=== PATIENT | male | born 1955 | race Caucasian/White ===

== ENCOUNTER 2021-12-17 09:32 | Outpatient (CLI) | payer BC, SELFPAY ==
[2021-12-17 09:43] LABS: Hematocrit 53.1 % (37.0-53.0); Hemoglobin* 17.2 gm/dL (13.5-17.5); Mean Corpuscular HGB Conc 32 gm/dL (32-36); Mean Corpuscular Hemoglobin 28 pg (26-34); Mean Corpuscular Volume 87 fL (80-100); Platelet Count* 212 K/uL (140-440); Red Blood Count 6.09 m/uL (4.30-5.90); White Blood Count* 7.23 K/uL (4.50-11.00)
[2021-12-17 09:46] LABS: Appearance Urine Clear (Clear); Bilirubin Urine Negative (Negative); Blood Urine Negative (Negative); Color Urine Yellow (Yellow); Glucose Urine Negative (Negative); Ketones Urine Negative (Negative); Leukocyte Esterase Urine Negative (Negative); Nitrite Urine Negative (Negative); Protein Urine Negative (Negative); Urobilinogen Urine 0.2 (0.2-1.0); pH Urine 6.5 (5.0-8.5)
[2021-12-17 09:48] LABS: Slide Review Reflex No
[2021-12-17 13:50] LABS: Albumin* 3.7 g/dL (3.3-5.0); Chloride* 106 mmol/L (96-114); Potassium* 4.8 mmol/L (3.6-5.1); Sodium* 139 mmol/L (135-149)
[2021-12-17 13:53] LABS: Blood Urea Nitrogen* 16 mg/dL (7-30); Carbon Dioxide* 26 mmol/L (20-32); Cholesterol* 151 mg/dL (90-199); Creatinine* 1.2 mg/dL (0.5-1.5); Estimated Glomerular Filt Rate 68 ml/min; Glucose* 111 mg/dL (60-115)
[2021-12-17 13:54] LABS: HDL Cholesterol* 34 mg/dL (>=40); LDL Cholesterol Calculated 91 mg/dL (<100); Phosphorus* 3.1 mg/dL (2.5-4.5); Triglycerides* 132 mg/dL (40-149); Uric Acid* 7.5 mg/dL (2.2-8.4)
[2021-12-17 14:06] LABS: Iron* 70 ug/dL (49-181)
[2021-12-17 14:16] LABS: Percent Iron Saturation 19 % (20-50); Total Iron Binding Capacity 363 ug/dL (261-462)
[2021-12-17 14:24] LABS: PSA Screen* 1.64 ng/mL (0.10-4.00)
[2021-12-17 16:14] LABS: Creatinine Urine 160.4 mg/dL
[2021-12-17 16:18] LABS: Microalbumin Creatinine Ratio 30 mg/g (0-30); Microalbumin Urine 5 mg/dL
== END 2021-12-17 09:33 | disposition home or self-care (01) ==
PROVIDERS: PCP Family Medicine; Visit Provider Internal Medicine Nephrology
DX: N02.8 Recurrent and persistent hematuria with other morphologic changes (principal); N18.9 Chronic kidney disease, unspecified
CPT/HCPCS: 80061; 80069; 81003; 82043; 82570; 82728; 83540; 83550; 84153; 84550; 85027

== ENCOUNTER 2022-06-07 08:37 | Emergency (ER) | payer BC, SELFPAY ==
[2022-06-07] VITALS (32 sets, daily range): BP systolic 143–182; BP diastolic 99–113; PULSE 90–114; RESP 16; TEMP 37.1; O2SAT 91–95; BMI 32.3
--- NOTE | 2022-06-07 09:14 | ED_ITS ---
HPI - General Adult General Time Seen by Provider: 09:14 Date Seen: 06/07/22 Chief complaint: Dizziness/Vertigo Stated complaint: Dizzy Time Seen by Provider: 06/07/22 09:13 Source: patient and RN notes reviewed Mode of arrival: ambulatory Limitations: no limitations History of Present Illness HPI narrative: Nash is a 66-year-old male coming in with episodes that concern him with a lightheaded or dizzy feeling and some visual changes. He admits that he is very anxious and is very in tune to symptoms with his body. He has IgA nephropathy and underlying hypertension. 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 He did have neck radiation and states his thyroid has been a bit off after the radiation. He last had his thyroid checked about 6 months ago at [facility]. He states 1 of the numbers was around 10, presumably this was his TSH. He notes that the 1st spell was about a month ago when he was at his 's business. He states he just felt lightheaded and almost like he was going to pass out. He checked his pulse in his pulse was normal. He notes his blood pressure usually runs high the 1st time he checks it and will then come down to 120/80. Before Dr. Schwartz left clinic, he states he was put on amlodipine 5 mg daily. Does not really notice much lower extremity edema with this. He recently took a half Viagra tablet in noted that made him feel lightheaded and maybe had a little vision changes. He states he has had or off for years which will be wavy lines. He had a spell recently where he was driving and was not necessarily the aura, his vision was just off. He is concerned about underlying stroke. He has never had any chest pain or shortness of breath with this. He states he has had stress tests, appropriate oncologic follow-up. Related Data Home Medications Medication Instructions Recorded Confirmed allopurinol 100 mg tablet 100 mg PO QDAY 12/07/21 06/07/22 amlodipine 5 mg tablet 5 mg PO QDAY 12/07/21 06/07/22 famotidine 20 mg tablet 20 mg PO BID 12/07/21 06/07/22 mometasone 50 mcg/actuation nasal 2 spray intranasal QDAY PRN 12/07/21 06/07/22 spray omega 6-ufp-sql-fish oil 1,000 mg 1 cap PO QDAY 12/07/21 06/07/22 (120 mg-180 mg) capsule (Fish Oil) sildenafil 100 mg tablet 100 mg PO QDAY PRN 12/07/21 06/07/22 simvastatin 10 mg tablet 10 mg PO .hs 12/07/21 06/07/22 lisinopril 20 mg tablet 20 mg PO QDAY 12/21/21 06/07/22 Allergies Allergy/AdvReac Type Severity Reaction Status Date / Time Penicillin v Allergy Intermediate Rash Uncoded 02/15/22 14:36 Sulfa drugs Allergy Mild Rash Uncoded 02/15/22 14:36 Review of Systems Status of ROS: Reports: 10 or more systems reviewed and unremarkable except as noted in History and below [facility] Medical History (Updated 06/07/22 @ 14:26 by Purvi Campbell MD) Concern about disease without diagnosis Helicobacter pylori infection (09/15/09) History of echocardiography (03/2016) Surgical History (Updated 12/09/21 @ 11:41 by Dhara Butler) History of tonsillectomy Family History (Updated 12/09/21 @ 11:44 by Dhara Butler) Brother Brain cancer Brother Cardiovascular disease Mother Cardiovascular disease Social History (Updated 12/09/21 @ 11:44 by Dhara Butler) Narrative: Smoking Status: Never smoker Do you use any of these nicotine containing products: None Second hand tobacco smoke exposure: No How often do you have a drink containing alcohol: never AUDIT-C Alcohol total score: 0 Non-prescribed substance use: denies use service: No Exam Const: Vital Signs, click to edit/add: Vital Signs - 24 hr 06/07/22 08:49 06/07/22 08:47 06/07/22 08:48 Temperature 98.7 F Pulse Rate 114 H 113 H Pulse Rate [Pulse Oximeter] 108 H Respiratory Rate Blood Pressure 182/111 H Blood Pressure [Le ft Upper Arm] 182/111 H Pulse Oximetry 95 95 95 Oxygen Delivery Or thod Room Air 06/07/22 08:53 06/07/22 09:00 06/07/22 09:02 Temperature Pulse Rate 109 H 104 H 104 H Pulse Rate [Pulse Oximeter] Respiratory Rate Blood Pressure 164/102 H 167/99 H Blood Pressure [Le ft Upper Arm] Pulse Oximetry 95 95 95 Oxygen Delivery Me thod 06/07/22 09:15 06/07/22 09:54 06/07/22 09:30 Temperature Pulse Rate 104 H 110 H Pulse Rate [Pulse Oximeter] Respiratory Rate Blood Pressure Blood Pressure [Le ft Upper Arm] Pulse Oximetry 95 95 94 Oxygen Delivery Me thod 06/07/22 09:32 06/07/22 09:45 06/07/22 10:00 Temperature Pulse Rate 101 H 103 H Pulse Rate [Pulse Oximeter] Respiratory Rate Blood Pressure 168/103 H Blood Pressure [Le ft Upper Arm] Pulse Oximetry 92 92 Oxygen Delivery Me thod 06/07/22 10:15 06/07/22 10:30 06/07/22 10:31 Temperature Pulse Rate 90 90 102 H Pulse Rate [Pulse Oximeter] Respiratory Rate Blood Pressure 152/100 H Blood Pressure [Le ft Upper Arm] Pulse Oximetry 94 94 93 Oxygen Delivery Me thod 06/07/22 10:45 06/07/22 11:00 06/07/22 11:02 Temperature Pulse Rate 91 106 H 94 Pulse Rate [Pulse Oximeter] Respiratory Rate Blood Pressure 154/99 H Blood Pressure [Le ft Upper Arm] Pulse Oximetry 93 92 92 Oxygen Delivery Me thod 06/07/22 11:03 06/07/22 12:04 06/07/22 12:06 Temperature Pulse Rate 96 95 98 Pulse Rate [Pulse Oximeter] Respiratory Rate Blood Pressure 152/113 H Blood Pressure [Le ft Upper Arm] Pulse Oximetry 91 93 92 Oxygen Delivery Me thod 06/07/22 12:15 06/07/22 12:30 06/07/22 12:32 Temperature Pulse Rate 94 106 H 97 Pulse Rate [Pulse Oximeter] Respiratory Rate Blood Pressure 161/104 H Blood Pressure [Le ft Upper Arm] Pulse Oximetry 92 92 94 Oxygen Delivery Me thod 06/07/22 12:45 06/07/22 13:00 06/07/22 13:02 Temperature Pulse Rate 106 H 97 94 Pulse Rate [Pulse Oximeter] Respiratory Rate Blood Pressure 164/100 H Blood Pressure [Le ft Upper Arm] Pulse Oximetry 92 93 93 Oxygen Delivery Me thod 06/07/22 13:15 06/07/22 13:20 06/07/22 13:30 Temperature Pulse Rate 106 H 98 93 Pulse Rate [Pulse Oximeter] Respiratory Rate Blood Pressure 143/108 H Blood Pressure [Le ft Upper Arm] Pulse Oximetry 91 94 93 Oxygen Delivery Me thod 06/07/22 13:31 06/07/22 13:45 Temperature Pulse Rate 96 102 H Pulse Rate [Pulse Oximeter] Respiratory Rate 16 Blood Pressure 143/106 H Blood Pressure [Le ft Upper Arm] Pulse Oximetry 92 91 Oxygen Delivery Me thod Common normals: no apparent distress, average body habitus, oriented x3, no limitations, healthy appearing and alert General appearance: cooperative, comfortable, well kempt and well developed Orientation/consciousness: Yes awake Other: Is certainly a very pleasant patient but does strike me as mildly anxious. HENMT: Common normals: normocephalic, head/scalp atraumatic, hearing grossly normal bilaterally, external ears normal, EAC's normal, TM's normal bilaterally (Does have some wax layering in the canals but can see to the TMs), external nose normal, nasal mucous membranes and turbinates normal, moist oral mucous membranes, oropharynx normal, dentition normal and gingiva normal Head and scalp: normocephalic and atraumatic Nose: external nose normal and nasal mucous membranes and turbinates normal External ear: external ears normal External auditory canal: EAC's normal Tympanic membrane: TM's normal bilaterally (Does have some wax layering in the canals but can see to the TMs) Eye: Common normals: PERRL, EOMs intact bilaterally, conjunctivae normal and no scleral icterus Conjunctiva: conjunctiva(e) normal Pupil: PERRL Neck & C-Spine: Common normals: full ROM, no lymphadenopathy, supple, no meningeal signs, no JVD and thyroid normal Thyroid: thyroid normal Resp: Common normals: normal respiratory effort, no retractions, no use of accessory muscles and clear to auscultation bilaterally Auscultation: clear to auscultation bilaterally Cardio: Common normals: no JVD, regular rate, regular rhythm, S1 normal heart sound, S2 normal heart sound, no gallops, no clicks and no murmurs Rate: regular rate Rhythm: regular rhythm Heart sounds: S1 normal and S2 normal GI: Common normals: Normal to inspection, nondistended, normoactive bowel sounds present, soft to palpation, non-tender, no hepatosplenomegaly and no masses Palpation: soft and no hepatosplenomegaly Extremity: Other: Very slight indentation of his sock lines but really no pitting edema of his lower extremities. Neuro: Common normals: oriented x3, CN's II-XII intact bilaterally, moves all extremities, no focal motor deficits, no sensory deficits noted and gait normal Sensorium/orientation: awake and alert Meningeal signs: no meningeal signs Coordination/balance: [id number] test normal and Normal rapid alternating movements of the distal upper extremity present (Neuro) Speech: speech normal Motor exam: strength 5/5 throughout, no pronator drift, no tremor noted, no asterixis, no fasciculations, muscle tone normal throughout and no movement abnormalities noted Coordination: [id number] test normal and rapid alternating movement UE normal Psych: Appearance: well kempt Course Course Hospital Course: Given patient's brief symptomatology but his significant underlying history, will proceed with an MRI of his brain noncontrast. If he has any underlying pathology, may need further workup or possibly neurologic consultation which I would have to call for. We will get appropriate labs. He is mildly tachycardic but do believe that could be driven by his anxiety. This does not seem like it is arrhythmia generated but still need to keep that in consideration. He is hemodynamically stable. Will review with him that the MRI will not happen until around 11:00 a.m. this morning. If there is changes in his status can obviously do a CT CTA if we become concerned. I think an MRI is going to be more diagnostic in his situation and give us better information. Reevaluation(s) Reevaluation #1: Reviewed with patient the MRI findings, possibility of changes with out contrast suggesting or unable to rule out of sinus venous thrombosis. Images have been pushed through to [facility], will await Neurology to look at these and consult on this. Reviewed with patient that I do not think that this is the likely diagnosis for him, he has been having no headaches. I think that this is probably incidental but I cannot do a CT venogram here and do not believe that I can do any venous MRI imaging for this at this time. He and I reviewed that his TSH is at 7.46, he believes this to be down from where was. We are still waiting the free T4 level. Reviewed with him if the free T4 level is in the normal range, would not likely recommend any immediate treatment. He states [facility] told him the same thing. The RN Nikia called back at 1:[address] Canas the stroke neurologist that was on-call requested that we contact whom we would refer or consult with for patients. Reviewed with the nurse that it is wherever really are referring to. We do not have Neurology here. She is going to try to call the neurologist back and see if he will briefly speak with me. Time: 13:13 Reevaluation #2: Have not been able to get through to Dr. Hernandez. We do not have a way to get this patient a CT venogram. I did speak with the neurologist from [facility] and he said ultimately to completely rule this out he would do a CT venogram. He in formally consult it, was quite clear that he was not formally consulting. He did understand my dilemma and understood my rationale for wanting to do this outpatient. I do not have the ability to do CT venogram here nor has this patient had any headaches. He has had 3 self-limited episodes that have all been a bit different, 1 associated with Viagra. I do not think he is having stroke pathology nor do I think his symptoms are financial services sales representative of a sinus venous thrombosis. He could have this incidentally and asymptomatically but would still require potential anticoagulation if that were the case. I do think this does warrant having the test done but at this time can be done in an outpatient setting in a close time frame. Patient is in agreement. He also understands that his free T4 is within normal range. Time: 14:26 Consultations Consultation #1: Called [facility], MRI pushed to them, they will call me back with neurology once images have been reviewed. Time: 13:02 Vital Signs Vital signs: Initial Vital Signs Pulse Rate 114 H 06/07/22 08:47 Pulse Oximetry 95 06/07/22 08:47 Vital Signs Pulse Rate 114 H 06/07/22 08:47 Pulse Oximetry 95 06/07/22 08:47 Temperature 98.7 F 06/07/22 08:49 Pulse Rate 102 H 06/07/22 13:45 Respiratory Rate 16 06/07/22 13:31 Blood Pressure 143/106 H 06/07/22 13:31 Pulse Oximetry 91 06/07/22 13:45 Oxygen Delivery Method 06/07/22 08:49 Medical Decision Making Lab Data Labs: Lab Results 06/07/22 06/07/22 06/07/22 Range/Units 09:48 09:48 09:48 WBC 8.57 (4.50-11.00) K/uL RBC 6.51 H (4.30-5.90) m/uL Hgb 18.4 H (13.5-17.5) gm/dL Hct 55.5 H (37.0-53.0) % MCV 85 (80-100) fL MCH 28 (26-34) pg MCHC 33 (32-36) gm/dL RDW Coeff of Sadia 13.7 (11.5-15.5) % Plt Count 218 (140-440) K/uL Neut % (Auto) 83.8 H (42.0-72.0) % Lymph % (Auto) 9.6 L (20-44) % [place] % (Auto) 5.4 (0.0-11.0) % Eos % (Auto) 0.8 (0.0-7.0) % Baso % (Auto) 0.2 (0.0-3.0) % Neut # (Auto) 7.20 H (1.7-7.0) K/uL Lymph # (Auto) 0.80 L (0.90-2.90) K/uL [place] # (Auto) 0.50 (0.00-0.90) K/UL Eos # (Auto) 0.07 (0.00-0.50) K/uL Baso # (Auto) 0.02 (0.00-0.30) K/uL Sodium 140 (135-149) mmol/L Potassium 4.2 (3.6-5.1) mmol/L Chloride 108 (96-114) mmol/L Carbon Dioxide 23 (20-32) mmol/L BUN 15 (7-30) mg/dL Creatinine 1.1 (0.5-1.5) mg/dL Estimated Creat Clear 76.67 Estimated GFR 75 ml/min Glucose 146 H (60-115) mg/dL Calcium 8.9 (8.4-10.6) mg/dL Magnesium 2.0 (1.5-2.6) mg/dL Total Bilirubin 0.6 (0.1-1.5) mg/dL AST 24 (12-35) U/L ALT 24 (4-50) U/L Alkaline Phosphatase 87 (40-150) U/L Troponin I < 0.01 L (0.01-0.04) ng/mL NT-Pro-B Natriuret Pep 34 pg/mL Total Protein 7.4 (6.0-8.3) g/dL Albumin 3.9 (3.3-5.0) g/dL TSH (0.270-4.200) uIU/mL Free T4 (0.70-1.85) ng/dL 06/07/22 06/07/22 Range/Units 09:48 09:48 WBC (4.50-11.00) K/uL RBC (4.30-5.90) m/uL Hgb (13.5-17.5) gm/dL Hct (37.0-53.0) % MCV (80-100) fL MCH (26-34) pg MCHC (32-36) gm/dL RDW Coeff of Sadia (11.5-15.5) % Plt Count (140-440) K/uL Neut % (Auto) (42.0-72.0) % Lymph % (Auto) (20-44) % [place] % (Auto) (0.0-11.0) % Eos % (Auto) (0.0-7.0) % Baso % (Auto) (0.0-3.0) % Neut # (Auto) (1.7-7.0) K/uL Lymph # (Auto) (0.90-2.90) K/uL [place] # (Auto) (0.00-0.90) K/UL Eos # (Auto) (0.00-0.50) K/uL Baso # (Auto) (0.00-0.30) K/uL Sodium (135-149) mmol/L Potassium (3.6-5.1) mmol/L Chloride (96-114) mmol/L Carbon Dioxide (20-32) mmol/L BUN (7-30) mg/dL Creatinine (0.5-1.5) mg/dL Estimated Creat Clear Estimated GFR ml/min Glucose (60-115) mg/dL Calcium (8.4-10.6) mg/dL Magnesium (1.5-2.6) mg/dL Total Bilirubin (0.1-1.5) mg/dL AST (12-35) U/L ALT (4-50) U/L Alkaline Phosphatase (40-150) U/L Troponin I (0.01-0.04) ng/mL NT-Pro-B Natriuret Pep pg/mL Total Protein (6.0-8.3) g/dL Albumin (3.3-5.0) g/dL TSH 7.460 H (0.270-4.200) uIU/mL Free T4 0.78 (0.70-1.85) ng/dL ECG Data Attestation: I personally reviewed and interpreted this ECG as follows: (Sinus tachycardia, 108 beats per minute, PVC seen. Flipped T-waves inferiorly with out significant ST segment changes.) Critical Care Time Critical Care Time Critical Care Time: No Discharge Plan Discharge Clinical Impression: Episodic lightheadedness, Visual changes Patient Disposition: Home, Self-Care Condition: Stable Instructions: Lightheadedness (ED), Blurred Vision (ED) Additional Instructions: Need to follow-up at [facility] as soon as you are able to, preferably within the next few days. Please call to make an appointment. I would request that they make a referral to get you scheduled for a CT venogram to completely rule out a sinus venous thrombosis. In the meantime, if you start developing headaches, have blurry vision or progressive visual changes, do need to be re-evaluated. As for your blood pressure, recommend getting scheduled for follow-up with Dr. Hernandez your obstetrics nurse. Activity Level: Activity as Tolerated Prescriptions: No Action allopurinol 100 mg tablet 100 mg PO QDAY amlodipine 5 mg tablet 5 mg PO QDAY sildenafil 100 mg tablet 100 mg PO QDAY PRN Rx Instructions: administer 30 minutes to 4 hours before activity famotidine 20 mg tablet 20 mg PO BID simvastatin 10 mg tablet 10 mg PO .hs mometasone 50 mcg/actuation spray,non-aerosol 2 spray intranasal QDAY PRN Rx Instructions: administer into each nostril omega 8-eag-fam-fish oil [Fish Oil] 1,000 mg (120 mg-180 mg) capsule 1 cap PO QDAY lisinopril 20 mg tablet 20 mg PO QDAY Follow Up/Referrals: Provider,Not a Local [Referring] - Stand Alone Forms: MyHealth Info Instructions
--- NOTE | 2022-06-07 09:32 | CRLHL7_ITS ---
For Patients: As a result of the Century Cures Act, medical imaging exams and procedure reports are released immediately into your electronic medical record. You may view this report before your referring provider. If you have questions, please contact your health care provider. INDICATION: Dizziness. TECHNIQUE: Brain MRI without contrast. The following sequences were obtained: Sagittal T1 weighted sequence. DWI and ADC mapping sequences. Axial FLAIR and FARHAD T2 weighted sequences. COMPARISON: None. FINDINGS: No evidence of acute ischemia. No evidence of acute or chronic intracranial blood products. Few scattered FLAIR hyperintensities within the supratentorial white matter, typical for chronic microvascular ischemic change. No mass effect or herniation. No hydrocephalus or extra-axial collections. The pituitary gland, parasellar structures and optic chiasm are normal. Posterior fossa is normal. Abnormal T1/T2/FLAIR hyperintensity within the left transverse sinus. Major intracranial flow voids also were normal. The orbital contents are normal. No calvarial or skull base marrow replacing process. No obstructive sinus disease. No extracranial soft tissue findings. IMPRESSION: 1. No acute ischemia or other acute intracranial pathology. 2. Abnormal signal within the left transverse sinus on all pulse sequences, which could be due to slow flow of the dural venous sinus thrombosis is not excluded. Consider contrast enhanced MR venogram or CT venogram for more complete assessment. 3. Minimal chronic microvascular ischemic changes. Dictated by Colin Sánchez MD @ 06/07/2022 12:41:56 PM (Electronically Signed)
[2022-06-07 10:01] LABS: Basophils Absolute Auto 0.02 K/uL (0.00-0.30); Basophils Percent Auto 0.2 % (0.0-3.0); Eosinophils Absolute Auto 0.07 K/uL (0.00-0.50); Eosinophils Percent Auto 0.8 % (0.0-7.0); Hematocrit 55.5 % (37.0-53.0); Hemoglobin* 18.4 gm/dL (13.5-17.5); Immature Granulocytes Abs Auto 0.02 K/uL (0.00-0.30); Immature Granulocytes Pct Auto 0.2 %; Lymphocytes Percent Auto 9.6 % (20-44); Mean Corpuscular HGB Conc 33 gm/dL (32-36); Mean Corpuscular Hemoglobin 28 pg (26-34); Mean Corpuscular Volume 85 fL (80-100); Monocytes Percent Auto 5.4 % (0.0-11.0); Neutrophils Percent Auto 83.8 % (42.0-72.0); Platelet Count* 218 K/uL (140-440); RDW Coefficient of Variation % 13.7 % (11.5-15.5); Red Blood Count 6.51 m/uL (4.30-5.90); White Blood Count* 8.57 K/uL (4.50-11.00)
[2022-06-07 10:11] LABS: Slide Review Reflex No
[2022-06-07 10:30] LABS: Albumin* 3.9 g/dL (3.3-5.0)
[2022-06-07 10:31] LABS: Chloride* 108 mmol/L (96-114); Potassium* 4.2 mmol/L (3.6-5.1); Sodium* 140 mmol/L (135-149)
[2022-06-07 10:33] LABS: Aspartate Amino Transferase* 24 U/L (12-35); Bilirubin Total* 0.6 mg/dL (0.1-1.5); Carbon Dioxide* 23 mmol/L (20-32); Creatinine* 1.1 mg/dL (0.5-1.5); Est. Creatinine Clearance* 76.67; Estimated Glomerular Filt Rate 75 ml/min
[2022-06-07 10:34] LABS: Alanine Aminotransferase* 24 U/L (4-50); Alkaline Phosphatase* 87 U/L (40-150); Blood Urea Nitrogen* 15 mg/dL (7-30); Calcium* 8.9 mg/dL (8.4-10.6); Glucose* 146 mg/dL (60-115); Total Protein* 7.4 g/dL (6.0-8.3)
[2022-06-07 10:41] LABS: NT Pro B Type NatriureticPept* 34 pg/mL
[2022-06-07 10:45] LABS: Troponin I* < 0.01 ng/mL (0.01-0.04)
--- NOTE | 2022-06-07 12:00 | PC.NURSE ---
Back from MRI.
[2022-06-07 13:30] LABS: Free T4 Free Thyroxine* 0.78 ng/dL (0.70-1.85)
--- NOTE | 2022-06-07 14:00 | PC.NURSE ---
okay to remove monitor and move to hallway due to bed space-
--- NOTE | 2022-06-07 14:38 | ED.NURSE ---
Patient discharged. All questions answered. left via ambulatory.
== END 2022-06-07 14:40 | disposition home or self-care (01) ==
PROVIDERS: Emergency Provider Family Medicine; PCP Family Medicine
DX: R42 Dizziness and giddiness (principal); H53.9 Unspecified visual disturbance
CPT/HCPCS: 36415; 70551; 80053; 83735; 83880; 84439; 84443; 84484; 85025; 93005; 94761; 99284; 99285

== ENCOUNTER 2022-06-30 07:57 | Outpatient (CLI) | payer BC, SELFPAY ==
[2022-06-30 13:43] LABS: Chloride* 105 mmol/L (96-114); Sodium* 140 mmol/L (135-149)
[2022-06-30 13:44] LABS: Potassium* 4.1 mmol/L (3.6-5.1)
[2022-06-30 13:46] LABS: Creatinine* 1.3 mg/dL (0.5-1.5); Estimated Glomerular Filt Rate 61 ml/min
[2022-06-30 13:47] LABS: Blood Urea Nitrogen* 20 mg/dL (7-30); Calcium* 9.8 mg/dL (8.4-10.6); Carbon Dioxide* 26 mmol/L (20-32); Glucose* 125 mg/dL (60-115)
== END 2022-06-30 07:58 | disposition home or self-care (01) ==
LOC: FRMREF 07:58
PROVIDERS: PCP Family Medicine; Visit Provider Family Medicine
DX: I10 Essential (primary) hypertension (principal); Z01.810 Encounter for preprocedural cardiovascular examination
CPT/HCPCS: 80048

== ENCOUNTER 2022-08-01 08:58 | Outpatient (CLI) | payer MEDICARE, BC, SELFPAY | END 2022-08-01 08:59 | disposition home or self-care (01) | PROVIDERS: PCP Family Medicine; Visit Provider Family Medicine | DX: Z01.818 Encounter for other preprocedural examination (principal); E03.9 Hypothyroidism, unspecified; M10.9 Gout, unspecified; R53.83 Other fatigue; N18.9 Chronic kidney disease, unspecified; D75.1 Secondary polycythemia; C10.9 Malignant neoplasm of oropharynx, unspecified; Z13.21 Encounter for screening for nutritional disorder; R42 Dizziness and giddiness | CPT/HCPCS: 80053; 82043; 82306; 82570; 82607 ==

== ENCOUNTER 2022-08-29 07:48 | Day surgery (SDC) | payer MEDICARE, BC, SELFPAY ==
[2022-08-29] VITALS (24 sets, daily range): BP systolic 126–155; BP diastolic 80–105; PULSE 62–100; RESP 14–16; TEMP 36.4–36.7; O2SAT 86–96; BMI 30.2
[2022-08-29] MEDS: LACTATED RINGERS 1000 ML 1,000 ML 100 ML IV ×2 (08:15→12:51)
[2022-08-29] MEDS: SODIUM CHLORIDE 0.9 % (FLUSH) 10 ML SYRINGE IVF (08:43)
[2022-08-29] MEDS: CLINDAMYCIN 900 MG/50 ML-D5W IVPB (09:44)
--- NOTE | 2022-08-29 12:15 | PM.GSPRC ---
Operative Note Date of procedure: 08/29/22 Pre-op diagnosis: 1. Left inguinal hernia 2. Umbilical hernia Post-op diagnosis: Same Type of Procedure: 1. Laparoscopic transabdominal preperitoneal inguinal hernia repair 2. Open umbilical hernia repair Indications: The patient is a 67-year-old male who has had a hernia for some years. This has become increasingly symptomatic for him and interfered with his activities. After discussion of options he has agreed to proceed with repair. Procedure Description: After discussing the risks and benefits of the procedure, the patient signed informed consent.? The operative site was marked and the patient was brought to the operating room and placed on the operating table in supine position.? Care was taken to pad the patient's pressure points.?? The patient was then intubated by anesthesia.?? The operative site was then prepped and draped in the usual sterile fashion.? A time-out was then performed. A curvilinear incision was made below the umbilicus. The umbilical hernia was encountered. The sac was opened and the peritoneal cavity entered. Through this a 10 mm port with a balloon was advanced and the abdomen was insufflated. There was a left inguinal hernia noted. Two working ports were placed in the right and left lower abdomen under direct vision. The patient was placed in Trendelenburg with left side up. I began by creating a peritoneal flap with cautery. This was done approximately 5 cm proximal to the hernia. This was done from the median umbilical ligament laterally. Once this was done a preperitoneal pocket was created using blunt dissection. A direct hernia was noted. This was reduced. It contained a large amount of fat. The sigmoid colon was noted to be adherent to the peritoneum at the site of the hernia however was not herniating out. The peritoneum was dissected off the cord structures. There was no indirect hernia noted. Cas's ligament and the pubic bone were exposed medially. Dissection was taken out laterally to ensure the mesh would fit. A piece of large Bard 3DMax mesh for the appropriate side was placed into the abdomen. This was positioned with the marker pointed medially. A Tacker was used to attach the mesh medially at Cas's ligament, anterior superior to the defect and 1 tack laterally with care to avoid the epigastric vessels and stay above the inguinal ligament. The peritoneal flap closed without tension using AV lock suture in a running fashion. The abdomen was then desufflated and the umbilical port removed and attention was turned to the umbilical hernia. There was a large amount of preperitoneal fat which had herniated out. This was divided using cautery as well as suture ligation. The fascial edges were cleaned and the hernia sac removed. Once this was done the hernia defect was measured. It was approximately 3 cm. Created a preperitoneal space, using cautery to dissect the preperitoneal fat away from the posterior fascia. Once this was done a piece of large Ventralex mesh was placed into the preperitoneal space and secured in place with 200 PDS suture. The fascia was closed over the top of the hernia using a running 0 Vicryl suture. The abdomen was then insufflated once again. An absorbable Tacker was used to cover the preperitoneal flaps over the mesh edges. Once this was completed the abdomen was desufflated and the ports were removed. The umbilicus was reapproximated to the fascia and The skin incisions were closed with absorbable subcuticular suture. Sterile dressings were then applied. The scrotum was examined to ensure that both testicles were down. Instrument sponge and needle counts were correct at the end of the case. ? The patient was then woken and transported to the recovery area in stable condition. ? The patient tolerated the procedure well. Findings: 1) 3 cm umbilical hernia containing preperitoneal fat. 2) Direct left inguinal hernia. Anesthesia: GETA Surgeon: Sheila Thomas MD Estimated blood loss (mL): 10 Condition: stable Disposition: PACU
--- NOTE | 2022-08-29 12:18 | W.ANESCHARGE ---
Anesthesia Charges Start Date/Time Anesthesia Start Date: 08/29/22 Anesthesia Start Time: 09:33 Stop Date/Time Anesthesia Stop Date: 08/29/22 Anesthesia Stop Time: 12:16
--- NOTE | 2022-08-29 12:23 | W.ANESCHARGE ---
Anesthesia Charges Start Date/Time Anesthesia Start Date: 08/29/22 Anesthesia Start Time: 09:33 Stop Date/Time Anesthesia Stop Date: 08/29/22 Anesthesia Stop Time: 12:16
[2022-08-29] MEDS: HYDROCODONE-ACETAMIN 5-325 MG 1 TAB PO (13:46)
== END 2022-08-29 14:56 | disposition home or self-care (01) ==
PROVIDERS: PCP Family Medicine; Visit Provider Surgery
PROC: 0WQF4ZZ Repair Abdominal Wall, Percutaneous Endoscopic Approach (ICD-10-PCS; CPT 49650; principal; 2022-08-29 09:15)
DX: K40.90 Unilateral inguinal hernia, without obstruction or gangrene, not specified as recurrent (principal); K42.9 Umbilical hernia without obstruction or gangrene
CPT/HCPCS: 49650; 49593; 00830; 00840; 00860; A9270; C1781; J0330; J1100; J2250; J2370; J2405; J2704; J2710; J3010; J3490; J7120; S0077

== ENCOUNTER 2022-10-13 14:00 | Outpatient (RCR) | payer BC, MEDICARE, SELFPAY ==
--- NOTE | 2022-06-28 18:34 | PT.OPE ---
PT [facility] Eval PT [facility] Start: 06/27/22 13:06 Freq: Status: Active Protocol: Document 06/27/22 13:06 BMS (Rec: 06/27/22 13:07 BMS [email or web address]) E-signed By Racquel Lopez PT Physical Therapy Outpatient Evaluation Insurance Information Recert Due Date 09/23/22 Insurance Name Other; See Comments Insurance Information/Comments [place] Provider Fax Number internal Medical Diagnosis R42 Dizziness and giddiness Treating Diagnosis dizziness and giddiness BPPV R cervicalgia Referring MD Nancy Guillory DO Subjective Subjective have had this off feeling off and on for years. this episode ~ 2 weeks, no known trigger. feels like have swimmers ear, and every morning wake up feeling like water in ear, clears after a little while but feels plugged all the time more or less. have had sleep apnea machine x 1 year and sleep on side. the wave of feeling off triggers anxiety and interferes w function, have had a couple of days feels like cant get off couch. am very active like to golf and was using stationary bike but thought that might be it. Functional limitations: looking up, bending neck down to read phone, neck pain, have to use furniture and wall for balance when is bad. also happens when I roll over in bed. went to [place] ED and they ran 2 brain CTs, checked the heart, feel like they were thorough and said it was dizziness. have to sit a minute before stand or walk or change positions. tinnitus increases in volume with increased unsteadiness and anxiety ramps up. have issues sometimes with travel and have airplane trip coming up . feel hearing has changed a little, no nausea or vomiting, no falls, do use furniture and wall for touch points. 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 after MT B = 60 SB WFL but tight on R shoulders WFL Strength MMT cervical flex, ext, B SB in neutral 5/5. Palpation soft tissue restrictions through R lateral neck near scar and into scalenes and SCM , palpable hypertonicity in area he reports spasms. vertebral mobility not assessed this date as focus was on dizziness Balance & Gait touchpoints on wall for balance occasionally, after session appeared more steady and did not need. recovery step upon first standing to catch balance, not in danger of falling but was off balance . Posture head forward, slight R tilt Other/Pertinent Objective + VOR horizontal very symptomatic immediately, nods tolerated 10reps, + VOR cancellation, + head thrust + R [place], + ant canal - B horizontal this date - smooth pursuits ok - saccade target shooting ok Functional Test Performed & Score DHI = 54 severe impairment Assessment Assessment/Impression Patient is very pleasant 66 y. o. male referred for dizziness and giddiness of ~ 2 week duration. He reports episodic lightheadedness and symptoms off and on for years, yet never lasted this long. Notes symptoms are worse with bed mobility and positional transitions jhonatan rolling in bed , sit to stand, lying to sit, bending forwardk, looking up and rapid head movements. Today tests positive for R posterior canalithiasis with nystagmus lasting nearly one minute. Did fatigue and after 3 rep nearly non existent. Patient does have restrictions through R lateral neck s/p surgical excision and radiation treatment for cancer ~ 5 years ago. He requests addition of this to current order, will fax order to provider for signature if she approves. After session patient noted significant improvement in symptoms including not feeling off balance, no fullness in ears and significantly reduced tinnitus. Patient is appropriate for skilled physical therapy to address recurrent and continued cervical and vertigo deficits. Plan of Care Rehabilitation Potential Good Rehabilitation Potential Comments limited cervical ROM and soft tissue restrictions through neck s/p surgical excision and 10x radiation due to stage IV cancer intermittent recurrent vestibular deficits, medical hx Physical Therapy Goals 1) Pt demo I w home program self care for vertigo and lightheadedness 2) Pt demo ability to change position without vestibular symptoms - including bending forward, looking down and rolling over in bed. 3) Pt demo ability to turn head and maintain gaze stabiliity 4) Pt demo ability to ambulate with normalized gait pattern without wall surfing for balance. Coordination/Communication With Referral Source Treatment Plan/Direct Interventions Canalith Repositioning, Electrical Stimulation,Manual Therapy,Neuromuscular Re-ed, Self-Care/Home Management, Therapeutic Activities, Therapeutic Exercises Frequency/Duration 1-2x/ week x 12 visits Patient Will Be Discharged From Therapy Completion of LTG(s),Skills Plateau,Independent w/HEP, Independently Progressing Evaluation Billing Untimed Code Treatment Minutes 35 Complexity Moderate Certification Information Initial Certification Date 06/27/22 Ending Certification Date 09/23/22 Provider Signature Shows Agreement With POC & Medical Necessity Physician Signature & Date Requested Please Sign/Date Here Physician Comment/Change : Physician NPI Number #[id number]
--- NOTE | 2022-10-06 16:03 | PT.OPDN ---
PT [facility] Out[facility] Daily Note PT [facility] Outpatient Daily Note Start: 06/27/22 13:06 Freq: Status: Active Protocol: Document 10/06/22 15:31 BMS (Rec: 10/06/22 15:35 BMS [email or web address]) E-signed By Racquel Lopez, PT PT OP Daily Progress Note Visit Information Note Type Daily Note,Recert/Progress Note Visit Number 10 Insurance Authorized Visits no auth nor visit limit per EMR Insurance Information Recert Due Date 10/25/22 Insurance Name Other; See Comments Insurance Information/Comments [employer] Medicaid products Medical Diagnosis R42 Dizziness and giddiness Treating Diagnosis dizziness and giddiness R42 BPPV R H81.10 cervicalgia M54.2 Referring MD Nancy Guillory DO Subjective Subjective to be honest havent really worked on the exercises too much past week or so- so much going on with HS senior. was able to get out and golf - neck hurts and is stiff but just a few tweaks of unsteady I noticed, not really even dizzy. 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 Date: 09/07/2022 Prepared by: Racquel Lopez Exercises - Seated Assisted Cervical Rotation with Towel - 1-2 x daily - 5 x weekly - 1-2 sets - 5-10 reps - 5-10 sec hold - Upper Cervical Extension SNAG with Strap - 1-2 x daily - 5 x weekly - 1-2 sets - 5- 10 reps - 5-10 sec hold Objective Other/Pertinent Objective before session: cervical rotation L=67 after = 72. R=60 , after R=65 Patient Instructed in Risks/Benefits Yes Manual Therapy Techniques Manual Therapy Minutes (minutes) 25 Manual Therapy Techniques STM MFR to entire cervical region in supine, trigger point release to R UT and levator in supine. up/down glides and MWM for rotation B. AA mobilizations grade III IV with eye motions to increase excursion. suboccipital release, pin and stretch R UT. manual stretches of B UT, levator and rotations. Neuromuscular Re-Ed Neuromuscular Reeducation Minutes ( 15 minutes) Neuromuscular Reeducation Comments -testing B posterior and horizontal canals (-) x2 each -VOR gaze stab x 1 seated nods and rotations increased speed x10 each - smooth pursuits and target shooting near/far x 10 - converge/diverge x 10 Treatment Minutes Timed Code Treatment Minutes 40 Total Treatment Time 40 Billing Units Manual Therapy Units 2 Neuromuscular Reeducation Units 1 Assessment/Impression Assessment/Impression Patient is 67 yo male referred to PT for dizziness and neck pain. He has improved over past 10 sessions from positional vertigo to now needing more of habituation and adaptation jhonatan to rapid changes in position and eye focus. ROM in neck is limited but on low border of normal - he does have residual tenderness and scar tissue noted in R side incision and irradiated tissue. He presents today also with trigger point in R UT and decreased AA rotation. Patient reports increased nativities getting ready for upcoming graduation and all of associated activities. Able to increase rotation x 5 degrees each side which significantly reduced patient discomfort this date. Therapist instructed patient to resume home program for VOR and gaze stab in progressively challenging positions (standing WBOS, NBOS , tandem, on airex) and is appropriate for 4-6 additional sessions to advance functional status. Plan of Care Physical Therapy Goals MET 1) Pt demo I w home program self care for vertigo and lightheadedness PROGRESSING 2) Pt demo ability to change position without vestibular symptoms - including bending forward, looking down and rolling over in bed. PROGRESSING 3) Pt demo ability to turn head and maintain gaze stabiliity MET 4) Pt demo ability to ambulate with normalized gait pattern without wall surfing for balance. Daily Plan of Care Continue per POC Recertification Information Recertification Start Date 10/06/22 Recertification Due Date 11/06/22 Reasons to Continue Skilled Therapy ongoing tenderness, limited tissue mobility and limited ROM in neck related to surgical excision of oropharyngeal cancer as well as radiation. 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 Rehabilitation Potential excellent Continued Plan of Care and Interventions TE, Neuro, MT TA selfcare, FURNITURE SANDER x 4-6 additional visits Provider Signature Shows Agreement With POC & Medical Necessity Physician Comment/Change Comment or Changes Physician NPI Number #
== END 2023-01-03 13:08 | disposition home or self-care (01) ==
PROVIDERS: PCP Family Medicine; Visit Provider Family Medicine
DX: H81.10 Benign paroxysmal vertigo, unspecified ear (principal); M54.2 Cervicalgia; Z51.89 Encounter for other specified aftercare
CPT/HCPCS: 97110; 97112; 97140; 97162

== ENCOUNTER 2022-12-22 07:30 | Outpatient (CLI) | payer MEDICARE, BC, SELFPAY | END 2022-12-22 07:31 | disposition home or self-care (01) | LOC: NFLDREF 12-23 06:29 | PROVIDERS: PCP Family Medicine; Referring Provider Family Medicine; Visit Provider Internal Medicine Nephrology | DX: I10 Essential (primary) hypertension (principal); N02.8 Recurrent and persistent hematuria with other morphologic changes; N18.9 Chronic kidney disease, unspecified; R53.83 Other fatigue; Z12.5 Encounter for screening for malignant neoplasm of prostate; M10.9 Gout, unspecified; E03.9 Hypothyroidism, unspecified | CPT/HCPCS: 80061; 80069; 82043; 82310; 82570; 82728; 83540; 83550; 83970; 84153; 84450; 84460; 84550 ==

== ENCOUNTER 2023-03-27 10:19 | Outpatient (CLI) | payer MEDICARE, BC, SELFPAY | END 2023-03-27 10:20 | disposition home or self-care (01) | PROVIDERS: PCP Family Medicine; Visit Provider Family Medicine | DX: Z01.818 Encounter for other preprocedural examination (principal); I10 Essential (primary) hypertension; N18.9 Chronic kidney disease, unspecified; E03.9 Hypothyroidism, unspecified; M10.9 Gout, unspecified; R53.83 Other fatigue | CPT/HCPCS: 80048; 84439; 84443 ==

== ENCOUNTER 2023-04-08 06:53 | Emergency (ER) | payer MEDICARE, BC, SELFPAY ==
[2023-04-08 07:11] VITALS: BP 122/110; PULSE 106; RESP 22; O2SAT 92
--- NOTE | 2023-04-08 07:38 | ED_ITS ---
HPI - General Adult General Chief complaint: Unspecified Complaint, Adult Stated complaint: cant swallow Time Seen by Provider: 04/08/23 07:28 History of Present Illness HPI narrative: Patient is a 67-year-old gentleman with history of head neck cancer 6 years ago who is being treated with oral thrush and esophageal candidiasis with Diflucan. He is having difficult time swallowing which is paroxysmal. He is concerned that he is losing too much weight and feels dehydrated. He has had no fevers no chills no night sweats. His oral thrush is improving. Patient comes in requesting an NG-tube placement. He shows no signs of cancer return. He states his other medical problems are stable and he has no other major complaints such as fevers chills night sweats abdominal pain changes bowel or bladder but does feel somewhat dehydrated. Related Data Home Medications Medication Instructions Recorded Confirmed allopurinol 100 mg tablet 100 mg PO QDAY 12/07/21 03/27/23 omega 0-hzu-nvn-fish oil 1,000 mg 1 cap PO QDAY 12/07/21 03/27/23 (120 mg-180 mg) capsule (Fish Oil) sildenafil 100 mg tablet 100 mg PO QDAY PRN 12/07/21 03/27/23 simvastatin 10 mg tablet 10 mg PO .hs 12/07/21 03/27/23 Previous Rx's Medication Instructions Recorded lisinopril 30 mg tablet 30 mg PO QDAY #90 tabs 08/11/22 famotidine 20 mg tablet 20 mg PO BID #180 tabs 03/09/23 Allergies Allergy/AdvReac Type Severity Reaction Status Date / Time penicillin V Allergy Rash Verified 03/27/23 10:05 Sulfa (Sulfonamide Allergy Rash Verified 03/27/23 10:05 Antibiotics) Review of Systems Status of ROS: Reports: 10 or more systems reviewed and unremarkable except as noted in History and below [facility] Medical History Wheezing ?R06.2 - Wheezing (ICD-10) Bronchitis ?J40 - Bronchitis, not specified as acute or chronic (ICD-10) 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) Hypothyroidism (acquired) ?E03.9 - Hypothyroidism, unspecified (ICD-10) Essential (primary) hypertension ?I10 - Essential (primary) hypertension (ICD-10) IgA nephropathy (09/15/09) ?N02.8 - Recurrent and persistent hematuria with other morphologic changes (ICD-10) History of echocardiography (03/2016) ?Z92.89 - Personal history of other medical treatment (ICD-10) Helicobacter pylori infection (09/15/09) ?A04.8 - Other specified bacterial intestinal infections (ICD-10) Gout ?M10.9 - Gout, unspecified (ICD-10) Fibrosis of lung ?J84.10 - Pulmonary fibrosis, unspecified (ICD-10) Concern about disease without diagnosis ?Z71.1 - Person with feared health complaint in whom no diagnosis is made (ICD-10) Chronic kidney disease ?N18.9 - Chronic kidney disease, unspecified (ICD-10) Carcinoma of oropharynx ?C10.9 - Malignant neoplasm of oropharynx, unspecified (ICD-10) Surgical History S/P left inguinal hernia repair ?Z98.890 - Other specified postprocedural states (ICD-10) ?Z87.19 - Personal history of other diseases of the digestive system (ICD-10) History of umbilical hernia repair ?Z98.890 - Other specified postprocedural states (ICD-10) ?Z87.19 - Personal history of other diseases of the digestive system (ICD-10) History of tonsillectomy ?Z90.89 - Acquired absence of other organs (ICD-10) Family History Brother Brain cancer Brother Cardiovascular disease Mother Cardiovascular disease Social History (Updated 12/09/21 @ 11:44 by Dhara Butler) Narrative: Smoking Status: Never smoker Do you use any of these nicotine containing products: None Second hand tobacco smoke exposure: No How often do you have a drink containing alcohol: never How often do you have six or more drinks on one occasion: Never AUDIT-C Alcohol total score: 0 Non-prescribed substance use: denies use Little interest or pleasure in doing things: not at all Feeling down, depressed, or hopeless: several days service: No Exam Narrative: Exam Narrative: EXAM GENERAL: Patient appears comfortable and well. Oral thrush noted. EYES: No scleral icterus. LYMPH: No supraclavicular or cervical lymphadenopathy. SKIN: Visible skin seen during exam normal or with benign process only. EXT: No dependent lower extremity pedal edema. HEART: Regular rate and rhythm with no murmurs, rubs, or gallops. LUNGS: Clear to auscultation bilaterally with no crackles or wheezes. ABD: Soft, non tender, non distended. PSYCH: Good eye contact, speech is not pressured. Const: Vital Signs, click to edit/add: Vital Signs - 24 hr 04/08/23 07:11 Pulse Rate [Right Pulse Oximeter] 106 H Respiratory Rate 22 Blood Pressure [Le ft Upper Arm] 122/110 H Pulse Oximetry 92 Oxygen Delivery Me thod Room Air Course Course ED Course: Patient seen and examined. Vital Signs Vital signs: Initial Vital Signs Pulse Rate 106 H 04/08/23 07:11 Respiratory Rate 22 04/08/23 07:11 Blood Pressure 122/110 H 04/08/23 07:11 Blood Pressure Mean 114 H 04/08/23 07:11 Blood Pressure Position Sitting 04/08/23 07:11 Pulse Oximetry 92 04/08/23 07:11 Oxygen Delivery Method Room Air 04/08/23 07:11 Vital Signs Pulse Rate 106 H 04/08/23 07:11 Respiratory Rate 22 04/08/23 07:11 Blood Pressure 122/110 H 04/08/23 07:11 Pulse Oximetry 92 04/08/23 07:11 Oxygen Delivery Method Room Air 04/08/23 07:11 Pulse Rate 106 H 04/08/23 07:11 Respiratory Rate 22 04/08/23 07:11 Blood Pressure 122/110 H 04/08/23 07:11 Pulse Oximetry 92 04/08/23 07:11 Oxygen Delivery Method Room Air 04/08/23 07:11 Medical Decision Making MDM Narrative Medical decision making narrative: Patient is a 67-year-old gentleman who presents with painful swallowing as result of esophageal and oral candidiasis. He is currently being treated with Diflucan. His oral thrush seems to be improving. He comes in requesting a feeding to so he can stay hydrated. I explained that seems like a large LEEP. He is agreeable to receiving IV fluids and following up with General surgery this week to discuss his symptoms. I do suspect that with time his dysphagia will improve with treatment and he will no longer be interested in a feeding to. We will address his dehydration today. I do not believe any lab work is necessary. He will be in followup with General surgery. Differential Diagnosis Differential Diagnosis: Candidiasis,, esophageal tumor, dysphagia, oral leukoplakia Discharge Plan Discharge Clinical Impression: Thrush Patient Disposition: Home, Self-Care Condition: Stable Instructions: Oral Candidiasis (ED) Additional Instructions: Continue current management Follow-up with general surgery this coming week. Call for appointment. Activity Level: No Restrictions Discharge Diet: Regular Prescriptions: No Action allopurinol 100 mg tablet 100 mg PO QDAY sildenafil 100 mg tablet 100 mg PO QDAY PRN Rx Instructions: administer 30 minutes to 4 hours before activity simvastatin 10 mg tablet 10 mg PO .hs omega 5-jdi-bpl-fish oil [Fish Oil] 1,000 mg (120 mg-180 mg) capsule 1 cap PO QDAY lisinopril 30 mg tablet 30 mg PO QDAY Qty: 90 3RF famotidine 20 mg tablet 20 mg PO BID Qty: 180 0RF Follow Up/Referrals: Nancy Guillory DO [Primary Care Provider] - Stand Alone Forms: [employer] Info Instructions
[2023-04-08] MEDS: 0.9 % SODIUM CHLORIDE 1000 ml 1,000 ML IV (07:58)
[2023-04-08 08:15] VITALS: BP 123/82; PULSE 94; TEMP 36.6; O2SAT 94
== END 2023-04-08 08:32 | disposition home or self-care (01) ==
LOC: ED 08:03
PROVIDERS: Emergency Provider Internal Medicine; PCP Family Medicine
DX: B37.0 Candidal stomatitis (principal)
CPT/HCPCS: 99283; J7030

== ENCOUNTER 2023-04-15 09:53 | Outpatient (CLI) | payer MEDICARE, BC, SELFPAY ==
[2023-04-15] MEDS: SODIUM CHLORIDE 0.9 % (FLUSH) 10 ML SYRINGE 5 ML IVF (13:11)
[2023-04-15] MEDS: LACTATED RINGERS 1000 ML 1,000 ML IV (13:11)
[2023-04-15 13:15] VITALS: BP 140/102; RESP 18; TEMP 36.6; O2SAT 97
== END 2023-04-15 13:19 | disposition home or self-care (01) ==
LOC: LAB 09:54 → MEDSURG 09:57 → LAB 13:19
PROVIDERS: PCP Family Medicine; Visit Provider Family Medicine
DX: B37.0 Candidal stomatitis (principal)
CPT/HCPCS: 96365; J7120

== ENCOUNTER 2023-04-19 08:00 | Outpatient (RCR) | payer MEDICARE, BC, SELFPAY ==
[2023-04-11] MEDS: LACTATED RINGERS 1000 ML 1,000 ML IV (13:50)
[2023-04-12 13:38] VITALS: BP 117/70; PULSE 111; RESP 16; TEMP 36; O2SAT 92
[2023-04-12] MEDS: 0.9 % SODIUM CHLORIDE 1000 ml 1,000 ML IV (13:58)
[2023-04-13] MEDS: 0.9 % SODIUM CHLORIDE 1000 ml 1,000 ML IV (14:00)
[2023-04-13 15:00] VITALS: BP 145/100; PULSE 95; RESP 16; TEMP 36.1; O2SAT 96
[2023-04-13] MEDS: SODIUM CHLORIDE 0.9 % (FLUSH) 10 ML SYRINGE IVF (15:18)
[2023-04-14 14:07] VITALS: BP 148/96; PULSE 84; RESP 16; TEMP 35.7; O2SAT 95
[2023-04-14] MEDS: 0.9 % SODIUM CHLORIDE 1000 ml 1,000 ML IV (14:20)
[2023-04-14] MEDS: SODIUM CHLORIDE 0.9 % (FLUSH) 10 ML SYRINGE IVF ×2 (14:20→15:35)
[2023-04-16] MEDS: 0.9 % SODIUM CHLORIDE 1000 ml 1,000 ML IV (10:06)
[2023-04-17] MEDS: LACTATED RINGERS 1000 ML 1,000 ML IV (15:28)
[2023-04-17 16:39] VITALS: BP 147/91; PULSE 77; RESP 16; O2SAT 96
--- NOTE | 2023-04-17 16:43 | PC.NURSE ---
22 guage IV started in R FA. 1L LR administered. Saline locked and kept in for [facility] appointment on 03/19/23.
[2023-04-18 11:15] VITALS: BP 147/107; PULSE 75; RESP 16; TEMP 36.1; O2SAT 93
[2023-04-18] MEDS: LACTATED RINGERS 1000 ML 1,000 ML IV (11:25)
[2023-04-18] MEDS: SODIUM CHLORIDE 0.9 % (FLUSH) 10 ML SYRINGE IVF (11:25)
[2023-04-19 08:08] VITALS: BP 131/95; PULSE 91; RESP 16; TEMP 36.3; O2SAT 93
[2023-04-19] MEDS: LACTATED RINGERS 1000 ML 1,000 ML IV (08:08)
== END 2023-10-08 23:59 | disposition home or self-care (01) ==
LOC: CCIC 08:00
PROVIDERS: PCP Family Medicine; Referring Provider Family Medicine; Visit Provider Clinical Nurse Specialist
DX: E86.0 Dehydration (principal)
CPT/HCPCS: 96360; 96365; 96409; 99211; J7030; J7120

== ENCOUNTER 2023-05-12 07:22 | Outpatient (REF) | payer MEDICARE, BC, SELFPAY ==
--- OUTSIDE RECORDS SUMMARY | 2023-05-22 12:26 | XMS_ITS | Data Portability ---
Author Name Unknown Address [address] [place] [address] Phone [phone] Organization [facility], [facility] Address [address] [place] [address] Assessment No assessment recorded. Plan of Treatment Reminders Order Date Submit Date Provider Last Modified By Organization Details Last Modified Time Details Appointments None recorded. Lab None recorded. Referral None recorded. Procedures None recorded. Surgeries None recorded. Imaging None recorded. Medication Orders tadalafil 20 mg tablet 2021 022 [facility], [place], [id number], [address] [facility], [place], [address], 14:14:32 Patient TargetsNo targets recorded. Patient InstructionsNo instructions recorded. Reason for Referral None Reported. Procedures Surgical History Date Name Laterality Status Provider Name and Address Organization Details Recorded Time tonsillectomy completed Jaoquin Muhammad MD [address] [facility],[address], [place], [address], [facility] 02/14/2022 13:51:43 Imaging Results None recorded. Procedure Notes None recorded. Medical Equipment None Reported. Allergies Allergen ID Allergen Name Allergen Category Reaction Reaction Severity Criticality Documentation Date Start Date Code Code System Note Provider Name and Address Organization Details Recorded Time [id number] Medicinal product containin g penicilli n and acting as antibacte rial agent (product) medicatio n Not available Not available Not available 02/14/2022 47598 05 SNOMED Joaquin Muhammad MD [address] [facility],[address], [place], [address], [facility] 13:50:20 [id number] amoxicill in medicatio n Not available Not available Not available 02/14/2022 723 [facility] Joaquin Muhammad MD [address] [place], [place] [phone] , [facility] 13:50:28 Medications Name Sig Start Date Stop Date Status Note LastModified by Organization Details LastModified Time lisinopril 20 mg tablet TAKE 1 TABLET BY MOUTH DAILY active Not Available Not Available No t Available prednisone 20 mg tablet 02/14 completed Not Available Not Available Not Available simvastatin 10 mg tablet TAKE 1 TABLET BY MOUTH EVERY NIGHT AT BEDTIME active Not Available Not Available No t Available amlodipine 5 mg tablet TAKE 1 TABLET BY MOUTH DAILY active Not Available Not Available No t Available allopurinol 100 mg tablet TAKE 1 TABLET BY MOUTH DAILY active Not Available Not Available No t Available famotidine 20 mg tablet active Not Available Not Available Not Available lisinopril 10 mg tablet 02/14 completed Not Available Not Available Not Available tadalafil 20 mg tablet TAKE ONE TABLET BY MOUTH NEEDED active Not Available Not Available No t Available Vitals Date Recorded Body height Body mass index (BMI) Body weight Provider Name and Address Organization Details Last Updated DateTime 02/14/2022 185.42 cm 29 kg/m2 39897.32 g Joaquin Muhammad MD [address] [place] [address],[place] [phone] [place] [address] Urology 02/14/2022 13:49:56 Social History Question Answer Notes LastModified by Organizat ion Details LastModified Time Tobacco Smoking Status Never Smoker Joaquin Muhammad MD [address] [place] [address],[address], [address], [facility] 02/14/2022 13:51:19 What Is Your Level Of Alcohol Consumption? None Information not available 02/14/2022 What Is Your Level Of Caffeine Consumption? None Information not available 02/14/2022 What Was The Date Of Your Most Recent Tobacco Screening? 02/14/2022 Information not available 02/14/2022 Do You Use Any Illicit Or Recreational Drugs? No Information not available 02/14/2022 Sex: Male Functional Status None recorded. Mental Status None recorded. Family History Nothing Reported. Medical History Condition Response Cancer Y High Cholesterol Y Past Encounters Encounter ID Performer Location Encounter Start Date Encounter Closed Date Diagnosis/Indication [id number] Joaquin Muhammad MD [facility] [address] [place] [address] 02/14/2022 13:35:57 02/16/2022 16:29:29 Primary erectile dysfunction Health Concerns Section Related Observation LastModified by Organization Detai ls LastModified Time None Recorded Concern Status LastModified by Organization Details LastModified Time None Recorded Advance Directives Directive None Recorded Payers Encounter Date Sequence Insurance Name Policy Number Policy Stein Covered Member ID Stein Member ID Guarantor Name 02/14/2022 1 *SELF PAY* Chavez Segovia Notes Date Note Type Note Provider Name and Address Organization Details Recorded Time 02/14/2022 text/html HPI Notes: 66 yo male with history of HTN, hyperlipidemia, CKD (stage 3), LLUVIA and 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 No Family Hx of prostate cancer. He reports difficulty maintaining erections for over 2 years. He reports occasion morning erections - denies pain or curvature with erections. He use Viagra 50 mg prn (helps with erections, but causes light-sensitivity). He voids every 2-3 hours during the day and 0x/night. ___ PSA - 1.5 (2021) Joaquin Muhammad MD [address] [place] [address],[address], [place], [address], [facility] 02/14/2022 22:23:57
--- OUTSIDE RECORDS SUMMARY | 2023-05-22 12:26 | XMS_ITS | Clinical Summary ---
Author Name Unknown Organization [facility] Address [address] [place] [address] Care Team Providers Care Casing Soaker Name Role Phone Elsewhere, Pcp Primary Care Provider Unavailabl e Source Comments Patient records contain information from all sites at [facility]. For routine questions regarding patient records, call [phone] during business hours, M-F 8:00 AM - 5:00 PM Central Time. Record requests for emergency care only can be directed to [phone] at any time.[facility] Allergies Active Allergy Reactions Criticality Noted Date Comments Penicillins Other (see comments),Rash Medium 1 unknown Sulfa (Sulfonamide Antibiotics) Other (see comments),Rash Medium 01/26/2011 unknown Medications Medication Sig Dispensed Refills Start Date End Date Status omega 7-yjx-pjm-fish oil 1,000 mg (120 mg-180 mg) capsule Take 1 capsule by mouth at bedtime. 0 04/14/2017 Active famotidine (PEPCID) 20 mg tablet TAKE 2 TABLETS(40 MG) BY MOUTH DAILY 180 tablet 3 01/21/2022 Active Additional Information Patient taking differently: 20 mg 2 times daily, Reported on 2022 meclizine (ANTIVERT) 25 mg tablet Take 25 mg by mouth as needed. 0 06/15/2022 Active fluoride, sodium, (PreviDent) 1.1 % gel dental gel Apply 1 application to the mouth or throat daily. 56 g 11 08/11/2022 Active lisinopriL (PRINIVIL,ZESTRIL ) 30 mg tabletIndications :Hypertension And Chronic Kidney Disease Stage 1 To 4 Take 1 tablet (30 mg total) by mouth daily. 90 tablet 3 12/26/2022 12/26/2023 Active simvastatin (ZOCOR) 10 mg tabletIndications :Hyperlipidemia Take 1 tablet (10 mg total) by mouth at bedtime. 90 tablet 3 12/26/2022 12/26/2023 Active tadalafiL (CIALIS) 10 mg tablet Take 1 tablet (10 mg total) by mouth daily. 90 tablet 3 12/26/2022 12/26/2023 Active allopurinoL (ZYLOPRIM) 100 mg tablet Take 1 tablet (100 mg total) by mouth daily. 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 on 11/17/2021 Hyperlipidemia 05/28/2015 Hypertensive Chronic Kidney Disease (CKD) Stage 3a Glomerular Filtration Rate (GFR) 45 To 59 02/02/2011 Encounters Date Type Department Care Team Description 05/19/2023 1:30 PM SUPERVISOR PAIRING [employer] INSPECTING Telemedicine Division of Thoracic Surgery in [place], [place] [address] [place] [address] Akosua Shaffer M.D. Achalasia 05/18/2023 Clinical Communication Division of Thoracic Surgery in [place], [place] [address] [place] [address] Akosua Shaffer M.D. 04/22/2023 Nurse Triage Department of Family Medicine, [facility], in [address] [phone] Darlene Chávez R.N. infusion request 04/21/2023 11:59 PM SUPERVISOR PAIRING AND INSPECTING Hospital Encounter Division of Gastroenterology in [place], [place] [address] [place] [phone] Kandice Wilkins APRN, C.N.P. Canceled (Clinic: Earlier Appointment) Discharge Disposition: Home or Self Care 04/21/2023 Documentation Division of Gastroenterology in [place], [place] [address] [place] [phone] Tulio Greene M.D. 04/21/2023 Orders Only Division of Gastroenterology in [address] [phone] Tulio Greene M.D. Achalasia (Primary Dx) 04/20/2023 2:29 PM SUPERVISOR [employer]IRING [employer] INSPECTING Anesthesia Event Division of Gastroenterology in [address] [phone] Conrad Quintana APRN, ASTRID, D.N.PSofi Dodson M.D. 04/20/2023 2:10 PM SUPERVISOR [employer]IRING [employer] INSPECTING Ancillary Procedure Department of Gastroenterology 04/20/2023 1:17 PM SU[employer]OR [employer]IRING [employer] INSPECTING - 04/20/2023 4:42 PM SUPERVISOR [employer]IRING [employer] INSPECTING Hospital Encounter Division of Gastroenterology in [address] [phone] Tulio Greene M.D. Hassan, Mubarak A, APRN, ASTRID, DNAP Achalasia Discharge Disposition: Home or Self Care 04/19/2023 1:33 PM SUPERVISOR [employer]IRING [employer] INSPECTING - 04/19/2023 11:59 PM SUPERVISOR PAIRING [employer] INSPECTING Hospital Encounter Division of Gastroenterology in [place], [place] [address] [place] [phone] Kandice Wilkins APRN, C.N.P. Dysphagia Oropharyngeal Phase; Achalasia Discharge Disposition: Home or Self Care 04/18/2023 Documentation Division of Endocrinology in [place], [place] [address] [place] [phone] Marilee Slaughter R.N. Scheduling 04/17/2023 9:40 AM SUPERVISOR [employer]IRING [employer] INSPECTING Education Division of Gastroenterology in [place], [place] [address] [place] [phone] Kandice Wilkins APRN, C.N.P. Lamar Mora R.N. Dysphagia Oropharyngeal Phase; Achalasia 04/17/2023 9:00 AM SUPER[employer]OR [employer]IRING [employer] INSPECTING Comprehensive Visit Division of Gastroenterology in [place], [place] [address] [place] [phone] Kandice Wilkins APRN, C.N.P. Tulio Greene M.D. Malnutrition Severe Protein-Calorie (HCC) (Primary Dx); Dysphagia Oropharyngeal Phase; Achalasia 04/05/2023 Documentation Department of Otorhinolaryngology in [place], [place] [address] [place] [phone] Kandice Wilkins APRN, C.N.P. 03/30/2023 Orders Only Department of Otorhinolaryngology in [place], [place] [address] [place] [phone] Kandice Wilkins APRN, C.N.P. Dysphagia Oropharyngeal Phase (Primary Dx); Achalasia 03/29/2023 8:04 AM SUPERVISOR [employer]IRING [employer] INSPECTING Anesthesia Event Division of Gastroenterology in [address] [phone] Enrique Villa APRN, ASTRID, D.N.P. 03/29/2023 7:50 AM SUPERVISOR [employer]IRING [employer] INSPECTING Ancillary Procedure Department of Gastroenterology 03/29/2023 6:54 AM SUPERVISOR [employer]IRING [employer] INSPECTING - 03/29/2023 10:20 AM SUPERVISOR [employer]IRING AND INSPECTING Hospital Encounter Division of Gastroenterology in [address] [phone] Kandice Wilkins APRN, C.N.P. Malignant Neoplasm Of Tonsil (HCC); Dysphagia Oropharyngeal Phase Discharge Disposition: Home or Self Care 03/27/2023 Clinical Communication Division of Nephrology and Hypertension in [place], [place] [address] [place] [phone] Chester Hernandez Jr., D.O. Results 03/24/2023 7:36 AM SUPERVISOR [employer]IRING [employer] INSPECTING - 03/24/2023 3:30 PM SUPERVISOR PAIRING AND INSPECTING Emergency [facility] Emergency Department [address] [place] [phone] Christian Shabazz M.D. Dysphagia (Primary Dx); Failure Renal Acute (Acute Kidney Injury) (HCC); Stricture Esophagus; Loss Weight Abnormal; Dehydration Discharge Disposition: Home or Self Care 03/22/2023 Clinical Communication Department of Otorhinolaryngology in [address] [phone] Kandice Wilkins APRN, C.N.P. Would like testing locally; Upper GI Results 03/21/2023 Documentation Department of Otorhinolaryngology in [address] [phone] Kandice Wilkins APRN, C.N.P. 03/20/2023 Clinical Communication Department of Otorhinolaryngology in [place], [place] [address] [place] [phone] Kandice Wilkins APRN, C.N.P. Phone call 03/16/2023 Orders Only Department of Otorhinolaryngology in [address] [phone] Kandice Wilkins APRN, C.N.P. Malignant Neoplasm Of Tonsil (HCC) (Primary Dx); Dysphagia Oropharyngeal Phase 03/15/2023 9:53 AM CDT - 03/15/2023 11:59 PM CDT Hospital Encounter Department of Radiology, [facility], in [place], [place] [address] [place] [phone] Kandice Wilkins APRN, C.N.P. Araseli Hollingsworth M.S., [facility]-RATING EXAMINER Dysphagia; Malignant Neoplasm Of Tonsil (HCC) Discharge Disposition: Home or Self Care 03/15/2023 9:30 AM CDT Comprehensive Visit Department of Neurology in [place], [place] [address] [place] [phone] Kandice Wilkins APRN, C.N.P. Araseli Hollingsworth M.S., CCC-RATING EXAMINER Dysphagia Oropharyngeal Phase (Primary Dx); Dysphagia; Malignant Neoplasm Of Tonsil (HCC) 03/06/2023 Orders Only Department of Otorhinolaryngology in [place], [place] [address] [place] [phone] Kandice Wilkins APRN, C.N.P. Dysphagia (Primary Dx); Malignant Neoplasm Of Tonsil (HCC) 03/03/2023 Clinical Communication Department of Otorhinolaryngology in [place], [place] [address] [place] [phone] Kandice Wilkins APRN, C.N.P. Swallow study? from Last 3 Months Family History Medical History Relation Name Comments Hypertension Maternal Grandmother Sumeet Segovia Relation Name Status Comments Maternal Grandmother Sumeet Segovia Social History Tobacco Use Types Packs/Day Years Used Date Smoking Tobacco: Never Smokeless Tobacco: Never Tobacco Cessation:Counseling Given: Not Answered Alcohol Use Standard Drinks/Week Comments No 0 (1 standard drink = 0.6 oz pur e alcohol) Humiliation, Afraid, Rape, and Kick questionnair e Answer Date Recorded Within the last year, have y ou been afraid of your partner or ex-partner? No 05/20/2021 Within the last year, have y ou been humiliated or emotionally abused in other ways by your partner or ex-partner? No Within the last year, have y ou been kicked, hit, slapped, or otherwise physically hurt by your partner or ex-partner? No 05/20/2021 Within the last year, have y ou been raped or forced to have any kind of sexual activity by your partner or ex-partner? No 05/20/2021 Social Connection and Isolat ion Panel [NHANES] Answer Date Recorded In a typical week, how many times do you talk on the phone with family, friends, or neighbors? More than three times a week 05/20/2021 How often do you get togethe r with friends or relatives? Three times a week 05/20/2021 How often do you attend [facility] or [facility] services? More than 4 times per year 05/20/2021 Do you belong to any clubs o r organizations such as spiritism groups, unions, fraternal or athletic groups, or school groups? Yes 05/20/2021 How often do you attend meet ings of the clubs or organizations you belong to? More than 4 times per year 05/20/2021 Are you , , di vorced, , never , or living with a partner? 05/20/2021 AUDIT-C Answer Date Recorded Q1: How often do you have a drink containing alc ohol? Never 05/20/2021 Average Number of Drinks Not on file 022 Frequency of Binge Drinking Not on file 10/2021 Overall Financial Resource Strain (CARDIA) Answe r Date Recorded How hard is it for you to pa y for the very basics like food, housing, medical care, and heating? Not hard at all 03/06/2023 [facility] - Occupational Stress Questionnaire Answer Date Recorded Do you feel stress - tense, restless, nervous, or anxious, or unable to sleep at night because your mind is troubled all the time - these days? Only a little 05/20/2021 Exercise Vital Sign Answer Date Recorde d On average, how many days pe r week do you engage in moderate to strenuous exercise (like a brisk walk)? 5 days 03/06/2023 On average, how many minutes do you engage in exercise at this level? 20 min 03/06/2023 Hunger Vital Sign Answer Date Recorded Within the past 12 months, y ou worried that your food would run out before you got the money to buy more. Never true 03/06/20 Within the past 12 months, t he food you bought just didn't last and you didn't have money to get more. Never true 03/06/2023 PRAPARE - Transportation Answer Date Re corded In the past 12 months, has l ack of transportation kept you from medical appointments or from getting medications? No 02/13 In the past 12 months, has l ack of transportation kept you from meetings, work, or from getting things needed for daily living? No 03/06/2023 Nutrition Answer Date Recorded Nutrition: EVOO Fat Source No 03/06 On average, how many serving s of fruits and vegetables do you eat per day (serving size is equal to 1 cup or approximately the size of a tennis ball)? 0-2 03/06/2023 Dental Answer Date Recorded Dental: Regular Dentist Yes 12/16/19 Employment Answer Date Recorded Employment status Retired 03/06/2023 Housing Stability Answer Date Recorded What is your living situation today? I have a [facility] place to live 03/06/2023 Education Answer Date Recorded What is the highest level of school you have completed or the highest degree you have received? Bachelor's degree (e.g., BA, AB, BS) 09/27/2019 Sex and Gender Information Value Date Recorded Sex Assigned at Male 12/12/2017 9:23 AM CDT Gender Identity Male 12/12/2017 9:23 AM CDT Sexual Orientation Straight 12/12/2017 9: 23 AM CDT Last Filed Vital Signs Vital Sign Reading Time Taken Comments Blood Pressure 141/95 04/20/2023 4:23 PM [employer]PECTING Pulse 75 04/20/2023 4:28 PM SUPERVISOR [employer]IRING [employer] INSPECTING Temperature 36.6 ??C (97.9 ??F) 04/20/2023 3:18 PM CS T Respiratory Rate 18 04/20/2023 4:28 PM SUPER[employer]OR [employer]IRING [employer] INSPECTING Oxygen Saturation 95% 04/20/2023 4:28 PM SUPERVISOR [employer]IRING [employer] INSPECTING Inhaled Oxygen Concentration - - Weight 95.3 kg (210 lb) 03/29/2023 7:18 AM SUPERVISOR [employer]IRING [employer] INSPECTING Height 185.4 cm (6' 1) 03/29/2023 7:18 AM SUPERVISOR [employer]IRING AND INSPECTING Body Mass Index 27.71 03/29/2023 7:18 AM SUPERVISOR [employer]IRING [employer] INSPECTING Plan of Treatment Health Maintenance Due Date Last Done Comments CT Colonography 1955 Cologuard 1955 Colonoscopy 1955 Colorectal Cancer Screening 1955 FIT 1955 HIV Screening 1955 Hepatitis C Screening 1955 Lipid (Cholesterol) Screening 1955 Pneumococcal vaccine (65+ years) (2 of 2 - PPSV23 or PCV20) 09/06/2019 07/12/2019 Depression Screening (Annual PHQ-2) 05/15/2023 Fall Risk Screen (Annual) 05/15/2023 Office Visit for Blood Pressure Check / Re-check 12/27/2023 12/26/2022 Creatinine Level (Kidney Function Test) 03/24/2024 03/24/2023, 06/14/2022, 06/15/2021, Additional history exists Potassium Level 03/24/2024 03/24/2023, 05/17, 06/15/2021, Additional history exists Sodium Level 03/24/2024 03/24/2023, 05/17, 06/15/2021, Additional history exists Fasting Glucose for Diabetes Screening 03/24/2026 03/24/2023, 06/14/2022, 06/15/2021 DTaP,Tdap,and Td Vaccines (2 - Td or Tdap) 12/15/2026 12/15/2016 Zoster Vaccines Completed 07/12/2019, 04/29/2019 COVID-19 Vaccine Completed 03/03/2023, , 02/12/2021, Additional history exists Influenza Vaccine Completed 03/03/2023, , 03/28/2020, Additional history exists HPV Vaccines Aged Out No longer eligi ble based on patient's age to complete this topic Procedures Procedure Name Priority Date/Time Associated Diagnosis Comments SURGICAL PATHOLOGY Routine 04/20/2023 3:03 PM SUPERVISOR [employer]IRING [employer] INSPECTING LDA ANE ENDOTRACHEAL AIRWAY Routine 04/20/2023 2:34 PM SUPERVISOR PAIRING AND INSPECTING UPPER GI ENDOSCOPY Routine 04/20/2023 2:10 PM SUPERVISOR PAIRING AND INSPECTING Achalasia EGD (ESOPHAGOGASTRODUODENO SCOPY) RESTRICTED Routine 04/20/2023 2:10 PM SUPERVISOR PAIRING AND INSPECTING Achalasia GASTROENTEROLOGY IMAGE EXAM Routine 04/20/2023 2:10 PM SUPERVISOR PAIRING AND INSPECTING ID ESOPH IMPED FUNCTION TEST Routine 04/19/2023 2:15 PM SUPERVISOR PAIRING AND INSPECTING Dysphagia Oropharyngeal Phase Achalasia ID HIGH RESOLUTION ESOPHAGEAL MANOMETRY Routine 04/19/2023 2:15 PM SUPERVISOR PAIRING AND INSPECTING Dysphagia Oropharyngeal Phase Achalasia FUNGAL CULTURE, ROUTINE Routine 03/29/2023 8:29 AM SUPERVISOR PAIRING AND INSPECTING FUNGAL SMEAR Routine 03/29/2023 8:29 AM SUPERVISOR PAIRING AND INSPECTING SURGICAL PATHOLOGY Routine 03/29/2023 8:22 AM SUPERVISOR PAIRING AND INSPECTING LDA ANE ENDOTRACHEAL AIRWAY Routine 03/29/2023 8:12 AM SUPERVISOR PAIRING AND INSPECTING UPPER GI ENDOSCOPY Routine 03/29/2023 7:50 AM SUPERVISOR PAIRING AND INSPECTING Malignant Neoplasm Of Tonsil (HCC) Dysphagia Oropharyngeal Phase EGD (ESOPHAGEALGASTRODUODE NOSCOPY) Routine 03/29/2023 7:50 AM SUPERVISOR PAIRING AND INSPECTING Malignant Neoplasm Of Tonsil (HCC) Dysphagia Oropharyngeal Phase GASTROENTEROLOGY IMAGE EXAM Routine 03/29/2023 7:50 AM SUPERVISOR PAIRING AND INSPECTING CT NECK SOFT TISSUE WITH IV CONTRAST RAD - Routine (most inpatients and all outpatients) 03/24/2023 12:54 PM SUPERVISOR PAIRING AND INSPECTING DX CHEST AP OR PA AND LATERAL 2 VIEWS RAD - Semiurgent (Fast; most ED patients; some inpatients) 03/24/2023 11:15 AM SUPERVISOR PAIRING AND INSPECTING BASIC METABOLIC PANEL, S/P STAT 03/24/2023 8:04 AM SUPERVISOR PAIRING AND INSPECTING CBC WITH DIFFERENTIAL, B STAT 03/24/2023 8:04 AM SUPERVISOR PAIRING AND INSPECTING FL ESOPHAGRAM DOUBLE CONTRAST RAD - Routine (most inpatients and all outpatients) 03/15/2023 10:34 AM CDT Dysphagia Malignant Neoplasm Of Tonsil (HCC) FL SWALLOW FUNCTION WITH VIDEO AND SPEECH OR OT FOR RST RAD - Routine (most inpatients and all outpatients) 03/15/2023 10:34 AM CDT Dysphagia Malignant Neoplasm Of Tonsil (HCC) from Last 3 Months Results * Surgical Pathology (04/20/2023 3:03 PM SUPERVISOR PAIRING AND INSPECTING) Only the most recent of2 resultswithin the time period is included. 04/24/2023 10:27 AM SUPERVISOR PAIRING AND INSPECTING DTL Report electronically signed by Janet Thomson M.D. I verify that I have examined all relevant slides/materials for the specimen(s) and rendered or confirmed the diagnosis. 04/24/2023 10:27 AM SUPERVISOR PAIRING AND INSPECTING DTL Gross Description Received in formalin labeled with the patient's name, medical record number, and esophagus, gastroesophageal junction are four pink-translucent irregular soft tissues, ranging from 0.3-0.4 cm in greatest dimension. The specimens are submitted en toto in cassette A1.Grossed by AJD. 04/24/2023 10:27 AM SUPERVISOR PAIRING AND INSPECTING DTL Interpretation FINAL DIAGNOSIS A. Esophagus, gastroesophageal junction endoscopic biopsy: Small foci of intestinal metaplasia in gastroesophageal junction-type mucosa with mild chronic inflammation. This could represent either specialized Askew's mucosa (if truly taken above the GE junction) or focal intestinal metaplasia of the gastric cardia. There is no dysplasia. Diagnosis was made via digital imaging. 04/24/2023 10:27 AM SUPERVISOR PAIRING AND INSPECTING DTL Biopsy (Esophagus) 04/20/2023 3:03 PM SUPERVISOR PAIRING AND INSPECTING Sarah Isabel M.D. LAB SURG PATH [facility] [address] [place] [address], [facility] [address] [place] [address] * LDA ANE ENDOTRACHEAL AIRWAY (04/20/2023 2:34 PM SUPERVISOR PAIRING AND INSPECTING) Narrative Ryley Wright APRN, ASTRID, DNAP - 04/20/2023 2:34 PM SUPERVISOR PAIRING AND INSPECTING Ryley Wright APRN, ASTRID, DNAP ? 04/20/2023 ??2:42 PM Airway Date/Time: 04/20/2023 2:34 PM Performed by: Ryley Wright APRN, SOX ANALYST, DNAP Authorized by: Ryley Wright APRN, ASTRID, DNAP ?? Patient location during procedure: OR / Procedure Area PROCEDURE DETAILS: Mask difficulty assessment: not attempted (Rapid Sequence Intubation) Final airway type: video laryngoscope Laryngeal Manipulation: no ?? Final best view of glottic structures - Cormack/Lehane Score: grade 1 ETT location: oral VL device: glide scope [place] scope blade size: 4 Tube size: 7.5 ETT distance at teeth/gum: 23 Oral tube type: standard ETT Cuffed: yes Number of attempt to successful placement: 1 Airway confirmation: bilateral breath sounds, positive ETCO2 and bilateral chest rise Other previous techniques attempted: none PRE PROCEDURE DETAILS: Pre evaluation for airway management: procedure Urgency: elective Preoxygenation: bag valve mask SEDATION / ANESTHESIA Anesthesia method: anesthesia POST PROCEDURE DETAILS: ? Procedure outcome: successful ?? Airway event: no complications Ryley Wright LINUX ADMIN, SOX ANALYST, DNAP ANESTH ESIA ORDERABLES * Upper GI Endoscopy (04/20/2023 2:10 PM SUPERVISOR PAIRING AND INSPECTING) 04/20/2023 2:10 PM SUPERVISOR PAIRING AND INSPECTING Impressions [facility] - 04/20/2023 3:52 PM SUPERVISOR PAIRING AND INSPECTING Post-op Diagnoses: ? - Established diagnosis of achalasia. Lower esophageal sphincter ? injected with botulinum toxin. ? - FLIP imaging performed. Confirms manometric findings of type II ? achalasia. ? - Granular mucosa in the esophagus. Findings likely from hypertonicity ? of lower esophogeal sphincter. Biopsied. ? - Gastritis. ? - Duodenitis. ? - Normal examined duodenum. Narrative [facility] - 04/20/2023 3:52 PM SUPERVISOR PAIRING AND INSPECTING Eric 6 GI GI Patient Name: Nash Segovia Date of : 1955 Age: 67 Procedure Date: 04/20/2023 Procedure: ? Upper GI endoscopy Providers: ? aSrah Isabel MD Referring Provider: ?Geri Greene MD Pre-op Diagnoses: ?For botulinum toxin injection of achalasia Recommendation: ? - Await pathology results. ? - Observe response to botulinum toxin injection Findings: ? Esophagogastric landmarks were identified: the Z-line was found at 42 ? cm, the upper extent of the gastric folds was found at 42 cm and the ? site of hiatal narrowing was found at 42 cm from the incisors. ? No appreciable esophageal motility was noted. In addition, a hypertonic ? lower esophageal sphincter was found. There was moderate resistance to ? endoscope advancement into the stomach. The Z-line was regular. The ? gastroesophageal junction and cardia were normal on retroflexed view. ? With the patient in the left lateral decubitus position, a 16 cm long 3 ? mm diameter functional lumen imaging probe (FLIP), with a volume-based ? barostat bag, was placed at the lower esophageal sphincter using ? endoscopic visualization for the evaluation of achalasia. Diagnostic ? Measurements #1: Saline was infused into the bag to a volume of 50 mL. ? The observed distensibility at the apparent sphincter was approximately ? 2.0 mm2/mmHg with a maximum observed diameter of 5.9 mm. FLIP topography ? demonstrated absent contractility. Diagnostic Measurements #2: Saline ? was infused into the bag to a volume of 60 mL. The observed ? distensibility at the apparent sphincter was approximately 2.0 mm2/mmHg ? with a maximum observed diameter of 7.0 mm. FLIP topography demonstrated ? absent contractility. Diagnostic Measurements #3: Saline was infused ? into the bag to a volume of 70 mL. The observed distensibility at the ? apparent sphincter was approximately 2.2 mm2/mmHg with a maximum ? observed diameter of 10.6 mm. FLIP topography demonstrated absent ? contractility. In summary, FLIP topography demonstrated absent ? contractility. The bag was deflated and the catheter was withdrawn. Area ? was successfully injected with botulinum toxin. ? Localized mucosal changes characterized by granularity were found at the ? gastroesophageal junction. Biopsies were taken with a cold forceps for ? histology. Verification of patient identification for the specimen was ? done. ? Localized mild inflammation characterized by erythema was found in the ? gastric antrum. ? Localized mild inflammation characterized by congestion (edema) and ? erythema was found in the duodenal bulb. ? The examined duodenum was normal. ? There is no endoscopic evidence of findings consistent with candidiasis ? in the entire esophagus. No evidence of retained food. No visible ? mucosal lesions except of acanthosis glycans (benign finding) Procedural Details: ? The patient was seen, evaluated, history reviewed, airway and heart-lung ? exams were performed by licensed provider and were satisfactory for ? planned level of sedation care. ? The risks, benefits and alternatives for the procedure and sedation were ? discussed and informed consent was obtained. A procedural pause was ? conducted in the presence of assisting personnel to verify the correct ? patient identity and procedure to be performed. Throughout the ? procedure, the patient's blood pressure, pulse, and oxygen saturations ? were monitored continuously. The Gastroscope was introduced under direct ? vision through the mouth, and advanced to the second part of duodenum. ? The upper GI endoscopy was accomplished without difficulty. The patient ? tolerated the procedure well. Estimated Blood Loss: ?Estimated blood loss: none. Complications: ? No immediate complications. Sedation: ? Anesthesia was administered by an anesthesia professional. The following ? parameters were monitored: oxygen saturation, heart rate, blood ? pressure, respiratory rate, EKG, adequacy of pulmonary ventilation, and ? response to care. Attending Participation: I personally performed the entire procedure. Sarah Isabel MD 04/20/2023 3:52:07 PM This report has been signed electronically. Number of Addenda: 0 Tulio Greene M.D. GI PROCEDURE [place] Performing Organization Address City/State/ZIP Co ma Phone Number [employer] [employer] NA * Upper GI endoscopy-Gastroenterology Image Exam (04/20/2023 2:10 PM SUPERVISOR [employer]IRING [employer] INSPECTING) Only the most recent of2 resultswithin the time period is included. 04/20/2023 2:10 PM [employer]ING [employer]PECTING Narrative [facility] - 04/20/2023 4:03 PM [employer]ING [employer] INSPECTING This order has been created and auto-finalized to support the import of images acquired without order. The clinical documentation to support these images can be found on the encounter that produced images. Provider Not In System IMG NON RAD IMAGI NG PROCEDURES Performing Organization Address [facility] Co de Phone Number [facility]S NA * ID HIGH RESOLUTION ESOPHAGEAL MANOMETRY, ID ESOPH IMPED FUNCTION TEST (04/19/2023 2:15 PM SUPERVIS[employer]IRING [employer]PECTING) Narrative [facility] - 04/19/2023 2:15 PM [employer]PERVIS[employer]IRING [employer] INSPECTING Cassi Smiht M.D. ? 04/19/2023 ??5:24 PM Esophageal Manometry Performed by: Cassi Smith M.D. Authorized by: Kandice Wilkins APRN, C.N.P. ?? Procedure details: ?? TECHNICAL ASPECTS: This was a high-resolution impedance manometry study with liquid bolus protocol performed in the upright (seated) and supine positions. RESULTS: Supine: The proximal border of the LES was located 47.3 cm from the nares with a total LES length of 2.7 cm. ??There was no hiatal hernia present. Resting LES pressure was normal at 38.5 mmHg, with abnormal relaxation reflected by a IRP of 28.9 mmHg. A total of 10 swallows were evaluated of which 100% were failed with more than 30 mm Hg of Hudson esophageal pressurization. ??Bolus clearance as measured by impedance was incomplete for 10 swallows. Upper esophageal sphincter function appeared to have high pressure. Upright (Seated): 10 liquid swallows were performed in the upright (seated) position. Multiple Rapid Swallow: 3 MRS sequences were performed with 0 sequences demonstrating a DCI >1 without inhibitory breakthrough. Hudson esophageal pressurization noted. OVERALL IMPRESSION: Achalasia type II per [place]icago classification 4.0 ?? Kandice Wilkins APRN, C.N.P. GI PROC EDURE ORDERABLES Performing Organization Address [facility] Co de Phone Number MMODAL NA * (ABNORMAL) Fungal Smear (03/29/2023 8:29 AM SUPER[employer]PECTING) Fungal Smear YEAST and PSEUDOHYPH AE(A) 03/29/2023 3:50 PM SUPERVISOR [employer]IRING [employer] INSPECTING DTL [place] (Esophagus) 03/29/2023 8:29 AM SUPERVISOR [employer]IRING [employer] INSPECTING Kandice Wilkins APRN, C.N.P. LAB [facility] ROBIOLOGY - GENERAL ORDERABLES Performing Organization Address [facility] de Phone Number [facility] [address] [place] [address] * (ABNORMAL) Fungal Culture, Routine (03/29/2023 8:29 AM SUPERVISOR [employer]IRING [employer] INSPECTING) Pathologist [facility] Fungal Culture, Routine DILMA ALBICANS Many (A) 04/24/2023 7:25 AM SUPERVISOR PAIRING [employer] INSPECTING DTL Esophageal Brushing 03/29/2023 8:29 AM [employer]IRING [employer] INSPECTING 03/29/2023 9:28 AM [employer]PER[employer]IRING [employer] INSPECTING Comment:Specimen Source Site : [place] mid and upper Kandice Wilkins APRN, C.N.P. [facility] ROBIOLOGY - GENERAL ORDERABLES Performing Organization Address [facility] de Phone Number [facility] [address] [place] [address] * LDA ANE ENDOTRACHEAL AIRWAY (03/29/2023 8:12 AM SUPER[employer]ING [employer]PECTING) Narrative Enrique Villa APRN, CRNA, D.N.P. - 03/29/2023 8:12 AM [employer]PECTING Enrique Villa APRN, CRNA, D.N.P. ? 03/29/2023 ??8:25 AM Airway Date/Time: 03/29/2023 8:12 AM Performed by: Enrique Villa APRN, CRNA, D.N.P. Authorized by: Enrique Villa APRN, CRNA, D.N.P. ?? Patient location during procedure: OR / Procedure Area PROCEDURE DETAILS: Mask difficulty assessment: not attempted Final airway type: video laryngoscope Laryngeal Manipulation: no ?? Final best view of glottic structures - Cormack/Lehane Score: grade 1 ETT location: oral VL device: glide scope [place] scope blade size: 4 Tube size: 7.5 ETT distance at teeth/gum: 22 Oral tube type: standard ETT Cuffed: yes Number of attempt to successful placement: 1 Airway confirmation: bilateral breath sounds, positive ETCO2 and bilateral chest rise Other previous techniques attempted: none PRE PROCEDURE DETAILS: Pre evaluation for airway management: procedure Urgency: elective Preop assessment of probable difficulty: no difficulty anticipated Preoxygenation: bag valve mask SEDATION / ANESTHESIA Anesthesia method: anesthesia POST PROCEDURE DETAILS: ? Procedure outcome: successful ?? Enrique Villa APRN, CRNA, D.N.P. AN ESTHESIA ORDERABLES * Upper GI Endoscopy (03/29/2023 7:50 AM [employer]ING) 03/29/2023 7:50 AM [employer]PER[employer]IRING [employer]PECTING Impressions [facility] - 03/29/2023 8:44 AM SUPER[employer]OR [employer]ING [employer] INSPECTING Post-op Diagnoses: ? - Esophageal plaques were found, suspicious for candidiasis. Brushings ? performed. ? - The examination was suspicious for achalasia. Dilated to 15 mm given ? esophagram citing concern for isolated stricture, mild mucosal ? disruption noted; persistent hypertonic lower esophageal sphincter. ? - Esophagogastric landmarks identified. ? - Normal stomach. ? - Gastroesophageal flap valve classified as Hill Grade I (prominent ? fold, tight to endoscope). ? - Nodular mucosa in the duodenal bulb suspicious for peptic injury ? 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 Biopsied. Narrative [facility] - 03/29/2023 8:44 AM SUPERVISOR [employer]IRING [employer] INSPECTING Eric 6 GI GI Patient Name: Nash Segovia Date of : 1955 Age: 67 Procedure Date: 03/29/2023 Procedure: ? Upper GI endoscopy Providers: ? Karthik Locke MD Referring Provider: ?Kandice Wilkins Pre-op Diagnoses: ?Dysphagia Recommendation: ? - Discharge patient to home. Would advise a soft diet till outpatient ? follow-up and not laying flat to lower risk for aspiration. ? - Await pathology results. ? - Return to referring physician as previously scheduled. ? - Refer to Esophageal interest group. Will require esophageal manometry ? and pH impedance (off acid suppression medication). ? - PATHOLOGY/MICROBIOLOGY FOLLOW-UP: The ordering provider is responsible ? for reviewing results from specimens obtained during this endoscopic ? procedure and communicating the findings to the patient. If guidance is ? needed for interpreting endoscopic findings or pathology results, please ? consider a gastroenterology e-consult. Findings: ? Diffuse, white plaques were found in the upper third of the esophagus ? and in the middle third of the esophagus. Brushings for SALLY prep were ? obtained in the upper third of the esophagus and in the middle third of ? the esophagus. The pathology specimen was placed into Bottle Number 1. ? No appreciable esophageal motility was noted. In addition, retained ? secretions and a hypertonic lower esophageal sphincter was found. There ? was mild resistance to endoscope advancement into the stomach. The ? Z-line was regular. The gastroesophageal junction and cardia were normal ? on retroflexed view. With the esophagram noting features suspicious for ? an isolated stricture a TTS dilator was passed through the scope. ? Dilation with a 12-13.5-15 mm balloon dilator was performed to 15 mm. ? The dilation site was examined and showed mild mucosal disruption ? however, hypertonic lower esophageal sphincter persistent. ? Esophagogastric landmarks were identified: the Z-line was found at 42 ? cm, the lower esophageal sphincter was found at 42 cm and the site of ? hiatal narrowing was found at 42 cm from the incisors. ? There is no endoscopic evidence of mass in the entire esophagus. ? The entire examined stomach was normal. ? The gastroesophageal flap valve was visualized endoscopically and ? classified as Hill Grade I (prominent fold, tight to endoscope). ? There is no endoscopic evidence of bleeding, hiatal hernia or ulceration ? in the entire examined stomach. ? Localized nodular mucosa was found in the duodenal bulb. Biopsies were ? taken with a cold forceps for histology. The pathology specimen was ? placed into Bottle A. ? The exam of the duodenum was otherwise normal. ? There is no endoscopic evidence of stenosis or stricture in the entire ? examined duodenum. Procedural Details: ? The patient was seen, evaluated, history reviewed, airway and heart-lung ? exams were performed by licensed provider and were satisfactory for ? planned level of sedation care. ? The risks, benefits and alternatives for the procedure and sedation were ? discussed and informed consent was obtained. A procedural pause was ? conducted in the presence of assisting personnel to verify the correct ? patient identity and procedure to be performed. Throughout the ? procedure, the patient's blood pressure, pulse, and oxygen saturations ? were monitored continuously. The Gastroscope was introduced under direct ? vision through the mouth, and advanced to the second part of duodenum. ? The upper GI endoscopy was accomplished without difficulty. The patient ? tolerated the procedure well. Estimated Blood Loss: ?Estimated blood loss was minimal. Complications: ? No immediate complications. Sedation: ? 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 Karthik Locke MD 03/29/2023 8:44:34 AM This report has been signed electronically. Number of Addenda: 0 Kandice Wilkins APRN, C.N.P. GI PROC EDURE ORDERABLES [facility] NA * CT Neck Soft Tissue with IV Contrast (03/24/2023 12:54 PM SUPERVIS[employer]ING [employer]PECTING) Anatomical Region Laterality Modality Neck, Neuroradiology RST LOS , Neuroradiology ARZ LOS, Neuroradiology FLA LOS N/A Computed Tomography, Compute d Tomography 03/24/2023 12:5 2 PM [employer] Impressions 03/24/2023 1:11 PM [employer]PER[employer]ING [employer] INSPECTING 1. Stable postoperative changes within the neck with no evidence for recurrent tumor. 2. Extensive fibrosis and emphysematous changes visualized upper lungs as demonstrated on the prior chest CT. Narrative 03/24/2023 1:11 PM [employer]PERVISOR [employer]IRING [employer] INSPECTING EXAM: CT NECK SOFT TISSUE WITH IV CONTRAST COMPARISON: 05/21/2020 PET/CT. 03/23/2017 PET/CT. 02/22/2017 outside soft tissue neck MRI. 06/07/2022 head MRI. 08/11/[address] TECHNICAL NOTE: The patient suffered a bout of emesis at the time of contrast injection. This delayed the acquisition of images which are somewhat degraded by motion. 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 FINDINGS: No evidence for recurrent mass at the site of the previously resected right palatine tonsil. No evidence for pathologic lymphadenopathy. The major submandibular glands and the thyroid gland are unremarkable. Visualized intracranial contents and skull base negative. Visualized paranasal sinuses and mastoid air cells clear. Scattered degenerative changes cervical spine without significant central canal narrowing. No paraspinal masses. Extensive fibrosis and emphysematous changes involving the visualized upper lungs as demonstrated on the prior chest CT. Dilatation of the esophagus within the visualized upper chest. This was recently assessed via double contrast esophagram. Procedure Note Drew Felix M.D. - 03/24/2023 EXAM: CT NECK SOFT TISSUE WITH IV CONTRAST COMPARISON: 05/21/2020 PET/CT. 03/23/2017 PET/CT. 02/22/2017 outside softtissue neck MRI. 06/07/2022 head MRI. 08/11/[address] TECHNICAL NOTE: The patient suffered a bout of emesis at the time ofcontrast injection. This delayed the acquisition of images which aresomewhat degraded by motion. 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 Previous surgical resection, chemotherapy, and radiation therapy. FINDINGS: No evidence for recurrent mass at the site of the previouslyresected right palatine tonsil. No evidence for pathologiclymphadenopathy. The major submandibular glands and the thyroid gland are unremarkable.Visualized intracranial contents and skull base negative. Visualizedparanasal sinuses and mastoid air cells clear. Scattered degenerativechanges cervical spine without significant central canal narrowing. No paraspinal masses. Extensive fibrosis and emphysematous changes involving the visualizedupper lungs as demonstrated on the prior chest CT. Dilatation of theesophagus within the visualized upper chest. This was recently assessedvia double contrast esophagram. IMPRESSION: 1. Stable postoperative changes within the neck with no evidence forrecurrent tumor. 2. Extensive fibrosis and emphysematous changes visualized upper lungs asdemonstrated on the prior chest CT. Angelica Gould M.D. [facility] [place]EDU RES * DX Chest AP or PA and Lateral 2 Views (03/24/2023 11:15 AM SUPERVISOR [employer]IRING [employer] INSPECTING) Anatomical Region Laterality Modality Chest, Thoracic RST LOS, Tho racic ARZ LOS, Thoracic FLA LOS N/A Digital Radiography 03/24/2023 11:2 3 AM SUPERVISOR [employer]IRING [employer] INSPECTING Impressions 03/24/2023 11:24 AM SUPERVISOR [employer]IRING [employer] INSPECTING Comparison made to chest CT 08/11/2022. Redemonstration of coarse, reticular interstitial opacities throughout the lungs bilaterally, consistent with pulmonary fibrosis. Difficult to exclude superimposed infection or edema. No focal airspace consolidation. No definite pleural effusion or pneumothorax. Apical scarring. Demineralization. Musculoskeletal degenerative change. Narrative 03/24/2023 11:24 AM SUPERVISOR [employer]IRING [employer] INSPECTING EXAM: ??DX CHEST AP OR PA AND LATERAL 2 VIEWS Procedure Note Conrad Liu M.D. - 03/24/2023 EXAM: DX CHEST AP OR PA AND LATERAL 2 VIEWS IMPRESSION: Comparison made to chest CT 08/11/2022. Redemonstration of coarse,reticular interstitial opacities throughout the lungs bilaterally,consistent with pulmonary fibrosis. Difficult to exclude superimposedinfection or edema. No focal airspace consolidation. No definite pleural effusion or pneumothorax. Apicalscarring. Demineralization. Musculoskeletal degenerative change. Angelica Gould M.D. [facility]ED[facility] * (ABNORMAL) CBC with Differential, Blood (03/24/2023 8:04 AM SUPERVISOR [employer]IRING [employer] INSPECTING) Hemoglobin 18.6(H) 13.2 - 16.6 g/dL 03/24/2023 8:31 AM SUPERVISOR PAIRING [employer] INSPECTING [facility] Hematocrit 57.7(H) 38.3 - 48.6 % 03/24/2023 8:31 AM SUPERVISOR PAIRING [employer] INSPECTING [facility] Erythrocytes 6.53(H) 4.35 - 5.65 x10(12)/L 03/24/2023 8:31 AM SUPERVISOR PAIRING [employer] INSPECTING [facility] MCV 88.4 78.2 - 97.9 fL 03/24/2023 8:31 AM SUPERVISOR PAIRING [employer] INSPECTING [facility] RBC Distrib Width 13.3 11.8 - 14.5 % 03/24/2023 8:31 AM SUPERVISOR PAIRING AND INSPECTING [facility] Platelet Count 210 135 - 317 x10(9)/L 03/24/2023 8:31 AM SUPERVISOR PAIRING AND INSPECTING [facility] Leukocytes 9.8(H) 3.4 - 9.6 x10(9)/L 03/24/2023 8:31 AM SUPERVISOR PAIRING [employer] INSPECTING [facility] Neutrophils 7.85(H) 1.56 - 6.45 x10(9)/L 03/24/2023 8:31 AM SUPERVIS[employer]IRING [employer] INSPECTING PM Lymphocytes 1.15 0.95 - 3.07 x10(9)/L 03/24/2023 8:31 AM SUPERVISOR PAIRING AND INSPECTING [facility] Monocytes 0.65 0.26 - 0.81 x10(9)/L 03/24/2023 8:31 AM SUPERVISOR PAIRING AND INSPECTING [facility] Eosinophils 0.14 0.03 - 0.48 x10(9)/L 03/24/2023 8:31 AM SUPERVISOR PAIRING AND INSPECTING [facility] Basophils 0.05 0.01 - 0.08 x10(9)/L 03/24/2023 8:31 AM SUPERVISOR PAIRING AND INSPECTING [facility] Blood (Blood, Venous) 03/24/2023 8:04 AM SUPERVISOR PAIRING AND INSPECTING 03/24/2023 8:28 AM SUPERVISOR PAIRING AND INSPECTING Conrad Merchant Jr., M.D. LAB BLOOD A DD-ON [facility] [address] [place] [address], [facility] STMA [facility] [address] [place] [address] PM [facility] [address] [place] [address] * (ABNORMAL) Basic Metabolic Panel (03/24/2023 8:04 AM SUPERVISOR PAIRING [employer] INSPECTING) Potassium, P 4.1 3.6 - 5.2 mmol/L 03/24/2023 8:47 AM SUPERVISOR PAIRING AND INSPECTING [facility] Sodium, P 141 135 - 145 mmol/L 03/24/2023 8:47 AM SUPERVISOR PAIRING AND INSPECTING [facility] Chloride, P 104 98 - 107 mmol/L 03/24/2023 8:47 AM SUPERVISOR PAIRING AND INSPECTING [facility] Bicarbonate, P 26 22 - 29 mmol/L 03/24/2023 8:47 AM SUPERVISOR PAIRING AND INSPECTING [facility] Anion Gap, P 11 7 - 15 03/24/2023 8:47 AM SUPERVISOR PAIRING AND INSPECTING [facility] BUN (Blood Urea Nitrogen), P 15 8 - 24 mg/dL 03/24/2023 8:47 AM SUPERVISOR PAIRING AND INSPECTING [facility] Creatinine 1.51(H) 0.74 - 1.35 mg/dL 03/24/2023 8:47 AM SUPERVISOR PAIRING AND INSPECTING [facility] Estimated GFR (eGFR) 51(L) >=60 mL/min/BSA 03/24/2023 8:47 AM SUPERVISOR PAIRING AND INSPECTING [facility] Comment: Estimated GFR calculated using the 2020 CKD_EPI creatinine equation. Calcium, Total, P 9.7 8.8 - 10.2 mg/dL 03/24/2023 8:47 AM SUPERVISOR PAIRING AND INSPECTING [facility] Glucose, P 104 70 - 140 mg/dL 03/24/2023 8:47 AM SUPERVISOR PAIRING AND INSPECTING [facility] Blood (Blood, Venous) 03/24/2023 8:04 AM SUPERVISOR PAIRING AND INSPECTING 03/24/2023 8:28 AM SUPERVISOR PAIRING AND INSPECTING Conrad Merchant Jr., M.D. LAB BLOOD A DD-ON [facility] [address] [place] [address], [place] [facility] [address] [place] [address] * [place] Esophagram Double Contrast (03/15/2023 10:34 AM CDT) Anatomical Region Laterality Modality Gastro Intestinal, Abdominal RST LOS, Abdominal ARZ LOS, Abdominal FLA LOS Digital Radiography 03/15/2023 10:3 8 AM CDT Impressions 03/15/2023 11:02 AM CDT 1. ??No laryngeal penetration or aspiration. Vallecular residue of applesauce consistency. Please see speech pathology report for further details and recommendations. 2. ??Increased rightward deviation of contrast through the hypopharynx/cervical esophagus since 07/13/2017. Recommend CT of the neck for further evaluation. 3. ??Incomplete emptying of the esophagus in the upright position with luminal narrowing at the gastroesophageal junction. There is esophageal dysmotility, but the luminal narrowing is favored to be due to stricture just above a small sliding hiatal hernia. Further assessment with upper endoscopy is recommended. Narrative 03/15/2023 11:02 AM CDT REVISED REPORT: EXAM: ??FL SWALLOW FUNCTION WITH VIDEO AND SPEECH OR OT FOR RST, FL ESOPHAGRAM DOUBLE CONTRAST COMPARISON: ??CT chest 08/11/2022; swallow study 07/13/2017. FINDINGS: Fluoroscopic video swallow study was performed in conjunction with speech pathology. Barium preparations of thin liquid, applesauce, cookie consistencies were swallowed without laryngeal penetration or aspiration. Vallecular residue of applesauce consistency. Rightward deviation of the bolus through the hypopharynx/cervical esophagus appears increased since 07/13/2017. Incidentally noted was significant retained barium within the upper esophagus at the conclusion of the swallow study. Due to this finding and the symptoms of dysphagia, a double contrast esophagram was performed. Luminal narrowing at the gastroesophageal junction with otherwise normal esophageal caliber. Delayed emptying of the esophagus in the upright position. Incomplete primary peristalsis with multiple tertiary contractions. Small sliding hiatal hernia. A 13 mm barium tablet did not pass through the gastroesophageal junction despite swallowing a large volume of water. Although there was a bird-beak morphology of the distalmost esophagus, the luminal narrowing is favored to be due to a stricture, possibly reflux related. Assessment for gastroesophageal reflux during the examination was compromised by retained barium in the esophagus, but no reflux was witnessed. Procedure Note Cristhian Benedict M.D., Ph.D. - 03/15/2023 REVISED REPORT: EXAM: FL SWALLOW FUNCTION WITH VIDEO AND SPEECH OR OT FOR RST, FLESOPHAGRAM DOUBLE CONTRAST COMPARISON: CT chest 08/11/2022; swallow study 07/13/2017. FINDINGS: Fluoroscopic video swallow study was performed in conjunction with speechpathology. Barium preparations of thin liquid, applesauce, cookie consistencies wereswallowed without laryngeal penetration or aspiration. Vallecular residue of applesauce consistency.Rightward deviation of the bolus through the hypopharynx/cervical esophagus appears increased since07/13/2017. Incidentally noted was significant retained barium within the upperesophagus at the conclusion of the swallow study. Due to this finding and the symptoms of dysphagia, adouble contrast esophagram was performed. Luminal narrowing at the gastroesophageal junction with otherwise normalesophageal caliber. Delayed emptying of the esophagus in the upright position. Incomplete primaryperistalsis with multiple tertiary contractions. Small sliding hiatal hernia. A 13 mm barium tabletdid not pass through the gastroesophageal junction despite swallowing a large volume of water.Although there was a bird-beak morphology of the distalmost esophagus, the luminal narrowing is favoredto be due to a stricture, possibly reflux related. Assessment for gastroesophageal reflux during theexamination was compromised by retained barium in the esophagus, but no reflux waswitnessed. IMPRESSION: 1. No laryngeal penetration or aspiration. Vallecular residue ofapplesauce consistency. Please see speech pathology report for further details and recommendations. 2. Increased rightward deviation of contrast through thehypopharynx/cervical esophagus since 07/13/2017. Recommend CT of the neck for further evaluation. 3. Incomplete emptying of the esophagus in the upright position withluminal narrowing at the gastroesophageal junction. There is esophageal dysmotility, but theluminal narrowing is favored to be due to stricture just above a small sliding hiatal hernia. Furtherassessment with upper endoscopy is recommended. Kandice Wilkins APRN C.N.P. IMG FLU OROSCOPY PROCEDURES * FL Swallow Function with Video and Speech or OT (03/15/2023 10:34 AM CDT) Anatomical Region Laterality Modality Gastro Intestinal, Abdominal RST LOS, Abdominal ARZ LOS, Abdominal FLA LOS N/A Digital Radiography 03/15/2023 10:3 8 AM CDT Impressions 03/15/2023 11:02 AM CDT 1. ??No laryngeal penetration or aspiration. Vallecular residue of applesauce consistency. Please see speech pathology report for further details and recommendations. 2. ??Increased rightward deviation of contrast through the hypopharynx/cervical esophagus since 07/13/2017. Recommend CT of the neck for further evaluation. 3. ??Incomplete emptying of the esophagus in the upright position with luminal narrowing at the gastroesophageal junction. There is esophageal dysmotility, but the luminal narrowing is favored to be due to stricture just above a small sliding hiatal hernia. Further assessment with upper endoscopy is recommended. Narrative 03/15/2023 11:02 AM CDT REVISED REPORT: EXAM: ??FL SWALLOW FUNCTION WITH VIDEO AND SPEECH OR OT FOR RST, FL ESOPHAGRAM DOUBLE CONTRAST COMPARISON: ??CT chest 08/11/2022; swallow study 07/13/2017. FINDINGS: Fluoroscopic video swallow study was performed in conjunction with speech pathology. Barium preparations of thin liquid, applesauce, cookie consistencies were swallowed without laryngeal penetration or aspiration. Vallecular residue of applesauce consistency. Rightward deviation of the bolus through the hypopharynx/cervical esophagus appears increased since 07/13/2017. Incidentally noted was significant retained barium within the upper esophagus at the conclusion of the swallow study. Due to this finding and the symptoms of dysphagia, a double contrast esophagram was performed. Luminal narrowing at the gastroesophageal junction with otherwise normal esophageal caliber. Delayed emptying of the esophagus in the upright position. Incomplete primary peristalsis with multiple tertiary contractions. Small sliding hiatal hernia. A 13 mm barium tablet did not pass through the gastroesophageal junction despite swallowing a large volume of water. Although there was a bird-beak morphology of the distalmost esophagus, the luminal narrowing is favored to be due to a stricture, possibly reflux related. Assessment for gastroesophageal reflux during the examination was compromised by retained barium in the esophagus, but no reflux was witnessed. Procedure Note Cristhian Benedict M.D., Ph.D. - 03/15/2023 REVISED REPORT: EXAM: FL SWALLOW FUNCTION WITH VIDEO AND SPEECH OR OT FOR RST, FLESOPHAGRAM DOUBLE CONTRAST COMPARISON: CT chest 08/11/2022; swallow study 07/13/2017. FINDINGS: Fluoroscopic video swallow study was performed in conjunction with speechpathology. Barium preparations of thin liquid, applesauce, cookie consistencies wereswallowed without laryngeal penetration or aspiration. Vallecular residue of applesauce consistency.Rightward deviation of the bolus through the hypopharynx/cervical esophagus appears increased since07/13/2017. Incidentally noted was significant retained barium within the upperesophagus at the conclusion of the swallow study. Due to this finding and the symptoms of dysphagia, adouble contrast esophagram was performed. Luminal narrowing at the gastroesophageal junction with otherwise normalesophageal caliber. Delayed emptying of the esophagus in the upright position. Incomplete primaryperistalsis with multiple tertiary contractions. Small sliding hiatal hernia. A 13 mm barium tabletdid not pass through the gastroesophageal junction despite swallowing a large volume of water.Although there was a bird-beak morphology of the distalmost esophagus, the luminal narrowing is favoredto be due to a stricture, possibly reflux related. Assessment for gastroesophageal reflux during theexamination was compromised by retained barium in the esophagus, but no reflux waswitnessed. IMPRESSION: 1. No laryngeal penetration or aspiration. Vallecular residue ofapplesauce consistency. Please see speech pathology report for further details and recommendations. 2. Increased rightward deviation of contrast through thehypopharynx/cervical esophagus since 07/13/2017. Recommend CT of the neck for further evaluation. 3. Incomplete emptying of the esophagus in the upright position withluminal narrowing at the gastroesophageal junction. There is esophageal dysmotility, but theluminal narrowing is favored to be due to stricture just above a small sliding hiatal hernia. Furtherassessment with upper endoscopy is recommended. Kandice Wilkins APRN C.N.P. IMG FLU OROSCOPY PROCEDURES from Last 3 Months Care Teams [employer] Relationship Specialty Start Date End Date Elsewhere, Pcp PCP - General Internal Medicine 03/24/23
--- OUTSIDE RECORDS SUMMARY | 2023-05-22 12:26 | XMS_ITS | Referral Summary ---
Author Name Unknown Organization [facility] Address [address] [place] [address] Care Team Providers Care Continuing Education Dean Name Role Phone Elsewhere, Pcp Primary Care Provider Unavailabl e Source Comments Patient records contain information from all sites at [facility]. For routine questions regarding patient records, call [phone] during business hours, M-F 8:00 AM - 5:00 PM Central Time. Record requests for emergency care only can be directed to [phone] at any time.[facility] Encounters Date Type Department Care Team Description 05/19/2023 1:30 PM [employer] Telemedicine Division of Thoracic Surgery in [place], [place] [address] [place] [address] Akosua Shaffer M.D. Achalasia 05/18/2023 Clinical Communication Division of Thoracic Surgery in [place], [place] [address] [place] [address] Akosua Shaffer M.D. 04/22/2023 Nurse Triage Department of Family Medicine, [facility], in [address] [phone] Darlene Chávez R.N. infusion request 04/21/2023 Documentation Division of Gastroenterology in [place], [place] [address] [place] [address] Tulio Greene M.D. 04/21/2023 Orders Only Division of Gastroenterology in [place], [place] [address] [place] [address] Tulio Greene M.D. Achalasia (Primary Dx) 04/21/2023 11:59 PM [employer] Hospital Encounter Division of Gastroenterology in [place], [place] [address] [place] [phone] Kandice Wilkins APRN, CClydeN.P. Canceled (Clinic: Earlier Appointment) Discharge Disposition: Home or Self Care 04/20/2023 2:10 PM [employer] Ancillary Procedure Department of Gastroenterology 04/20/2023 2:29 PM [employer] Anesthesia Event Division of Gastroenterology in [address] [phone] Conrad Quintana APRN, ASTRID, D.N.P. Sofi Aly M.D. 04/20/2023 1:17 PM [employer] - 04/20/2023 4:42 PM [employer] Hospital Encounter Division of Gastroenterology in [address] [phone] Tulio Greene M.D. Hassan, Mubarak A, ANA M, ASTRID, DNAP Achalasia Discharge Disposition: Home or Self Care 04/19/2023 1:33 PM [employer] - 04/19/2023 11:59 PM [employer] Hospital Encounter Division of Gastroenterology in [address] [phone] Kandice Wilkins APRN, C.N.P. Dysphagia Oropharyngeal Phase; Achalasia Discharge Disposition: Home or Self Care 04/18/2023 Documentation Division of Endocrinology in [address] [phone] Marilee Slaughter R.N. Scheduling 04/17/2023 9:40 AM [employer] Education Division of Gastroenterology in [address] [phone] Kandice Wilkins APRN, C.N.P. Lamar Mora RClydeNClyde Dysphagia Oropharyngeal Phase; Achalasia 04/17/2023 9:00 AM [employer] Comprehensive Visit Division of Gastroenterology in [address] [phone] Kandice Wilkins APRN, C.N.P. Tulio Greene M.D. Malnutrition Severe Protein-Calorie (HCC) (Primary Dx); Dysphagia Oropharyngeal Phase; Achalasia 04/05/2023 Documentation Department of Otorhinolaryngology in [place], [place] [address] [place] [phone] Kandice Wilkins APRN, C.N.P. 03/30/2023 Orders Only Department of Otorhinolaryngology in [place], [place] [address] [place] [phone] Kandice Wilkins APRN, C.N.P. Dysphagia Oropharyngeal Phase (Primary Dx); Achalasia 03/29/2023 7:50 AM [employer] Ancillary Procedure Department of Gastroenterology 03/29/2023 8:04 AM [employer] Anesthesia Event Division of Gastroenterology in [address] [phone] Enrique Villa APRN, ASTRID, D.N.P. 03/29/2023 6:54 AM [employer] - 03/29/2023 10:20 AM [employer] Hospital Encounter Division of Gastroenterology in [address] [phone] Kandice Wilkins APRN, C.N.P. Malignant Neoplasm Of Tonsil (HCC); Dysphagia Oropharyngeal Phase Discharge Disposition: Home or Self Care 03/27/2023 Clinical Communication Division of Nephrology and Hypertension in [place], [place] [address] [place] [phone] Chester Hernandez Jr., Iliana.O. Results 03/24/2023 7:36 AM [employer] - 03/24/2023 3:30 PM [employer] Emergency [facility] Emergency Department [address] [place] [phone] Christian Shabazz M.D. Dysphagia (Primary Dx); Failure Renal Acute (Acute Kidney Injury) (HCC); Stricture Esophagus; Loss Weight Abnormal; Dehydration Discharge Disposition: Home or Self Care 03/22/2023 Clinical Communication Department of Otorhinolaryngology in [place], [place] [address] [place] [address] Kandice Wilkins APRN, C.N.P. Would like testing locally; Upper GI Results 03/21/2023 Documentation Department of Otorhinolaryngology in [place], [place] [address] [place] [address] Kandice Wilkins APRN, C.N.P. 03/20/2023 Clinical Communication Department of Otorhinolaryngology in [place], [place] [address] [place] [address] Kandice Wilkins APRN, C.N.P. Phone call 03/16/2023 Orders Only Department of Otorhinolaryngology in [place], [place] [address] [place] [phone] Kandice Wilkins APRN, C.N.P. Malignant Neoplasm Of Tonsil (HCC) (Primary Dx); Dysphagia Oropharyngeal Phase 03/15/2023 9:53 AM CDT - 03/15/2023 11:59 PM CDT Hospital Encounter Department of Radiology, [facility], in [place], [place] [address] [place] [phone] Kandice Wilkins APRN, C.N.P. Araseli Hollingsworth, M.S., CCC-SOIL SPECIALIST Dysphagia; Malignant Neoplasm Of Tonsil (HCC) Discharge Disposition: Home or Self Care 03/15/2023 9:30 AM CDT Comprehensive Visit Department of Neurology in [place], [place] [address] [place] [phone] Kandice Wilkins APRN, C.N.P. Araseli Hollingsworth, M.S., CCC-SOIL SPECIALIST Dysphagia Oropharyngeal Phase (Primary Dx); Dysphagia; Malignant Neoplasm Of Tonsil (HCC) 03/06/2023 Orders Only Department of Otorhinolaryngology in [place], [place] [address] [place] [address] Kandice Wilkins APRN, C.N.P. Dysphagia (Primary Dx); Malignant Neoplasm Of Tonsil (HCC) 03/03/2023 Clinical Communication Department of Otorhinolaryngology in [place], [place] [address] [place] [address] Kandice Wilkins, ANA M, C.N.P. Swallow study? from Last 3 Months Allergies Active Allergy Reactions Criticality Noted Date Comments Penicillins Other (see comments),Rash Medium 1 unknown Sulfa (Sulfonamide Antibiotics) Other (see comments),Rash Medium 01/26/2011 unknown Medications Medication Sig Dispensed Refills Start Date End Date Status omega 9-[id number] oil 1,000 mg (120 mg-180 mg) capsule [...] 04/13/2017:Stage MARIO(T3, N2a, cM0) - Signed by Racqeul Blanc R.N. on 11/17/2021 Hyperlipidemia 05/28/2015 Hypertensive Chronic Kidney Disease (CKD) Stage 3a Glomerular Filtration Rate (GFR) 45 To 59 02/02/2011 Social History Tobacco Use Types Packs/Day Years [...] week 05/20/2021 How often do you attend [facility] or orthodoxy services? More than 4 times per year [...] and heating? Not hard at all 03/06/2023 [facility] [place] [facility] Occup[facility] - Occupational Stress [...] money to buy more. Never true 03/06/20 23 Within the past 12 months, t he [...] your living situation today? I have a [facility] place to live 03/06/2023 Education Answer Date [...] Comments Blood Pressure 141/95 04/20/2023 4:23 PM [employer] Pulse 75 04/20/2023 4:28 PM [employer] Temperature 36.6 ??C (97.9 ??F) 04/20/2023 3:18 PM CS T Respiratory Rate 18 04/20/2023 4:28 PM [employer] Oxygen Saturation 95% 04/20/2023 4:28 PM [employer] Inhaled Oxygen Concentration - - Weight 95.3 kg (210 lb) 03/29/2023 7:18 AM [employer] Height 185.4 cm (6' 1) 03/29/2023 7:18 AM [employer] Body Mass Index 27.71 03/29/2023 7:18 AM [employer] Plan of Treatment Not on file Procedures Procedure Name Priority Date/Time Associated Diagnosis Comments SURGICAL PATHOLOGY Routine 04/20/2023 3:03 PM [employer] LDA ANE ENDOTRACHEAL AIRWAY Routine 04/20/2023 2:34 PM [employer] UPPER GI ENDOSCOPY Routine 04/20/2023 2:10 PM [employer] Achalasia EGD (ESOPHAGOGASTRODUODENO SCOPY) RESTRICTED Routine 04/20/2023 2:10 PM [employer] Achalasia GASTROENTEROLOGY IMAGE EXAM Routine 04/20/2023 2:10 PM [employer] WY ESOPH IMPED FUNCTION TEST Routine 04/19/2023 2:15 PM [employer] Dysphagia Oropharyngeal Phase Achalasia WY HIGH RESOLUTION ESOPHAGEAL MANOMETRY Routine 04/19/2023 2:15 PM [employer] Dysphagia Oropharyngeal Phase Achalasia FUNGAL CULTURE, ROUTINE Routine 03/29/2023 8:29 AM [employer] FUNGAL SMEAR Routine 03/29/2023 8:29 AM [employer] SURGICAL PATHOLOGY Routine 03/29/2023 8:22 AM [employer] LDA ANE ENDOTRACHEAL AIRWAY Routine 03/29/2023 8:12 AM [employer] UPPER GI ENDOSCOPY Routine 03/29/2023 7:50 AM [employer] Malignant Neoplasm Of Tonsil (HCC) Dysphagia Oropharyngeal Phase EGD (ESOPHAGEALGASTRODUODE NOSCOPY) Routine 03/29/2023 7:50 AM [employer] Malignant Neoplasm Of Tonsil (HCC) Dysphagia Oropharyngeal Phase GASTROENTEROLOGY IMAGE EXAM Routine 03/29/2023 7:50 AM [employer] CT NECK SOFT TISSUE WITH IV CONTRAST RAD - Routine (most inpatients and all outpatients) 03/24/2023 12:54 PM [employer] DX CHEST AP OR PA AND LATERAL 2 VIEWS RAD - Semiurgent (Fast; most ED patients; some inpatients) 03/24/2023 11:15 AM [employer] BASIC METABOLIC PANEL, S/P STAT 03/24/2023 8:04 AM [employer] CBC WITH DIFFERENTIAL, B STAT 03/24/2023 8:04 AM [employer] FL ESOPHAGRAM DOUBLE CONTRAST RAD - Routine (most inpatients and all outpatients) 03/15/2023 10:34 AM CDT Dysphagia Malignant Neoplasm Of Tonsil (HCC) FL SWALLOW FUNCTION WITH VIDEO AND SPEECH OR OT FOR RST RAD - Routine (most inpatients and all outpatients) 03/15/2023 10:34 AM CDT Dysphagia Malignant Neoplasm Of Tonsil (HCC) from Last 3 Months Results * Surgical Pathology (04/20/2023 3:03 PM [employer]) Only the most recent of2 resultswithin the time period is included. 04/24/2023 10:27 AM [employer] DTL Report electronically signed by Janet Thomson M.D. I verify that I have examined all relevant slides/materials for the specimen(s) and rendered or confirmed the diagnosis. 04/24/2023 10:27 AM [employer] DTL Gross Description Received in formalin labeled with the patient's name, medical record number, and esophagus, gastroesophageal junction are four pink-translucent irregular soft tissues, ranging from 0.3-0.4 cm in greatest dimension. The specimens are submitted en toto in cassette A1.Grossed by AJD. 04/24/2023 10:27 AM [employer] DTL Interpretation FINAL DIAGNOSIS A. Esophagus, gastroesophageal junction endoscopic biopsy: Small foci of intestinal metaplasia in gastroesophageal junction-type mucosa with mild chronic inflammation. This could represent either specialized Askew's mucosa (if truly taken above the GE junction) or focal intestinal metaplasia of the gastric cardia. There is no dysplasia. Diagnosis was made via digital imaging. 04/24/2023 10:27 AM [employer] DTL Biopsy (Esophagus) 04/20/2023 3:03 PM [employer] Sarah Isabel M.D. LAB SURG PATH CAPO LEMUS [facility] [place] [address] [place] [address], [facility] DTL [address] [place] [address] * LDA ANE ENDOTRACHEAL AIRWAY (04/20/2023 2:34 PM [employer]) Narrative Ryley Wright APRN, BUSINESS ANALYTICS MANAGER, DNAP - 04/20/2023 2:34 PM [employer] Ryley Wright APRN, BUSINESS ANALYTICS MANAGER, DNAP ? 04/20/2023 ??2:42 PM Airway Date/Time: 04/20/2023 2:34 PM Performed by: Ryley Wright APRN, CRNA, DNAP Authorized by: Ryley Wright APRN, CRNA, DNAP ?? Patient location during procedure: OR / Procedure Area PROCEDURE DETAILS: Mask difficulty assessment: not attempted (Rapid Sequence Intubation) Final airway type: video laryngoscope Laryngeal Manipulation: no ?? Final best view of glottic structures - Cormack/Lehane Score: grade 1 ETT location: oral VL device: glide scope Terry scope blade size: 4 Tube size: 7.5 [...] ?? Airway event: no complications Ryley Wright APRN, CRNA, DNAP ANESTH ESIA ORDERABLES * Upper GI Endoscopy (04/20/2023 2:10 PM [employer]) 04/20/2023 2:10 PM [employer] Impressions [employer] [employer] - 04/20/2023 3:52 PM [employer] Post-op Diagnoses: ? - Established diagnosis of achalasia. Lower esophageal sphincter ? injected with botulinum toxin. ? - FLIP imaging performed. Confirms manometric findings of type II ? achalasia. ? - Granular mucosa in the esophagus. Findings likely from hypertonicity ? of lower esophogeal sphincter. Biopsied. ? - Gastritis. ? - Duodenitis. ? - Normal examined duodenum. Narrative [facility] [employer] - 04/20/2023 3:52 PM [employer] Eric 6 GI GI Patient Name: Nash Segovia Date of : 1955 Age: 67 Procedure Date: 04/20/2023 Procedure: ? Upper GI endoscopy Providers: ? Cadman Chalo, MD Referring Provider: ?Geri Greene MD Pre-op [...] Addenda: 0 Tulio Greene M.D. GI PROCEDURE ORDERA BLES RADHA LEVINATION NA * Upper GI endoscopy-Gastroenterology Image Exam (04/20/2023 2:10 PM [employer]) Only the most recent of2 resultswithin the time period is included. 04/20/2023 2:10 PM [employer] Narrative [facility] - 04/20/2023 4:03 PM [employer] This order has been created and auto-finalized to support the import of images acquired without order. The clinical documentation to support these images can be found on the encounter that produced images. Provider Not In System IMG NON RAD IMAGI NG PROCEDURES Performing Organization Address City/[facility] Co de Phone Number [facility] NA * W[place] HIGH RESOLUTION ESOPHAGEAL MANOMETRY, [place] ESOPH IMPED FUNCTION TEST (04/19/2023 2:15 PM [employer]) Narrative [facility] - 04/19/2023 2:15 PM [employer] Cassi Smith M.D. ? 04/19/2023 ??5:24 PM Esophageal Manometry Performed by: Cassi Smith M.D. Authorized by: Kandice Wilkins, EMPLOYMENT EVALUATOR/CASE MANAGER, C.N.P. ?? Procedure details: ?? TECHNICAL ASPECTS: [...] type II per chicago classification 4.0 ?? Christina Wolff APRN.N.P. GI PROC EDURE ORDERABLES Performing Organization Address City/[facility]/ZIP Co de Phone Number [facility]AL NA * (ABNORMAL) Fungal Smear (03/29/2023 8:29 AM [employer]) Fungal Smear YEAST and PSEUDOHYPH AE(A) 03/29/2023 3:50 PM [employer] DTL [place] (Esophagus) 03/29/2023 8:29 AM [employer] Christina Wolff APRN.N.P. LAB LEO ROBIOLOGY - GENERAL ORDERABLES Performing Organization Address [facility] Co de Phone Number [facility] [place] [address] [place] [address], [facility] [address] [place] [address] * (ABNORMAL) Fungal Culture, Routine (03/29/2023 8:29 AM [employer]) Fungal Culture, Routine DILMA ALBICANS Many (A) 04/24/2023 7:25 AM [employer] DTL Esophageal Brushing 03/29/2023 8:29 AM [employer] 03/29/2023 9:28 AM [employer] Comment:Specimen Source Site : [place] mid and upper Kandice Wilkins APRN, C.N.P. LAB LEO ROBIOLOGY - GENERAL ORDERABLES Performing Organization Address City/[facility] Co de Phone Number [facility] [place] [address] [place] [address], [facility] [address] [place] [address] * LDA ANE ENDOTRACHEAL AIRWAY (03/29/2023 8:12 AM [employer]) Narrative Enrique Villa APRN, CRNA, D.N.P. - 03/29/2023 8:12 AM [employer] Enrique Villa APRN, CRNA, D.N.P. ? 03/29/2023 ??8:25 AM Airway Date/Time: 03/29/2023 8:12 AM Performed by: Enrique Villa APRN, CRNA D.N.P. Authorized by: Enrique Villa APRN, CRNA, D.N.P. ?? Patient location during procedure: OR / Procedure Area PROCEDURE DETAILS: Mask difficulty assessment: not attempted Final airway type: video laryngoscope Laryngeal Manipulation: no ?? Final best view of glottic structures - Cormack/Lehane Score: grade 1 ETT location: oral VL device: glide scope Terry scope blade size: 4 Tube size: 7.5 [...] ?? Enrique Villa APRN, CRNA, D.N.P. [facility] ORDER[facility]LES * Upper GI Endoscopy (03/29/2023 7:50 AM [employer]) 03/29/2023 7:50 AM [employer] Impressions [facility] - 03/29/2023 8:44 AM [employer] Post-op Diagnoses: ? - Esophageal plaques were [...] peptic injury ? 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 Biopsied. Narrative [facility] - 03/29/2023 8:44 AM [employer] Eric 6 GI GI Patient Name: Nash [...] ? No immediate complications. 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 Karthik Locke MD 03/29/2023 8:44:34 AM This report has been signed electronically. Number of Addenda: 0 Kandice Wilkins APRN, C.N.P. GI PROC EDURE ORDERABLES [facility] NA * CT Neck Soft Tissue with IV Contrast (03/24/2023 12:54 PM [employer]) Anatomical Region Laterality Modality Neck, Neuroradiology RST LOS , Neuroradiology ARZ LOS, Neuroradiology FLA LOS N/A Computed Tomography, Compute d Tomography 03/24/2023 12:5 2 PM [employer] Impressions 03/24/2023 1:11 PM [employer] 1. Stable postoperative changes within the neck with no evidence for recurrent tumor. 2. Extensive fibrosis and emphysematous changes visualized upper lungs as demonstrated on the prior chest CT. Narrative 03/24/2023 1:11 PM [employer] EXAM: CT NECK SOFT TISSUE WITH IV [...] the prior chest CT. Angelica Gould M.D. [facility] CT PROCEDU RES * DX Chest AP or PA and Lateral 2 Views (03/24/2023 11:15 AM [employer]) Anatomical Region Laterality Modality Chest, Thoracic RST LOS, Tho racic ARZ LOS, Thoracic FLA LOS N/A Digital Radiography 03/24/2023 11:2 3 AM [employer] Impressions 03/24/2023 11:24 AM [employer] Comparison made to chest CT 08/11/2022. Redemonstration of coarse, reticular interstitial opacities throughout the lungs bilaterally, consistent with pulmonary fibrosis. Difficult to exclude superimposed infection or edema. No focal airspace consolidation. No definite pleural effusion or pneumothorax. Apical scarring. Demineralization. Musculoskeletal degenerative change. Narrative 03/24/2023 11:24 AM [employer] EXAM: ??DX CHEST AP OR PA AND [...] Demineralization. Musculoskeletal degenerative change. Angelica Gould M.D. IMG DIAGNOSTIC IMAGING PROCEDURES * (ABNORMAL) CBC with Differential, Blood (03/24/2023 8:04 AM [employer]) Hemoglobin 18.6(H) 13.2 - 16.6 g/dL 03/24/2023 8:31 AM [employer] STMA Hematocrit 57.7(H) 38.3 - 48.6 % 03/24/2023 8:31 AM [employer] STMA Erythrocytes 6.53(H) 4.35 - 5.65 x10(12)/L 03/24/2023 8:31 AM [employer] STMA MCV 88.4 78.2 - 97.9 fL 03/24/2023 8:31 AM [employer] STMA RBC Distrib Width 13.3 11.8 - 14.5 % 03/24/2023 8:31 AM [employer] STMA Platelet Count 210 135 - 317 x10(9)/L 03/24/2023 8:31 AM [employer] STMA Leukocytes 9.8(H) 3.4 - 9.6 x10(9)/L 03/24/2023 8:31 AM [employer] STMA Neutrophils 7.85(H) 1.56 - 6.45 x10(9)/L 03/24/2023 8:31 AM [employer] DHPM Lymphocytes 1.15 0.95 - 3.07 x10(9)/L 03/24/2023 8:31 AM [employer] STMA Monocytes 0.65 0.26 - 0.81 x10(9)/L 03/24/2023 8:31 AM [employer] STMA Eosinophils 0.14 0.03 - 0.48 x10(9)/L 03/24/2023 8:31 AM [employer] STMA Basophils 0.05 0.01 - 0.08 x10(9)/L 03/24/2023 8:31 AM [employer] STMA Blood (Blood, Venous) 03/24/2023 8:04 AM [employer] 03/24/2023 8:28 AM [employer] Conrad Merchant Jr., M.D. LAB BLOOD A DD-ON Performing Organization Address City/[facility]/ZIP Co de Phone Number [facility] [place] [address] [place] [address], [facility] [address] [place] [address] [facility] [address] [place] [address] * (ABNORMAL) Basic Metabolic Panel (03/24/2023 8:04 AM [employer]) [facility] Potassium, P 4.1 3.6 - 5.2 mmol/L 03/24/2023 8:47 AM [employer] STMA Sodium, P 141 135 - 145 mmol/L 03/24/2023 8:47 AM [employer] STMA Chloride, P 104 98 - 107 mmol/L 03/24/2023 8:47 AM [employer] STMA Bicarbonate, P 26 22 - 29 mmol/L 03/24/2023 8:47 AM [employer] STMA Anion Gap, P 11 7 - 15 03/24/2023 8:47 AM [employer] STMA BUN (Blood Urea Nitrogen), P 15 8 - 24 mg/dL 03/24/2023 8:47 AM [employer] STMA Creatinine 1.51(H) 0.74 - 1.35 mg/dL 03/24/2023 8:47 AM [employer] STMA Estimated GFR (eGFR) 51(L) >=60 mL/min/BSA 03/24/2023 8:47 AM [employer] STMA Comment: Estimated GFR calculated using the 2020 CKD_EPI creatinine equation. Calcium, Total, P 9.7 8.8 - 10.2 mg/dL 03/24/2023 8:47 AM [employer] STMA Glucose, P 104 70 - 140 mg/dL 03/24/2023 8:47 AM [employer] STMA Blood (Blood, Venous) 03/24/2023 8:04 AM [employer] 03/24/2023 8:28 AM [employer] Conrad Merchant Jr., M.D. LAB BLOOD A DD-ON Performing Organization Address City/[facility]/ZIP Co de Phone Number [facility] [place] [address] [place] [address], [facility] ST[facility] [address] [place] [address] * [place] Esophagram Double Contrast (03/15/2023 10:34 [...] with upper endoscopy is recommended. Kandice Wilkins APRN, C.N.P. IMG FLU OROSCOPY PROCEDURES * FL [...] endoscopy is recommended. Kandice Wilkins APRN C.N.P. GIANAG FLU OROSCOPY PROCEDURES from Last 3 Months Care Teams Continuing Education Dean Relationship Specialty Start Date End Date Elsewhere, Pcp PCP - General Internal Medicine 03/24/23
--- OUTSIDE RECORDS SUMMARY | 2023-05-22 12:26 | XMS_ITS | Clinical Summary ---
Author Name Unknown Organization [facility] Address [place], [place] [address] Care Team Providers Care Surveying Teacher Name Role Phone Halina Grisel Yaz YESSY Primary Care Provider [phone] Allergies Active Allergy Reactions Criticality Noted Date Comments Penicillins Rash Medium 03/24/2016 Sulfa (Sulfonamide Antibiotics) Rash Medium 03/15 Medications Medication Sig Dispensed Refills Start Date End Date Status omega-3 fatty acids-vitamin E (FISH OIL) 1,000 mg cap Take 1 capsule by mouth once daily. 0 Active simvastatin (ZOCOR) 10 mg tablet Take 1 tablet by mouth at bedtime. 0 12/22/2015 Active lisinopril (PRINIVIL; ZESTRIL) 5 mg tablet Take 1 tablet by mouth once daily. 0 12/22/2015 Active omeprazole (PRILOSEC) 20 mg Delayed-Release capsule Take 1 capsule by mouth once daily before a meal. 0 03/24/2016 Active meclizine (ANTIVERT) 25 mg tabletIndications:Verti go Take 1 Tablet (25 mg) by mouth three times daily. 15 Tablet 0 06/14/2022 Active ondansetron (ZOFRAN ODT) 4 mg disintegrating tabletIndications:Verti go,Pre-syncope Place 1 Tablet (4 mg) on the tongue two times daily. 10 Tablet 0 06/14/2022 Active lisinopriL (PRINIVIL; ZESTRIL) 10 mg tabletIndications:HTN (hypertension) Take 1 Tablet (10 mg) by mouth once daily. 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 MARTINEZ (dyspnea on exertion) Family History Medical History Relation Name Comments Brain cancer Brother 3 Heart attack Brother 4 Relation Name Status Comments Brother 1 Alive Brother 2 Alive Brother 3 Brother 4 Father (Age 81) Mother (Age 59) Sister Alive Social History Tobacco Use Types Packs/Day Years Used Date Smoking Tobacco: Never Sex and Gender Information Value Date Recorded Sex Assigned at Not on file Gender Identity Not on file Sexual Orientation Not on file Obstetrics History Last Filed Vital Signs Vital Sign Reading Time Taken Comments Blood Pressure 161/111 06/14/2022 5:12 AM RADIO TIME SALESPERSON Pulse 87 06/14/2022 1:35 AM RADIO TIME SALESPERSON Temperature 36.2 ??C (97.1 ??F) 06/13/2022 8:16 PM CS T Respiratory Rate 20 06/13/2022 8:16 PM RADIO TIME SALESPERSON Oxygen Saturation 96% 06/14/2022 1:35 AM RADIO TIME SALESPERSON Inhaled Oxygen Concentration - - Weight 98.9 kg (218 lb) 06/13/2022 8:16 PM RADIO TIME SALESPERSON Height 185.4 cm (6' 1) 06/13/2022 8:16 PM RADIO TIME SALESPERSON Body Mass Index 28.76 06/13/2022 8:16 PM RADIO TIME SALESPERSON Plan of Treatment Health Maintenance Due Date Last Done Comments Tdap 1968 Depression screening for age 12+ 1969 HIV for age 15-65 1972 Hepatitis C screening for ag e 18-79 08/09/1975 Tetanus booster 1977 Colonoscopy through age 75 2002 Lipids for age 45-75 2002 Zoster (shingles) series for age 50+ (1 of 2) 08/09/2007 BMI (ht and wt on same day) for age 18+ 03/24/2017 03/24/2016 Pneumococcal series for age 65+ (1 of 1 - PCV) 2022 COVID-19 vaccine series ( - 2022- season) 2023 03/09/2022, 02/12/2021, 08/12/2020, Additional history exists Influenza for age 65+ 01/13/2023 Care Teams Surveying Teacher Relationship Specialty Start Date End Date Halina August Yaz, YESSY [address] [place] [id number] PCP - General Physician [place] 06/13/22
--- OUTSIDE RECORDS SUMMARY | 2023-05-22 12:27 | XMS_ITS ---
Author Name Unknown Organization [facility] Address [address] [place] [address] Care Team Providers Care Cdl Bulk Driver Name Role Phone Elsewhere, Pcp Primary Care Provider Unavailabl e Active Problems Problem Noted Date Diagnosed Date [...] N2a, cM0) - Signed by Racquel Blanc RDaly on 11/17/2021 Hyperlipidemia 05/28/2015 Hypertensive Chronic Kidney Disease (CKD) Stage 3a Glomerular Filtration Rate (GFR) 45 To 59 02/02/2011 Current Oncology Plans No current plan information found. Other Current Plans Hydration* Plan Start Date:04/21/2023 Plan Provider:Tulio Greene M.D. Linked Problems Achalasia Treatment Medications No medications scheduled. Past Plans No past plan information found. Radiation Treatments * No radiation treatments are documented for this patient in [facility]. Treatments may have been administered in another system. Lifetime Dose Tracking * Chemical Lifetime Dose Automatic Entry Manual Entr y Radiation 90.9 mGy 90.9 mGy 0 mGy Fluoro Time 3.7 minutes 3.7 minutes 0 minutes
--- OUTSIDE RECORDS SUMMARY | 2023-05-22 12:27 | XMS_ITS | Encounter Summary ---
Author Name Unknown Organization [facility] Address [address] [place] [address] Care Team Providers Care Pets And Pet Supplies Salesperson Name Role Phone Elsewhere, Pcp Primary Care Provider Unavailabl e Reason for Referral * Outpatient (Routine) - Closed Specialty Diagnoses / Procedures Referred By Jade simmons Referred To Contact Diagnoses Achalasia Procedures EGD (EsophagoGastroDuodenoscopy) Restricted Tulio Greene M.D. [address] [place] [address] [facility] Referral ID Status Reason Start Date Expiration Date Visits Re quested Visits Authorized [id number] Closed 04/17/2023 04/16/2024 1 1 E SALVAGER Reason for Visit * Outpatient (Routine) - Closed Specialty Diagnoses / Procedures Referred By Jade simmons Referred To Contact Diagnoses Achalasia Procedures EGD (EsophagoGastroDuodenoscopy) Restricted Tulio Greene M.D. [address] [place] [address] [facility] Referral ID Status Reason Start Date Expiration Date Visits Re quested Visits Authorized [id number] Closed 04/17/2023 04/16/2024 1 1 Encounter Details Date Type Department Care Team (Latest Contact Info) Description 04/20/2023 1:17 PM WASTE SALVAGER - 04/20/2023 4:42 PM WASTE SALVAGER Hospital Encounter Division of Gastroenterology in [place], [place] [address] [place] [phone] Tulio Greene M.D. [address] [place] [phone] Ryley Wright, DONKEY ENGINE FIRER/FIREMAN, INFORMATION MANAGER, DNAP [address] [place] [phone] Achalasia Discharge Disposition: Home or Self Care Social History Tobacco Use Types Packs/Day Years [...] week 05/20/2021 How often do you attend chur ch or scientologist services? More than 4 times per year 05/20/2021 Do you belong to any clubs o r organizations such as sikh groups, unions, fraternal or athletic groups, or [...] and heating? Not hard at all 03/06/2023 [facility] of Occupat ional Health - Occupational Stress [...] your living situation today? I have a [facility] place to live 03/06/2023 Education Answer Date Recorded What is the highest level of school you have completed or the highest degree you have received? Bachelor's degree (e.g., BA, AB, BS) 09/27/2019 Sex and Gender Information Value Date Recorded Sex Assigned at Male 12/12/2017 9:23 AM CDT Gender Identity Male 12/12/2017 9:23 AM CDT Sexual Orientation Straight 12/12/2017 9: 23 AM CDT documented as of this encounter Last Filed Vital Signs Vital Sign Reading Time Taken Comments Blood Pressure 141/95 04/20/2023 4:23 PM WASTE SALVAGER Pulse 75 04/20/2023 4:28 PM WASTE SALVAGER Temperature 36.6 ??C (97.9 ??F) 04/20/2023 3:18 PM CS T Respiratory Rate 18 04/20/2023 4:28 PM WASTE SALVAGER Oxygen Saturation 95% 04/20/2023 4:28 PM WASTE SALVAGER Inhaled Oxygen Concentration - - Weight - - Height - - Body Mass Index - - documented in this encounter Medications at Time of Discharge Medication Sig Dispensed Refills Start Date End Date allopurinoL (ZYLOPRIM) 100 mg tablet Take 1 tablet (100 mg total) by mouth daily. 90 tablet 3 12/26/2022 12/26/2023 famotidine (PEPCID) 20 mg tablet TAKE 2 TABLETS(40 MG) BY MOUTH DAILY 180 tablet 3 01/21/2022 fluoride, sodium, (PreviDent) 1.1 % gel dental gel Apply 1 application to the mouth or throat daily. 56 g 11 08/11/2022 lisinopriL (PRINIVIL,ZESTRIL) 30 mg tabletIndications:Hyp ertension And Chronic Kidney Disease Stage 1 To 4 Take 1 tablet (30 mg total) by mouth daily. 90 tablet 3 12/26/2022 12/26/2023 meclizine (ANTIVERT) 25 mg tablet Take 25 mg by mouth as needed. 0 06/15/2022 omega 8-wba-nux-fish oil 1,000 mg (120 mg-180 mg) capsule Take 1 capsule by mouth at bedtime. 0 04/14/2017 simvastatin (ZOCOR) 10 mg tabletIndications:Hyp erlipidemia Take 1 tablet (10 mg total) by mouth at bedtime. 90 tablet 3 12/26/2022 12/26/2023 tadalafiL (CIALIS) 10 mg tablet Take 1 tablet (10 mg total) by mouth daily. 90 tablet 3 12/26/2022 12/26/2023 documented as of this encounter Plan of Treatment Not on file documented as of this encounter Procedures Procedure Name Priority Date/Time Associated Diagnosis Comments SURGICAL PATHOLOGY Routine 04/20/2023 3: 03 PM WASTE SALVAGER EGD (ESOPHAGOGASTRODUODE NOSCOPY) RESTRICTED Routine 04/20/2023 2:10 PM WASTE SALVAGER Achalasia UPPER GI ENDOSCOPY Routine 04/20/2023 2: 10 PM WASTE SALVAGER Achalasia documented in this encounter Results * Surgical Pathology (04/20/2023 3:03 PM WASTE SALVAGER) 04/24/2023 10:27 AM WASTE SALVAGER DTL Report electronically signed by Janet Thomson M.D. I verify that I have examined all relevant slides/materials for the specimen(s) and rendered or confirmed the diagnosis. 04/24/2023 10:27 AM WASTE SALVAGER DTL Gross Description Received in formalin labeled with the patient's name, medical record number, and esophagus, gastroesophageal junction are four pink-translucent irregular soft tissues, ranging from 0.3-0.4 cm in greatest dimension. The specimens are submitted en toto in cassette A1.Grossed by AJD. 04/24/2023 10:27 AM WASTE SALVAGER DTL Interpretation FINAL DIAGNOSIS A. Esophagus, gastroesophageal junction endoscopic biopsy: Small foci of intestinal metaplasia in gastroesophageal junction-type mucosa with mild chronic inflammation. This could represent either specialized Askew's mucosa (if truly taken above the GE junction) or focal intestinal metaplasia of the gastric cardia. There is no dysplasia. Diagnosis was made via digital imaging. 04/24/2023 10:27 AM WASTE SALVAGER DTL Biopsy (Esophagus) 04/20/2023 3:03 PM WASTE SALVAGER Sarah Isabel M.D. LAB SURG PATH [facility] [address] [place] [address], [place] DTL [address] [place] [address] * Upper GI Endoscopy (04/20/2023 2:10 PM WASTE SALVAGER) 04/20/2023 2:10 PM WASTE SALVAGER Impressions [employer] - 04/20/2023 3:52 PM WASTE SALVAGER Post-op Diagnoses: ? - Established diagnosis of achalasia. Lower esophageal sphincter ? injected with botulinum toxin. ? - FLIP imaging performed. Confirms manometric findings of type II ? achalasia. ? - Granular mucosa in the esophagus. Findings likely from hypertonicity ? of lower esophogeal sphincter. Biopsied. ? - Gastritis. ? - Duodenitis. ? - Normal examined duodenum. Narrative [employer] [employer] - 04/20/2023 3:52 PM WASTE SALVAGER Eric 6 GI GI Patient Name: Nash Segovia Date of : 1955 Age: 67 Procedure Date: 04/20/2023 Procedure: ? Upper GI endoscopy Providers: ? Sarah Isabel MD Referring Provider: ?Geri Greene MD [...] 0 Tulio Greene M.D. GI PROCEDURE ORDERA TRE Performing Organization Address City/State/ZIP Co me Phone Number [facility] [place] NA documented in this encounter Visit Diagnoses Diagnosis Achalasia documented in this encounter Administered Medications Inactive Administered Medications - up to 3 most recent administrations Medication Order MAR Action Action Date Dose Rate Site Lactated Ringer's 20 mL/hr, intravenous, Continuous, Starting on [place] 04/20/23 at 1415, Following bolus, infuse for the duration of the procedure and recovery phase Lactated Ringer's 20 mL/hr, intravenous, Continuous, Starting on [place] 04/20/23 at 1515, PACU & Post-Op Continued from OR 04/20/2023 3:44 PM WASTE SALVAGER 20 mL/hr 20 mL/hr onabotulinumtoxinA injection (BOTOX) As needed, Starting on [place] 04/20/23 at 1459, Intra-Op Given 04/20/2023 2:59 PM WASTE SALVAGER 100 Units Esophagus sodium chloride 0.9 % injection 10 mL 10 mL, intravenous, As needed, line care, Starting on [place] 04/20/23 at 1357, Peripheral Intravenous Catheter and Rapid Infusion Catheter, prior to blood sampling, post blood transfusion or post blood sampling sodium chloride 0.9 % injection 3 mL 3 mL, intravenous, As needed, line care, Starting on [place] 04/20/23 at 1343, Pre-Op, Prior to and following infusion and between multiple consecutive infusions sodium chloride 0.9 % injection 3 mL 3 mL, intravenous, As needed, line care, Starting on [place] 04/20/23 at 1343, Pre-Op, Prior to and following infusion and between multiple consecutive infusions sodium chloride 0.9 % injection 3 mL 3 mL, intravenous, As needed, line care, Starting on [place] 04/20/23 at 1343, Pre-Op, Prior to and following infusion and between multiple consecutive infusions sodium chloride 0.9 % injection 3 mL 3 mL, intravenous, As needed, line care, Starting on [place] 04/20/23 at 1357, Prior to and following infusion and between multiple consecutive infusions: sodium chloride 0.9 % injection sodium chloride 0.9 % injection 3 mL 3 mL, intravenous, Every 12 hours scheduled, First dose on [place] 04/20/23 at 2100, Peripheral Intravenous Catheter and Rapid Infusion Catheter, when no infusion to maintain patency documented in this encounter Active and Recently Administered Medications Times are shown in WASTE SALVAGER. Scheduled Medication Order 04/18/2023 04/19/2023 04/20/2023 Lactated Ringer's bolus 500 mL 500 mL, intravenous, at 1,000 mL/hr, Administer over 30 Minutes, Once, On [place] 04/20/23 at 1415, For 1 dose, Follow with 20 ml/hr infusion for the duration of the procedure and recovery phase 141 (Due) sodium chloride 0.9 % injection 3 mL 3 mL, intravenous, Every 12 hours scheduled, First dose on [place] 04/20/23 at 2100, Peripheral Intravenous Catheter and Rapid Infusion Catheter, when no infusion to maintain patency Continuous Medication Order 04/18/2023 04/19/2023 04/20/2023 Lactated Ringer's 20 mL/hr, intravenous, Continuous, Starting on [place] 04/20/23 at 1415, Following bolus, infuse for the duration of the procedure and recovery phase 1415 (Due) Lactated Ringer's 20 mL/hr, intravenous, Continuous, Starting on [place] 04/20/23 at 1515, PACU & Post-Op 1544 (Continued from OR - Provider: Skyler Kaye R.N.) PRN Medication Order 04/18/2023 04/19/2023 04/20/2023 onabotulinumtoxinA injection (BOTOX) (COMPLETED) As needed, Starting on [place] 04/20/23 at 1459, Intra-Op 1459 (Given - Provid er: Sarah Isabel M.D. - Comment: 100 units reconstituted with 5 ml 0.9% NS. Injected evenly over 4 sites.) sodium chloride 0.9 % injection 10 mL 10 mL, intravenous, As needed, line care, Starting on [place] 04/20/23 at 1357, Peripheral Intravenous Catheter and Rapid Infusion Catheter, prior to blood sampling, post blood transfusion or post blood sampling sodium chloride 0.9 % injection 3 mL 3 mL, intravenous, As needed, line care, Starting on [place] 04/20/23 at 1343, Pre-Op, Prior to and following infusion and between multiple consecutive infusions sodium chloride 0.9 % injection 3 mL 3 mL, intravenous, As needed, line care, Starting on [place] 04/20/23 at 1343, Pre-Op, Prior to and following infusion and between multiple consecutive infusions sodium chloride 0.9 % injection 3 mL 3 mL, intravenous, As needed, line care, Starting on [place] 04/20/23 at 1343, Pre-Op, Prior to and following infusion and between multiple consecutive infusions sodium chloride 0.9 % injection 3 mL 3 mL, intravenous, As needed, line care, Starting on [place] 04/20/23 at 1357, Prior to and following infusion and between multiple consecutive infusions: sodium chloride 0.9 % injection documented in this encounter Additional Health Concerns Assessment Noted Time PHQ-9 Depression Total Score: 0 05/18/19 18 11:56 AM WASTE SALVAGER documented as of this encounter Care Teams Pets And Pet Supplies Salesperson Relationship Specialty Start Date End Date Elsewhere, Pcp PCP - General Internal Medicine 03/24/23 documented as of this encounter
--- OUTSIDE RECORDS SUMMARY | 2023-05-22 12:27 | XMS_ITS | Encounter Summary ---
Author Name Unknown Organization [facility] Address [address] [place] [address] Care Team Providers Care Relay Telegrapher Name Role Phone Elsewhere, Pcp Primary Care Provider Unavailabl e Reason for Visit * Outpatient (Routine) - Closed Specialty Diagnoses / Procedures Referred By Jade simmons Referred To Contact Diagnoses Dysphagia Oropharyngeal Phase Achalasia Procedures Esophageal Manometry Kandice Wilkins APRN, C.N.P. [address] [place] [phone] [facility] Referral ID Status Reason Start Date Expiration Date Visits Re quested Visits Authorized [id number] Closed 03/30/2023 03/29/2024 1 1 Encounter Details Date Type Department Care Team (Latest Contact Info) Description 04/21/2023 11:59 PM [facility] Hospital Encounter Division of Gastroenterology in [place], [place] [address] [place] [phone] Kandice Wilkins APRN, C.N.P. [address] [place] [phone] Canceled (Clinic: Earlier Appointment) Discharge Disposition: Home or Self Care Social History Tobacco Use Types Packs/Day Years Used Date Smoking Tobacco: Never Smokeless Tobacco: Never Alcohol Use Standard Drinks/Week Comments No 0 [...] often do you attend chur ch or faith services? More than 4 times per year 05/20/2021 Do you belong to any clubs o r organizations such as confucianist groups, unions, fraternal or athletic groups, or [...] and heating? Not hard at all 03/06/2023 [facility] of Occupat ional Health - Occupational Stress [...] your living situation today? I have a [facility] place to live 03/06/2023 Education Answer [...] AM CDT documented as of this encounter Medications at Time of Discharge [...] by mouth as needed. 0 06/15/2022 omega 2-sma-xhr-fish oil 1,000 mg (120 mg-180 mg) capsule [...] Procedure Name Priority Date/Time Associated Diagnosis Comments RI ESOPH IMPED FUNCTION TEST Routine 04/19/2023 2:15 PM NUT GRINDER Dysphagia Oropharyngeal Phase Achalasia RI HIGH RESOLUTION ESOPHAGEAL MANOMETRY Routine 04/19/2023 2:15 PM NUT GRINDER Dysphagia Oropharyngeal Phase Achalasia documented in this encounter Results * RI HIGH RESOLUTION ESOPHAGEAL MANOMETRY, RI ESOPH IMPED FUNCTION TEST (04/19/2023 2:15 PM NUT GRINDER) Narrative [facility] - 04/19/2023 2:15 PM NUT GRINDER Cassi Smith M.D. ? 04/19/2023 ??5:24 PM [...] per [place]icago classification 4.0 ?? Kandice Wilkins APRN C.N.P. GI PROC EDURE ORDERABLES [facility] NA documented in this encounter Visit Diagnoses Not on filedocumented in this encounter Additional Health Concerns Assessment Noted Time PHQ-9 Depression Total Score: 0 05/18/19 18 11:56 AM NUT GRINDER documented as of this encounter Care Teams Relay Telegrapher Relationship Specialty Start Date End Date Elsewhere, Pcp PCP - General Internal Medicine 03/24/23 documented as of this encounter
--- OUTSIDE RECORDS SUMMARY | 2023-05-22 12:27 | XMS_ITS | Encounter Summary ---
Author Name Unknown Organization [facility] Address [address] [place] [address] Care Team Providers Care Label Drier Name Role Phone Elsewhere, Pcp Primary Care Provider Unavailabl e Reason for Visit * Reason Onset Date Comments infusion request 04/22/2023 Encounter Details Date Type Department Care Team (Late st Contact Info) Description 04/22/2023 Nurse Triage Department of Family Medicine, [facility], in [place], [place] [address] [place] [phone] Darlene Chávez, RClydeNClyde [address] [phone] infusion request Social History Tobacco Use Types Packs/Day Years [...] often do you attend chur ch or alevism services? More than 4 times per year 05/20/2021 Do you belong to any clubs o r organizations such as bahai groups, unions, fraternal or athletic groups, or [...] and heating? Not hard at all 03/06/2023 [facility] [place] of Occupat ional Health - Occupational Stress [...] your living situation today? I have a [facility] place to live 03/06/2023 Education Answer [...] AM CDT documented as of this encounter Miscellaneous Notes * Telephone Encounter - Darlene Chávez R.N. - 04/22/2023 8:59 AM DAM TENDER Chief Complaint / Reason for Call Patient is a 67 y.o. male calling regarding infusion request. Assessment Concern: has a history of dysphagia and his doctor ordered fluids if he needs it. Wondering if he can get those today Last urinated this morning and it was dark. He denies dizziness or light headed. His mouth is really dry. It is a recurring problem and they figured out what is going on . He had a Botox injection in the lower sphincter of his esophagus. Calling to request: an infusion to be done at infusion center today The recommended disposition is Other. Kellee Francis, was given his information and to follow the process for [facility] information services assistant. TENDER documented in this encounter Plan of Treatment Not on file documented as of this encounter Visit Diagnoses Not on filedocumented in this encounter Additional Health Concerns Assessment Noted Time PHQ-9 Depression Total Score: 0 05/18/19 18 11:56 AM DAM TENDER documented as of this encounter Care Teams Label Drier Relationship Specialty Start Date End Date Elsewhere, Pcp PCP - General Internal Medicine 03/24/23 documented as of this encounter
--- OUTSIDE RECORDS SUMMARY | 2023-05-22 12:27 | XMS_ITS | Encounter Summary ---
Author Name Unknown Organization [facility] Address [address] [place] [address] Care Team Providers Care Fruit Harvest Machine Operator Name Role Phone Elsewhere, Pcp Primary Care Provider Unavailabl e Encounter Details Date Type Department Care Team (Latest Contact Info) Description 04/20/2023 2:10 PM CAR SALES ASSOCIATE Ancillary Procedure Department of Gastroenterology Social History Tobacco Use Types Packs/Day Years [...] week 05/20/2021 How often do you attend [facility] or anabaptism services? More than 4 times per year 05/20/2021 Do you belong to any clubs o r organizations such as worship groups, unions, fraternal or athletic groups, or [...] and heating? Not hard at all 03/06/2023 [facility] - Occupational [...] Date Recorded Dental: Regular Dentist Yes 12/16/19 21 Employment Answer Date Recorded Employment status Retired 03/06/2023 Housing Stability Answer Date Recorded What is your living situation today? I have a [employer] place to live 03/06/2023 Education Answer Date [...] AM CDT documented as of this encounter Plan of Treatment Not on file documented as of this encounter Procedures Procedure Name Priority Date/Time Associated Diagnosis Comments GASTROENTEROLOGY IMAGE EXAM Routine 04/20/2023 2:10 PM CAR SALES ASSOCIATE documented in this encounter Results * Upper GI endoscopy-Gastroenterology Image Exam (04/20/2023 2:10 PM CAR SALES ASSOCIATE) 04/20/2023 2:10 PM CAR SALES ASSOCIATE Narrative IIMS - 04/20/2023 4:03 PM CAR SALES ASSOCIATE This order has been created and auto-finalized to support the import of images acquired without order. The clinical documentation to support these images can be found on the encounter that produced images. Provider Not In System IMG NON RAD IMAGI NG PROCEDURES IIMS NA documented in this encounter Visit Diagnoses Not on filedocumented in this encounter Additional Health Concerns Assessment Noted Time PHQ-9 Depression Total Score: 0 05/18/19 18 11:56 AM CAR SALES ASSOCIATE documented as of this encounter Care Teams Fruit Harvest Machine Operator Relationship Specialty Start Date End Date Elsewhere, Pcp PCP - General Internal Medicine 03/24/23 documented as of this encounter
--- OUTSIDE RECORDS SUMMARY | 2023-05-22 12:27 | XMS_ITS | Encounter Summary ---
Author Name Unknown Organization [facility] Address [address] [place] [address] Care Team Providers Care Riverboat Captain Name Role Phone Elsewhere, Pcp Primary Care Provider Unavailabl e Encounter Details Date Type Department Care Team (Late st Contact Info) Description 05/18/2023 Clinical Communication Division of Thoracic Surgery in [place], [place] [address] [place] [phone] Akosua Shaffer M.D. [address] [place] [phone] Social History Tobacco Use Types Packs/Day Years [...] often do you attend chur ch or sabianist services? More than 4 times per year 05/20/2021 Do you belong to any clubs o r organizations such as baptist groups, unions, fraternal or athletic groups, or [...] and heating? Not hard at all 03/06/2023 [facility] Occupat ional Health - [...] your living situation today? I have a [facility] place to live 03/06/2023 Education Answer [...] Total Score: 0 05/18/19 18 11:56 AM OIL SPECULATOR documented as of this encounter Care Teams Riverboat Captain Relationship Specialty Start Date End Date Elsewhere, Pcp PCP - General Internal Medicine 03/24/23 documented as of this encounter
--- OUTSIDE RECORDS SUMMARY | 2023-05-22 12:27 | XMS_ITS | Encounter Summary ---
Author Name Unknown Organization [facility] Address [address] [place] [address] Care Team Providers Care Event Staff Member Name Role Phone Elsewhere, Pcp Primary Care Provider Unavailabl e Encounter Details Date Type Department Care Team (Latest Contact Info) Description 04/20/2023 2:29 PM VALIDATION INTERN Anesthesia Event Division of Gastroenterology in [place], [place] [address] [place] [phone] Conrad Quintana APRN, CRNA, D.N.P. [address] [place] [phone] Sofi Aly M.D. [address] [place] [phone] Anesthesia Record Procedure Summary Procedure Name Responsible Anesthesiologist Anesthesia Start Time Anesthesia Stop Time EGD (ESOPHAGOGASTRODUODE NOSCOPY) RESTRICTED Conrad Quintana APRN, CRNA, D.N.P. 04/20/23 1429 04/20/23 1517 Events Date Time Event Comment 04/20/2023 1429 An Start Machine/Equipme nt Checked Infection Precautions Followed Procedure/Site Verified NPO Status Verified Supine Standard ASA Monitors Applied 1432 An Induction 1434 An Intubation 1435 Turnover to Proceduralist 1441 Proc Start 1500 Anes CS Handoff IRyley APRN, ASTRID, DNAP, attest that I have reconciled the controlled substances and that I have reviewed all the significant information with the next anesthesia provider assuming care of this patient. 1505 Proc Fin 1513 Turnover to ANE Staff 1513 Airway Removal Criteria Met 1513 Extubation/Airway Removed 1514 an stop data 1517 An End I completed my handoff to the receiving staff during which we 1. Identified the patient 2. Identified the responsible provider 3. Reviewed the pertinent medical history 4. Discussed the surgical course 5. Reviewed intra-op anesthesia management and issues during anesthesia 6. Set expectations for post-procedure period 7. Allowed opportunity for questions and acknowledgement of understanding. Meds Name Total fentanyl injection 50 mcg/mL 100 mcg lidocaine 2% (mg) injection 60 mg succinylcholine 20 mg/mL injection 100 m g phenylephrine 100 mcg/mL injection 200 m cg ondansetron 4 mg/2 mL injection 4 mg propofol 10 mg/mL infusion 390.73 mg propofol 10 mg/mL injection 200 mg dexAMETHasone (DECADRON) injection 4 mg/ mL 8 mg Lactated Ringers Free Drip 700 mL * Agents No agents on file. * Blood No blood administrations on file. Lines, Drains, and Airways Type Details Placement Removal Peripheral IV Placement Date: 12/04; Placement Time: 1409; Change Due: 04/23/23; Catheter Size: 20 G; Orientation: Lower, Posterior, Right; Location: Forearm; Site Prep: Alcohol; Technique: Anatomical landmarks; Inserted by: ashwin tucker rn; Insertion Attempts: 1; Removal Date: 04/20/23; Removal Time: 1631; Removal Reason: Patient discharged 04/20/23 1409 by Christie Tucker, R.N. 04/20/23 1631 by Skyler Kaye, RClydeNClyde ETT Placement Date: 12/04; Placement Time: 1434 (created via procedure documentation); Mask Ventilation: Not attempted (Rapid Sequence Intubation); Technique: Video laryngoscopy; Type: Standard ETT; Single Lumen Tube Size: 7.5 mm; Cuffed: Yes; Location: Oral; Grade View: Grade 1; Insertion Attempts: 1; Placement Verification: Bilateral breath sounds, Positive ETCO2, Symmetrical chest wall movement; Removal Date: 04/20/23; Removal Time: 1513 04/20/23 1434 by Ryley Wright APRN, MORNING NANNY, DNAP 04/20/23 1513 by Conrad Quintana APRN, ASTRID, D.N.P. documented in this encounter Social History Tobacco Use Types Packs/Day Years [...] often do you attend chur ch or presybeterian services? More than 4 times per year 05/20/2021 Do you belong to any clubs o r organizations such as sabianism groups, unions, fraternal or athletic groups, or [...] and heating? Not hard at all 03/06/2023 [facility] Occupat ional Health - Occupational Stress [...] your living situation today? I have a [facility] place to live 03/06/2023 Education Answer Date [...] AM CDT documented as of this encounter OR Notes * Anesthesia Postprocedure Evaluation - Conrad Quintana APRN, MORNING NANNY, D.N.P. - 04/20/2023 4:20 PM CST Patient: Nash Segovia Procedure Summary Date: 04/20/23 Room / Location: Division of Gastroenterology in [place], [place] Anesthesia Start: 1429 Anesthesia Stop: 1517 Procedure: EGD (ESOPHAGOGASTRODUODENOSCOPY) RESTRICTED Diagnosis: Achalasia Achalasia Scheduled Providers: Ryley Wright APRN, CRNA, DNAP Responsible Provider: Conrad Quintana APRN, CRNA, D.N.P. Anesthesia Type: general ASA Status: 3 Anesthesia Type: general Last vitals Vitals Value Taken Time BP 141/95 04/20/23 1625 Temp 36.6 ??C 04/20/23 1518 Pulse 75 04/20/23 1628 Resp 18 04/20/23 1628 SpO2 95 % 04/20/23 1628 Please reference Vitals flowsheet for most recent vital signs. Anesthesia Post Evaluation Patient Disposition: dismissal Cardiovascular status: hemodynamics (HR & BP) acceptable Respiratory status: patent airway with spontaneous effort Temperature: normothermic Oxygen requirements: room air Level of consciousness: awake Pain score: pain adequately controlled and/or at baseline Post Op nausea/vomiting: none Hydration status: euvolemic DATION INTERN * Anesthesia Procedure Notes - Ryley Wright APRN, CRNA, DNAP - 04/20/2023 2:42 PM CSTAssociated Order(s): Airway Airway Date/Time: 04/20/2023 2:34 PM Performed by: Ryley Wright APRN, CRNA, DNAP Authorized by: Ryley Wright APRN, CRNA, DNAP Patient location during procedure: OR / Procedure Area PROCEDURE DETAILS: Mask difficulty assessment: not attempted (Rapid Sequence Intubation) Final airway type: video laryngoscope Laryngeal Manipulation: no Final best view of glottic structures - Cormack/Lehane Score: grade 1 ETT location: oral VL device: glide scope [place] scope blade size: 4 Tube size: 7.5 [...] ANESTHESIA Anesthesia method: anesthesia POST PROCEDURE DETAILS: Procedure outcome: successful Airway event: no complications DATION INTERN * Anesthesia Preprocedure Evaluation - Ryley Wright APRN, CRNA, DNAP - 04/20/2023 2:23 PM CST Preprocedure Anesthesia & H&P Assessment Procedure Summary Anesthesia Start Date/Time: 04/20/231428 Scheduled providers: Ryley Wright APRN, CRNA, DNAP Procedure: EGD (ESOPHAGOGASTRODUODENOSCOPY) RESTRICTED Diagnosis: Achalasia [K22.0] Achalasia [K22.0] Location: Division of Gastroenterology in [place], [place] Pertinent components of the patient's history including current problem list, medical history, surgical history, family history, social history, medications and allergies were reviewed. Present illness and pre-op diagnosis were confirmed. The planned surgery / procedure was verified with the patient / legal guardian. 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) RENAL/REPRO (+) Chronic Kidney Disease (CKD), Stage 3a Glomerular Filtration Rate (GFR) 45 To 59 (HCC) (+) Hypertensive Chronic Kidney Disease (CKD) Stage 3a Glomerular Filtration Rate (GFR) 45 To 59 (HCC) ONC (+) Malignant Neoplasm Of Tonsil (HCC) OBJECTIVE PHYSICAL EXAMINATION Airway (HEENT) Mallampati: II TM Distance: >3 FB Neck ROM: Full Mouth Opening: >3 cm Cardiovascular Rhythm: Regular Rate: Normal Cardiovascular Assessment: cardiovascular normal Functional Capacity: >4 METS Pulmonary Pulmonary Assessment: Clear General / Constitutional Constitutional Assessment: Normal General State of Health:: calm Neurological Neurologic Assessment: alert and alert and oriented x 3 Dental Dental Assessment: dentition intact ASSESSMENT / PLAN ANESTHESIA PLAN ASA: 3 Anesthesia Plan: general Patient seen and allergies reviewed, anesthesia plan and risks discussed directly with patient /legal guardian or through an funeral pre arrangement specialist. Risks/Benefits/Alternatives of Blood transfusion discussed with patient / legal guardian, includingan opportunity to ask questions and/or decline some or all transfusion therapies. The patient / legal guardian consented to the use of all blood products, as deemed medically necessary Approval to Proceed: approved for anesthesia DATION INTERN documented in this encounter Plan of Treatment Not on file documented as of this encounter Procedures Procedure Name Priority Date/Time Associated Diagnosis Comments LDA ANE ENDOTRACHEAL AIRWAY Routine 04/20/2023 2:34 PM VALIDATION INTERN documented in this encounter Results * LDA ANE ENDOTRACHEAL AIRWAY (04/20/2023 2:34 PM VALIDATION INTERN) Narrative Ryley Wright APRN, CRNA, DNAP - 04/20/2023 2:34 PM VALIDATION INTERN Ryley Wright APRN, CRNA, DNAP ? 04/20/2023 ??2:42 PM Airway Date/Time: [...] ETT location: oral VL device: glide scope [place] scope blade size: 4 Tube size: 7.5 [...] ?? Airway event: no complications Ryley Wright SCHOOL COUNSELOR, MORNING NANNY, DNAP ANESTH ESIA ORDERABLES documented in this encounter Visit Diagnoses Not on filedocumented in this encounter Administered Medications Inactive Administered Medications - up to 3 most recent administrations Medication Order MAR Action Action Date Dose Rate Site dexAMETHasone injection (DECADRON) intravenous, As needed, Starting on Ely 04/20/23 at 1438, Anesthesia Intra-op Given 04/20/2023 2:38 PM VALIDATION INTERN 8 mg fentaNYL injection (SUBLIMAZE) intravenous, As needed, Starting on Ely 04/20/23 at 1433, Anesthesia Intra-op Given 04/20/2023 2:45 PM VALIDATION INTERN 50 mcg Given 04/20/2023 2:33 PM VALIDATION INTERN 50 mcg Lactated Ringer's intravenous, Continuous Infusion: Per Instructions PRN, Starting on Ely 04/20/23 at 1429, Anesthesia Intra-op New Bag 04/20/2023 2:55 PM VALIDATION INTERN New Bag 04/20/2023 2:29 PM VALIDATION INTERN lidocaine (PF) (cardiac) injection intravenous, As needed, Starting on Ely 04/20/23 at 1433, Anesthesia Intra-op Given 04/20/2023 2:33 PM VALIDATION INTERN 60 mg ondansetron (PF) injection (ZOFRAN) intravenous, As needed, Starting on Ely 04/20/23 at 1449, Anesthesia Intra-op Given 04/20/2023 2:49 PM VALIDATION INTERN 4 mg phenylephrine injection intravenous, As needed, Starting on Ely 04/20/23 at 1458, Anesthesia Intra-op Given 04/20/2023 3:01 PM VALIDATION INTERN 100 mcg Given 04/20/2023 2:58 PM VALIDATION INTERN 100 mcg propofol 10 mg/mL infusion (DIPRIVAN) intravenous, Continuous Infusion: Per Instructions PRN, Starting on Ely 04/20/23 at 1434, Anesthesia Intra-op Rate/Dose Change 04/20/2023 2:48 PM VALIDATION INTERN 125 mcg/kg/min 71.475 mL/hr New Bag 04/20/2023 2:34 PM VALIDATION INTERN 150 mcg/kg/min 85.77 mL/ hr propofoL injection (DIPRIVAN) intravenous, As needed, Starting on Ely 04/20/23 at 1432, Anesthesia Intra-op Given 04/20/2023 2:45 PM VALIDATION INTERN 50 mg Given 04/20/2023 2:32 PM VALIDATION INTERN 150 mg succinylcholine (PF) injection (ANECTINE) intravenous, As needed, Starting on Ely 04/20/23 at 1433, Anesthesia Intra-op Given 04/20/2023 2:33 PM VALIDATION INTERN 100 mg documented in this encounter Additional Health Concerns Assessment Noted Time PHQ-9 Depression Total Score: 0 05/18/19 18 11:56 AM VALIDATION INTERN documented as of this encounter Care Teams Event Staff Member Relationship Specialty Start Date End Date Elsewhere, Pcp PCP - General Internal Medicine 03/24/23 documented as of this encounter
--- OUTSIDE RECORDS SUMMARY | 2023-05-22 12:27 | XMS_ITS | Encounter Summary ---
Author Name Unknown Organization [facility] Address [address] [place] [address] Care Team Providers Care Computer Systems Manager Name Role Phone Elsewhere, Pcp Primary Care Provider Unavailabl e Reason for Visit * Outpatient (Routine) - Closed Specialty Diagnoses / Procedures Referred By Jade simmons Referred To Contact Thoracic Surgery Diagnoses Achalasia Tulio Greene M.D. [address] [place] [phone] [facility] Referral ID Status Reason Start Date Expiration Date Visits Re quested Visits Authorized [id number] Closed 04/20/2023 04/19/2024 1 1 Encounter Details Date Type Department Care Team (Late st Contact Info) Description 05/19/2023 1:30 PM ANALOG DEVICE DESIGNER Telemedicine Division of Thoracic Surgery in [place], [place] [address] [place] [phone] Akosua Shaffer M.D. [address] [place] [phone] Achalasia Social History Tobacco Use Types Packs/Day Years [...] 05/20/2021 How often do you attend chur or sabianist services? More than 4 times per year 05/20/2021 Do you belong to any clubs o r organizations such as jehovah's witness groups, unions, fraternal or athletic groups, or [...] and heating? Not hard at all 03/06/2023 [facility] of Occupat ional Health - Occupational [...] your living situation today? I have a [facility] place to live 03/06/2023 Education Answer [...] AM CDT documented as of this encounter Consult Notes * Akosua Shaffer M.D. - 05/19/2023 1:30 PM CST SUBJECTIVE CHIEF COMPLAINT / REASON FOR CONSULT Nash Segovia is a 67 y.o. male seen for evaluation of achalasia. HISTORY OF PRESENT ILLNESS The patient is a 67 year old male who has been seen in Gi and worked up for symptoms of dysphagia. He does have a history of chemoradiation therapy and surgery for tonsillar cancer in 2017 and 2018. The dysphagia has now progressed to solid and liquid food, resulting in a 20-25 lb weight loss. He did have a Botox injection and did notice some improvement. He reports that he has never smoked. Social History Tobacco Use Smoking status: Never Smokeless tobacco: Never REVIEW OF SYSTEMS Pertinent items are noted in the history of present illness; all other review of systems was negative. OBJECTIVE PHYSICAL EXAM Other than noted above, no relevant physical exam findings. Diagnostics Lab Results Component Value Date WBC 9.8 (H) 03/24/2023 HGB 18.6 (H) 03/24/2023 HCT 57.7 (H) 03/24/2023 MCV 88.4 03/24/2023 PLT 210 03/24/2023 Lab Results Component Value Date NA 141 03/24/2023 KSERUM 3.9 06/14/2022 KPLASMA 4.1 03/24/2023 CL 104 03/24/2023 BICARB 26 03/24/2023 CREATININE 1.51 (H) 03/24/2023 BUN 15 03/24/2023 ANIONGAP 11 03/24/2023 GLUCOSE 104 03/24/2023 CALCIUM 9.7 03/24/2023 Lab Results Component Value Date BILITOT 0.3 06/15/2021 AST 20 06/15/2021 ALKPHOS 91 06/15/2021 ALBUMIN 3.8 06/15/2021 Esophagram: Luminal narrowing at the gastroesophageal junction with [...] the esophagus, but no reflux was witnessed. EGD: - Established diagnosis of achalasia. Lower esophageal sphincter injected with botulinum toxin. - FLIP imaging performed. Confirms manometric findings of type II achalasia. - Granular mucosa in the esophagus. Findings likely from hypertonicity of lower esophogeal sphincter. Biopsied. - Gastritis. Manometry: Achalasia type II per chicago classification 4.0 ASSESSMENT / PLAN #1 Achalasia Had a thompson discussion with the patient regarding surgical and endoscopic options. He says the Botox works really well for him, but understands that its a short term solution. We discussed recovery, risks and complication with both options. After much consideration, he wants to go the POEM route. Right now he is swallowing ok, but is going to [place] for 4 months, and then having the POEM done [place] in [place]. If he were to need an intervention while in [place], he could likely receive a Botox injection to help with symptoms until he returns to [place]. PATIENT EDUCATION I spent time with the patient on education of the pertinent clinical matters. The patient was readyto learn with no apparent significant learning barriers identified. We concluded that learning preferences include listening. More than 50% of the time was spent in education, counseling, and coordinating the patient's care. OG DEVICE DESIGNER documented in this encounter Plan of Treatment Not on file documented as of this encounter Visit Diagnoses Diagnosis Achalasia documented in this encounter Additional Health Concerns Assessment Noted Time PHQ-9 Depression Total Score: 0 05/18/19 18 11:56 AM ANALOG DEVICE DESIGNER documented as of this encounter Care Teams Computer Systems Manager Relationship Specialty Start Date End Date Elsewhere, Pcp PCP - General Internal Medicine 03/24/23 documented as of this encounter
--- OUTSIDE RECORDS SUMMARY | 2023-05-22 12:27 | XMS_ITS | Encounter Summary ---
Author Name Unknown Organization [facility] Address [address] [place] [address] Care Team Providers Care Heeler Name Role Phone Elsewhere, Pcp Primary Care Provider Unavailabl e Reason for Visit * Reason Comments Scheduling Encounter Details Date Type Department Care Team (Late st Contact Info) Description 04/18/2023 Documentation Division of Endocrinology in [place], [place] [address] [place] [phone] Marilee Slaughter, RClydeNClyde Scheduling Social History Tobacco Use Types Packs/Day Years [...] often do you attend chur ch or shinto services? More than 4 times per year [...] and heating? Not hard at all 03/06/2023 [facility] of Occupat ional Health - Occupational [...] AM CDT documented as of this encounter Progress Notes * Marilee Slaughter, R.N. - 04/18/2023 11:38 AM CST Order in for HEN consult for consideration of enteral options. Patient has a history of dysphagia and possibly achalasia. They will need to see the HEN dietitian and provider for consideration of enteral options. Requesting appointments next available. TAL MEDIA SPECIALIST documented in this encounter Plan of Treatment Not on file documented as of this encounter Visit Diagnoses Not on filedocumented in this encounter Additional Health Concerns Assessment Noted Time PHQ-9 Depression Total Score: 0 05/18/19 18 11:56 AM DIGITAL MEDIA SPECIALIST documented as of this encounter Care Teams Heeler Relationship Specialty Start Date End Date Elsewhere, Pcp PCP - General Internal Medicine 03/24/23 documented as of this encounter
--- OUTSIDE RECORDS SUMMARY | 2023-05-22 12:27 | XMS_ITS | Encounter Summary ---
Author Name Unknown Organization [facility] Address [address] [place] [address] Care Team Providers Care Fire Lookout Name Role Phone Elsewhere, Pcp Primary Care Provider Unavailabl e Encounter Details Date Type Department Care Team (Latest Contact Info) Description 04/17/2023 9:40 AM COPY EDITOR Education Division of Gastroenterology in [place], [place] [address] [place] [phone] Kandice Wilkins, SOLAR PHOTOVOLTAIC SYSTEMS ENGINEER, C.N.P. [address] [place] [phone] Lamar Mora R.NClyde [address] [place] [phone] Dysphagia Oropharyngeal Phase; Achalasia Social History Tobacco Use Types Packs/Day [...] How often do you attend chur or jain services? More than 4 times per year 05/20/2021 Do you belong to any clubs o r organizations such as jainism groups, unions, fraternal or athletic groups, or [...] and heating? Not hard at all 03/06/2023 [facility] of Occupat ional Health - Occupational Stress [...] your living situation today? I have a [facility] place to live 03/06/2023 Education Answer [...] as of this encounter Progress Notes * Lamar Mora R.N. - 04/17/2023 9:40 AM CST REASON FOR VISIT Survey Completion and Patient Education Reinforcement HISTORY OF PRESENT ILLNESS Mr. Segovia is diagnosed with achalasia . Completed the survey(s) noted below with patient. Patient education about diagnosis and treatment options was previously sent to the patient. Education was reinforced and patient questions answered. Eckardt: 7 and GERD-HRQL: 6 EDITOR documented in this encounter Plan of Treatment Not on file documented as of this encounter Visit Diagnoses Diagnosis Dysphagia Oropharyngeal Phase Achalasia documented in this encounter Additional Health Concerns Assessment Noted Time PHQ-9 Depression Total Score: 0 01/04/20 18 11:56 AM COPY EDITOR documented as of this encounter Care Teams Fire Lookout Relationship Specialty Start Date End Date Elsewhere, Pcp PCP - General Internal Medicine 03/24/23 documented as of this encounter
--- OUTSIDE RECORDS SUMMARY | 2023-05-22 12:27 | XMS_ITS | Encounter Summary ---
Author Name Unknown Organization [facility] Address [address] [place] [address] Care Team Providers Care Boom Conveyor Operator Name Role Phone Elsewhere, Pcp Primary Care Provider Unavailabl e Reason for Referral * Outpatient (Routine) - Closed Specialty Diagnoses / Procedures Referred By Jade simmons Referred To Contact Diagnoses Dysphagia Oropharyngeal Phase Achalasia Procedures Esophageal Manometry Kandice Wilkins APRN, C.N.P. [address] [place] [phone] [facility] Referral ID Status Reason Start Date Expiration Date Visits Re quested Visits Authorized [id number] Closed 03/30/2023 03/29/2024 1 1 AND TURN UP TECHNICIAN Reason for Visit * Outpatient (Routine) - Closed Specialty Diagnoses / Procedures Referred By Jade simmons Referred To Contact Diagnoses Dysphagia Oropharyngeal Phase Achalasia Procedures Esophageal Manometry Kandice Wilkins APRN, C.N.P. [address] [place] [phone] [facility] Referral ID Status Reason Start Date Expiration Date Visits Re quested Visits Authorized [id number] Closed 03/30/2023 03/29/2024 1 1 Encounter Details Date Type Department Care Team (Latest Contact Info) Description 04/19/2023 1:33 PM TEST AND TURN UP TECHNICIAN - 04/19/2023 11:59 PM TEST AND TURN UP TECHNICIAN Hospital Encounter Division of Gastroenterology in [place], [place] [address] [place] [phone] Kandice Wilkins, ANA M, C.N.P. [address] [place] [address] Dysphagia Oropharyngeal Phase; Achalasia Discharge Disposition: Home [...] week 05/20/2021 How often do you attend [facility] or episcopalian services? More than 4 times per year 05/20/2021 Do you belong to any clubs o r organizations such as mormon groups, unions, fraternal or athletic groups, or [...] and heating? Not hard at all 03/06/2023 [facility] of Occupat ional Health - Occupational Stress [...] your living situation today? I have a [facility] place to live 03/06/2023 Education Answer [...] by mouth as needed. 0 06/15/2022 omega 4-unb-fue-fish oil 1,000 mg (120 mg-180 mg) capsule Take 1 capsule by mouth at bedtime. 0 04/14/2017 simvastatin (ZOCOR) 10 mg tabletIndications:Hyp erlipidemia Take 1 tablet (10 mg total) by mouth at bedtime. 90 tablet 3 12/26/2022 12/26/2023 tadalafiL (CIALIS) 10 mg tablet Take 1 tablet (10 mg total) by mouth daily. 90 tablet 3 12/26/2022 12/26/2023 documented as of this encounter Procedure Notes * Cassi Smith M.D. - 04/19/2023 2:15 PM CSTAssociated Order(s): Esophageal Manometry Pre-Procedure Diagnose(s): Dysphagia Oropharyngeal Phase; Achalasia Post-Procedure Diagnose(s): Dysphagia Oropharyngeal Phase; Achalasia Esophageal Manometry Performed by: Cassi Smith M.D. Authorized by: Kandice Wilkins APRN, C.N.P. Procedure details: TECHNICAL ASPECTS: This was a high-resolution impedance manometry study with liquid bolus protocol performed in the upright (seated) and supine positions. RESULTS: Supine: The proximal border of the LES was located 47.3 cm from the nares with a total LES length of 2.7 cm. There was no hiatal hernia present. Resting LES pressure was normal at 38.5 mmHg, with abnormal relaxation reflected by a IRP of 28.9 mmHg. A total of 10 swallows were evaluated of which 100% were failed with more than 30 mm Hg of Hudson esophageal pressurization. Bolus clearance as measured by impedance was incomplete for 10 swallows. Upper esophageal sphincter function appeared to have high pressure. Upright (Seated): 10 liquid swallows were performed in the upright (seated) position. Multiple Rapid Swallow: 3 MRS sequences were performed with 0 sequences demonstrating a DCI >1 without inhibitory breakthrough. Hudson esophageal pressurization noted. OVERALL IMPRESSION: Achalasia type II per chicago classification 4.0 AND TURN UP TECHNICIAN documented in this encounter Plan of Treatment Not on file documented as of this encounter Procedures Procedure Name Priority Date/Time Associated Diagnosis Comments ID ESOPH IMPED FUNCTION TEST Routine 04/19/2023 2:15 PM TEST AND TURN UP TECHNICIAN Dysphagia Oropharyngeal Phase Achalasia ID HIGH RESOLUTION ESOPHAGEAL MANOMETRY Routine 04/19/2023 2:15 PM TEST AND TURN UP TECHNICIAN Dysphagia Oropharyngeal Phase Achalasia documented in this encounter Results * ID HIGH RESOLUTION ESOPHAGEAL MANOMETRY, ID ESOPH IMPED FUNCTION TEST (04/19/2023 2:15 PM TEST AND TURN UP TECHNICIAN) Narrative MMODAL - 04/19/2023 2:15 PM TEST AND TURN UP TECHNICIAN Cassi Smith M.D. ? 04/19/2023 ??5:24 PM [...] Wilkins APRN, C.N.P. GI PROC EDURE ORDERABLES MMODAL NA documented in this encounter Visit Diagnoses Diagnosis Dysphagia Oropharyngeal Phase Achalasia documented in this encounter Administered Medications Inactive Administered Medications - up to 3 most recent administrations Medication Order MAR Action Action Date Dose Rate Site lidocaine HCL 2 % topical jelly 1 mL (GLYDO) 1 mL, nasal, As needed, other, procedure, Starting on Mon04/19/23 at 1404, For 2 doses, For esophageal manometry or pH/24 hour impedance probe: administer in an unobstructed nostril once. May repeat once. Given 04/19/2023 2:05 PM TEST AND TURN UP TECHNICIAN 1 mL Right Nare documented in this encounter Additional Health Concerns Assessment Noted Time PHQ-9 Depression Total Score: 0 05/18/19 18 11:56 AM TEST AND TURN UP TECHNICIAN documented as of this encounter Care Teams Boom Conveyor Operator Relationship Specialty Start Date End Date Elsewhere, Pcp PCP - General Internal Medicine 03/24/23 documented as of this encounter
--- OUTSIDE RECORDS SUMMARY | 2023-05-22 12:27 | XMS_ITS | Encounter Summary ---
Author Name Unknown Organization [facility] Address [address] [place] [address] Care Team Providers Care Stripper Shovel Operator Name Role Phone Elsewhere, Pcp Primary Care Provider Unavailabl e Encounter Details Date Type Department Care Team (Latest Contact Info) Description 04/21/2023 Orders Only Division of Gastroenterology in [place], [place] [address] [place] [phone] Tulio Greene M.D. [address] [place] [phone] Achalasia (Primary Dx) Social History Tobacco Use Types Packs/Day Years [...] often do you attend chur ch or caodaism services? More than 4 times per year 05/20/2021 Do you belong to any clubs o r organizations such as adventism groups, unions, fraternal or athletic groups, or [...] and heating? Not hard at all 03/06/2023 [facility] of Occupat ional Health - Occupational [...] your living situation today? I have a [facility] place to live 03/06/2023 Education Answer [...] as of this encounter Visit Diagnoses Diagnosis Achalasia- Primary documented in this encounter Additional Health Concerns Assessment Noted Time PHQ-9 Depression Total Score: 0 05/18/19 18 11:56 AM BARREL LATHE OPERATOR OUTSIDE documented as of this encounter Care Teams Stripper Shovel Operator Relationship Specialty Start Date End Date Elsewhere, Pcp PCP - General Internal Medicine 03/24/23 documented as of this encounter
--- OUTSIDE RECORDS SUMMARY | 2023-05-22 12:27 | XMS_ITS | Encounter Summary ---
Author Name Unknown Organization [facility] Address [address] [place] [address] Care Team Providers Care Senior Database Programmer Name Role Phone Elsewhere, Pcp Primary Care Provider Unavailabl e Encounter Details Date Type Department Care Team (Late st Contact Info) Description 04/21/2023 Documentation Division of Gastroenterology in [place], [place] [address] [place] [address] Tulio Greene M.D. [address] [place] [address] Social History Tobacco Use Types Packs/Day Years [...] often do you attend chur ch or hinduism services? More than 4 times per year 05/20/2021 Do you belong to any clubs o r organizations such as mormonism groups, unions, fraternal or athletic groups, or [...] and heating? Not hard at all 03/06/2023 [facility] of Occupat ional Health - [...] your living situation today? I have a [facility] place to live 03/06/2023 Education Answer [...] as of this encounter Progress Notes * Tulio Greene M.D. - 04/21/2023 3:08 PM CST #1 Type 2 achalasia #2 IMGEJ with associated granularity Spoke with Mr. Segovia on the phone. He had an esophageal manometry which was consistent with type 2achalasia (IRP 28.9, 100% limon esophageal pressurization), upper endoscopy with endo flip demonstrated some hypertonicity of the lower esophageal sphincter. Endo flip findings demonstrated at 60 cc balloon insufflation distensibility index of 2 with diameter of 7 mm, and at 70 cc balloon insufflation distensibility of 2.2 with a diameter of 10.6 mm, consistent with decreased LES distensibility. Discussed appropriateness of both POEM and Heller myotomy. Both would be equally efficacious in this scenario, though the former would be associated with a higher risk of reflux. The patient did receive botulinum toxin injection yesterday into the LES and hopefully will have improvement symptomatically over the next few days. He is planning on spending a few months in [place]. We will try to have him plugged in with our esophageal colleagues down there in case a POEM is required while he has in [place]. I have placed an order and he will need to call to arrange for that consultation. We have also placed standing orders for as needed fluids to be done at [facility] sites and [facility] in case. If his oral intake improves we can cancel the nutrition consults. He will also be seeing Dr. Sky in early May to discuss what surgical intervention would look like. Regardless, I think given some granularity and IM noted at junction, we should consider repeat endoscopic evaluation to ensure there is nothing more worrisome at the junction within 1 year. This may be able to be taken AIR DIRECTOR documented in this encounter Plan of Treatment Not on file documented as of this encounter Visit Diagnoses Not on filedocumented in this encounter Additional Health Concerns Assessment Noted Time PHQ-9 Depression Total Score: 0 05/18/19 18 11:56 AM ON AIR DIRECTOR documented as of this encounter Care Teams Senior Database Programmer Relationship Specialty Start Date End Date Elsewhere, Pcp PCP - General Internal Medicine 03/24/23 documented as of this encounter
--- OUTSIDE RECORDS SUMMARY | 2023-05-22 12:27 | XMS_ITS ---
Author Name Unknown Organization [facility] Address [address] [place] [address] Care Team Providers Care Automotive Glazier Name Role Phone Unavailable Unavailable Unavailable Surgery Details Not on file Complications Check Surgery Details section. Procedure Estimated Blood Loss Check Surgery Details section. Procedure Findings Check Surgery Details section. Procedure Specimens Taken Check Surgery Details section.
--- OUTSIDE RECORDS SUMMARY | 2023-05-22 12:28 | XMS_ITS | Encounter Summary ---
Author Name Unknown Organization [facility] Address [address] [place] [address] Care Team Providers Care Wind Turbine Blade Repair Technician Name Role Phone Elsewhere, Pcp Primary Care Provider Unavailabl e Encounter Details Date Type Department Care Team (Latest Contact Info) Description 03/29/2023 7:50 AM CITY DRIVER Ancillary Procedure Department of Gastroenterology Social History [...] week 05/20/2021 How often do you attend [facility] or confucianist services? More than 4 times per year 05/20/2021 Do you belong to any clubs o r organizations such as voodoo groups, unions, fraternal or athletic groups, or [...] and heating? Not hard at all 03/06/2023 [facility] of Occupat ional Health - Occupational [...] your living situation today? I have a [facility] place to live 03/06/2023 Education Answer [...] Associated Diagnosis Comments GASTROENTEROLOGY IMAGE EXAM Routine 03/29/2023 7:50 AM CITY DRIVER documented in this encounter Results * Upper GI endoscopy-Gastroenterology Image Exam (03/29/2023 7:50 AM CITY DRIVER) 03/29/2023 7:50 AM CITY DRIVER Narrative IIMS - 03/29/2023 8:47 AM CITY DRIVER This order has been created and auto-finalized [...] Total Score: 0 05/18/19 18 11:56 AM CITY DRIVER documented as of this encounter Care Teams Wind Turbine Blade Repair Technician Relationship Specialty Start Date End Date Elsewhere, Pcp PCP - General Internal Medicine 03/24/23 documented as of this encounter
--- OUTSIDE RECORDS SUMMARY | 2023-05-22 12:28 | XMS_ITS | Encounter Summary ---
Author Name Unknown Organization [facility] Address [address] [place] [address] Care Team Providers Care Mortgage Closing Clerk Name Role Phone Elsewhere, Pcp Primary Care Provider Unavailabl e Reason for Visit * Reason Onset Date Comments Would like testing locally 03/22/2023 Upper GI Results 03/22/2023 Encounter Details Date Type Department Care Team (Latest Contact Info) Description 03/22/2023 Clinical Communication Department of Otorhinolaryngology in [place], [place] [address] [place] [address] Kandice Wilkins, IMPORT/EXPORT FREIGHT FORWARDER, C.N.P. [address] [place] [phone] Would like testing locally; Upper GI Results Social History Tobacco Use Types Packs/Day Years [...] often do you attend chur ch or mandaen services? More than 4 times per year 05/20/2021 Do you belong to any clubs o r organizations such as sikhism groups, unions, fraternal or athletic groups, or [...] your living situation today? I have a [facility] place to live 03/06/2023 Education [...] encounter Miscellaneous Notes * Telephone Encounter - Kandice Wilkins APRN, C.N.P. - 03/30/2023 12:31 PM CST I called and talked to the patient. WORKER * Telephone Encounter - Vianey Jackson - 03/30/2023 10:42 AM CST Mr. Segovia completed an Upper GI exam here yesterday and is calling this morning wanting to talk toyou about the results. Please call him back at [phone] WORKER * Telephone Encounter - Sonya Epstein - 03/23/2023 11:07 AM CST Faxed the orders. Called patient to let him know that I had faxed the orders. Patient asked that orders be sent to him through a portal message so I did that as well. WORKER * Telephone Encounter - Tabatha Reddy - 03/22/2023 4:10 PM CST Patient called. I relayed Kandice's message. Please send order when able. [facility]: [facility]. [address] [place] [address] Anjelica Mays WORKER * Telephone Encounter - Vanna Wheeler - 03/22/2023 12:04 PM CST Patient saw you in clinic yesterday Patient would like to have the tests ordered done locally. He is also asking if there is something that needs to be fixed if that could be included in the orders. If this is possible, please send orders to: [facility]: [facility]. [address] [place] [address] If you have questions for Mr. Segovia, Please reach out, WORKER documented in this encounter Plan of Treatment Not on file documented as of this encounter Visit Diagnoses Not on filedocumented in this encounter Additional Health Concerns Assessment Noted Time PHQ-9 Depression Total Score: 0 05/18/19 18 11:56 AM ADZ WORKER documented as of this encounter Care Teams Mortgage Closing Clerk Relationship Specialty Start Date End Date Elsewhere, Pcp PCP - General Internal Medicine 03/24/23 documented as of this encounter
--- OUTSIDE RECORDS SUMMARY | 2023-05-22 12:28 | XMS_ITS | Encounter Summary ---
Author Name Unknown Organization [facility] Address [address] [place] [address] Care Team Providers Care Bottling Supervisor Name Role Phone Elsewhere, Pcp Primary Care Provider Unavailabl e Reason for Referral * Outpatient (Routine) - Closed Specialty Diagnoses / Procedures Referred By Jade simmons Referred To Contact Thoracic Surgery Diagnoses Achalasia Kathryn Pardo M.D. [address] [place] [address] [facility] Referral ID Status Reason Start Date Expiration Date Visits Re quested Visits Authorized [id number] Closed 04/20/2023 04/19/2024 1 1 LY DAY CARE PROVIDER * Outpatient (Routine) - Closed Specialty Diagnoses / Procedures Referred By Jade simmons Referred To Contact Diagnoses Achalasia Procedures EGD (EsophagoGastroDuodenoscopy) Restricted Kathryn Pardo M.D. [address] [place] [address] [facility] Referral ID Status Reason Start Date Expiration Date Visits Re quested Visits Authorized [id number] Closed 04/17/2023 04/16/2024 1 1 LY DAY CARE PROVIDER Reason for Visit * Outpatient (Routine) - Closed Specialty Diagnoses / Procedures Referred By Contact Referred To Contact Gastroenterology and Hepatology Diagnoses Dysphagia Oropharyngeal Phase Achalasia Kandice Wilkins, IGNITER ASSEMBLER, C.N.P. [address] [place] [address] [facility] Referral ID Status Reason Start Date Expiration Date Visits Re quested Visits Authorized [id number] Closed 03/30/2023 03/29/2024 1 1 Encounter Details Date Type Department Care Team (Latest Contact Info) Description 04/17/2023 9:00 AM FAMILY DAY CARE PROVIDER Comprehensive Visit Division of Gastroenterology in [place], [place] [address] [place] [phone] Kandice Wilkins APRN, C.N.P. [address] [place] [phone] Kathryn Pardo M.D. [address] [place] [phone] Malnutrition Severe Protein-Calorie (HCC) (Primary Dx); Dysphagia Oropharyngeal Phase; Achalasia Social History Tobacco [...] often do you attend chur ch or oriental orthodox services? More than 4 times per year 05/20/2021 Do you belong to any clubs o r organizations such as yazidism groups, unions, fraternal or athletic groups, or [...] and heating? Not hard at all 03/06/2023 [facility] of Occupat ional Health - [...] your living situation today? I have a [facility] place to live 03/06/2023 Education Answer [...] as of this encounter Consult Notes * Kathryn Pardo M.D. - 04/17/2023 9:00 AM CST REASON FOR CONSULT Dysphagia, suspicious for achalasia. HISTORY OF PRESENT ILLNESS Mr. Segovia is a pleasant 67-year-old man accompanied by his for evaluation of dysphagia and possibly achalasia. 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 Over the last 4 months, the patient has noticed worsening progressive dysphagia. Dysphagia is to both solids and liquids. At this time, he has significant regurgitation and dysphagia with any type oforal intake. He has no significant chest discomfort, but has lost somewhere between 20-25 pounds over the last 4 months. Recent workup includes a CT of the neck which showed postoperative changes without evidence of recurrent tumor, as well as fibrosis and emphysematous changes of the upper lungs. He previously had a CT of the chest that again was normal without evidence of metastatic disease. No recurrent tumor. This was from July of 2022. He had a double-contrast esophagram on 03/15/2023, which showed some esophageal dysmotility with a bird's beaking appearance somewhat concerning for achalasia. Notably, a 13-mm tablet did not pass through the GE junction. This was followed up by an upper endoscopy on 03/29/2023, with Dr. Locke. This demonstrated a dilated esophagus with candidiasis, and no change in mucosal disruption after a 15-mm yswomey-tyl-fgwft balloon dilation at the level of the GE junction. He has an esophageal manometry set up for later this week. ASSESSMENT / PLAN #1 Dysphagia, with imaging and endoscopic findings concerning for achalasia #2 History of squamous cell cancer of the tonsils, status post surgery with chemoradiation Thank you for the consultation of this pleasant 67-year-old man who presents with worsening dysphagia symptoms. Imaging thus far as well as endoscopic evaluation is concerning for achalasia. He has amanometry set up for later today. We discussed the pathophysiology of achalasia as well as typical therapeutic regimens including POEM and Heller myotomy with fundoplication. Given the patient's significant difficulties with oral intake, I think the patient would benefit from some temporizing procedure at this time. We discussed the following plan: 1. No need to repeat an esophagram at this time. 2. We will proceed with esophageal manometry. 3. We will try to arrange for an upper endoscopy with Botox, and if possible, with EndoFlip, withinthe next few days to temporize. 4. Once we have the results of the manometry, we can then discuss definitive therapy with either surgery or POEM. 5. Eckardt score 9. LY DAY CARE PROVIDER documented in this encounter Miscellaneous Notes * Addendum Note - Kathryn Pardo M.D. - 04/17/2023 9:00 AM CSTAddended by: KATHRYN PARDO on: 04/17/2023 10:16 AM Modules accepted: Orders LY DAY CARE PROVIDER * Addendum Note - Kathryn Pardo M.D. - 04/17/2023 9:00 AM CSTAddended by: KATHRYN PARDO on: 04/20/2023 08:25 AM Modules accepted: Orders LY DAY CARE PROVIDER documented in this encounter Plan of Treatment Scheduled Referrals Name Type Priority Associated Diagnoses Orde r Schedule Thoracic Surgery - Esophagus consult (clinic) Outpatient Referral Routine Achalasia Expected: 04/20/2023 (Approximate), Expires: 07/19/2024 documented as of this encounter Visit Diagnoses Diagnosis Malnutrition Severe Protein-Calorie (HCC)- Primary Dysphagia Oropharyngeal Phase Achalasia documented in this encounter Additional Health Concerns Assessment Noted Time PHQ-9 Depression Total Score: 0 05/18/19 18 11:56 AM FAMILY DAY CARE PROVIDER documented as of this encounter Care Teams Bottling Supervisor Relationship Specialty Start Date End Date Elsewhere, Pcp PCP - General Internal Medicine 03/24/23 documented as of this encounter
--- OUTSIDE RECORDS SUMMARY | 2023-05-22 12:28 | XMS_ITS | Encounter Summary ---
Author Name Unknown Organization [facility] Address [address] [place] [address] Care Team Providers Care Material Spreader Name Role Phone Elsewhere, Pcp Primary Care Provider Unavailabl e Reason for Visit * Reason Onset Date Comments Phone call 03/20/2023 Encounter Details Date Type Department Care Team (Latest Contact Info) Description 03/20/2023 Clinical Communication Department of Otorhinolaryngology in [place], [place] [address] [place] [phone] Kandice Wilkins, PIANO TECHNICIAN, C.N.P. [address] [place] [phone] Phone call Social History Tobacco Use Types Packs/Day Years [...] often do you attend chur ch or cheondoism services? More than 4 times per year 05/20/2021 Do you belong to any clubs o r organizations such as pentecostalism groups, unions, fraternal or athletic groups, or [...] and heating? Not hard at all 03/06/2023 [facility] Questionnaire Answer Date [...] your living situation today? I have a [facility] place to live 03/06/2023 Education Answer [...] Encounter - Kandice Wilkins APRN, C.N.P. - 03/21/2023 10:30 AM CST Called. Please see separate note ITE CUTTER APPRENTICE documented in this encounter Plan of Treatment Not on file documented as of this encounter Visit Diagnoses Not on filedocumented in this encounter Additional Health Concerns Assessment Noted Time PHQ-9 Depression Total Score: 0 05/18/19 18 11:56 AM GRANITE CUTTER APPRENTICE documented as of this encounter Care Teams Material Spreader Relationship Specialty Start Date End Date Elsewhere, Pcp PCP - General Internal Medicine 03/24/23 documented as of this encounter
--- OUTSIDE RECORDS SUMMARY | 2023-05-22 12:28 | XMS_ITS | Encounter Summary ---
Author Name Unknown Organization [facility] Address [address] [place] [address] Care Team Providers Care Car Deliverer Name Role Phone Elsewhere, Pcp Primary Care Provider Unavailabl e Encounter Details Date Type Department Care Team (Latest Contact Info) Description 03/29/2023 8:04 AM BUGGY DRIVER Anesthesia Event Division of Gastroenterology in [place], [place] [address] [place] [address] Enrique Villa APRN, ASTRID, D.N.P. [address] [place] [address] Anesthesia Record Procedure Summary Procedure Name Responsible Anesthesiologist Anesthesia Start Time Anesthesia Stop Time EGD (ESOPHAGEALGASTRODU ODENOSCOPY) Enrique Villa APRN, ASTRID, D.N.P. 03/29/23 0804 03/29/23 0847 Events Date Time Event Comment 03/29/2023 0804 An Start Machine/Equipme nt Checked Infection Precautions Followed Procedure/Site Verified NPO Status Verified Supine Standard ASA Monitors Applied 0811 An Induction 0812 An Intubation 0816 Turnover to Proceduralist 0817 Proc Start 0832 Proc Fin 0832 Turnover to ANE Staff 0840 Airway Removal Criteria Met 0840 Extubation/Airway Removed 0841 an stop data 0847 An End I completed my handoff to [...] Total fentanyl injection 50 mcg/mL 100 mcg propofol 10 mg/mL injection 250 mg succinylcholine 20 mg/mL injection 80 mg lidocaine 2% (mg) injection 60 mg ondansetron 4 mg/2 mL injection 4 mg propofol 10 mg/mL infusion 247.78 mg dexAMETHasone (DECADRON) injection 4 mg/ mL 8 mg phenylephrine 100 mcg/mL injection 300 m cg Lactated Ringers Free Drip 0 mL * Agents No agents on file. * Blood No blood administrations on file. Lines, Drains, and Airways Type Details Placement Removal Peripheral IV Placement Date: 03/15 10/04; Placement Time: 07; Catheter Size: 20 G; Orientation: Lower, Posterior, Right; Location: Arm; Site Prep: Alcohol; Technique: Anatomical landmarks; Insertion Attempts: 1; Removal Date: 03/29/23; Removal Time: 0950; Removal Reason: Completion of therapy 03/29/23 0738 by Evgeny Gutierrez, R.NClyde 03/29/23 0950 by Evgeny Gutierrez RClydeNClyde ETT Placement Date: 03/15 10/04; Placement Time: 08 (created via procedure documentation); Mask Ventilation: Not attempted; Technique: Video laryngoscopy; Type: Standard ETT; Single Lumen Tube Size: 7.5 mm; Cuffed: Yes; Location: Oral; Grade View: Grade 1; Insertion Attempts: 1; Placement Verification: Bilateral breath sounds, Positive ETCO2, Symmetrical chest wall movement; Removal Date: 03/29/23; Removal Time: 0840 03/29/23 0812 by Enrique Villa APRN, CRNA, D.N.P. 03/29/23 0840 by Enrique Villa APRN, CRNA, D.N.P. documented in this encounter Social History [...] How often do you attend chur or faith services? More than 4 times per year 05/20/2021 Do you belong to any clubs o r organizations such as rastafari groups, unions, fraternal or athletic groups, or [...] and heating? Not hard at all 03/06/2023 [facility] - Occupational [...] your living situation today? I have a [facility] place to live 03/06/2023 Education Answer [...] OR Notes * Anesthesia Postprocedure Evaluation - Enrique Villa APRN, ASTRID, D.N.P. - 03/29/2023 8:48 AM CST Patient: Nash Segovia Procedure Summary Date: 03/29/23 Room / Location: Division of Gastroenterology in [place], [place] Anesthesia Start: 803 Anesthesia Stop: 846 Procedure: EGD (ESOPHAGEALGASTRODUODENOSCOPY) Diagnosis: Malignant Neoplasm Of Tonsil (HCC) Dysphagia Oropharyngeal Phase Malignant Neoplasm Of Tonsil (HCC) Dysphagia Oropharyngeal Phase Scheduled Providers: MachacekEnrique APRN, CRNA, D.N.P. Responsible Provider: Enrique Villa APRN, CRNA, D.N.PClyde Anesthesia Type: general ASA Status: 2 Anesthesia Type: general Last vitals Vitals Value Taken Time BP 91/62 03/29/23 0845 Temp 37.3 ??C 03/29/23 0845 Pulse 120 03/29/23 0847 Resp 21 03/29/23 0847 SpO2 94 % 03/29/23 0847 Vitals shown include unfiled device data. Please reference Vitals flowsheet for most recent vital signs. Anesthesia Post Evaluation Patient Disposition: dismissal Cardiovascular status: hemodynamics (HR & BP) acceptable Respiratory status: patent airway with spontaneous effort Temperature: normothermic Oxygen requirements: room air Level of consciousness: awake Pain score: pain adequately controlled and/or at baseline Post Op nausea/vomiting: none Hydration status: euvolemic Y DRIVER * Anesthesia Procedure Notes - Enrique Villa APRN, CRNA, D.N.P. - 03/29/2023 8:24 AM CSTAssociated Order(s): Airway Airway Date/Time: 03/29/2023 8:12 AM Performed by: Enrique Villa APRN, CRNA, D.N.P. Authorized by: Enrique Villa APRN, CRNA, Iliana.N.P. Patient location during procedure: OR / Procedure Area PROCEDURE DETAILS: Mask difficulty assessment: not attempted Final airway type: video laryngoscope Laryngeal Manipulation: no Final best view of glottic structures - Cormack/Lehane Score: grade 1 ETT location: oral VL device: glide scope [place] scope blade size: 4 Tube size: 7.5 [...] anesthesia POST PROCEDURE DETAILS: Procedure outcome: successful Y DRIVER * Anesthesia Preprocedure Evaluation - Enrique Villa APRN, CRNA, D.N.P. - 03/29/2023 7:27 AM CST Preprocedure Anesthesia & H&P Assessment Procedure Summary Date/Time: 03/29/23 0800 Scheduled providers: Enrique Villa APRN, CRNA, D.N.P. Procedure: EGD (ESOPHAGEALGASTRODUODENOSCOPY) Diagnosis: Malignant Neoplasm Of Tonsil (HCC) [C09.9] Dysphagia Oropharyngeal Phase [R13.12] Malignant Neoplasm Of Tonsil (HCC) [C09.9] Dysphagia Oropharyngeal Phase [R13.12] Location: Division of Gastroenterology in [place], [place] Pertinent components of the patient's history [...] intact ASSESSMENT / PLAN ANESTHESIA PLAN ASA: 2 Anesthesia Plan: general Patient seen and allergies reviewed, anesthesia plan and risks discussed directly with patient /legal guardian or through an automotive software engineer. Risks/Benefits/Alternatives of Blood transfusion discussed with patient / legal guardian, includingan opportunity to ask questions and/or decline some or all transfusion therapies. The patient / legal guardian consented to the use of all blood products, as deemed medically necessary Approval to Proceed: approved for anesthesia Y DRIVER documented in this encounter Plan of Treatment Not on file documented as of this encounter Procedures Procedure Name Priority Date/Time Associated Diagnosis Comments LDA ANE ENDOTRACHEAL AIRWAY Routine 03/29/2023 8:12 AM BUGGY DRIVER documented in this encounter Results * LDA ANE ENDOTRACHEAL AIRWAY (03/29/2023 8:12 AM BUGGY DRIVER) Narrative Enrique Villa APRN, CRNA, D.N.P. - 03/29/2023 8:12 AM BUGGY DRIVER Enrique Villa APRN, CRNA D.N.P. ? 03/29/2023 ??8:25 AM Airway Date/Time: [...] location: oral VL device: glide scope [place] scope blade size: 4 Tube size: 7.5 [...] Villa APRN, CRNA, D.N.P. AN ESTHESIA ORDERABLES documented in this encounter Visit Diagnoses Not on filedocumented in this encounter Administered Medications Inactive Administered Medications - up to 3 most recent administrations Medication Order MAR Action Action Date Dose Rate Site dexAMETHasone injection (DECADRON) intravenous, As needed, Starting on Mon03/29/23 at 0826, Anesthesia Intra-op Given 03/29/2023 8:26 AM BUGGY DRIVER 8 mg fentaNYL injection (SUBLIMAZE) intravenous, As needed, Starting on Mon03/29/23 at 0812, Anesthesia Intra-op Given 03/29/2023 8:12 AM BUGGY DRIVER 100 mcg Lactated Ringer's intravenous, Continuous Infusion: Per Instructions PRN, Starting on Mon03/29/23 at 0811, Anesthesia Intra-op New Bag 03/29/2023 8:11 AM BUGGY DRIVER lidocaine (PF) (cardiac) injection intravenous, As needed, Starting on Mon03/29/23 at 0811, Anesthesia Intra-op Given 03/29/2023 8:11 AM BUGGY DRIVER 60 mg ondansetron (PF) injection (ZOFRAN) intravenous, As needed, Starting on Mon03/29/23 at 0816, Anesthesia Intra-op Given 03/29/2023 8:16 AM BUGGY DRIVER 4 mg phenylephrine injection intravenous, As needed, Starting on Mon03/29/23 at 0834, Anesthesia Intra-op Given 03/29/2023 8:36 AM BUGGY DRIVER 200 mcg Given 03/29/2023 8:34 AM BUGGY DRIVER 100 mcg propofol 10 mg/mL infusion (DIPRIVAN) intravenous, Continuous Infusion: Per Instructions PRN, Starting on Mon03/29/23 at 0812, Anesthesia Intra-op Rate/Dose Change 03/29/2023 8:24 AM BUGGY DRIVER 100 mcg/kg/min 57.18 mL/hr New Bag 03/29/2023 8:12 AM BUGGY DRIVER 150 mcg/kg/min 85.77 mL/ hr propofoL injection (DIPRIVAN) intravenous, As needed, Starting on Mon03/29/23 at 0813, Anesthesia Intra-op Given 03/29/2023 8:13 AM BUGGY DRIVER 150 mg Given 03/29/2023 8:12 AM BUGGY DRIVER 100 mg succinylcholine (PF) injection (ANECTINE) intravenous, As needed, Starting on 11/15/23 at 0813, Anesthesia Intra-op Given 03/29/2023 8:13 AM BUGGY DRIVER 80 mg documented in this encounter Additional Health Concerns Assessment Noted Time PHQ-9 Depression Total Score: 0 05/18/19 18 11:56 AM BUGGY DRIVER documented as of this encounter Care Teams Car Deliverer Relationship Specialty Start Date End Date Elsewhere, Pcp PCP - General Internal Medicine 03/24/23 documented as of this encounter
--- OUTSIDE RECORDS SUMMARY | 2023-05-22 12:28 | XMS_ITS | Encounter Summary ---
Author Name Unknown Organization [facility] Address [address] [place] [address] Care Team Providers Care Sheetrock Applicator Name Role Phone Unavailable Primary Care Provider Unavailabl e Encounter Details Date Type Department Care Team (Late st Contact Info) Description 03/21/2023 Documentation Department of Otorhinolaryngology in [place], [place] [address] [place] [phone] Kandice Wilkins, SHIPPING SPECIALIST, C.N.P. [address] [place] [address] Social History Tobacco Use Types Packs/Day Years [...] How often do you attend chur or mosque services? More than 4 times per year 05/20/2021 Do you belong to any clubs o r organizations such as congregational groups, unions, fraternal or athletic groups, or [...] and heating? Not hard at all 03/06/2023 [facility] Occupat ional Health - Occupational Stress [...] your living situation today? I have a [facility] [facility] [employer] place to live 03/06/2023 Education Answer Date [...] as of this encounter Progress Notes * Kandice Wilkins, ANA M, C.N.P. - 03/21/2023 10:28 AM CST I called the patient back per his request. He had concerns about the need for the CT neck with contrast. I explained the following The recent video swallow and esophagram revealed rightward deviation of the contrast in the pharynx. The CT scan will be use to evaluate for any masses or lesions in the pharynx/neck that may be causing deviation of the barium to the right pharynx. If there is no anatomic finding, I suspect this could be muscle weakness or treatment related. The EGD is currently scheduled for May 16, 2023. He would like this expedited, which I understand. I told him I have reached out to 2 different contacts in Gastroenterology and have not been successful in expediting this appointment. We discussed that the EGD will evaluate the lining of the esophagus to assess for irritation, stenosis, or any abnormality in the lining. It can not visualize anything outside of the lining/lumen of the esophagus or pharynx, therefore the CT neck will be helpful He is uncertain if he will proceed with a CT of the neck. He will speak with his when she returns tomorrow and they will make a decision regarding CT neck. I will work with GI to make sure he art a cancellation list for EGDs as he would like this expedited. CHUTE PACKER documented in this encounter Plan of Treatment Not on file documented as of this encounter Visit Diagnoses Not on filedocumented in this encounter Additional Health Concerns Assessment Noted Time PHQ-9 Depression Total Score: 0 05/18/19 18 11:56 AM PARACHUTE PACKER documented as of this encounter
--- OUTSIDE RECORDS SUMMARY | 2023-05-22 12:28 | XMS_ITS | Encounter Summary ---
Author Name Unknown Organization [facility] Address [address] [place] [address] Care Team Providers Care Glove Finisher Name Role Phone Elsewhere, Pcp Primary Care Provider Unavailabl e Reason for Referral * Specialty Diagnoses / Procedures Referred By Jade simmons Referred To Contact Kandice Wilkins APRN, C.N.P. [address] [place] [address] [facility] Referral ID Status Reason Start Date Expiration Date Visits Re quested Visits Authorized Scheduling Instructions Schedule after GIH consult TE PLANNER * Outpatient (Routine) - Closed Specialty Diagnoses / Procedures Referred By Jade simmons Referred To Contact Diagnoses Dysphagia Oropharyngeal Phase Achalasia Procedures Esophageal Manometry Kandice Wilkins APRN, C.N.P. [address] [place] [address] [facility] Referral ID Status Reason Start Date Expiration Date Visits Re quested Visits Authorized [id number] Closed 03/30/2023 03/29/2024 1 1 TE PLANNER * Outpatient (Routine) - Authorized Specialty Diagnoses / Procedures Referred By Contac t Referred To Contact Diagnoses Dysphagia Oropharyngeal Phase Achalasia Procedures FL Esophagram Single Contrast Kandice Wilkins APRN, C.N.P. [address] [place] [phone] [facility] Referral ID Status Reason Start Date Expiration Date V isits Requested Visits Authorized [id number] Authorized 03/30/2023 03/29/2024 1 1 TE PLANNER * Outpatient (Routine) - Closed Specialty Diagnoses / Procedures Referred By Contact Referred To Contact Gastroenterology and Hepatology Diagnoses Dysphagia Oropharyngeal Phase Achalasia Kandice Wilkins APRN, C.N.P. [address] [place] [phone] [facility] Referral ID Status Reason Start Date Expiration Date Visits Re quested Visits Authorized [id number] Closed 03/30/2023 03/29/2024 1 1 Scheduling Instructions GIH consult should be scheduled after all testing TE PLANNER Encounter Details Date Type Department Care Team (Latest Contact Info) Description 03/30/2023 Orders Only Department of Otorhinolaryngology in [place], [place] [address] [place] [phone] Kandice Wilkins APRN, C.N.P. [address] [place] [phone] Dysphagia Oropharyngeal Phase (Primary Dx); Achalasia Social History Tobacco Use Types Packs/Day [...] often do you attend chur ch or quaker services? More than 4 times per year 05/20/2021 Do you belong to any clubs o r organizations such as zoroastrianism groups, unions, fraternal or athletic groups, or [...] heating? Not hard at all 03/06/2023 [facility] Occupat ional Health - Occupational [...] your living situation today? I have a [facility] place to live 03/06/2023 Education [...] as of this encounter Plan of Treatment Scheduled Orders Name Type Priority Associated Diagnoses Orde r Schedule FL Esophagram Single Contrast Imaging RAD - Routine (most inpatients and all outpatients) Dysphagia Oropharyngeal Phase Achalasia Expected: 03/30/2023 (Approximate), Expires: 06/30/2024 Scheduled Referrals Name Type Priority Associated Diagnoses Orde r Schedule Gastroenterology and Hepatology - Esophageal consult (clinic) Outpatient Referral Routine Dysphagia Oropharyngeal Phase Achalasia Expected: 03/30/2023 (Approximate), Expires: 06/30/2024 Gastroenterology and Hepatology - Nurse education visit (clinic) Outpatient Referral Routine Dysphagia Oropharyngeal Phase Achalasia Expected: 03/30/2023 (Approximate), Expires: 06/30/2024 documented as of this encounter Results * [place] HIGH RESOLUTION ESOPHAGEAL MANOMETRY, [place] ESOPH IMPED FUNCTION TEST (04/19/2023 2:15 PM ESTATE PLANNER) Narrative [facility]ODAL - 04/19/2023 2:15 PM ESTATE PLANNER Cassi Smith M.D. ? 04/19/2023 ??5:24 PM [...] this encounter Visit Diagnoses Diagnosis Dysphagia Oropharyngeal Phase- Primary Achalasia Dysphagia Oropharyngeal Phase Achalasia documented in this encounter Additional Health Concerns Assessment Noted Time PHQ-9 Depression Total Score: 0 05/18/19 18 11:56 AM ESTATE PLANNER documented as of this encounter Care Teams Glove Finisher Relationship Specialty Start Date End Date Elsewhere, Pcp PCP - General Internal Medicine 03/24/23 documented as of this encounter
--- OUTSIDE RECORDS SUMMARY | 2023-05-22 12:28 | XMS_ITS | Encounter Summary ---
Author Name Unknown Organization [facility] Address [address] [place] [address] Care Team Providers Care [employer] Special Ed Teacher Name Role Phone Elsewhere, Pcp Primary Care Provider Unavailabl e Encounter Details Date Type Department Care Team (Late st Contact Info) Description 04/05/2023 Documentation Department of Otorhinolaryngology in [place], [place] [address] [place] [phone] Kandice Wilkins, FACILITATOR, C.N.P. [address] [place] [phone] Social History Tobacco Use Types Packs/Day Years [...] often do you attend chur ch or anglican services? More than 4 times per year [...] and heating? Not hard at all 03/06/2023 [facility] Occupat ional Health - Occupational [...] your living situation today? I have a [facility] place to live 03/06/2023 Education Answer Date [...] of this encounter Progress Notes * Kandice Wilkins APRN, C.N.P. - 04/05/2023 12:53 PM CST The patient called in to see if I could give him in order to receive IV fluids in the event he becomes dehydrated. I explained that if he thinks he is diet hydrated he should go in for an evaluation.We discussed assessing the color of his urine to watch for dehydration, constipation status, dry mucous membranes, etc... TOPPER documented in this encounter Plan of Treatment Not on file documented as of this encounter Visit Diagnoses Not on filedocumented in this encounter Additional Health Concerns Assessment Noted Time PHQ-9 Depression Total Score: 0 05/18/19 18 11:56 AM SKI TOPPER documented as of this encounter Care Teams [employer] Special Ed Teacher Relationship Specialty Start Date End Date Elsewhere, Pcp PCP - General Internal Medicine 03/24/23 documented as of this encounter
--- OUTSIDE RECORDS SUMMARY | 2023-05-22 12:28 | XMS_ITS | Encounter Summary ---
Author Name Unknown Organization [facility] Address [address] [place] [address] Care Team Providers Care Motion Picture Director Name Role Phone Elsewhere, Pcp Primary Care Provider Unavailabl e Reason for Referral * Outpatient (Routine) - Closed Specialty Diagnoses / Procedures Referred By Jade simmons Referred To Contact Diagnoses Malignant Neoplasm Of Tonsil (HCC) Dysphagia Oropharyngeal Phase Procedures EGD (EsophagealGastroDuodenoscopy) Kandice Wilkins APRN, C.N.P. [address] [place] [address] [facility] Referral ID Status Reason Start Date Expiration Date Visits Re quested Visits Authorized [id number] Closed 03/16/2023 03/15/2024 1 1 CER MACHINE Reason for Visit * Outpatient (Routine) - Closed Specialty Diagnoses / Procedures Referred By Jade simmons Referred To Contact Diagnoses Malignant Neoplasm Of Tonsil (HCC) Dysphagia Oropharyngeal Phase Procedures EGD (EsophagealGastroDuodenoscopy) Kandice Wilkins APRN, C.N.P. [address] [place] [address] [facility] Referral ID Status Reason Start Date Expiration Date Visits Re quested Visits Authorized [id number] Closed 03/16/2023 03/15/2024 1 1 Encounter Details Date Type Department Care Team (Latest Contact Info) Description 03/29/2023 6:54 AM POUNCER MACHINE - 03/29/2023 10:20 AM POUNCER MACHINE Hospital Encounter Division of Gastroenterology in [place], [place] [address] [place] [address] Kandice Wilkins, ANA M, C.N.P. [address] [place] [address] Malignant Neoplasm Of Tonsil (HCC); Dysphagia Oropharyngeal Phase Discharge Disposition: Home or Self Care Social [...] often do you attend chur ch or druze services? More than 4 times per year 05/20/2021 Do you belong to any clubs o r organizations such as mandaen groups, unions, fraternal or athletic groups, or [...] [facility] - Occupational Stress Questionnaire Answer Date Recorded [...] your living situation today? I have a [facility] place to live 03/06/2023 Education Answer Date [...] Sign Reading Time Taken Comments Blood Pressure 111/78 03/29/2023 9:40 AM POUNCER MACHINE Pulse 106 03/29/2023 9:43 AM POUNCER MACHINE Temperature 37.3 ??C (99.1 ??F) 03/29/2023 8:45 AM CS T Respiratory Rate 13 03/29/2023 9:43 AM POUNCER MACHINE Oxygen Saturation 92% 03/29/2023 9:43 AM POUNCER MACHINE Inhaled Oxygen Concentration - - Weight 95.3 kg (210 lb) 03/29/2023 7:18 AM POUNCER MACHINE Height 185.4 cm (6' 1) 03/29/2023 7:18 AM POUNCER MACHINE Body Mass Index 27.71 03/29/2023 7:18 AM POUNCER MACHINE documented in this encounter Discharge Instructions * Discharge Instr - Other Orders* Evgeny Gutierrez, RClydeN. - 03/29/2023 8:56 AM POUNCER MACHINE Soft Diet With a soft diet, you can have whole soft foods that are lightly seasoned. Foods in the soft diet are moderately low in fiber which makes it easier to digest. Examples of liquids and foods that can be used in this diet include: Broth, bouillon, strained cream soup, such as cream of potato and tomato, mildly seasoned soup, such as chicken noodle. All beverages. Moist, tender meat, fish or poultry, eggs, soft-moist casseroles that are easily cut up into small pieces, pasta with tender meat sauce or smooth marinara sauce, lasagna that is tender, pot pie, macaroni and cheese, ravioli, stroganoff with tender meat. Oil, butter, margarine, cream, gravy, salad dressing, creamy peanut butter. Milk, milk beverages, yogurt without seeds and nuts, cocoa, pudding, cottage cheese, soft cheeses. Breads, rolls, biscuits, muffins, hot and cold cereals, white, refined wheat crackers with no seeds, nuts, hard fruit pieces, soft breadsticks, pancake, Occitan toast, potatoes, white rice. Soft, cooked vegetables, white or sweet potatoes without skin, Occitan fries, hash browns, vegetablejuices. Cooked or canned fruit. Gelatin, ice cream without nuts, pudding, cake, tender pies, cookies, bars without nuts, seeds and coconut, fruit ice. Sugar, honey, jelly, candy without nuts or coconut. Supplements without fiber. Mild seasonings and mild condiments. Remain on until next follow-up appointment CER MACHINE documented in this encounter Medications at Time [...] by mouth as needed. 0 06/15/2022 omega [id number]-[id number]-[id number]-fish oil 1,000 mg (120 mg-180 mg) capsule Take 1 capsule by mouth at bedtime. 0 04/14/2017 simvastatin (ZOCOR) 10 mg tabletIndications:Hyp erlipidemia Take 1 tablet (10 mg total) by mouth at bedtime. 90 tablet 3 12/26/2022 12/26/2023 tadalafiL (CIALIS) 10 mg tablet Take 1 tablet (10 mg total) by mouth daily. 90 tablet 3 12/26/2022 12/26/2023 documented as of this encounter Miscellaneous Notes * Result Encounter Note - Kandice Wilkins APRN, C.N.P. - 03/30/2023 6:19 PM CST I called and left a message on the patient's phone explaining I sent a prescription to his local pharmacy for the esophageal candidiasis. He should take it for 14 days as prescribed CER MACHINE documented in this encounter Plan of Treatment Not on file documented as of this encounter Procedures Procedure Name Priority Date/Time Associated Diagnosis Comments FUNGAL SMEAR Routine 03/29/2023 8:29 AM POUNCER MACHINE FUNGAL CULTURE, ROUTINE Routine 03/29/2023 8:29 AM POUNCER MACHINE SURGICAL PATHOLOGY Routine 03/29/2023 8: 22 AM POUNCER MACHINE UPPER GI ENDOSCOPY Routine 03/29/2023 7: 50 AM POUNCER MACHINE Malignant Neoplasm Of Tonsil (HCC) Dysphagia Oropharyngeal Phase EGD (ESOPHAGEALGASTROD UODENOSCOPY) Routine 03/29/2023 7:50 AM POUNCER MACHINE Malignant Neoplasm Of Tonsil (HCC) Dysphagia Oropharyngeal Phase documented in this encounter Results * (ABNORMAL) Fungal Culture, Routine (03/29/2023 8:29 AM POUNCER MACHINE) Fungal Culture, Routine DILMA ALBICANS Many (A) 04/24/2023 7:25 AM POUNCER MACHINE DTL Esophageal Brushing 03/29/2023 8:29 AM POUNCER MACHINE 03/29/2023 9:28 AM POUNCER MACHINE Comment:Specimen Source Site : [facility] mid and upper Kandice Wilkins APRN, C.N.P. LAB LEO ROBIOLOGY - GENERAL ORDERABLES [facility] [address] [place] [address], [facility] DTL [facility] [address] [place] [address] * (ABNORMAL) Fungal Smear (03/29/2023 8:29 AM POUNCER MACHINE) Fungal Smear YEAST and PSEUDOHYPH AE(A) 03/29/2023 3:50 PM POUNCER MACHINE DTL [facility] (Esophagus) 03/29/2023 8:29 AM POUNCER MACHINE Jorge Wolff APRNNMaria Esther LAB LEO ROBIOLOGY - GENERAL ORDERABLES Performing Organization Address City/[facility] Co de Phone Number [facility] [address] [place] [address], [facility] DTL [facility] [address] [place] [address] * Surgical Pathology (03/29/2023 8:22 AM POUNCER MACHINE) 03/30/2023 1:18 PM POUNCER MACHINE DTL Report electronically signed by Vince Ding M.D., Ph.D. I verify that I have examined all relevant slides/materi als for the specimen(s) and rendered or confirmed the diagnosis. 03/30/2023 1:18 PM POUNCER MACHINE DTL Gross Description Received in formalin labeled with the patient's name, medical record number, and duodenum, duodenal bulb are three pale bah-pink irregular soft tissues, ranging from 0.3-0.4 cm in greatest dimension. ??Additionall y received in the same container is a minute fragment of probable debris. The specimens and debris are submitted en toto in cassette A1. ??Grossed by AMM. 03/30/2023 1:18 PM POUNCER MACHINE DTL Interpretation FINAL DIAGNOSIS A. ??Duodenum, duodenal bulb, nodule, endoscopic biopsy: Chronic peptic duodenitis. Diagnosis was made via digital imaging. 03/30/2023 1:18 PM POUNCER MACHINE DTL Biopsy (Duodenum) 03/29/2023 8:22 AM POUNCER MACHINE Jorge Wolff APRNNMaria Esther LAB EMILIA G PATH ORDERABLES [facility] [address] [place] [address], [facility] DT [address] [place] [address] * Upper GI Endoscopy (03/29/2023 7:50 AM POUNCER MACHINE) 03/29/2023 7:50 AM POUNCER MACHINE Impressions [facility] - 03/29/2023 8:44 AM POUNCER MACHINE Post-op Diagnoses: ? - Esophageal plaques were [...] ? 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 Biopsied. Narrative [facility] - 03/29/2023 8:44 AM POUNCER MACHINE Eric 6 GI GI Patient Name: Nash [...] ? No immediate complications. 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 Karthik Locke MD 03/29/2023 8:44:34 AM This report has been signed electronically. Number of Addenda: 0 Jorge Wolff APRNNMaria Esther GI PROC EDURE ORDERABLES [facility] documented in this encounter Visit Diagnoses Diagnosis Malignant Neoplasm Of Tonsil (HCC) Dysphagia Oropharyngeal Phase documented in this encounter Administered Medications documented in this encounter Active and Recently Administered Medications Times are shown in POUNCER MACHINE. Continuous Medication Order 03/27/2023 03/28/2023 03/29/2023 Lactated Ringer's 20 mL/hr, intravenous, Continuous, Starting on Mon03/29/23 at 0845, PACU & Post-Op 0845 (Due) documented in this encounter Additional Health Concerns Assessment Noted Time PHQ-9 Depression Total Score: 0 05/18/19 18 11:56 AM POUNCER MACHINE documented as of this encounter Care Teams Motion Picture Director Relationship Specialty Start Date End Date Elsewhere, Pcp PCP - General Internal Medicine 03/24/23 documented as of this encounter
--- OUTSIDE RECORDS SUMMARY | 2023-05-22 12:28 | XMS_ITS | Encounter Summary ---
Author Name Unknown Organization [facility] Address [address] [place] [id number] Care Team Providers Care Drop Wire Aliner Name Role Phone Elsewhere, Pcp Primary Care Provider Unavailabl e Reason for Visit * Reason Comments Dysphagia Encounter Details Date Type Department Care Team ([facility] st Contact Info) Description 03/24/2023 7:36 AM TABLE WORKER PACKAGER - 03/24/2023 3:30 PM [facility] Emergency [facility] Emergency Department [address] [place] [address] [phone] Christian Shabazz M.D. [address] [place] [address] [phone] Dysphagia (Primary Dx); Failure Renal Acute (Acute Kidney Injury) (HCC); Stricture Esophagus; Loss Weight Abnormal; Dehydration Discharge Disposition: Home or Self Care Social [...] How often do you attend chur or orthodox services? More than 4 times per year 05/20/2021 Do you belong to any clubs o r organizations such as mosque groups, unions, fraternal or athletic groups, or [...] your living situation today? I have a [facility] place to live 03/06/2023 Education Answer [...] Sign Reading Time Taken Comments Blood Pressure 164/108 03/24/2023 1:45 PM TABLE WORKER PACKAGER Pulse 105 03/24/2023 1:45 PM TABLE WORKER PACKAGER Temperature 36.4 ??C (97.5 ??F) 03/24/2023 7:46 AM CS T Respiratory Rate 18 03/24/2023 10:4 5 AM TABLE WORKER PACKAGER Oxygen Saturation 92% 03/24/2023 1:45 PM TABLE WORKER PACKAGER Inhaled Oxygen Concentration - - Weight 95.6 kg (210 lb 12.2 oz) 03/24/2023 7:38 AM TABLE WORKER PACKAGER Height - - Body Mass Index 27.81 12/26/2022 3:19 PM CDT documented in this encounter Discharge Instructions * Discharge Instructions* Christian Shabazz M.D. - 03/24/2023 3:19 PM TABLE WORKER PACKAGER 11:45 am on Monday go to [place] to have your kidney function rechecked. They will be able to give you fluids if needed. Next Monday, you will have your EGD. In the meantime, try to drink fluidsthroughout the day. Return to the emergency department if you are having worsening symptoms including inability to tolerate any oral intake, lack of urine output, chest pain, fevers, chills, or otherconcerning symptoms. E WORKER PACKAGER * Appointments* Sofi Amos - 03/24/2023 3:11 PM TABLE WORKER PACKAGER Take a copy of this After Visit Summary to your appointment. [place], [place] Monday, March 27, 2023 11:45am report time- Emergency Department Follow-Up with Dr. Chadwick Marsh at [facility] ([id number] [facility]) RECOMMENDATIONS: *Repeat BMP [facility] You may have outpatient appointments at [facility] that changed during your hospitalization. Referto your [facility] Patient Visit Guide (PVG) for the most current schedule of appointments and detailed instructions of tests/procedures. Call [phone], if you did not receive an PVG or need to CANCEL any [facility] appointment(s). E WORKER PACKAGER * Attachments The following attachments cannot be sent through Care Everywhere. * Acute Kidney Injury Adult (Zambian) * Esophageal Stricture (Zambian) * Dysphagia (Zambian) * Dehydration Adult (Zambian) documented in this encounter Medications at Time [...] by mouth as needed. 0 06/15/2022 omega 9-bye-fvn-fish oil 1,000 mg (120 mg-180 mg) capsule Take 1 capsule by mouth at bedtime. 0 04/14/2017 simvastatin (ZOCOR) 10 mg tabletIndications:Hyp erlipidemia Take 1 tablet (10 mg total) by mouth at bedtime. 90 tablet 3 12/26/2022 12/26/2023 tadalafiL (CIALIS) 10 mg tablet Take 1 tablet (10 mg total) by mouth daily. 90 tablet 3 12/26/2022 12/26/2023 documented as of this encounter Progress Notes * Shelley Vargas M.D. - 03/24/2023 3:30 PM CST [facility]/TH1 note: 67-year-old with progressive dysphagia to liquids and solids. Previous history of tonsillar cancer status post chemoradiation. Recent outpatient evaluation suggest etiology may be at the GE junction.Outpatient attempts for he also have been unsuccessful in a timely fashion. Mild DK. Receiving hydration in the emergency room. We are able to secure a EGD under anesthesia at 6:45 a.m. 03/29/2023. Patient will present to [facility] for BMP and IV fluids if needed at 11:45 a.m. 03/27/2023. Discussed with patient, , and ED providers. E WORKER PACKAGER documented in this encounter ED Notes * Angelica Gould M.D. - 03/24/2023 1:29 PM CST SUBJECTIVE CHIEF COMPLAINT/REASON FOR VISIT Dysphagia HISTORY OF PRESENT ILLNESS See supply chain consultant's scribed note for HPI and ROS. REVIEW OF SYSTEMS OBJECTIVE Initial Vitals Temperature 03/24/23 0746 36.4 ??C Pulse Rate 03/24/23 0746 94 Heart Rate -- Resp Rate 03/24/23 0746 18 Blood Pressure 03/24/23 0746 (!) 155/104 SpO2 03/24/23 0746 95 % Pain Score 03/24/23 0903 0 - No pain PHYSICAL EXAMINATION Constitutional: Nursing note and vitals reviewed. No distress. HENT: Mouth/Throat: Mucous membranes are moist. Dental: Good dentition. White sputum present in posterior pharynx Eyes: Conjunctivae and EOM are normal. Cardiovascular: Regular rhythm and normal heart sounds. Pulses are palpable. No murmur heard. Pulmonary/Chest: Effort normal. There is normal air entry. Abdominal: Soft. Bowel sounds are normal. There is no abdominal tenderness. Musculoskeletal: General: No edema. Neurological: Alert and oriented to person, place, and time. Skin: Skin is warm and dry. Clubbed nails Psychiatric: He has a normal mood and affect. Behavior is normal. Judgment and thought content normal. 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 Checks x-ray was obtained which redemonstrated pulmonary fibrosis changes without acute findings. CT of the neck was ordered due to rightward deviation of contrast finding on recent esophagram -- no cancer recurrence or acute changes were noted. CBC demonstrates known elevated hemoglobin (18.6) which is likely further hemoconcentrated due to poor oral intake and a WBC of 9.8. BMP significant for creatinine of 1.51. Prior creatinine obtained in May 2022 was 1.12. In the setting of poor oral intake, prerenal DK is suspected. 2 L of IV fluid were provided in the emergency department. Decision was made to admit the patient to the GI service for further workup and management of his progressive dysphagia and malnutrition as well as his DK.. Final Diagnoses: as of 03/24/233 Dysphagia Failure Renal Acute (Acute Kidney Injury) (HCC) Stricture Esophagus Loss Weight Abnormal Dehydration Angelica Gould M.D. Resident 03/24/23 1446 E WORKER PACKAGER * Christian Shabazz M.D. 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 Over the past 7 weeks, the patient has experienced progressively worsening dysphagia. This initially started with liquid intake but soon progressed to involve solid food intake as well. He recently underwent a swallow study with ENT on 03/15 which showed rightward deviation of the contrast in the pharynx. There was also esophageal dysmotility noted, but the luminal narrowing was favored to be due to stricture just above a small sliding hiatal hernia. He was scheduled for an outpatient CT scan of his neck as well as an EGD, though the EGD could not be scheduled before May of 2023. Sincehis swallow study, his swallowing has continued to worsen to where now he is only able to tolerate t aking small sips of liquids. Feeling he would not be able to make it to his May appointment, hecame to the ED to be evaluated. Here, as a result of this decreased PO intake, he estimates that hehas lost around 10 pounds. He endorses a chronic cough that is productive of white sputum which is secondary to his history of pulmonary fibrosis; he denies any recent change in this. He denies any pain with swallowing, but states he will experience some pain if some food gets stuck in his throat. He denies any fevers, chills, vision changes, chest pain, shortness of breath, hemoptysis, hematemesis, abdominal pain, changes in stool output, or headache. He has no other complaints at this time. History provided by: Patient public health microbiologist needed/used: no REVIEW OF SYSTEMS Constitutional: Positive for unexpected weight change. Negative for chills and fever. HENT: Positive for trouble swallowing. Negative for congestion and rhinorrhea. Eyes: Negative for visual disturbance. Respiratory: Positive for cough. Negative for hemoptysis and shortness of breath. Cardiovascular: Negative for chest pain and leg swelling. Gastrointestinal: Negative for abdominal pain, constipation, diarrhea, hematemesis, nausea and vomiting. Genitourinary: Negative for decreased urine volume. Musculoskeletal: Negative for myalgias. Skin: Negative for rash. Neurological: Negative for weakness, numbness and headaches. OBJECTIVE Initial Vitals Temperature 03/24/23745 36.4 ??C Pulse Rate 03/24/2346 94 Heart Rate -- Resp Rate 03/24/2346 18 Blood Pressure 03/24/23745 (!) 155/104 SpO2 03/24/23745 95 % Pain Score 03/24/23 0903 0 - No pain PHYSICAL EXAMINATION Constitutional: Nursing note and vitals reviewed. Alert, well appearing, sitting comfortably in bed. HENT: Head: Atraumatic. Mouth/Throat: Mucous membranes are moist. In the oropharynx, he has muscous along the tonsils and palate. Uvula is midline. No oral lesions or swelling. No erythema. No tenderness or masses appreciated in the neck. Eyes: Conjunctivae are normal. Cardiovascular: Normal rate, regular rhythm, S1 normal, S2 normal and normal heart sounds. No murmur heard. Pulmonary/Chest: Effort normal and breath sounds normal. No stridor. No tachypnea. No respiratory distress. He has no wheezes. He has no rhonchi. He has no rales. Abdominal: Soft. exhibits no distension. There is no abdominal tenderness. There is no rebound and no guarding. Musculoskeletal: General: Normal range of motion. Cervical back: Normal range of motion. Comments: Extremities are warm and well perfused. Neurological: Alert. Skin: Skin is warm and dry. Psychiatric: He has a normal mood and affect. Behavior is normal. ASSESSMENT/PLAN #1 Dysphagia In summary, this is a 67-year-old man with a history of tonsillar cancer who has had 7 weeks of progressive dysphagia and presents due to progressive symptoms and an inability to get a endoscopy until May. The patient is afebrile, hypertensive, but otherwise hemodynamically stable. I do not believe he requires any intervention emergently for his hypertension. He has no symptoms of hypertensive emergency. He is saturating well on room air and is well-appearing. Differential diagnosis includes recurrent malignancy, stricture, muscle weakness, or an DK. We will evaluate basic laboratory studies and obtain a CT of the neck as well as a chest x-ray. We will discuss with consulting services t o determine whether he can be managed as an outpatient or requires admission. Reassessment: Labs show elevated hemoglobin, which has been present in the past. He does have a mild leukocytosis. His BMP shows creatinine of 1.5, which is likely acute to subacute kidney injury. I think this is most likely due to his poor oral intake rather than his blood pressure. Notably, BUN is not elevated. I have reviewed the CT personally. It is limited by motion, but shows no evidence ofrecurrent disease or other new findings. It does show stable fibrosis of the upper lungs. I have reviewed the CXR personally. It shows evidence of emphysema and pulmonary fibrosis. The radiology notes that it is difficult to exclude superimposed edema or infection, but the patient does not have symptoms of respiratory infection or CHF. I discussed with GI bleed team about an expedited outpatient scope. They referred me to [facility]. Initially [facility] could not arrange for an outpatient EGD withanesthesia in a timely manner and we planned to admit. However, after further efforts, they were able to arrange for an EGD on Monday and repeat Creatinine with the possibility of fluid infusion on Monday. I think this is a reasonable plan as his symptoms have been gradual, his DK is borderline, he has received 2L of IVF in the ED, and he is overall well appearing and in no distress. He has been making urine in the ED. He is agreeable and appreciative of this plan. I encourage regular smallvolume oral intake throughout the day to prevent dehydration. I have given him return precautions if he is having new or worsening symptoms. All questions were answered. Assessment and Plan I reviewed the following external records: office records. ED Course as of 03/24/232128Mar 24, 2023 105 Last creatinine from December is noted to be 1.[address] Hernandez's note Final Diagnoses: as of 03/24/232128 Dysphagia Failure Renal Acute (Acute Kidney Injury) (HCC) Stricture Esophagus Loss Weight Abnormal Dehydration My CT Scan interpretation I discussed the management of the patient with: Gastroenterology; and [facility]. I have personally seen and examined this patient. I have fully participated in the care of this patient. I have reviewed all clinical information including history, physical exam, orders, and plan. Ben with the note of the resident. I personally performed the services described in this documentation, as scribed in my presence, andit is both accurate and complete. Christian Shabazz M.D. 03/24/232129 E WORKER PACKAGER * Suma Anna R.N. - 03/24/2023 7:44 AM CST Patient presents to the Emergency department concerns for difficulty swallowing. Patient had a swallow study done on 03/15 that showed some narrowing per pt. Since the swallow study his swallowing hasgotten increasingly worse. Pt states he can only take small sips throughout the day and is only able to eat soft foods. He was unable to eat yesterday. Denies any difficulty breathing History of tonsil cancer 6 years ago per pt. Suma Anna R.N. 03/24/23 2512 E WORKER PACKAGER documented in this encounter Plan of Treatment Not on file documented as of this encounter Procedures Procedure Name Priority Date/Time Associated Diagnosis Comments CT NECK SOFT TISSUE WITH IV CONTRAST RAD - Routine (most inpatients and all outpatients) 03/24/2023 12:54 PM TABLE WORKER PACKAGER DX CHEST AP OR PA AND LATERAL 2 VIEWS RAD - Semiurgent (Fast; most ED patients; some inpatients) 03/24/2023 11:15 AM TABLE WORKER PACKAGER CBC WITH DIFFERENTIAL, B STAT 03/24/2023 8:04 AM TABLE WORKER PACKAGER BASIC METABOLIC PANEL, S/P STAT 03/24/2023 8:04 AM TABLE WORKER PACKAGER documented in this encounter Results * CT Neck Soft Tissue with IV Contrast (03/24/2023 12:54 PM TABLE WORKER PACKAGER) Anatomical Region Laterality Modality Neck, Neuroradiology RST LOS , Neuroradiology ARZ LOS, Neuroradiology [facility] N/A Computed Tomography, Compute d Tomography 03/24/2023 12:5 2 PM TABLE WORKER PACKAGER Impressions 03/24/2023 1:11 PM TABLE WORKER PACKAGER 1. Stable postoperative changes within the neck with no evidence for recurrent tumor. 2. Extensive fibrosis and emphysematous changes visualized upper lungs as demonstrated on the prior chest CT. Narrative 03/24/2023 1:11 PM TABLE WORKER PACKAGER EXAM: CT NECK SOFT TISSUE WITH IV [...] the prior chest CT. Angelica Gould M.D. [facility] PROCEDU RES * DX Chest AP or PA and Lateral 2 Views (03/24/2023 11:15 AM TABLE WORKER PACKAGER) Anatomical Region Laterality Modality Chest, Thoracic RST LOS, Tho racic ARZ LOS, Thoracic FLA LOS N/A Digital Radiography 03/24/2023 11:2 3 AM TABLE WORKER PACKAGER Impressions 03/24/2023 11:24 AM TABLE WORKER PACKAGER Comparison made to chest CT 08/11/2022. Redemonstration of coarse, reticular interstitial opacities throughout the lungs bilaterally, consistent with pulmonary fibrosis. Difficult to exclude superimposed infection or edema. No focal airspace consolidation. No definite pleural effusion or pneumothorax. Apical scarring. Demineralization. Musculoskeletal degenerative change. Narrative 03/24/2023 11:24 AM TABLE WORKER PACKAGER EXAM: ??DX CHEST AP OR PA AND [...] Demineralization. Musculoskeletal degenerative change. Angelica Gould M.D. [facility] PROCEDURES * (ABNORMAL) Basic Metabolic Panel (03/24/2023 8:04 AM TABLE WORKER PACKAGER) Potassium, P 4.1 3.6 - 5.2 mmol/L 03/24/2023 8:47 AM TABLE WORKER PACKAGER STMA Sodium, P 141 135 - 145 mmol/L 03/24/2023 8:47 AM TABLE WORKER PACKAGER STMA Chloride, P 104 98 - 107 mmol/L 03/24/2023 8:47 AM TABLE WORKER PACKAGER STMA Bicarbonate, P 26 22 - 29 mmol/L 03/24/2023 8:47 AM TABLE WORKER PACKAGER STMA Anion Gap, P 11 7 - 15 03/24/2023 8:47 AM TABLE WORKER PACKAGER STMA BUN (Blood Urea Nitrogen), P 15 8 - 24 mg/dL 03/24/2023 8:47 AM TABLE WORKER PACKAGER STMA Creatinine 1.51(H) 0.74 - 1.35 mg/dL 03/24/2023 8:47 AM TABLE WORKER PACKAGER STMA Estimated GFR (eGFR) 51(L) >=60 mL/min/BSA 03/24/2023 8:47 AM TABLE WORKER PACKAGER STMA Comment: Estimated GFR calculated using the 2020 CKD_EPI creatinine equation. Calcium, Total, P 9.7 8.8 - 10.2 mg/dL 03/24/2023 8:47 AM TABLE WORKER PACKAGER STMA Glucose, P 104 70 - 140 mg/dL 03/24/2023 8:47 AM TABLE WORKER PACKAGER STMA Blood (Blood, Venous) 03/24/2023 8:04 AM TABLE WORKER PACKAGER 03/24/2023 8:28 AM TABLE WORKER PACKAGER Conrad Merchant Jr., M.D. LAB BLOOD A DD-ON [facility] [address] [place] [address], [facility] [address] [place] [address] * (ABNORMAL) CBC with Differential, Blood (03/24/2023 8:04 AM TABLE WORKER PACKAGER) Hemoglobin 18.6(H) 13.2 - 16.6 g/dL 03/24/2023 8:31 AM TABLE WORKER PACKAGER STMA Hematocrit 57.7(H) 38.3 - 48.6 % 03/24/2023 8:31 AM TABLE WORKER PACKAGER STMA Erythrocytes 6.53(H) 4.35 - 5.65 x10(12)/L 03/24/2023 8:31 AM TABLE WORKER PACKAGER STMA MCV 88.4 78.2 - 97.9 fL 03/24/2023 8:31 AM TABLE WORKER PACKAGER STMA RBC Distrib Width 13.3 11.8 - 14.5 % 03/24/2023 8:31 AM TABLE WORKER PACKAGER STMA Platelet Count 210 135 - 317 x10(9)/L 03/24/2023 8:31 AM TABLE WORKER PACKAGER STMA Leukocytes 9.8(H) 3.4 - 9.6 x10(9)/L 03/24/2023 8:31 AM TABLE WORKER PACKAGER STMA Neutrophils 7.85(H) 1.56 - 6.45 x10(9)/L 03/24/2023 8:31 AM TABLE WORKER PACKAGER DHPM Lymphocytes 1.15 0.95 - 3.07 x10(9)/L 03/24/2023 8:31 AM TABLE WORKER PACKAGER STMA Monocytes 0.65 0.26 - 0.81 x10(9)/L 03/24/2023 8:31 AM TABLE WORKER PACKAGER STMA Eosinophils 0.14 0.03 - 0.48 x10(9)/L 03/24/2023 8:31 AM TABLE WORKER PACKAGER STMA Basophils 0.05 0.01 - 0.08 x10(9)/L 03/24/2023 8:31 AM TABLE WORKER PACKAGER STMA Blood (Blood, Venous) 03/24/2023 8:04 AM TABLE WORKER PACKAGER 03/24/2023 8:28 AM TABLE WORKER PACKAGER Conrad Merchant Jr., M.D. LAB BLOOD A DD-ON [facility] [address] [place] [address], [facility] STMA [facility] [address] [place] [address] DHPM [facility] [address] [place] [address] documented in this encounter Visit Diagnoses Diagnosis Dysphagia- Primary Dysphagia Failure Renal Acute (Acute Kidney Injury) (HCC) Stricture Esophagus Loss Weight Abnormal Dehydration documented in this encounter Admitting Diagnoses Diagnosis Dysphagia documented in this encounter Administered Medications Inactive Administered Medications - up to 3 most recent administrations Medication Order MAR Action Action Date Dose Rate Site iohexoL 300 mg iodine/mL solution 1-200 mL (OMNIPAQUE) 1-200 mL, intravenous, Once in imaging, contrast, Starting on Mon03/24/23 at 1238, For 1 dose, Imaging Protocol Orders, Dose per Radiant Medication Guidelines Given 03/24/2023 12:44 PM TABLE WORKER PACKAGER 120 mL Lactated Ringer's bolus 1,000 mL 1,000 mL, intravenous, at 1,000 mL/hr, Administer over 1 Hours, Once, On Mon03/24/23 at 1144, For 1 dose New Bag 03/24/2023 12:02 PM TABLE WORKER PACKAGER 1,000 mL 1000 mL/hr NaCl 0.9 % bolus 1,000 mL 1,000 mL, intravenous, at 1,000 mL/hr, Administer over 1 Hours, Once, On Mon03/24/23 at 1036, For 1 dose New Bag 03/24/2023 10:54 AM TABLE WORKER PACKAGER 1,000 mL 1000 mL/hr sodium chloride (PF) 0.9 % injection 1-100 mL 1-100 mL, intravenous, Once, On Mon03/24/23 at 1239, For 1 dose, Imaging Protocol Orders Given 03/24/2023 12:51 PM TABLE WORKER PACKAGER 35 mL documented in this encounter Active and Recently Administered Medications Times are shown in TABLE WORKER PACKAGER. Scheduled Medication Order 03/22/2023 03/23/2023 03/24/2023 Lactated Ringer's bolus 1,000 mL (COMPLETED) 1,000 mL, intravenous, at 1,000 mL/hr, Administer over 1 Hours, Once, On Mon03/24/23 at 1144, For 1 dose 1202 (New Bag - Prov ider: Pauline Cade RClydeN.)1358 (Stopped - Provider: Pauline Cade R.N.) NaCl 0.9 % bolus 1,000 mL (COMPLETED) 1,000 mL, intravenous, at 1,000 mL/hr, Administer over 1 Hours, Once, On Mon03/24/23 at 1036, For 1 dose 1054 (New Bag - Prov ider: Pauline Cade R.N.)1201 (Stopped - Provider: Pauline Cade R.N.) sodium chloride (PF) 0.9 % injection 1-100 mL (COMPLETED) 1-100 mL, intravenous, Once, On Mon03/24/23 at 1239, For 1 dose, Imaging Protocol Orders 1251 (Given - Provid er: Angelic Fan R.N.) PRN Medication Order 03/22/2023 03/23/2023 03/24/2023 iohexoL 300 mg iodine/mL solution 1-200 mL (OMNIPAQUE) (COMPLETED) 1-200 mL, intravenous, Once in imaging, contrast, Starting on Mon03/24/23 at 1238, For 1 dose, Imaging Protocol Orders, Dose per Radiant Medication Guidelines 1244 (Given - Provid er: Angelic Fan R.N. - Comment: [phone]) documented in this encounter Additional Health Concerns Assessment Noted Time PHQ-9 Depression Total Score: 0 05/18/19 18 11:56 AM TABLE WORKER PACKAGER documented as of this encounter Care Teams Drop Wire Aliner Relationship Specialty Start Date End Date Elsewhere, Pcp PCP - General Internal Medicine 03/24/23 documented as of this encounter
--- OUTSIDE RECORDS SUMMARY | 2023-05-22 12:28 | XMS_ITS | Encounter Summary ---
Author Name Unknown Organization [facility] Address [address] [place] [address] Care Team Providers Care Associate Director Qa Name Role Phone Elsewhere, Pcp Primary Care Provider Unavailabl e Reason for Referral * Outpatient (Routine) - Closed Specialty Diagnoses / Procedures Referred By Jade simmons Referred To Contact Diagnoses Malignant Neoplasm Of Tonsil (HCC) Dysphagia Oropharyngeal Phase Procedures EGD (EsophagealGastroDuodenoscopy) Kandice Wilkins APRN, C.N.P. [address] [place] [address] [facility] Referral ID Status Reason Start Date Expiration Date Visits Re quested Visits Authorized [id number] Closed 03/16/2023 03/15/2024 1 1 Encounter Details Date Type Department Care Team (Latest Contact Info) Description 03/16/2023 Orders Only Department of Otorhinolaryngology in [place], [place] [address] [place] [phone] Kandice Wilkins APRN, C.N.P. [address] [place] [phone] Malignant Neoplasm Of Tonsil (HCC) (Primary Dx); Dysphagia Oropharyngeal Phase Social History Tobacco Use Types Packs/Day Years [...] week 05/20/2021 [facility] or jehovah's witness services? More than 4 times per year [...] and heating? Not hard at all 03/06/2023 [facility] of Occupat ional Health - Occupational Stress [...] your living situation today? I have a [facility] place to live 03/06/2023 Education Answer [...] Type Priority Associated Diagnoses Orde r Schedule Creatinine with Estimated GFR Lab Routine Malignant Neoplasm Of Tonsil (HCC) Dysphagia Oropharyngeal Phase 1 Occurrences starting 03/16/2023 until 06/16/2024 documented as of this encounter Visit Diagnoses Diagnosis Malignant Neoplasm Of Tonsil (HCC)- Primary Dysphagia Oropharyngeal Phase documented in this encounter Additional Health Concerns Assessment Noted Time PHQ-9 Depression Total Score: 0 05/18/19 18 11:56 AM SALES COORDINATOR documented as of this encounter Care Teams Associate Director Qa Relationship Specialty Start Date End Date Elsewhere, Pcp PCP - General Internal Medicine 03/24/23 documented as of this encounter
--- OUTSIDE RECORDS SUMMARY | 2023-05-22 12:28 | XMS_ITS | Encounter Summary ---
Author Name Unknown Organization [facility] Address [address] [place] [address] Care Team Providers Care Punchboard Inserter Name Role Phone Elsewhere, Pcp Primary Care Provider Unavailabl e Reason for Visit * Reason Onset Date Comments Results 03/27/2023 Encounter Details Date Type Department Care Team ([facility] st Contact Info) Description 03/27/2023 Clinical Communication Division of Nephrology and Hypertension in [place], [place] [address] [place] [address] Chester Hernandez Jr., D.O. [address] [place] [address] Results Social History Tobacco Use Types Packs/Day [...] often do you attend chur ch or evangelical services? More than 4 times per year [...] and heating? Not hard at all 03/06/2023 [facility] of Occupat ional Health - Occupational Stress [...] your living situation today? I have a [facility] place to live 03/06/2023 Education [...] encounter Miscellaneous Notes * Telephone Encounter - Evelyn Stokes I. - 03/27/2023 3:03 PM CST Patient was seen here in ER on Monday. He said his labs were off. Had follow-up labs today locally and some were still off. He is wanting a call to discuss the labs. UETTE OPERATOR documented in this encounter Plan of Treatment Not on file documented as of this encounter Visit Diagnoses Not on filedocumented in this encounter Additional Health Concerns Assessment Noted Time PHQ-9 Depression Total Score: 0 05/18/19 18 11:56 AM BRIQUETTE OPERATOR documented as of this encounter Care Teams Punchboard Inserter Relationship Specialty Start Date End Date Elsewhere, Pcp PCP - General Internal Medicine 03/24/23 documented as of this encounter
--- OUTSIDE RECORDS SUMMARY | 2023-05-22 12:29 | XMS_ITS | Encounter Summary ---
Author Name Unknown Organization [facility] Address [address] [place] [address] Care Team Providers Care Dials Inspector Name Role Phone Unavailable Primary Care Provider Unavailabl e Encounter Details Date Type Department Care Team (Latest Contact Info) Description 02/03/2023 Clinical Communication Department of Otorhinolaryngology in [place], [place] [address] [place] [address] Kandice Wilkins, CHICKEN CLEANER, C.N.P. [address] [place] [address] Social History Tobacco Use Types Packs/Day Years [...] How often do you attend chur or anabaptist services? More than 4 times per year 05/20/2021 Do you belong to any clubs o r organizations such as taoist groups, unions, fraternal or athletic groups, or [...] and heating? Not hard at all 03/06/2023 [facility] of Occupat ional Health - Occupational [...] your living situation today? I have a [facility] place to live 03/06/2023 Education [...] Encounter - Kandice Wilkins APRN, C.N.P. - 02/03/2023 4:33 PM CDT I called and spoke with the patient. I explained if his swallowing of liquids continues to be challenging over the next few weeks he should let me know and I can set up a video swallow to assess for esophageal strictures or narrowing likely related to radiation. He agreed with this plan * Telephone Encounter - Christina Cooper V. - 02/03/2023 2:03 PM CDT Indication for call: patient can't swallow big gulps of liquid. He says that it goes down slower. S: Nash Segovia called because He is experiencing slower swallowing when drinking liquids. He isnot having any issues with swallowing food at this time. B: Patient was last seen in clinic on 08/11/22. A: He has no appointment scheduled, and can be reached at [phone] Thank you, Brielle documented in this encounter Plan of Treatment Not on file documented as of this encounter Visit Diagnoses Not on filedocumented in this encounter Additional Health Concerns Assessment Noted Time PHQ-9 Depression Total Score: 0 05/18/19 18 11:56 AM JUNIOR BUSINESS ANALYST documented as of this encounter
--- OUTSIDE RECORDS SUMMARY | 2023-05-22 12:29 | XMS_ITS | Encounter Summary ---
Author Name Unknown Organization [facility] Address [address] [place] [address] Care Team Providers Care Assistant Case Manager Name Role Phone Elsewhere, Pcp Primary Care Provider Unavailabl e Reason for Visit * Reason Onset Date Comments Swallow study? 03/03/2023 Encounter Details Date Type Department Care Team (Latest Contact Info) Description 03/03/2023 Clinical Communication Department of Otorhinolaryngology in [place], [place] [address] [place] [phone] Kandice Wilkins, CABLE MAKER, C.N.P. [address] [place] [phone] Swallow study? Social History Tobacco Use Types Packs/Day Years [...] often do you attend chur ch or holiness services? More than 4 times per year 05/20/2021 Do you belong to any clubs o r organizations such as tenriism groups, unions, fraternal or athletic groups, or [...] and heating? Not hard at all 03/06/2023 [facility] of Occupat ional Health - Occupational Stress [...] your living situation today? I have a [facility] place to live 03/06/2023 Education Answer [...] encounter Miscellaneous Notes * Telephone Encounter - Sonya Epstein - 03/06/2023 9:44 AM CDT Called patient to let him know that the order was placed and that Kandice will call him after and review results with him. * Telephone Encounter - Sonya Epstein - 03/03/2023 9:27 AM CDT Nash calls today to say the issues with his swallowing continues. When you spoke on 02/03 to the patient there was mention of doing a swallow study. Patient would like you to place the order so he can have the study done. Please give patient a call to discuss. Telephone - [phone] Thanks. documented in this encounter Plan of Treatment Not on file documented as of this encounter Visit Diagnoses Not on filedocumented in this encounter Additional Health Concerns Assessment Noted Time PHQ-9 Depression Total Score: 0 05/18/19 18 11:56 AM AIRBORNE OPERATIONS documented as of this encounter Care Teams Assistant Case Manager Relationship Specialty Start Date End Date Elsewhere, Pcp PCP - General Internal Medicine 03/24/23 documented as of this encounter
--- OUTSIDE RECORDS SUMMARY | 2023-05-22 12:29 | XMS_ITS | Encounter Summary ---
Author Name Unknown Organization [facility] Address [address] [place] [address] Care Team Providers Care Restorer Paper And Prints Name Role Phone Unavailable Primary Care Provider Unavailabl e Reason for Visit * Reason Onset Date Comments Rx Prior Authorization 12/27/2022 Rx Denial 12/27/2022 TADALAFIL 10 MG TAB Encounter Details Date Type Department Care Team (Latest Contact Info) Description 12/27/2022 Clinical Communication Division of Nephrology and Hypertension in [place], [place] [address] [place] [address] Chester Hernandez Jr., D.O. [address] [place] [address] Rx Prior Authorization; Rx Denial (TADALAFIL 10 MG TAB) Social History Tobacco Use Types Packs/Day Years [...] often do you attend chur ch or mosque services? More than 4 times [...] care, and heating? Not hard at all 05/20/2021 [facility] of Occupat ional Health - Occupational [...] to strenuous exercise (like a brisk walk)? 3 days 05/20/2021 On average, how many minutes do you engage in exercise at this level? 30 min 05/20/2021 Hunger Vital Sign Answer Date Recorded Within the past 12 months, y ou worried that your food would run out before you got the money to buy more. Never true 05/20/19 22 Within the past 12 months, t he food you bought just didn't last and you didn't have money to get more. Never true 05/20/2021 PRAPARE - Transportation Answer Date Re corded In the past 12 months, has l ack of transportation kept you from medical appointments or from getting medications? No 10/2021 In the past 12 months, has l ack of transportation kept you from meetings, work, or from getting things needed for daily living? No 05/20/2021 Housing Stability Vital Sign Answer Juma e Recorded In the last 12 months, was t here a time when you were not able to pay the mortgage or rent on time? No 05/20/2021 In the last 12 months, how many places have you lived? 1 05/20/2021 In the last 12 months, was t here a time when you did not have a steady place to sleep or slept in a jail (including now)? No 05/20/2021 Nutrition Answer Date Recorded Nutrition: EVOO Fat Source No 05/20 On average, how many serving s of fruits and vegetables do you eat per day (serving size is equal to 1 cup or approximately the size of a tennis ball)? 4-5 05/20/2021 Dental Answer Date Recorded Dental: Regular Dentist Yes 12/16/19 21 Employment Answer Date Recorded Employment status N/A 05/20/2021 Education Answer Date Recorded What is the [...] encounter Miscellaneous Notes * Telephone Encounter - Timur Luke - 12/30/2022 1:01 PM CDT Images from the original note were not included. The patient's health insurer has denied prior authorization for TADALAFIL 10 MG TAB. A screen shot of the denial reason is at the bottom of this communication message. To view the complete denial letter, scroll down to the green Guidance section below and click on the appropriate medication in the Current Prescription Prior Authorizations display. As the prescriber, your options are: Appeal the decision to the insurer directly (see denial letter for how to appeal). Write a new Rx for an alternative medication therapy. Release the Rx to the pharmacy so the patient has the option to pay out of pocket. To Release Rx: Open this encounter, go to [employer], and click on the medication. If the blue ???Release Rx?? button appears as an option, click to release the prescription. If the blue Release Rx button is not visible, the Rx has already been released to the pharmacy. If you have questions, please reply to Pastor HAYES. Thank you, The OPPA Team documented in this encounter Plan of Treatment Not on file documented as of this encounter Visit Diagnoses Not on filedocumented in this encounter Additional Health Concerns Assessment Noted Time PHQ-9 Depression Total Score: 0 05/18/19 18 11:56 AM ENVIRONMENTAL HEALTH AIDE documented as of this encounter
--- OUTSIDE RECORDS SUMMARY | 2023-05-22 12:29 | XMS_ITS | Encounter Summary ---
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 [address] [place] [address] [facility] Referral ID Status Reason Start Date Expiration Date V isits Requested Visits Authorized [id number] Authorized 01/27/2023 01/27/2024 1 1 * MRI/CAT/PET Scan (Routine) - Authorized Specialty Diagnoses / Procedures Referred By Contac t Referred To Contact Radiology Diagnoses Lung Interstitial Disease (HCC) Procedures CT Chest without IV Contrast Chester Hernandez Jr., D.O. [address] [place] [address] 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 [address] [place] [address] [facility] Referral ID Status Reason Start Date Expiration Date V isits Requested Visits Authorized [id number] Authorized 01/27/2023 01/27/2024 1 1 Encounter Details Date Type Department Care Team (Late st Contact Info) Description 01/27/2023 Orders Only Division of Nephrology and Hypertension in [place], [place] [address] [place] [phone] Chester Hernandez Jr., D.O. 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 More than 4 times per year 05/20/2021 Do you belong to any clubs o r organizations such as gnosticist groups, unions, fraternal or athletic groups, or [...] and heating? Not hard at all 05/20/2021 [facility] of Occupat ional Health - [...] place to sleep or slept in a residential (including now)? 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) Hypertensive Chronic Kidney Disease (CKD) Stage 3a Glomerular Filtration Rate (GFR) 45 To 59 (HCC) Glomerulonephritis Immunoglobulin A (IgA Nephropathy) Lung Interstitial Disease (HCC) Expected: 01/27/2023 (Approximate) , Expires: 04/28/2024 CT Chest without IV Contrast Imaging RAD - Routine (most inpatients and all outpatients) Lung Interstitial Disease (HCC) Expected: 01/27/2023 (Approximate) , Expires: 04/28/2024 Echo Transthoracic (TTE) Echocardiography Routine 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) Hypertensive Chronic Kidney Disease (CKD) Stage 3a Glomerular Filtration Rate (GFR) 45 To 59 (HCC) Glomerulonephritis Immunoglobulin A (IgA Nephropathy) Lung Interstitial Disease (HCC) Expected: 01/27/2023 (Approximate) , Expires: 04/28/2024 Scheduled Referrals Name Type Priority Associated Diagnoses Orde r Schedule Pulmonary Medicine - Interstitial lung disease (ILD) consult (clinic) Outpatient Referral Routine 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) Hypertensive Chronic Kidney Disease (CKD) Stage 3a Glomerular Filtration Rate (GFR) 45 To 59 (HCC) Glomerulonephritis Immunoglobulin A (IgA Nephropathy) Lung Interstitial Disease (HCC) Expected: 01/27/2023 (Approximate), Expires: 04/28/2024 documented as of this encounter Visit Diagnoses Diagnosis 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
--- OUTSIDE RECORDS SUMMARY | 2023-05-22 12:29 | XMS_ITS | Encounter Summary ---
Author Name Unknown Organization [facility] Address [address] [place] [address] Care Team Providers Care Baker Bench Name Role Phone Unavailable Primary Care Provider Unavailabl e Reason for Visit * Reason Onset Date Comments Pre-visit Intake 2022 Encounter Details Date Type Department Care Team (Latest Contact Info) Description 2022 9:30 AM CDT Clinical Communication Virtual Review in [place], [place] [address] [place], [place] [phone] Pre-visit Intake Social History Tobacco Use Types Packs/Day Years [...] often do you attend chur ch or lutheran services? More than 4 times per year 05/20/2021 Do you belong to any clubs o r organizations such as methodist groups, unions, fraternal or athletic groups, or [...] and heating? Not hard at all 05/20/2021 [facility] of Occupat ional [...] place to sleep or slept in a detention (including now)? No 05/20/2021 Nutrition Answer Date Recorded Nutrition: EVOO Fat Source No 05/20 On average, how many serving s of fruits and vegetables do you eat per day (serving size is equal to 1 cup or approximately the size of a tennis ball)? 4-5 05/20/2021 Dental Answer Date Recorded Dental: Regular Dentist Yes 12/16/19 Employment Answer Date Recorded Employment status N/A [...] Total Score: 0 05/18/19 18 11:56 AM FISHERIES SPECIALIST documented as of this encounter
--- OUTSIDE RECORDS SUMMARY | 2023-05-22 12:29 | XMS_ITS | Encounter Summary ---
Author Name Unknown Organization [facility] Address [address] [place] [address] Care Team Providers Care Hi Lift Operator Name Role Phone Unavailable Primary Care Provider Unavailabl e Reason for Referral * MRI/CAT/PET Scan (Routine) - Closed Specialty Diagnoses / Procedures Referred By Pattyac t Referred To Contact Radiology Diagnoses Malignant Neoplasm Of Tonsil (HCC) Procedures CT Chest without IV Contrast Chance Dumas M.D. [address] [place] [phone] [facility] Referral ID Status Reason Start Date Expiration Date Visits Re quested Visits Authorized [id number] Closed 12/17/2021 12/17/2022 1 1 Reason for Visit * MRI/CAT/PET Scan (Routine) - Closed Specialty Diagnoses / Procedures Referred By Contac t Referred To Contact Radiology Diagnoses Malignant Neoplasm Of Tonsil (HCC) Procedures CT Chest without IV Contrast Chance Dumas M.D. [address] [place] [phone] [facility] Referral ID Status Reason Start Date Expiration Date Visits Re quested Visits Authorized [id number] Closed 12/17/2021 12/17/2022 1 1 Encounter Details Date Type Department Care Team (Latest Contact Info) Description 08/11/2022 10:07 AM CDT - 08/11/2022 11:59 PM CDT Hospital Encounter Department of Radiology, [facility], in [place], [place] [address] [place] [address] Chance Dumas M.D. [address] [place] [address] Malignant Neoplasm Of Tonsil (HCC) Discharge Disposition: Home or Self Care Social [...] How often do you attend chur or spiritism services? More than 4 times per year 05/20/2021 Do you belong to any clubs o r organizations such as quaker groups, unions, fraternal or athletic groups, or [...] and heating? Not hard at all 05/20/2021 [facility] [place] [facility] - Occupational Stress [...] place to sleep or slept in a usp (including now)? No 05/20/2021 Nutrition Answer Date [...] Sig Dispensed Refills Start Date End Date famotidine (PEPCID) 20 mg tablet TAKE 2 TABLETS(40 MG) BY MOUTH DAILY 180 tablet 3 01/21/2022 fluoride, sodium, (PreviDent) 1.1 % gel dental gel Apply 1 application to the mouth or throat daily. 56 g 11 08/11/2022 meclizine (ANTIVERT) 25 mg tablet Take 25 mg by mouth as needed. 0 06/15/2022 omega 4-qat-hof-fish oil 1,000 mg (120 mg-180 mg) capsule Take 1 capsule by mouth at bedtime. 0 04/14/2017 allopurinoL (ZYLOPRIM) 100 mg tablet allopurinol 100 mg tablet TAKE 1 TABLET BY MOUTH DAILY 0 12/26/2022 amLODIPine (NORVASC) 5 mg tablet Take 5 mg by mouth daily. 0 12/26/2022 lisinopriL (PRINIVIL,ZESTRIL) 20 mg tabletIndications:Hyp ertension And Chronic Kidney Disease Stage 1 To 4 Take 1 tablet (20 mg total) by mouth daily. Note pill strength change. 90 tablet 3 01/21/2022 12/26/2022 sildenafiL (VIAGRA) 100 mg tablet TAKE ONE-HALF TO ONE TABLET ONCE DAILY NEEDED 0 04/24/2020 12/26/2022 simvastatin (ZOCOR) 10 mg tabletIndications:Hyp erlipidemia TAKE 1 TABLET BY MOUTH EVERY NIGHT AT BEDTIME 90 tablet 3 03/22/2022 12/26/2022 tadalafiL (CIALIS, ADCIRCA) 20 mg tablet tadalafil 20 mg tablet TAKE ONE TABLET BY MOUTH NEEDED 0 12/26/2022 documented as of this encounter Plan of Treatment Not on file documented as of this encounter Procedures Procedure Name Priority Date/Time Associated Diagnosis Comments CT CHEST WITHOUT IV CONTRAST RAD - Routine (most inpatients and all outpatients) 08/11/2022 11:01 AM CDT Malignant Neoplasm Of Tonsil (HCC) documented in this encounter Results * CT Chest without IV Contrast (08/11/2022 11:01 AM CDT) Anatomical Region Laterality Modality Chest, Thoracic RST LOS, Tho racic ARZ LOS, Thoracic FLA LOS N/A Computed Tomography, Compute d Tomography 08/11/2022 11:2 0 AM CDT Impressions 08/11/2022 11:26 AM CDT 1. Stable fibrosis and emphysema 2. Stable small nodule in the lingula. 3. No convincing evidence of metastatic disease in the chest. Narrative 08/11/2022 11:26 AM CDT EXAM: CT CHEST WITHOUT IV CONTRAST COMPARISON: CT chest without IV contrast enhancement 11/18/2021. FINDINGS: Advanced fibrotic and emphysematous changes throughout both lungs with confluent cystic changes in the lung bases. Fibrosis and emphysema are unchanged since 11/18/2021. 9 mm irregular nodule in the lingula posteriorly along the fissure is unchanged (3/415). Additional tiny bilateral pulmonary micronodules are unchanged. No thoracic lymphadenopathy. Mild coronary artery calcifications. Hepatic cysts. Cholelithiasis. 3D maximum intensity projection (MIP) images were created on a dependent workstation as ordered by the treating provider and reviewed by the radiologist to increase sensitivity for detection of pulmonary nodules. Procedure Note Jose Antonio Gonsalez M.D. - 08/11/2022 EXAM: CT CHEST WITHOUT IV CONTRAST COMPARISON: CT chest without IV contrast enhancement 11/18/2021. FINDINGS: Advanced fibrotic and emphysematous changes throughout both lungs withconfluent cystic changes in the lung bases. Fibrosis and emphysema are unchanged since 11/18/2021. 9 mm irregular nodule in the lingula posteriorly along the fissure isunchanged (3/415). Additional tiny bilateral pulmonary micronodules are unchanged. No thoraciclymphadenopathy. Mild coronary artery calcifications. Hepatic cysts. Cholelithiasis. 3D maximum intensity projection (MIP) images were created on a dependentworkstation as ordered by the treating provider and reviewed by the radiologist to increasesensitivity for detection of pulmonary nodules. IMPRESSION: 1. Stable fibrosis and emphysema 2. Stable small nodule in the lingula. 3. No convincing evidence of metastatic disease in the chest. Chance Dumas M.D. IMG CT PROCEDURES documented in this encounter Visit Diagnoses Diagnosis Malignant Neoplasm Of Tonsil (HCC) documented in this encounter Additional Health Concerns Assessment Noted Time PHQ-9 Depression Total Score: 0 05/18/19 18 11:56 AM NURSE FIRST ASSIST documented as of this encounter
--- OUTSIDE RECORDS SUMMARY | 2023-05-22 12:29 | XMS_ITS | Encounter Summary ---
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 [address] [place] [address] [facility] Referral ID Status Reason Start Date Expiration Date V isits Requested Visits Authorized [id number] Authorized 08/11/2022 08/11/2023 1 1 * Outpatient (Routine) - Authorized Specialty Diagnoses / Procedures Referred By Jade simmons Referred To Contact Diagnoses Malignant Neoplasm Of Tonsil (HCC) Kandice Wilkins APRN, C.N.P. [address] [place] [address] [facility] Referral ID Status Reason Start Date Expiration Date V isits Requested Visits Authorized [id number] Authorized 08/11/2022 08/11/2023 1 1 Reason for Visit * Outpatient (Routine) - Closed Specialty Diagnoses / Procedures Referred By Jade simmons Referred To Contact Otorhinolaryngology Diagnoses Malignant Neoplasm Of Tonsil (HCC) Bee Souza APRN C.N.PClyde, D.N.P. [address] [place] [phone] Kandice Wilkins APRN, C.N.P. [address] [place] [phone] Referral ID Status Reason Start Date Expiration Date Visits Re quested Visits Authorized [id number] Closed 11/18/2021 11/18/2022 1 1 Encounter Details Date Type Department Care Team (Latest Contact Info) Description 08/11/2022 2:30 PM CDT Office Visit Department of Otorhinolaryngology in [place], [place] [address] [place], [place] [phone] Bee Souza APRN, C.N.PClyde, D.N.P. [address] [place] [phone] Kandice Wilkins APRN, C.N.P. [address] [place] [phone] Malignant Neoplasm Of Tonsil (HCC) (Primary Dx); Encounter For Follow Up Examination After Completed Treatment For Malignant Neoplasm; Dysphagia Oropharyngeal Phase Social History Tobacco Use [...] often do you attend chur ch or islam services? More than 4 times per year 05/20/2021 Do you belong to any clubs o r organizations such as shinto groups, unions, fraternal or athletic groups, or [...] and heating? Not hard at all 05/20/2021 [facility] Occupational Stress Questionnaire Answer Date [...] Sign Reading Time Taken Comments Blood Pressure - - Pulse - - Temperature - - Respiratory Rate - - Oxygen Saturation - - Inhaled Oxygen Concentration - - Weight 107 kg (235 lb 14.3 oz) 08/11/2022 2:47 P M CDT Height - - Body Mass Index 31.57 12/21/2021 1:57 PM CDT documented in this encounter Progress Notes * Fazer-Posorske, Polo A, P.A.-C. 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 HISTORY OF PRESENT ILLNESS Mr. Segovia is a 67 y.o. male with the following oncologic history: Oncology History Malignant Neoplasm Of Tonsil (HCC) 11/2016 Initial Diagnosis Patient presented to primary care provider with complaint of a right neck mass. This was treated with antibiotics without symptomatic relief. 02/22/2017 Critical Imaging MR face/neck showed a 4 cm right tonsillar primary with ipsilateral cystic level 2 lymph node. 03/16/2017 Biopsy/Pathology Right tonsil, biopsy: Moderate to poorly differentiated squamous cell carcinoma, p16 positive. 03/23/2017 Critical Imaging PET/CT scan shows a large FDG avid right tonsillar malignancy with multiple right cervical level 2 and level 3 lymph nodes. 04/13/2017 Surgery and Procedures Robotic-assisted wide field right tonsillectomy with right select neck dissection by Dr. Marin. 04/13/2017 Pathologic Stage Staging form: Pharynx - Oropharynx, AJCC V7 - Pathologic stage from 04/13/2017: Stage MARIO (T3, N2a, cM0) Specimen type: Excision Histopathologic type: Squamous cell carcinoma, NOS Stage prefix: Initial diagnosis Laterality: Right Tumor size (mm): 44 Histologic grade (G): G3 Lymph-vascular invasion (LVI): LVI not present (absent)/not identified Residual tumor (R): R0 - None Size of largest regional lymph node (mm): 48 Extracapsular extension from lymph nodes for head & neck: Negative Human papillomavirus (HPV) status: Positive Tumor thickness (mm): 22 05/16/2017 - 05/25/2017 Radiation Therapy Received 30 Gy in 20 BID fractions. 05/16/2017 - 05/25/2017 Chemotherapy [facility] [id number] DART Arm ( DOCEtaxel ) Start Date: 05/16/2017 09/14/2017 Complete Response PET/CT scan shows no evidence of FDG avid malignancy. INTERVAL HISTORY: Mr. Segovia presents to the [facility] Survivorship clinic. he is seen by myself, as wellas my colleagues in radiation oncology and ENT. he is 5 years out from treatment completion. He is doing well overall today. He avoids a lot of dry foods. He has normal taste. He does not see a dentist as often as he should and he occasionally uses the fluoride trays. He has a PCP and follows up with them locally. OBJECTIVE VITAL SIGNS There were no vitals taken for this visit. PHYSICAL EXAMINATION General: Very pleasant 67 y.o. male, in no acute distress. Heart: Regular rate and rhythm. Lungs: Clear to auscultation bilaterally. ASSESSMENT / PLAN #1 Malignant Neoplasm Of Tonsil (HCC) Mr. Segovia is doing well today. His is 5 years out from treatment. CT Chest is normal. TSH checked locally was slightly elevated at 7. We will continue to monitor. Follow-Up: 1 year [facility] Survivorship clinic Imaging: CT Chest w/o contrast Blood Work: TSH (check locally OK) BILLING I spent a total time of 10 minutes face to face counseling and coordination of care. * Lashon Zuniga APRN, C.N.P., M.S.N. - 08/11/2022 2:30 PM CDT RADIATION ONCOLOGY FOLLOW-UP VISIT - [facility] SUBJECTIVE CHIEF COMPLAINT/REASON FOR VISIT 5 year follow up for p16+ SCC of the right tonsil, status post surgical resection and adjuvant chemotherapy and de-escalation RT on [id number] HISTORY OF PRESENT ILLNESS Mr. Segovia is a 67 y.o. male with the following oncologic history: Oncology History Malignant Neoplasm Of Tonsil (HCC) 11/2016 Initial Diagnosis Patient presented to primary care provider with complaint of a right neck mass. This was treated with antibiotics without symptomatic relief. 02/22/2017 Critical Imaging MR face/neck showed a 4 cm right tonsillar primary with ipsilateral cystic level 2 lymph node. 03/16/2017 Biopsy/Pathology Right tonsil, biopsy: Moderate to poorly differentiated squamous cell carcinoma, p16 positive. 03/23/2017 Critical Imaging PET/CT scan shows a large FDG avid right tonsillar malignancy with multiple right cervical level 2 and level 3 lymph nodes. 04/13/2017 Surgery and Procedures Robotic-assisted wide field right tonsillectomy with right select neck dissection by Dr. Marin. 04/13/2017 Pathologic Stage Staging form: Pharynx - Oropharynx, AJCC V7 - Pathologic stage from 04/13/2017: Stage MARIO (T3, N2a, cM0) Specimen type: Excision Histopathologic type: Squamous cell carcinoma, NOS Stage prefix: Initial diagnosis Laterality: Right Tumor size (mm): 44 Histologic grade (G): G3 Lymph-vascular invasion (LVI): LVI not present (absent)/not identified Residual tumor (R): R0 - None Size of largest regional lymph node (mm): 48 Extracapsular extension from lymph nodes for head & neck: Negative Human papillomavirus (HPV) status: Positive Tumor thickness (mm): 22 05/16/2017 - 05/25/2017 Radiation Therapy Received 30 Gy in 20 BID fractions. 05/16/2017 - 05/25/2017 Chemotherapy [facility] [id number] [facility] Arm ( DOCEtaxel ) Start Date: 05/16/2017 09/14/2017 Complete Response PET/CT scan shows no evidence of FDG avid malignancy. INTERVAL HISTORY: Mr. Segovia presents to the [facility] Survivorship clinic. He was seen by myself, as well as my colleagues in Medical Oncology and ENT. Please see the note by Medical Oncology for details regarding current symptoms. OBJECTIVE VITAL SIGNS Wt 107 kg BMI 31.57 kg/m?? PHYSICAL EXAMINATION General: Very pleasant 67 y.o. male, in no acute distress. ENT: See ENT's note regarding oral cavity and nasopharyngoscopy findings. Skin: Intact. Lymph: No palpable head or neck lymphadenopathy. Grade 1 soft, mobile lymphedema present in the anterior neck. ASSESSMENT / PLAN Please see Medical Oncology's note regarding recommendations and plan of care. Rx fluoride sent to his preferred pharmacy. EDUCATION Ready to learn, no apparent learning barriers were identified; learning preferences include listening. Explained diagnosis and treatment plan; patient expressed understanding of the content. BILLING I personally spent 10 minutes in care of the patient today. Time includes both non face to face andface to face patient care. Signed by: Lashon Zuniga APRN, C.N.P., M.S.N. 08/11/2022 2:34 PM CDT * Kandice Wilkins APRN, C.N.P. - 08/11/2022 2:30 PM CDT Date of visit: 08/11/2022 Patient name: Nash Segovia : 1955 Subjective Chief complaint: 1. 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 2. Status post robotic assisted wide field tonsillectomy on the right with right select neck dissection and primary closure of an oropharyngeal defect with feeding tube placement April 13, 2017. 3. Completion adjuvant chemoradiation on MC -1675 twice daily radiation x2 weeks, and weekly docetaxel completed May 24, 2017 4. Surveillance visit with chest imaging CT chest imaging HPI: Nash Segovia is a 67 y.o. male who presents for evaluation of left tonsil HPV positive squamous cell carcinoma. He underwent primary surgery followed by adjuvant chemoradiation on a deescalated dose. His oncologic history is detailed below. Oncology History Malignant Neoplasm Of Tonsil (HCC) 11/2016 Initial Diagnosis Patient presented to primary care provider with complaint of a right neck mass. This was treated with antibiotics without symptomatic relief. 02/22/2017 Critical Imaging MR face/neck showed a 4 cm right tonsillar primary with ipsilateral cystic level 2 lymph node. 03/16/2017 Biopsy/Pathology Right tonsil, biopsy: Moderate to poorly differentiated squamous cell carcinoma, p16 positive. 03/23/2017 Critical Imaging PET/CT scan shows a large FDG avid right tonsillar malignancy with multiple right cervical level 2 and level 3 lymph nodes. 04/13/2017 Surgery and Procedures Robotic-assisted wide field right tonsillectomy with right select neck dissection by Dr. Marin. 04/13/2017 Pathologic Stage Staging form: Pharynx - Oropharynx, AJCC V7 - Pathologic stage from 04/13/2017: Stage MARIO (T3, N2a, cM0) Specimen type: Excision Histopathologic type: Squamous cell carcinoma, NOS Stage prefix: Initial diagnosis Laterality: Right Tumor size (mm): 44 Histologic grade (G): G3 Lymph-vascular invasion (LVI): LVI not present (absent)/not identified Residual tumor (R): R0 - None Size of largest regional lymph node (mm): 48 Extracapsular extension from lymph nodes for head & neck: Negative Human papillomavirus (HPV) status: Positive Tumor thickness (mm): 22 05/16/2017 - 05/25/2017 Radiation Therapy Received 30 Gy in 20 BID fractions. 05/16/2017 - 05/25/2017 Chemotherapy [facility] [id number] DART Arm ( DOCEtaxel ) Start Date: 05/16/2017 09/14/2017 Complete Response PET/CT scan shows no evidence of FDG avid malignancy. Mr. Segovia presents to clinic today 5 years after completing treatment. We congratulated him on this milestone. Please see the medical oncology and radiation oncology note for detailed subjective history gathering. Overall, he reports he is doing well. His TSH was recently checked locally and he had a CT chest today and that is stable. CURRENT MEDICATIONS: Reviewed and updated in the EMR. Allergies Allergen Reactions Penicillins Other (see comments) and Rash unknown Sulfa (Sulfonamide Antibiotics) Other (see comments) and Rash unknown Past Medical History: Diagnosis Date Gastroesophageal Reflux Disease NOS 2008 Hypertension NOS 2009 Malignant Primary Neoplasm (Unknown Site) Unspecified (HCC) 2016 Objective Physical exam: General: 67 y.o. year old male, in no acute distress. Skin: No rashes or lesions. Ears: Bilateral canals and TM's normal, no cerumen or middle ear effusion Nose: [place] and moist Oral Cavity: [place] and moist. Mucous membranes intact. [place] dentition within normal limits. At theright tonsillar fossa consistent with treatment. Floor of mouth, oral tongue, base of tongue soft to palpation Neck: No palpable lymphadenopathy. PROCEDURE NOTE Procedure: Flexible laryngoscopy, fiberoptic, diagnostic Details: After topical anesthesia with lidocaine and phenylephrine, the flexible laryngoscope was inserted on the right side. The nasal cavity, nasopharynx and oropharynx were normal. At the level of the larynx, the epiglottis, false vocal folds, true vocal folds, arytenoids, and pyriform sinuses are without masses or lesions. The true vocal folds move freely bilaterally. The patient tolerated the procedure well. DIAGNOSTICS: I reviewed the imaging studies and the interpretation as recorded. I reviewed the pertinent laboratory and diagnostic data. CT chest imaging and report reviewed. TSH locally slightly elevated. He will continue to follow this with his primary care provider Assessment/Plan #1 Malignant Neoplasm Of Tonsil (HCC) #2 Encounter For Follow Up Examination After Completed Treatment For Malignant Neoplasm #3 Dysphagia Oropharyngeal Phase Nash Segovia is a 67 y.o. 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 There is no evidence of disease on CT imaging or physical exam Our plan will be as follows: Return to the clinic in [address] chest imaging. Feel free to return sooner with any new symptoms, questions, or concerns. Kandice Wilkins APRN. C.N.P. PATIENT EDUCATION Ready to learn, no apparent learning barriers were identified; learning preferences include listening. Explained diagnosis and treatment plan; patient expressed understanding of the content. * Janet Meeks M.A., [facility]-LAUNCH MANAGER - 08/11/2022 2:30 PM CDT Nash Segovia was seen briefly to address dysphagia during his visit to [facility]. 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 He denies any difficulty with swallowing at this time and continues on a regular consistency diet without restriction. He has no coughing/choking or the feelingof food or pills sticking in his throat. He endorses very mild xerostomia in the morning, but overall this is not a significant issue for him. He is encouraged to monitor his swallowing and report any difficulties to his providers. Eating Assessment Tool (EAT-10) 1. My swallowing problem has caused me to lose weight.: Never 2. My swallowing problem interferes with my ability to go out for meals.: Never 3. Swallowing liquids takes extra effort.: Never 4. Swallowing solids takes extra effort.: Never 5. Swallowing pills takes extra effort.: Never 6. Swallowing is painful.: Never 7. The pleasure of eating is affected by my swallowing.: Never 8. When I swallow, food sticks in my throat.: Never 9. I cough when I eat.: Never 10. Swallowing is stressful.: Never EAT-10 Total Score: 0 Recommendations 1. Continue on a regular consistency diet with thin liquids. 2. Take small bites, chew well, and alternate bites of food with sips of liquid as needed in the setting of xerostomia. 3. Pills per patient preference. 4. Continue thorough oral cares. 5. Follow-up with LAUNCH MANAGER at next survivorship Clinic, sooner should concerns arise. No charge for this brief interaction as treatment time was < 8 min. documented in this encounter Plan of Treatment Scheduled Orders Name Type Priority Associated Diagnoses Orde r Schedule CT Chest without IV Contrast Imaging RAD - Routine (most inpatients and all outpatients) Malignant Neoplasm Of Tonsil (HCC) Encounter For Follow Up Examination After Completed Treatment For Malignant Neoplasm Expected: 08/12/2023 (Approximate), Expires: 11/12/2023 Scheduled Referrals Name Type Priority Associated Diagnoses Order Schedule Otorhinolaryngology Head/Neck Survivorship multidisciplinary clinic Outpatient Referral Routine Malignant Neoplasm Of Tonsil (HCC) Expected: 08/12/2023 (Approximate), Expires: 11/12/2023 documented as of this encounter Visit Diagnoses Diagnosis Malignant Neoplasm Of Tonsil (HCC)- Primary Encounter For Follow Up Examination After Completed Treatment For Malignant Neoplasm Dysphagia Oropharyngeal Phase documented in this encounter Additional Health Concerns Assessment Noted Time PHQ-9 Depression Total Score: 0 05/18/19 18 11:56 AM SENIOR UX 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
--- OUTSIDE RECORDS SUMMARY | 2023-05-22 12:29 | XMS_ITS | Encounter Summary ---
Author Name Unknown Organization [facility] Address [address] [place] [id number] Care Team Providers Care Customer Experience Specialist Name Role Phone Unavailable Primary Care Provider Unavailabl e Reason for Visit * Speech Pathology (Routine) - Authorized Specialty Diagnoses / Procedures Referred By Jade simmons Referred To Contact Diagnoses Dysphagia Malignant Neoplasm Of Tonsil (HCC) Procedures INSURANCE CLAIMS SUPERVISOR Dysphagia evaluate and treat Kandice Wilkins APRN, C.N.P. [address] [place] [phone] [facility] Referral ID Status Reason Start Date Expiration Date V isits Requested Visits Authorized [id number] Authorized 03/06/2023 03/05/2024 99 99 Encounter Details Date Type Department Care Team (Latest Contact Info) Description 03/15/2023 9:30 AM CDT Comprehensive Visit Department of Neurology in [place], [place] [address] [place] [phone] Kandice Wilkins APRN, C.N.P. [address] [place] [phone] Araseli Hollingsworth M.S., CCC-INSURANCE CLAIMS SUPERVISOR [address] [place] [phone] Dysphagia Oropharyngeal Phase (Primary Dx); Dysphagia; Malignant Neoplasm Of Tonsil (HCC) Social History Tobacco Use Types Packs/Day [...] How often do you attend chur or methodist services? More than 4 times per year 05/20/2021 Do you belong to any clubs o r organizations such as denominational groups, unions, fraternal or athletic groups, or [...] and heating? Not hard at all 03/06/2023 [facility] of Occupat ional Health - Occupational Stress [...] as of this encounter Consult Notes * Araseli Hollingsworth M.S., CCC-INSURANCE CLAIMS SUPERVISOR - 03/15/2023 9:30 AM CDT Speech Pathology Dysphagia Videofluoroscopic Swallow Study (VFSS) Outpatient Session Type: Evaluation Length of session: 90 minutes SUBJECTIVE Referred By: Kandice Wilkins APRN, C.N.P. Reason for Consult: Dysphagia History: Mr. Segovia is a very pleasant 67-year-old gentleman who was referred to speech pathology for a swallowing evaluation due to symptoms of dysphagia. 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 Heis familiar to the speech pathology service from a post-treatment VFSS completed on 07/13/2017 which was WFL. Please refer to the EMR for complete medical history and details of prior evaluations. Mr. Segovia endorses an approximate 3.5 week history of dysphagia to liquids > solids characterized by a sensation of material sticking and/or moving slowly through the throat. This is present constantly, on a daily basis, and has caused him to drink less water throughout the day. When he drinks water, he is careful to take small sips. He does not feel as though food or liquid goes down the wrong pipe on a regular basis. He denies odynophagia and nasal regurgitation. He has lost a few lb unintentionally due to dysphagia symptoms. He has not had any recent pneumonias. He endorses a history of reflux which is well-controlled with daily Pepcid. Referral to speech pathology included orders for a clinical swallowing evaluation and videofluoroscopic swallow study, allowing for comprehensive assessment of the oral and pharyngeal stages of the swallow. Esophagram was also completed in conjunction with today's visit. OBJECTIVE Oral Motor Dentition: Adequate Facial Symmetry: (0) Within Normal Limits Labial Structure and Function Labial Structure and Function: Within Normal Limits (WNL) Lingual Structure and Function Lingual Structure and Function: Impaired Lingual Symmetry: (-1) Mild (deviates to R) Mandible Strength and Function Mandible Strength and Function: Within Normal Limits (WNL) Motor Speech Voice: Within Normal Limits (WNL) Resonance (ADMIN DIR Function): Within Normal Limits (WNL) Articulation: Within Normal Limits (WNL) Rate and Prosody: Within Normal Limits (WNL) Intelligibility: Intelligible Flowsheet Row Most Recent Value Description of Procedure Previous MBS/VFSS Yes Planes Tested Lateral, AP Type Assessment MBS IMP Statement of Consent Yes, Discussed goals, risks, alternatives, and the necessity of other members of the procedureal team participating in the procedure with the patient., The patient understands and wishes to proceed Consistencies Assessed (MBS) Consistencies Assessed Yes Level 0 Thin Presentation Cup, Self Fed Lip Closure 0: No labial escape Tongue Control 0: Cohesive bolus between tongue to palatal seal Bolus Transport/Lingual Motion 0: Brisk tongue motion Oral Residue 0: Complete oral clearance Onset of Pharyngeal Swallow 0: Bolus head at posterior angle of ramus (first hyoid excursion) Soft Palate Elevation 0: No bolus between soft palate (SP)/pharyngeal wall (PW) Laryngeal Elevation 0: Complete superior movement of thyroid cartilage with complete approximation of arytenoids to epiglottic petiole Anterior Hyoid Excursion 1: Partial anterior movement Epiglottic Movement 1: Partial inversion Laryngeal Vestibular Closure 0: Complete, no air/contrast in laryngeal vestibule Pharyngeal Stripping Wave 0: Present - complete Pharyngoesophageal Segment Opening 0: Complete distension and complete duration, no obstruction of flow Tongue Base Retraction 0: No contrast between TB and posterior pharyngeal wall (PW) Pharyngeal Residue 1: Trace residue within or on pharyngeal structures Pharyngeal Residue Location Diffuse (>3 areas) Penetration/Aspiration Scale 1: Material does not enter airway Penetration No Aspiration No Level 2 Mildly Thick Presentation Cup, Self Fed Pharyngeal Contraction AP View only 0: Complete Esophageal Clearance 4: Minimal to no esophageal clearance Level 4 Puree Presentation Self Fed, Spoon Lip Closure 0: No labial escape Bolus Transport/Lingual Motion 0: Brisk tongue motion Oral Residue 1: Trace residue lining oral structures Oral Residue Location Tongue Onset of Pharyngeal Swallow 0: Bolus head at posterior angle of ramus (first hyoid excursion) Soft Palate Elevation 0: No bolus between soft palate (SP)/pharyngeal wall (PW) Laryngeal Elevation 0: Complete superior movement of thyroid cartilage with complete approximation of arytenoids to epiglottic petiole Anterior Hyoid Excursion 1: Partial anterior movement Epiglottic Movement 0: Complete inversion Laryngeal Vestibular Closure 0: Complete, no air/contrast in laryngeal vestibule Pharyngeal Stripping Wave 0: Present - complete Pharyngoesophageal Segment Opening 0: Complete distension and complete duration, no obstruction of flow Tongue Base Retraction 1: Trace column of contrast or air between TB and PW Pharyngeal Residue 1: Trace residue within or on pharyngeal structures Pharyngeal Residue Location Tongue Base, Valleculae Penetration/Aspiration Scale 1: Material does not enter airway Penetration No Aspiration No Level 7 Regular Presentation Self Fed Lip Closure 0: No labial escape Bolus Prep/Mastication 0: Timely and efficient chewing and mashing Bolus Transport/Lingual Motion 0: Brisk tongue motion Oral Residue 1: Trace residue lining oral structures Oral Residue Location Tongue Onset of Pharyngeal Swallow 0: Bolus head at posterior angle of ramus (first hyoid excursion) Soft Palate Elevation 0: No bolus between soft palate (SP)/pharyngeal wall (PW) Laryngeal Elevation 0: Complete superior movement of thyroid cartilage with complete approximation of arytenoids to epiglottic petiole Anterior Hyoid Excursion 1: Partial anterior movement Epiglottic Movement 1: Partial inversion Laryngeal Vestibular Closure 0: Complete, no air/contrast in laryngeal vestibule Pharyngeal Stripping Wave 0: Present - complete Pharyngoesophageal Segment Opening 0: Complete distension and complete duration, no obstruction of flow Tongue Base Retraction 0: No contrast between TB and posterior pharyngeal wall (PW) Pharyngeal Residue 0: Complete pharyngeal clearance Penetration/Aspiration Scale 1: Material does not enter airway Penetration No Aspiration No MBSImP Scores Oral Impairment Score 0 Pharyngeal Impairment Score 2 Esophageal Impairment Score 4 Assessment Clinical swallowing evaluation and videofluoroscopic swallow study (VFSS) were completed during today's visit. Please refer to Objective section for details of the CSE whic was notable for changes consistent with his surgical and treatment history. During the videofluoroscopic swallow study images were recorded as the patient swallowed thin barium via cup, mildly thick barium (A-P view only), barium pudding, and a bite of cookie tagged with barium pudding. Oral stage was unremarkable for the consistencies administered. Mastication of the cookie was timely and thorough. There was no anterior loss of liquids. The pharyngeal swallow was triggered in a timely manner across consistencies. Pharyngeal stage was notable for reduced anterior hyoid excursion and incomplete epiglottic inversion. Minimal vallecular residue with the pudding consistency was effectively cleared with a subsequent swallow. No laryngeal penetration or aspiration was observed. Velopharyngeal closure and cricopharyngeal relaxation appeared adequate. A-P view revealed deviation of bolus flow to the right through the cervical esophagus. Esophagram was completed immediately after the VFSS; please refer to the radiologist's report for details. Summary: Mr. Segovia presents with an oropharyngeal swallow that is considered within functional limits. No laryngeal penetration or aspiration was observed. His symptoms of dysphagia were not reproduced during the VFSS portion of today's visit. The results of today's swallow study were reviewed in detail with the patient and his who verbalized understanding of the information provided and asked several thoughtful questions which were answered to the best of my ability within the INSURANCE CLAIMS SUPERVISOR scope of practice. He was encouraged to follow up with the referring provider to discuss results and any recommendations from the esophagram as speech pathology does not review results of that test. I provided education regarding the role of swallowing exercises after radiation and we discussed the goal of maintaining swallow function for as long as possible with adherence to a consistent exercise program. I provided instruction and training in exercises today (Hollie, effortful swallow, TB retraction, Hansa) and he easily and correctly returned demonstration for each. He was provided with a printed handout of the exercise instructions with recommended frequency/intensity. It was a pleasure to work with Mr. Segovia today. I encouraged him to contact me with any questions or concerns that may arise after today's visit. Select images from today's evaluation are available for review on QREADS Diagnosis: Oropharyngeal swallow within functional limits Functional Oral Intake Scale: Level 7 - Total oral diet with no restrictions Plan Recommendations: 1. Continue a regular diet and thin liquids, washing food down with sips of liquid as needed 2. Pills per patient preference 3. Swallowing exercises for swallow maintenance - effortful swallow, Hollie, TB retraction, Hansa - x10/ea, 2-3x/day 4. Repeat VFSS with Speech Pathology if dysphagia symptoms worsen or as deemed appropriate by the referring physician. Electronically signed by Araseli Hollingsworth M.S., [facility]-INSURANCE CLAIMS SUPERVISOR at 03/15/2023 12:15 PM CDT documented in this encounter Plan of Treatment Not on file documented as of this encounter Visit Diagnoses Diagnosis Dysphagia Oropharyngeal Phase- Primary Dysphagia Malignant Neoplasm Of Tonsil (HCC) documented in this encounter Additional Health Concerns Assessment Noted Time PHQ-9 Depression Total Score: 0 05/18/19 18 11:56 AM CONSTRUCTION SUPERINTENDENT documented as of this encounter
--- OUTSIDE RECORDS SUMMARY | 2023-05-22 12:29 | XMS_ITS | Encounter Summary ---
Author Name Unknown Organization [facility] Address [address] [place] [address] Care Team Providers Care Certified Ophthalmic Surgical Assistant Name Role Phone Unavailable Primary Care Provider Unavailabl e Encounter Details Date Type Department Care Team ([facility] st Contact Info) Description 08/11/2022 Orders Only Department of Radiation Oncology in [place], [place] [address] [place] [phone] Lashon Zuniga APRN, C.N.P., M.S.N. [address] [place] [phone] Social History Tobacco Use Types Packs/Day Years [...] and heating? Not hard at all 05/20/2021 [facility] [place] of Occupat ional Health - Occupational Stress [...] place to sleep or slept in a assisted (including now)? No 05/20/2021 Nutrition Answer Date [...] Total Score: 0 05/18/19 18 11:56 AM LOANS OFFICER documented as of this encounter
--- OUTSIDE RECORDS SUMMARY | 2023-05-22 12:29 | XMS_ITS | Encounter Summary ---
Author Name Unknown Organization [facility] Address [address] [place] [address] Care Team Providers Care Pharmacy Services Director Name Role Phone Unavailable Primary Care Provider Unavailabl e Reason for Referral * Medication Prior Authorization - Denied Specialty Diagnoses / Procedures Referred By Jade simmons Referred To Contact Chester Hernandez Jr., D.O. 200 [place] [phone] Referral ID Status Reason Start Date Expiration Date Visits Re quested Visits Authorized [id number] Denied 1 1 Reason for Visit * Appointment Request (Routine) - Closed Specialty Diagnoses / Procedures Referred By Jade simmons Referred To Contact Nephrology and Hypertension Referral ID Status Reason Start Date Expiration Date Visits Re quested Visits Authorized [id number] Closed 11/04/2022 11/04/2023 1 1 Encounter Details Date Type Department Care Team (Latest Contact Info) Description 12/26/2022 3:00 PM CDT External Outreach Division of Nephrology and Hypertension in [place], [place] [address] [place] [phone] Chester Hernandez Jr., D.O. [address] [place] [phone] Chronic Kidney Disease (CKD), Stage 3a Glomerular Filtration Rate (GFR) 45 To 59 (HCC) (Primary Dx); Hypertensive Chronic Kidney Disease (CKD) Stage 3a Glomerular Filtration Rate (GFR) 45 To 59 (HCC); Glomerulonephritis Immunoglobulin A (IgA Nephropathy); Hyperlipidemia; Malignant Neoplasm Of Tonsil (HCC); Secondary Malignant Neoplasm Lymph Node Neck (HCC); Fibrosis Pulmonary (HCC); Hypertension And Chronic Kidney Disease Stage 1 To 4; Apnea Sleep Obstructive; 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) Social History Tobacco Use Types Packs/Day [...] week 05/20/2021 How often do you attend up health system or jew services? More than 4 times per year 05/20/2021 Do you belong to any clubs o r organizations such as gnosticism groups, unions, fraternal or athletic groups, or [...] and heating? Not hard at all 05/20/2021 [facility] of Occupat ional Health - Occupational Stress [...] place to sleep or slept in a correction (including now)? No 05/20/2021 Nutrition Answer Date [...] Sign Reading Time Taken Comments Blood Pressure 128/74 12/26/2022 3:39 PM CDT Pulse 105 12/26/2022 3:19 PM CDT Temperature - - Respiratory Rate - - Oxygen Saturation - - Inhaled Oxygen Concentration - - Weight 98.8 kg (217 lb 13 oz) 12/26/2022 3:19 PM CDT Height 185.4 cm (6' 0.99) 12/26/2022 3:19 PM CD T Body Mass Index 28.74 12/26/2022 3:19 PM CDT documented in this encounter Progress Notes * Chester Hernandez Jr., D.O. - 12/26/2022 3:00 PM CDT Referring Provider: No primary care provider on file. SUBJECTIVE REASON FOR VISIT [facility] Follow-up regards hypertension, IgA related glomerular nephritis, prior history of tonsillar carcinoma, and usual interstitial pneumonitis with hypoxemia HISTORY OF PRESENT ILLNESS Mr. Segovia is a 67 y.o. male who presents with a known history of IgA related glomerular nephritis,prior history of known pulmonary fibrosis, with interstitial pneumonitis, and elevated pulmonary arterial pressures. He additionally has longstanding history of hypertension, and a recent set of chall enges. He is recently had COVID and bronchitis, which were both very big challenges for him, the bronchitis last for quite a while. As he is golfing now he notes that he will drop his saturations into the 80s simply with swing clubs. We discussed the potential of adding a phosphodiesterase inhibitor -Cialis to his regimen on a daily basis. Note that he also had a hernia repaired which went well, and he had no postoperative complications. No issues from his prior history of tonsillar carcinoma he has been cleared of further follow-up. He is sleeping well, uses his CPAP faithfully. He does well as long as he wears it. He has an elevated hemoglobin level, on the background of his hypoxemia, hemoglobin 10 run between 17 and 19 grams/deciliter. We discussed his being a possible blood donor. Blood pressure at home has been excellent running in the 120s over 70s without orthostatic issues. He is careful with salt, and staying as active as he can, riding his exercise bicycle approximately 3-4 times per week for 30 minutes. Did get out of the habit while he had his hernia repaired and he is getting back to this now. He is using a combination lisinopril 30 mg orally daily and and amlodipine for his blood pressure. Otherwise from a constitutional perspective he is doing very well. Past Medical History: Diagnosis Date Gastroesophageal Reflux Disease NOS 2008 Hypertension NOS 2009 Malignant Primary Neoplasm (Unknown Site) Unspecified (HCC) 2017 Current Outpatient Medications: allopurinoL (ZYLOPRIM) 100 mg tablet, Take 1 tablet (100 mg total) by mouth daily., Disp: 90 tablet, Rfl: 3 amLODIPine (NORVASC) 5 mg tablet, Take 1 tablet (5 mg total) by mouth daily., Disp: 90 tablet, Rfl:3 lisinopriL (PRINIVIL,ZESTRIL) 30 mg tablet, Take 1 tablet (30 mg total) by mouth daily., Disp: 90 tablet, Rfl: 3 simvastatin (ZOCOR) 10 mg tablet, Take 1 tablet (10 mg total) by mouth at bedtime., Disp: 90 tablet, Rfl: 3 famotidine (PEPCID) 20 mg tablet, TAKE 2 TABLETS(40 MG) BY MOUTH DAILY (Patient taking differently:20 mg 2 (two) times a day.), Disp: 180 tablet, Rfl: 3 fluoride, sodium, (PreviDent) 1.1 % gel dental gel, Apply 1 application to the mouth or throat daily., Disp: 56 g, Rfl: 11 meclizine (ANTIVERT) 25 mg tablet, Take 25 mg by mouth as needed., Disp: , Rfl: omega 6-hfu-wgk-fish oil 1,000 mg (120 mg-180 mg) capsule, Take 1 capsule by mouth at bedtime. , Disp: , Rfl: tadalafiL (CIALIS) 10 mg tablet, Take 1 tablet (10 mg total) by mouth daily., Disp: 90 tablet, Rfl:3 REVIEW OF SYSTEMS All other systems reviewed and are negative. OBJECTIVE BP 128/74 Pulse 105 Ht 185.4 cm Wt 98.8 kg BMI 28.74 kg/m?? PHYSICAL EXAMINATION General: Awake alert oriented HEENT: JOSE, EOMI, Mucous membranes moist, no oral lesions Neck: No Masses, No Bruits Lungs: Clear to ascultation Heart: Regular Rate and Rhythm, No ectopy Murmurs or rubs Abdomen: Soft, Non-tender Extremities: No cyanosis, No clubbing: No edema Neuro: Cranial Nerves intact, Gait is normal, strength grossly normal Skin: no suspicious lesions identified Psychiatric: Normal affect DIAGNOSTICS Serum creatinine normal 1.2 mg/dL, microalbumin to creatinine ratio 50 milligrams/gram, PSA slightly increased to 3.5 from prior levels of 1.5, LDL cholesterol slightly above goal at 122. ASSESSMENT / PLAN #1 Chronic Kidney Disease (CKD), Stage 3a Glomerular Filtration Rate (GFR) 45 To 59 (HCC) Satisfied with his renal function and control his blood pressure. Going forward: No NSAIDs or Moe 2 inhibitors Plenty of hydration Blood pressure less than 130/80 Continue on CPAP Return in 1 year #2 Hypertensive Chronic Kidney Disease (CKD) Stage 3a Glomerular Filtration Rate (GFR) 45 To 59 (HCC) Goal blood pressures met at home, we will continue with his current regimen. #3 Glomerulonephritis Immunoglobulin A (IgA Nephropathy) Satisfactory progress recommend he continue on fish oil. #4 Hyperlipidemia We will monitor again next year I suspect we could increase his statin dose at next visit. 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 In addition to continue on his CPAP, we have added Cialis 10 mg orally daily to his regimen. Total time: 45 minute Counseling Time: 35 minutes Chester Hernandez Jr., D.O. documented in this encounter Plan of Treatment Not on file documented as of this encounter Visit Diagnoses Diagnosis Chronic Kidney Disease (CKD), Stage 3a Glomerular Filtration Rate (GFR) 45 To 59 (HCC)- Primary Hypertensive Chronic Kidney Disease (CKD) Stage 3a Glomerular Filtration Rate (GFR) 45 To 59 (HCC) Glomerulonephritis Immunoglobulin A (IgA Nephropathy) Hyperlipidemia Malignant Neoplasm Of Tonsil (HCC) Secondary Malignant Neoplasm Lymph Node Neck (HCC) Fibrosis Pulmonary (HCC) Hypertension And Chronic Kidney Disease Stage 1 To 4 Apnea Sleep Obstructive 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) documented in this encounter Additional Health Concerns Assessment Noted Time PHQ-9 Depression Total Score: 0 05/18/19 18 11:56 AM CLAMSHELL OPERATOR documented as of this encounter
--- OUTSIDE RECORDS SUMMARY | 2023-05-22 12:29 | XMS_ITS | Encounter Summary ---
Author Name Unknown Organization [facility] Address [address] [place] [address] Care Team Providers Care Physician Office Specialist Name Role Phone Unavailable Primary Care Provider Unavailabl e Encounter Details Date Type Department Care Team (Late st Contact Info) Description 01/27/2023 Documentation Division of Nephrology and Hypertension in [place], [place] [address] [place] [phone] Chester Hernandez Jr., D.O. [address] [place] [phone] Social History Tobacco Use Types Packs/Day Years [...] often do you attend chur ch or yazidi services? More than 4 times per year 05/20/2021 Do you belong to any clubs o r organizations such as anabaptism groups, unions, fraternal or athletic groups, or [...] as of this encounter Progress Notes * Chester Hernandez Jr., D.O. - 01/27/2023 4:46 PM CDT Care coordination I attempted to prescribe high-dose Viagra for him to use, as he admitted to me during his last clinic visit that he was using his friend's dose and felt dramatically improved with respect to his exercise tolerance, and demonstrated dramatic increase in his oxygen level as he walked on the golf course. He has demonstrated interstitial lung disease likely on the background of silicosis. I am going to orchestrate an echocardiogram looking at RV function and pulmonary artery pressures, as well as a consultation with our pulmonary division. Specific questions or whether pulmonary vaso dilator therapy is indicated or whether other immunomodulatory therapy might be indicated in his situation. 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
--- OUTSIDE RECORDS SUMMARY | 2023-05-22 12:29 | XMS_ITS | Encounter Summary ---
Author Name Unknown Organization [facility] Address [address] [place] [address] Care Team Providers Care Merchandise Complaint Adjuster Name Role Phone Unavailable Primary Care Provider Unavailabl e Reason for Referral * Speech Pathology (Routine) - Authorized Specialty Diagnoses / Procedures Referred By Jade simmons Referred To Contact Diagnoses Dysphagia Malignant Neoplasm Of Tonsil (HCC) Procedures ARC WELDER APPRENTICE - Ongoing treatment Kandice Wilkins APRN, C.N.P. [address] [place] [address] [facility] Referral ID Status Reason Start Date Expiration Date V isits Requested Visits Authorized [id number] Authorized 03/06/2023 03/05/2024 99 99 * Outpatient (Routine) - Closed Specialty Diagnoses / Procedures Referred By Jade simmons Referred To Contact Diagnoses Dysphagia Malignant Neoplasm Of Tonsil (HCC) Procedures FL Swallow Function with Video and Speech or OT Kandice Wilkins APRN, C.N.P. [address] [place] [address] [facility] Referral ID Status Reason Start Date Expiration Date Visits Re quested Visits Authorized [id number] Closed 03/06/2023 03/05/2024 1 1 * Speech Pathology (Routine) - Authorized Specialty Diagnoses / Procedures Referred By Jade simmons Referred To Contact Diagnoses Dysphagia Malignant Neoplasm Of Tonsil (HCC) Procedures ARC WELDER APPRENTICE Dysphagia evaluate and treat Kandice Wilkins APRN, C.N.P. [address] [place] [address] [facility] Referral ID Status Reason Start Date Expiration Date V isits Requested Visits Authorized [id number] Authorized 03/06/2023 03/05/2024 99 99 Encounter Details Date Type Department Care Team (Latest Contact Info) Description 03/06/2023 Orders Only Department of Otorhinolaryngology in [place], [place] [address] [place] [phone] Kandice Wilkins APRN, C.N.P. [address] [place] [phone] Dysphagia (Primary Dx); Malignant Neoplasm Of Tonsil (HCC) Social History [...] any clubs o r organizations such as islam groups, unions, fraternal or athletic groups, or [...] your living situation today? I have a [facility] place to live 03/06/2023 Education Answer [...] on file documented as of this encounter Results * FL Swallow Function with Video and [...] Wilkins APRN C.N.P. IMG FLU OROSCOPY PROCEDURES documented in this encounter Visit Diagnoses Diagnosis Dysphagia- Primary Malignant Neoplasm Of Tonsil (HCC) Dysphagia Malignant Neoplasm Of Tonsil (HCC) documented in this encounter Additional Health Concerns Assessment Noted Time PHQ-9 Depression Total Score: 0 05/18/19 18 11:56 AM MANAGER MARKET RESEARCH documented as of this encounter
--- OUTSIDE RECORDS SUMMARY | 2023-05-22 12:29 | XMS_ITS | Encounter Summary ---
Author Name Unknown Organization [facility] Address [address] [place] [address] Care Team Providers Care Tool Filer Name Role Phone Unavailable Primary Care Provider Unavailabl e Reason for Referral * Outpatient (Routine) - Closed Specialty Diagnoses / Procedures Referred By Jade simmons Referred To Contact Diagnoses Dysphagia Malignant Neoplasm Of Tonsil (HCC) Procedures FL Esophagram Double Contrast Kandice Wilkins APRN, C.N.P. [address] [place] [address] [facility] Referral ID Status Reason Start Date Expiration Date Visits Re quested Visits Authorized [id number] Closed 03/15/2023 03/14/2024 1 1 * Outpatient (Routine) - Closed Specialty Diagnoses / Procedures Referred By Jade simmons Referred To Contact Diagnoses Dysphagia Malignant Neoplasm Of Tonsil (HCC) Procedures FL Swallow Function with Video and Speech or OT Kandice Wilkins APRN, C.N.P. [address] [place] [phone] [facility] Referral ID Status Reason Start Date Expiration Date Visits Re quested Visits Authorized [id number] Closed 03/06/2023 03/05/2024 1 1 Reason for Visit * Outpatient (Routine) - Closed Specialty Diagnoses / Procedures Referred By Jade simmons Referred To Contact Diagnoses Dysphagia Malignant Neoplasm Of Tonsil (HCC) Procedures FL Swallow Function with Video and Speech or OT Kandice Wilkins APRN, C.N.P. [address] [place] [phone] [facility] Referral ID Status Reason Start Date Expiration Date Visits Re quested Visits Authorized [id number] Closed 03/06/2023 03/05/2024 1 1 Encounter Details Date Type Department Care Team (Latest Contact Info) Description 03/15/2023 9:53 AM CDT - 03/15/2023 11:59 PM CDT Hospital Encounter Department of Radiology, [facility], in [place], [place] [address] [place] [phone] Kandice Wilkins APRN, C.N.P. [address] [place] [phone] Araseli Hollingsworth M.S., CCC-PHYSICS TEACHER [address] [place] [phone] Dysphagia; Malignant Neoplasm Of Tonsil (HCC) Discharge [...] any clubs o r organizations such as baptism groups, unions, fraternal or athletic groups, or [...] and heating? Not hard at all 03/06/2023 [facility] of Occupat ional Health - Occupational [...] your living situation today? I have a [facility] place to live 03/06/2023 Education Answer [...] by mouth as needed. 0 06/15/2022 omega 1-fbt-fxp-fish oil 1,000 mg (120 mg-180 mg) capsule Take 1 capsule by mouth at bedtime. 0 04/14/2017 simvastatin (ZOCOR) 10 mg tabletIndications:Hyp erlipidemia Take 1 tablet (10 mg total) by mouth at bedtime. 90 tablet 3 12/26/2022 12/26/2023 tadalafiL (CIALIS) 10 mg tablet Take 1 tablet (10 mg total) by mouth daily. 90 tablet 3 12/26/2022 12/26/2023 amLODIPine (NORVASC) 5 mg tablet Take 1 tablet (5 mg total) by mouth daily. 90 tablet 3 12/26/2022 03/24/2023 documented as of this encounter Plan of Treatment Not on file documented as of this encounter Procedures Procedure Name Priority Date/Time Associated Diagnosis Comments FL ESOPHAGRAM DOUBLE CONTRAST RAD - Routine (most inpatients and all outpatients) 03/15/2023 10:34 AM CDT Dysphagia Malignant Neoplasm Of Tonsil (HCC) FL SWALLOW FUNCTION WITH VIDEO AND SPEECH OR OT FOR RST RAD - Routine (most inpatients and all outpatients) 03/15/2023 10:34 AM CDT Dysphagia Malignant Neoplasm Of Tonsil (HCC) documented in this encounter Results * FL Esophagram Double Contrast (03/15/2023 10:34 [...] hernia. Furtherassessment with upper endoscopy is recommended. Kanidce Wilkins APRN, C.N.P. IMG FLU OROSCOPY PROCEDURES [...] in this encounter Visit Diagnoses Diagnosis Dysphagia Malignant Neoplasm Of Tonsil (HCC) documented in this encounter Administered Medications Inactive Administered Medications - up to 3 most recent administrations Medication Order MAR Action Action Date Dose Rate Site barium 40 % (w/v) suspension 20 mL 20 mL, oral, Once in imaging, contrast, Starting on Mon03/15/23 at 1035, For 1 dose Given 03/15/2023 10:35 AM CDT 20 mL barium 60 % (w/v) suspension 175 mL (LIQUID E-Z-PAQUE) 175 mL, oral, Once in imaging, contrast, Starting on Mon03/15/23 at 1035, For 1 dose Given 03/15/2023 10:35 AM CDT 125 mL barium 700 mg tablet 700 mg (E-Z-DISK) 700 mg, oral, Once in imaging, contrast, Starting on Mon03/15/23 at 1035, For 1 dose Given 03/15/2023 10:36 AM CDT 700 mg barium 81 % (w/w) oral powder for suspension 20 g (VARIBAR THIN LIQUID) 20 g (50 mL), oral, Once in imaging, contrast, Starting on Mon03/15/23 at 1035, For 1 dose Given 03/15/2023 10:35 AM CDT 50 mL barium 98 % oral powder for suspension 135 mL (E-Z-HD) 135 mL, oral, Once in imaging, contrast, Starting on Mon03/15/23 at 1035, For 1 dose Given 03/15/2023 10:36 AM CDT 135 mL sodium bicarbonate-citric acid-simethicone effervescent packet 1 packet (E-Z -GAS) 1 packet, oral, Once, On Mon03/15/23 at 1100, For 1 dose Given 03/15/2023 10:36 AM CDT 0.3 packets documented in this encounter Additional Health Concerns Assessment Noted Time PHQ-9 Depression Total Score: 0 05/18/19 18 11:56 AM PIN PULLER documented as of this encounter
--- OUTSIDE RECORDS SUMMARY | 2023-05-22 12:29 | XMS_ITS | Encounter Summary ---
Author Name Unknown Organization [facility] Address [address] [place] [address] Care Team Providers Care Car Builder Name Role Phone Unavailable Primary Care Provider Unavailabl e Encounter Details Date Type Department Care Team (Latest Contact Info) Description 08/11/2022 4:05 PM CDT Ancillary Procedure Department of Otorhinolaryngology Social History Tobacco Use Types Packs/Day Years [...] week 05/20/2021 How often do you attend [facility] or baptism services? More than 4 times per year 05/20/2021 Do you belong to any clubs o r organizations such as caodaism groups, unions, fraternal or athletic groups, or [...] and heating? Not hard at all 05/20/2021 [facility] of Occupat ional Health - Occupational Stress [...] place to sleep or slept in a fdc (including now)? No 05/20/2021 Nutrition Answer Date [...] Procedure Name Priority Date/Time Associated Diagnosis Comments OTORHINOLARYNGOLOGY IMAGE EXAM Routine 08/11/2022 3:28 PM CDT documented in this encounter Results * Direct Laryngoscopy-Otorhinolaryngology Image Exam (08/11/2022 3:28 PM CDT) 08/11/2022 4:05 PM CDT Narrative [facility] - 08/11/2022 3:28 PM CDT This order has been created and auto-finalized [...] Total Score: 0 01/04/20 18 11:56 AM CARPET YARN WINDER OPERATOR documented as of this encounter
--- OUTSIDE RECORDS SUMMARY | 2023-05-22 12:30 | XMS_ITS | Encounter Summary ---
Author Name Unknown Organization [facility] Address [address] [place] [address] Care Team Providers Care Director Of Provider Relations Name Role Phone No Primary/Referring, Phy Primary Care Provider Unavailable Encounter Details Date Type Department Care Team Description 03/25/2016 Scanned History External to Transferred Record, Provider [facility] Social History Tobacco Use Types Packs/Day Years Used Date Smoking Tobacco: Never Assessed Sex and Gender Information Value Date Recorded Sex Assigned at Not on file Gender Identity Not on file Sexual Orientation Not on file documented as of this encounter Plan of Treatment Not on file documented as of this encounter Visit Diagnoses Not on filedocumented in this encounter Care Teams Director Of Provider Relations Relationship Specialty Start Date End Date No Primary/Referring, Radhay PCP - General 10/10/17 documented as of this encounter
--- OUTSIDE RECORDS SUMMARY | 2023-05-22 12:30 | XMS_ITS | Clinical Summary ---
Author Name Unknown [facility] Address [address], [place] [address] Care Team Providers Care Property And Casualty Insurance Agent Name Role Phone No Primary/Referring, Phy Primary Care Provider Unavailable Source Comments You are receiving this document as you are listed as the primary care provider,follow-up provider, or the patient has been referred to you for consultation.This is in compliance with the Medicare and[facility] Cent[facility] EHR Incentive Program,which states Providers who transition their patient to another setting of careor provider of care or refers their patient to another provider of care shouldprovide summary care record for each transition of care or referral. [facility] Allergies Active Allergy Reactions Criticality Noted Date Comments Amoxicillin Rash 01/10/2017 Penicillins Rash 01/10/2017 Sulfa Antibiotics Rash 01/10/2017 Medications Medication Sig Dispensed Refills Start Date End Date Status lisinopril (ZESTRIL) 5 MG tablet Take 5 mg by mouth daily. 0 Active simvastatin (ZOCOR) 5 MG tablet Take 5 mg by mouth daily at bedtime. 0 Active omega-3 fatty acids (MAXEPA,FISHOIL) 1000 MG capsule Take 2 g by mouth daily. 0 Active raNITIdine (ZANTAC) 150 MG tablet Take 1 Tab by mouth. 0 04/14/2017 Active Social History Tobacco Use Types Packs/Day Years Used Date Smoking Tobacco: Never Smokeless Tobacco: Never Sex and Gender Information Value Date Recorded Sex Assigned at Not on file Gender Identity Not on file Sexual Orientation Not on file Last Filed Vital Signs Vital Sign Reading Time Taken Comments Blood Pressure 144/97 10/24/2017 9:17 AM CDT Pulse 80 10/24/2017 9:17 AM CDT Temperature 36.4 ??C (97.6 ??F) 10/24/2017 9:17 AM CD T Respiratory Rate 16 10/24/2017 9:17 AM CDT Oxygen Saturation 97% 10/24/2017 9:17 AM CDT Inhaled Oxygen Concentration - - Weight 99.3 kg (219 lb) 10/24/2017 9:17 AM CDT Height 185.4 cm (6' 1) 10/24/2017 9:17 AM CDT Body Mass Index 28.89 10/24/2017 9:17 AM CDT Plan of Treatment Health Maintenance Due Date Last Done Comments Colon Cancer Screening Plan Due 1955 Hep C Screening (Preventive Services) 1955 PSA Screening Discussion 1955 COVID-19 Vaccine (#1) 02/08/1958 Adult Preventive Visit 08/09/1975 Cholesterol 1992 Pneumococcal 65+ Yrs (1 - PCV) 2022 Influenza (#1) 2023 03/28/2020, 04/14, 04/18/2018, Additional history exists DTaP/Tdap/Td (2 - Tdap) 12/15/2026 12/15/2016 Zoster/Shingles Completed 07/12/2019, 04/29/2019 HepA Aged Out No longer eligi ble based on patient's age to complete this topic HepB Aged Out No longer eligi ble based on patient's age to complete this topic Hib Aged Out No longer eligi ble based on patient's age to complete this topic IPV (Polio) Aged Out No longer eligi ble based on patient's age to complete this topic MCV4 Aged Out No longer eligi ble based on patient's age to complete this topic Care Teams Property And Casualty Insurance Agent Relationship Specialty Start Date End Date No Primary/Referring, Phy PCP - General 10/10/17
--- OUTSIDE RECORDS SUMMARY | 2023-05-22 12:30 | XMS_ITS | Encounter Summary ---
Author Name Unknown Organization [facility] Address [address] [place] [address] Care Team Providers Care Green Prize Packer Name Role Phone Unavailable Primary Care Provider Unavailabl e Encounter Details Date Type Department Care Team (Late st Contact Info) Description 06/10/2022 Documentation Division of Nephrology and Hypertension in [place], [place] [address] [place] [phone] Chester Hernandez Jr., D.O. [address] [place] [address] Social History Tobacco Use Types Packs/Day Years [...] often do you attend chur ch or church services? More than 4 times per year [...] and heating? Not hard at all 05/20/2021 [facility] of Occupat ional Health [...] place to sleep or slept in a halfway (including now)? No 05/20/2021 Nutrition Answer Date [...] this encounter Progress Notes * Chester Hernandez Jr. D.O. - 06/10/2022 11:08 AM CST Communication: He is experiencing stable BP, but lightheaded spells with sinus pain. Seen in ED-- recommendations for CT made. I have placed orders and will contact. CAL PATHOLOGY TEACHER documented in this encounter Plan of Treatment Not on file documented as of this encounter Visit Diagnoses Not on filedocumented in this encounter Additional Health Concerns Assessment Noted Time PHQ-9 Depression Total Score: 0 05/18/19 18 11:56 AM MEDICAL PATHOLOGY TEACHER documented as of this encounter
--- OUTSIDE RECORDS SUMMARY | 2023-05-22 12:30 | XMS_ITS | Encounter Summary ---
Author Name Unknown Organization [facility] Address [address] [place] [address] Care Team Providers Care Manager Health Name Role Phone Unavailable Primary Care Provider Unavailabl e Reason for Visit * Reason Comments Pre-visit Intake Encounter Details Date Type Department Care Team (Latest Contact Info) Description 05/30/2022 1:15 PM BI REPORT DEVELOPER Clinical Communication Virtual Review in [place], [place] [address] [place], [place] [phone] Pre-visit Intake Social History Tobacco Use Types [...] often do you attend chur ch or jewish services? More than 4 times per year [...] and heating? Not hard at all 05/20/2021 [facility] of Occupat ional Health [...] place to sleep or slept in a mcc (including now)? No 05/20/2021 Nutrition Answer Date [...] Total Score: 0 05/18/19 18 11:56 AM BI REPORT 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
--- OUTSIDE RECORDS SUMMARY | 2023-05-22 12:30 | XMS_ITS | Encounter Summary ---
Author Name Unknown Organization [facility] Address [address] [place] [address] Care Team Providers Care Farm Management Teacher Name Role Phone Unavailable Primary Care Provider Unavailabl e Reason for Visit * Reason Comments Phone Contact Priority 2 Encounter Details Date Type Department Care Team ([facility] st Contact Info) Description 06/07/2022 Refill Division of Nephrology and Hypertension in [place], [place] [address] [place] [phone] Chester Hernandez Jr., D.O. [address] [place] [address] Phone Contact (Priority 2) Social History Tobacco Use Types Packs/Day Years [...] heating? Not hard at all 05/20/2021 [facility] of Occupat ional Health - Occupational Stress [...] place to sleep or slept in a [place] [facility] facility (including now)? No 05/20/2021 Nutrition Answer Date [...] encounter Miscellaneous Notes * Telephone Encounter - Mini Blair, R.N. - 06/07/2022 4:36 PM CST SUBJECTIVE CHIEF COMPLAINT / REASON FOR CALL Phone Contact (Priority 2) Information Discussed I returned a call to the patient. He has a few concerns related to dizziness that he has experienced about 3 times in the last month. He wonders if one of his blood pressure medications might be causing the dizziness. We reviewed medications over the phone today and he verified the following blood pressure medications: amlodipine 5 mg daily and lisinopril 20 mg daily. He states he also takes Viagra 100 mg PRN and Cialis 20 mg PRN. He states that he noted one dizzy spell after taking Cialis. He reports blood pressures have been running in the 120's-130's/90's. The patient states he went to his local emergency room today due to dizziness and they are recommending follow up with a CT scan of the sinuses to rule out a sinus thrombosis. He states they will need to use contrast dye for the recommended CT scan. He would prefer to do the scan at [facility] if possible. He would also like to see Dr. Hernandez in [place] on Monday, June 13 if possible. PLAN Disposition/Recommendation: We reviewed proper blood pressure technique. I have asked the patient to track some blood pressures for the next several days taking readings twice daily. We also discussed good hydration and he was encouraged to drink 60-80 ounces of fluids daily. We reviewed heart attack and stroke symptoms and I advised he go to the local emergency room with any heart attack or stroke symptoms. I will review this information with Dr. Hernandez and contact the patient with any additional recommendations. Information/Education: patient/caller able to teach back Caller agreeable to plan of care: yes The following references were used: nursing clinical judgement IFIED MEDICAL AIDE documented in this encounter Plan of Treatment Not on file documented as of this encounter Visit Diagnoses Not on filedocumented in this encounter Additional Health Concerns Assessment Noted Time PHQ-9 Depression Total Score: 0 05/18/19 18 11:56 AM CERTIFIED MEDICAL AIDE documented as of this encounter
--- OUTSIDE RECORDS SUMMARY | 2023-05-22 12:30 | XMS_ITS | Encounter Summary ---
Author Name Unknown Organization [facility] Address [address] [place] [address] Care Team Providers Care Learning Strategist Name Role Phone Unavailable Primary Care Provider Unavailabl e Encounter Details Date Type Department Care Team (Late st Contact Info) Description 06/10/2022 Orders Only Division of Nephrology and Hypertension in [place], [place] [address] [place] [phone] Chester Hernandez Jr., D.O. [address] [place] [phone] Malignant Neoplasm Of Tonsil (HCC) (Primary Dx); Headache Sinus Social History Tobacco Use Types Packs/Day Years [...] often do you attend chur ch or gnosticism services? More than 4 times per year 05/20/2021 Do you belong to any clubs o r organizations such as yazdanism groups, unions, fraternal or athletic groups, or [...] and heating? Not hard at all 05/20/2021 [facility] [place] of Occupat ional Health - Occupational Stress [...] place to sleep or slept in a fpc (including now)? No 05/20/2021 Nutrition Answer Date [...] Diagnosis Malignant Neoplasm Of Tonsil (HCC)- Primary Headache Sinus documented in this encounter Additional Health Concerns Assessment Noted Time PHQ-9 Depression Total Score: 0 05/18/19 18 11:56 AM CHEMISTRY TEACHER documented as of this encounter
== END 2023-05-12 07:23 | disposition home or self-care (01) ==
LOC: NFLDREF 07:22
PROVIDERS: PCP Family Medicine; Referring Provider Family Medicine; Visit Provider Internal Medicine Nephrology
DX: I10 Essential (primary) hypertension (principal); N02.8 Recurrent and persistent hematuria with other morphologic changes; N18.9 Chronic kidney disease, unspecified; E03.9 Hypothyroidism, unspecified; R53.83 Other fatigue
CPT/HCPCS: 80069; 82043; 82570; 87086

== ENCOUNTER 2023-10-12 07:15 | Outpatient (CLI) | payer MEDICARE, BC, SELFPAY ==
--- OUTSIDE RECORDS SUMMARY | 2023-10-31 14:52 | XMS_ITS | Encounter Summary ---
Author Organization [facility] Address [address] [place] [address] Care Team Providers Care Electronic Publications Specialist Name Role Phone Elsewhere, Pcp Primary Care Provider Unavailabl e Encounter Details Date Type Department Care Team (Latest Contact Info) Description 10/05/2023 9:55 PM CDT Ancillary Procedure Department of Otorhinolaryngology [...] week 05/20/2021 How often do you attend [facility] or bahai services? More than 4 times per year 05/20/2021 Do you belong to any clubs o r organizations such as jewish groups, unions, fraternal or athletic groups, or [...] living? No 03/06/2023 Nutrition Answer Date Recorded On average, how many serving s of [...] Associated Diagnosis Comments OTORHINOLARYNGOLOGY IMAGE EXAM Routine 10/05/2023 3:00 PM CDT documented in this encounter Results * Laryngopharyngoscopy-Otorhinolaryngology Image Exam (10/05/2023 3:00 PM CDT) Narrative [facility] - 10/05/2023 3:00 PM CDT This order has been created [...] Total Score: 0 05/18/19 18 11:56 AM MANAGEMENT LEAD documented as of this encounter Care Teams Electronic Publications Specialist Relationship Specialty Start Date End Date Elsewhere, Pcp PCP - General Internal Medicine 03/24/23 documented as of this encounter
--- OUTSIDE RECORDS SUMMARY | 2023-10-31 14:52 | XMS_ITS | Referral Summary ---
Author Organization [facility] Address [address] [place] [address] Care Team Providers Care Doctor Of Chiropractic Name Role Phone Elsewhere, Pcp Primary Care Provider Unavailabl e Source Comments Patient records contain information from all sites at [facility]. For routine questions regarding patient records, call [phone] during business hours, M-F 8:00 AM - 5:00 PM Central Time. Record requests for emergency care only can be directed to [phone] at any time.[facility] Encounters Date Type Department Care Team Description 10/31/2023 Refill Division of Nephrology and Hypertension in [place], [place] [address] [place] [address] Chester Hernandez Jr., D.OClyde Med Refill (Priority 3) 10/16/2023 4:00 PM CDT External Outreach Division of Nephrology and Hypertension in [place], [place] [address] [place] [address] Chester Hernandez Jr., D.OClyde Chronic Kidney Disease (CKD), Stage 3a Glomerular Filtration Rate (GFR) 45 To 59 (HCC) (Primary Dx); Hypertensive Chronic Kidney Disease (CKD) Stage 3a Glomerular Filtration Rate (GFR) 45 To 59; Glomerulonephritis Immunoglobulin A (IgA Nephropathy); Malignant Neoplasm Of Tonsil (HCC); 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 Malignant Neoplasm Of Tonsil (HCC); Encounter For Follow Up Examination After Completed Treatment For Malignant Neoplasm Discharge Disposition: Home or Self Care 10/05/2023 2:30 PM CDT Office Visit Department of Otorhinolaryngology in [place], [place] [address] [place] [phone] Kandice Wilkins APRN, C.N.P. Malignant Neoplasm Of Tonsil (HCC) (Primary Dx); Dysphagia Oropharyngeal Phase; Lymphedema [I89.0]; Encounter For Follow Up Examination After Completed Treatment For Malignant Neoplasm 10/04/2023 3:30 PM CDT Clinical Communication Virtual Review in [place], [place] [address] [place] [address] Pre-visit Intake 09/08/2023 4:30 PM CDT Telemedicine Division of Gastroenterology and Hepatology in [place], [place] [address] [place] [address] Guicho Castrejon M.D. Achalasia; Dysphagia; Dysphagia Oropharyngeal Phase; Stricture Esophagus 09/08/2023 11:00 AM CDT Procedure visit Division of Gastroenterology and Hepatology [facility] in [place], [place] [address] [place] [address] Guicho Castrejon M.D. Crowell, Michael D, Ph.D. Achalasia; Dysphagia 09/06/2023 9:25 AM CDT Ancillary Procedure [facility] [place] [place] 09/06/2023 11:30 AM CDT Anesthesia Event Division of Gastroenterology in [place], [place] [address] [place] [address] Rafael Mckeon M.D., Ph.D. 09/06/2023 9:23 AM CDT - 09/06/2023 12:54 PM CDT Hospital Encounter Division of Gastroenterology in [place], [place] [address] [place] [address] Guicho Castrejon M.D. Ramirez, Paras C, M.D. Rafael Mckeon M.D., Ph.D. Conrad Jimenez, M.S.N., R.N. Eva Sheikh Achalasia; Dysphagia Discharge Disposition: Home or Self Care 09/04/2023 Clinical Communication [facility] PRE/POST [address] [place] [address] Cathi Urena R.N. 08/29/2023 9:39 AM CDT - 08/29/2023 11:59 PM CDT Hospital Encounter Department of Radiology, [facility], in [place], [place] [address] [place] [address] Guicho Castrejon M.D. Achalasia; Dysphagia Discharge Disposition: Home or Self Care 08/18/2023 7:30 AM CDT Procedure visit Division of Gastroenterology and Hepatology [facility] in [place], [place] [address] [place] [address] Guicho Castrejon M.D. Crowell, Michael D, Ph.D. Achalasia; Dysphagia 08/16/2023 Clinical Communication Division of Gastroenterology and Hepatology in [place], [place] [address] [place] [address] Nicolas Vidales M.D., M.S. Procedure Question 08/07/2023 Clinical Communication Division of Gastroenterology and Hepatology in [place], [place] [address] [place] [address] Guicho Castrejon M.D. Scheduling and Motility RN questions EGD Rick from Last 3 Months Allergies Active Allergy Reactions Criticality Noted Date Comments Penicillins Other (see comments),Rash Medium 1 unknown Sulfa (Sulfonamide Antibiotics) Other (see comments),Rash Medium 01/26/2011 unknown Medications Medication Sig Dispensed Refills Start Date End Date Status omega 3-etg-hai-fish oil 1,000 mg (120 mg-180 mg) capsule Take 1 capsule by mouth at bedtime. 04/14/2017 Active famotidine (PEPCID) 20 mg tablet TAKE 2 TABLETS(40 MG) BY MOUTH DAILY 180 tablet 3 01/21/2022 Active fluoride, sodium, (PreviDent) 1.1 % gel dental gel Apply 1 application to the mouth or throat daily. 56 g 11 08/11/2022 Active lisinopriL (PRINIVIL,ZESTRIL ) 30 mg tabletIndications :Hypertensive Chronic Kidney Disease With Stage 1 Through Stage 4 Chronic Kidney Disease, Or Unspecified Chronic Kidney Disease Take 1 tablet (30 mg total) by mouth daily. 90 tablet 3 12/26/2022 4 Active simvastatin (ZOCOR) 10 mg tabletIndications :Hyperlipidemia Take 1 tablet (10 mg total) by mouth at bedtime. 90 tablet 3 12/26/2022 4 Active tadalafiL (CIALIS) 10 mg tablet Take 1 tablet (10 mg total) by mouth daily. 90 tablet 3 12/26/2022 4 Active Additional Information Patient taking differently:10 mg oralAs needed, Informant: Self, Reported on 06/06/2023 allopurinoL (ZYLOPRIM) 100 mg tablet Take 1 tablet (100 mg total) by mouth daily. 90 tablet 3 12/26/2022 4 Active atenoloL (TENORMIN) 25 mg tablet Take 12.5 mg by mouth every evening. 07/27/2023 Active meclizine (ANTIVERT) 25 mg tablet Take 25 mg by mouth as needed. 06/15/2022 4 Discontinue d(Therapy completed) Active Problems Problem Noted Date Diagnosed Date Lymphedema [I89.0] 10/05/2023 Achalasia 04/21/2023 Dysphagia 03/24/2023 Pulmonary Hypertension Due [...] any clubs o r organizations such as anglican groups, unions, fraternal or athletic groups, or [...] and heating? Not hard at all 03/06/2023 [facility] of Occupat ional [facility] - Occupational Stress Questionnaire Answer Date [...] your living situation today? I have a [facility] place to live 03/06/2023 Education [...] Sign Reading Time Taken Comments Blood Pressure 146/92 10/16/2023 4:12 PM CDT Pulse 76 10/16/2023 4:12 PM CDT Temperature 36.2 ??C (97.2 ??F) 09/06/2023 12:35 PM [facility] Respiratory Rate 18 09/06/2023 12:35 PM [facility] Oxygen Saturation 95% 09/06/2023 12:35 PM [facility] Inhaled Oxygen Concentration - - Weight 96.7 kg (213 lb 3 oz) 10/16/2023 4:12 PM CDT Height 186.8 cm (6' 1.54) 09/06/2023 10:22 AM [facility] Body Mass Index 27.71 09/06/2023 10:22 AM [facility] Plan of Treatment Not on file Medical Devices Implanted Type Area Social Worker Palliative Care Device Identifier Shelf Expiration Date Model / Serial / Lot Clp Ezc Pur 11 - [id number] Implanted:Qt y: 6 on 06/07/2023 by Guicho Castrejon M.D. at [facility] Hardware e.g. pins/screws /rods N/A: Esophagus [facility] [place] [id number] 12/12/2025 [id number] / / 38K Abdomem Mesh Mesh or Patch Abdomen Left Inguinal Mesh Mesh or Patch Left: Groin Procedures Procedure Name Priority Date/Time Associated Diagnosis Comments OTORHINOLARYNGOLOGY IMAGE EXAM Routine 10/05/2023 3:[address] CHEST WITHOUT IV CONTRAST RAD - Routine (most inpatients and all outpatients) 10/05/2023 10:52 AM CDT Malignant Neoplasm Of Tonsil (HCC) Encounter For Follow Up Examination After Completed Treatment For Malignant Neoplasm [place] ESOPH CAPSULE PH MONITOR STUDY Routine 09/08/2023 11:00 AM [facility] Achalasia Dysphagia SURGICAL PATHOLOGY Routine 09/06/2023 11:42 AM [facility] UPPER GI ENDOSCOPY Routine 09/06/2023 9:25 AM [facility] Achalasia Dysphagia EGD (ESOPHAGOGASTRODUODENOSCO PY) RESTRICTED Routine 09/06/2023 9:25 AM [facility] Achalasia Dysphagia GASTROENTEROLOGY IMAGE EXAM Routine 09/06/2023 9:25 AM [facility] FL ESOPHAGRAM SINGLE CONTRAST RAD - Routine (most inpatients and all outpatients) 08/29/2023 9:57 AM [facility] Achalasia Dysphagia AK ESOPH IMPED FUNCTION TEST Routine 08/18/2023 7:30 AM [facility] Achalasia Dysphagia AK HIGH RESOLUTION ESOPHAGEAL MANOMETRY Routine 08/18/2023 7:30 AM [facility] Achalasia Dysphagia CHEM 8 WITH HCT, I-STAT, POCT, B Routine 06/07/2023 10:38 AM [facility] from Last 3 Months or Most Recently Relevant to Health Maintenance Results * Laryngopharyngoscopy-Otorhinolaryngology Image Exam (10/05/2023 3:00 PM CDT) Narrative [facility] - 10/05/2023 3:00 PM CDT This order has been created and auto-finalized to support the import of images acquired without order. The clinical documentation to support these images can be found on the encounter that produced images. Provider Not In System IMG NON RAD IMAGI NG PROCEDURES [facility] NA * CT Chest without IV Contrast (10/05/2023 10:52 AM CDT) Anatomical Region Laterality Modality Chest, Thoracic RST LOS, Tho racic ARZ LOS, Thoracic FLA LOS N/A Computed Tomography, Compute d Tomography Impressions 10/05/2023 1:08 PM CDT 1. ??Approximately 9 x 6 mm solid noncalcified pulmonary nodule in the lingula along the left major fissure has slightly shifted orientation, however has not significantly changed in size. Additional unchanged subcentimeter pulmonary nodules. 2. ??Advanced emphysematous changes throughout both lungs with associated peripheral predominant reticulations compatible with fibrosis and areas of cystic and bullous change and airspace enlargement in the lung bases, not significantly changed from 08/11/2022. 3. ??Unchanged mildly enlarged and prominent subcentimeter mediastinal and hilar lymph nodes. Narrative 10/05/2023 1:08 PM CDT EXAM: CT CHEST WITHOUT IV CONTRAST COMPARISON: Noncontrast chest CT August 11, 2022 FINDINGS: Approximately 9 x 6 mm solid noncalcified pulmonary nodule in the lingula along the left major fissure on 415 has slightly shifted orientation, however has not significantly changed in size. Unchanged ovoid nodule along the right major fissure on 341, likely an intrapulmonary lymph node, measuring less than 10 mm mean diameter. Several additional unchanged small pulmonary nodules, for example a 3 mm right upper lobe subpleural nodule on 154. No definite new or enlarging pulmonary nodules, noting extensive background pulmonary parenchymal abnormality decreases the sensitivity for detection of small nodules. Calcified pulmonary granulomas. Advanced emphysematous changes throughout both lungs with associated peripheral predominant reticulations compatible with fibrosis and areas of cystic and bullous change and airspace enlargement in the lung bases, not significantly changed from 08/11/2022. Clear central airways. Subsegmental endobronchial mucous plugging. No pneumothorax or pleural effusion. No significant interval change in mildly enlarged and prominent subcentimeter mediastinal and hilar lymph nodes, for example a 12 mm precarinal lymph node on and an 11 mm right hilar lymph node on 281. No size significant axillary lymphadenopathy. No pericardial effusion. Scattered mild atherosclerotic vascular calcifications, including the coronary arteries. Normal anatomic variant shared origin of the brachiocephalic and left common carotid arteries. Slightly patulous distal esophagus. Several unchanged vertebral body osseous hemangiomas. Unchanged subcentimeter focus of sclerosis in the T6 vertebral body. No aggressive osseous lesions. Unchanged hepatic hypodensities, likely cyst. Cholelithiasis. Left renal cyst. Limited noncontrast enhanced views of the upper abdomen are otherwise unremarkable. 3D maximum intensity projection (MIP) images were created on a dependent workstation as ordered by the treating provider and reviewed by the radiologist to increase sensitivity for detection of pulmonary nodules. Procedure Note Edna Silva M.D. - 10/05/2023 EXAM: CT CHEST WITHOUT IV CONTRAST COMPARISON: Noncontrast chest CT August 11, 2022 FINDINGS: Approximately 9 x 6 mm solid noncalcified pulmonary nodule in the lingulaalong the left major fissure on 415 has slightly shifted orientation,however has not significantly changed in size. Unchanged ovoid nodulealong the right major fissure on 341, likely an intrapulmonary lymph node, measuring less than 10 mm meandiameter. Several additional unchanged small pulmonary nodules, forexample a 3 mm right upper lobe subpleural nodule on 154. No definitenew or enlarging pulmonary nodules, noting extensive background pulmonary parenchymal abnormality decreasesthe sensitivity for detection of small nodules. Calcified pulmonarygranulomas. Advanced emphysematous changes throughout both lungs with associatedperipheral predominant reticulations compatible with fibrosis and areas ofcystic and bullous change and airspace enlargement in the lung bases, notsignificantly changed from 08/11/2022. Clear central airways. Subsegmental endobronchial mucous plugging. No pneumothorax or pleural effusion. No significant interval change in mildly enlarged and prominentsubcentimeter mediastinal and hilar lymph nodes, for example a 12 mmprecarinal lymph node on 266 and an 11 mm right hilar lymph node on281. No size significant axillary lymphadenopathy. No pericardial effusion. Scattered mild atherosclerotic vascularcalcifications, including the coronary arteries. Normal anatomic variantshared origin of the brachiocephalic and left common carotid arteries. Slightly patulous distal esophagus. Several unchanged vertebral body osseous hemangiomas. Unchangedsubcentimeter focus of sclerosis in the T6 vertebral body. No aggressiveosseous lesions. Unchanged hepatic hypodensities, likely cyst. Cholelithiasis. Left renalcyst. Limited noncontrast enhanced views of the upper abdomen areotherwise unremarkable. 3D maximum intensity projection (MIP) images were created on a dependentworkstation as ordered by the treating provider and reviewed by theradiologist to increase sensitivity for detection of pulmonary nodules. IMPRESSION: 1. Approximately 9 x 6 mm solid noncalcified pulmonary nodule in thelingula along the left major fissure has slightly shifted orientation,however has not significantly changed in size. Additional unchangedsubcentimeter pulmonary nodules. 2. Advanced emphysematous changes throughout both lungs with associatedperipheral predominant reticulations compatible with fibrosis and areas ofcystic and bullous change and airspace enlargement in the lung bases, notsignificantly changed from 08/11/2022. 3. Unchanged mildly enlarged and prominent subcentimeter mediastinal andhilar lymph nodes. Kandice Wilkins APRN, C.N.P. IMG CT PROCEDURES * AK ESOPH CAPSULE PH MONITOR STUDY (09/08/2023 11:00 AM [facility]) N[facility]ative [facility] 09/08/[facility]23 11:00 AM [facility] Conrad Magana, Ph.D. ? 09/11/2023 ??8:28 AM Rick Performed by: Conrad Magana, Ph.D. Authorized by: Guicho Castrejon M.D. ?? Guicho Castrejon M.D. GI PROCEDURE ORDERAB LES [facility] EMERGENCY DEPARTMENT NA * Surgical Pathology (09/06/2023 11:42 AM [facility]) 09/08/2023 9:15 AM [facility] Report Electronically Signed By Long Condon M.D., [phone] I verify that I have examined all relevant slides/materials for the specimen(s) and rendered or confirmed the diagnosis. 09/08/2023 9:15 AM [facility] Gross Description Received in formalin labeled Juliette, Nash and stomach, body, antrum, and incisura are multiple pieces of bah to pink soft tissue ranging from less than 0.1 to 0.2 cm, entirely submitted in cassette A1. Gross examination performed by: ??NOAH Mccoy (ASCP) 09/06/2023 jml 09/08/2023 9:15 AM [facility] Specimen Source A. Stomach, body, antrum and incisura, biopsy 09/08/2023 9:15 AM [facility] Clinical Information Follow up of achalasia, status post POEM. Indication: ??Normal, erosion, rule out ??Helicobacter pylori body, antrum and incisura. 09/08/2023 9:15 AM [facility] Disclaimer This test has been modified from the chief operating officer's instructions. Its performance characteristics were determined by [facility] in a manner consistent with CLIA requirements. This test has not been cleared or approved by the U.S. Food and Drug Administration. 09/08/2023 9:15 AM [facility] Interpretation FINAL DIAGNOSIS A. ??Stomach, body, antrum and incisura, biopsy: - Antral and oxyntic mucosa with mild nonspecific chronic gastritis. - Immunohistochemistry for ??Helicobacter pylori ??to follow in an addendum report. - No intestinal metaplasia is identified. Digital imaging was used in the diagnostic assessment of this case. CP:smr 09/08/2023 9:15 AM [facility] Biopsy (Stomach) 09/06/2023 11:42 AM [facility] Paras Quarles M.D. LAB SURG PATH O RDERABLES [facility] [address] [address], [facility] [address] [facility] [address] [place] [address] * Upper GI Endoscopy (09/06/2023 9:25 AM [facility]) 09/06/2023 9:25 AM [facility] Impressions [facility] 09/06/2023 12:11 PM [facility] Post-op Diagnoses: ? - Dilation in the middle third of the esophagus and in the lower third ? of the esophagus. ? - Esophagogastric landmarks identified. ? - Normal stomach. Biopsied. ? - Duodenal erosions without bleeding. ? - The RICK pH capsule was deployed. Narrative [facility] - 09/06/2023 12:11 PM [facility] [id number] GI Patient Name: Nash [place]ia Date of : 1955 Age: 68 Gender: Male Procedure: ? Upper GI endoscopy Providers: ? Paras Quarles MD, Guicho Castrejon MD (Ordering ? Provider) Referring Provider: ?Guicho Castrejon MD Pre-op Diagnoses: ?Follow-up of achalasia, status post POEM Recommendation: ? - Patient has a contact number available for emergencies. The signs and ? symptoms of potential delayed complications were discussed with the ? patient. Return to normal activities tomorrow. Written discharge ? instructions were provided to the patient. ? - Resume previous diet. ? - Continue present medications. ? - Await pathology results. ? - Return to referring physician. Findings: ? The lumen of the middle third of the esophagus and lower third of the ? esophagus was moderately dilated. Endoflip was performed. Values showed ? a maximal distensibility index of 5.1 and diameter of 14.8 mm at 60-70 ? mL volumes. There was absent contractility with intermittent episodes of ? panesophageal pressurization. The RICK capsule with delivery system was ? introduced through the mouth and advanced into the esophagus, such that ? the RICK pH capsule was positioned 37 cm from the incisors, which was 6 ? cm proximal to the GE junction. The RICK pH capsule was then deployed ? and attached to the esophageal mucosa. The delivery system was then ? withdrawn. Endoscopy was utilized for probe placement and diagnostic ? evaluation. ? There is no endoscopic evidence of esophagitis in the lower third of the ? esophagus. ? Esophagogastric landmarks were identified: the Z-line was found at 43 cm ? and the gastroesophageal junction was found at 43 cm from the incisors. ? The entire examined stomach was normal. Biopsies were taken with a cold ? forceps for histology. Verification of patient identification for the ? specimen was done. ? Multiple diffuse erosions without bleeding were found in the duodenal ? bulb. ? The exam of the duodenum was otherwise normal. Procedural Details: ?The patient was seen, evaluated, and history ? reviewed. Airway and heart and lung exams were ? performed and were satisfactory for planned sedation ? care. ? The risks, benefits and alternatives for the ? procedure and sedation were discussed and informed ? consent was obtained. A procedural pause was ? conducted in the presence of assisting personnel to ? verify the correct patient identity and procedure to ? be performed. Throughout the procedure, the ? patient's blood pressure, pulse, and oxygen ? saturations were monitored continuously. The ? Gastroscope was introduced under direct vision ? through the mouth, and advanced to the second part ? of duodenum. The upper GI endoscopy was accomplished ? without difficulty. The patient tolerated the ? procedure well. Complications: ? No immediate complications. Attending Participation: I was present and participated during the entire ? procedure, including non-lei portions. Sedation: ? Sedation provided by Anesthesia Care Paras Quarles MD 09/06/2023 12:11:09 PM This report has been signed electronically. Number of Addenda: 0 Note Initiated On: 09/06/2023 9:25 AM Guicho Castrejon M.D. GI PROCEDURE ORDERAB LES GARCIA [employer] NA * Duodenum, Duodenal bulb Upper GI endoscopy-Gastroenterology Image Exam (09/06/2023 9:25 AM [facility]) 09/06/2023 9:25 AM [facility] Narrative [facility] - 09/06/2023 12:20 PM [facility] This order has been created and auto-finalized to support the import of images acquired without order. The clinical documentation to support these images can be found on the encounter that produced images. Provider Not In System IMG NON RAD IMAGI NG PROCEDURES Performing Organization Address [facility] Co de Phone Number [facility] NA * FL Esophagram Single Contrast (08/29/2023 9:57 AM [facility]) Anatomical Region Laterality Modality Gastro Intestinal, Abdominal RST LOS, Abdominal ARZ LOS, Abdominal FLA LOS N/A Digital Radiography Impressions 08/29/2023 12:23 PM [facility] 1. Changes from POEM procedure. Time to barium swallow demonstrates some retained contents in the esophagus which does decrease over 5 minutes. Narrative 08/29/2023 12:23 PM MST EXAM: ??FL ESOPHAGRAM SINGLE CONTRAST CLINICAL INFORMATION: ??Achalasia post POEM procedure COMPARISON: ??03/15/2023, 06/08/2023, however no previous timed barium swallow. TECHNIQUE: ??Single contrast timed barium swallow. FINDINGS: ??Changes from POEM procedure. No gross lesion within the esophagus. Time to barium swallow was performed. The majority of the swallowed contents doesn't to the stomach.. The retained contents within the esophagus was not static as there was some to and fro motion due to tertiary contractions. Therefore there is some unexpected variation in the height of the column of retained barium. Time to barium swallow: 0 minutes = 18 cm with some tertiary contraction noted 1 minute = 15 cm 2 minutes = 15 cm 5 minutes = 11 cm Procedure Note Ezekiel Howell M.D. - 08/29/2023 EXAM: FL ESOPHAGRAM SINGLE CONTRAST CLINICAL INFORMATION: Achalasia post POEM procedure COMPARISON: 03/15/2023, 06/08/2023, however no previous timed bariumswallow. TECHNIQUE: Single contrast timed barium swallow. FINDINGS: Changes from POEM procedure. No gross lesion within theesophagus. Time to barium swallow was performed. The majority of the swallowedcontents doesn't to the stomach.. The retained contents within theesophagus was not static as there was some to and fro motion due totertiary contractions. Therefore there is some unexpected variation in the height of the column of retained barium. Time to barium swallow: 0 minutes = 18 cm with some tertiary contraction noted 1 minute = 15 cm 2 minutes = 15 cm 5 minutes = 11 cm IMPRESSION: 1. Changes from POEM procedure. Time to barium swallow demonstrates someretained contents in the esophagus which does decrease over 5 minutes. Guicho Castrejon M.D. IMG FLUOROSCOPY PROC EDURES * AK HIGH RESOLUTION ESOPHAGEAL MANOMETRY, AK ESOPH IMPED FUNCTION TEST (08/18/2023 7:30 AM MST) Narrative MMODAL - 08/18/2023 7:30 AM Nolberto Herrera M.D. ? 08/22/2023 ??7:46 AM Esophageal Manometry Performed by: Conrad Magana, Ph.D. Authorized by: Guicho Castrejon M.D. ?? Guicho Castrejon M.D. GI PROCEDURE ORDERAB LES MMODAL NA * (ABNORMAL) Chem 8 with Hematocrit, i-STAT, POCT (06/07/2023 10:38 AM [facility]) Pathologist [facility] Sodium, POCT, B 140 135 - 145 mmol/L 06/07/2023 10:38 AM [facility] Potassium, POCT, B 4.2 3.6 - 5.2 mmol/L 06/07/2023 10:38 AM [facility] Chloride, POCT, B 101 98 - 107 mmol/L 06/07/2023 10:38 AM [facility] Total CO2, POCT, B 25 22 - 29 mmol/L 06/07/2023 10:38 AM [facility] Calcium, Ionized, POCT, B 4.60 4.50 - 5.30 mg/dL 06/07/2023 10:38 AM [facility] Glucose, POCT, B 104 70 - 140 mg/dL 06/07/2023 10:38 AM [facility] BUN (Blood Urea Nitrogen), POCT, B 14 8 - 24 mg/dL 06/07/2023 10:38 AM [facility] Creatinine, POCT, B 1.2 0.7 - 1.4 mg/dL 06/07/2023 10:38 AM [facility] Comment: ----ADDITIONAL INFORMATION---- Performed at the Point of Care Estimated GFR (eGFR), POCT 67 >=60 mL/min/BSA 06/07/2023 10:41 AM [facility] Comment: Estimated GFR calculated using the 2020 CKD_EPI creatinine equation. Hematocrit, POCT, B 58.0(H) 38.3 - 48.6 % 06/07/2023 10:38 AM [facility] Blood 06/07/2023 10:3 8 AM [facility] 06/07/2023 10:41 AM [facility] Generic Rals LAB POCT ORDERABLES - DEVICE [facility] [address] [place] [address], [facility] [address] [place] [id number] from Last 3 Months or Most Recently Relevant to Health Maintenance Care Teams Doctor Of Chiropractic Relationship Specialty Start Date End Date Elsewhere, Pcp PCP - General Internal Medicine 03/24/23
--- OUTSIDE RECORDS SUMMARY | 2023-10-31 14:52 | XMS_ITS | Encounter Summary ---
Author Organization [facility] Address [address] [place] [id number] Care Team Providers Care Clinical Psychologist Licensed Name Role Phone Elsewhere, Pcp Primary Care Provider Unavailabl e Reason for Visit * Reason Onset Date Comments Pre-visit Intake 10/04/2023 Encounter Details Date Type Department Care Team (Latest Contact Info) Description 10/04/2023 3:30 PM CDT Clinical Communication Virtual Review in [place], [place] [address] [place] [address] Pre-visit Intake Social History Tobacco Use Types [...] any clubs o r organizations such as restorationist groups, unions, fraternal or athletic groups, or [...] and heating? Not hard at all 03/06/2023 [facility] - [...] your living situation today? [facility] 03/06/2023 Education Answer [...] Total Score: 0 05/18/19 18 11:56 AM [employer]OR documented as of this encounter Care Teams Clinical Psychologist Licensed Relationship Specialty Start Date End Date Elsewhere, Pcp PCP - General Internal Medicine 03/24/23 documented as of this encounter
--- OUTSIDE RECORDS SUMMARY | 2023-10-31 14:52 | XMS_ITS | Encounter Summary ---
Author Organization [facility] Address [address] [place] [address] Care Team Providers Care Chief Privacy Officer Name Role Phone Elsewhere, Pcp Primary Care Provider Unavailabl e Reason for Referral * MRI/CAT/PET Scan (Routine) - Authorized Specialty Diagnoses / Procedures Referred By Jade smimons Referred To Contact Radiology Diagnoses Malignant Neoplasm Of Tonsil (HCC) Encounter For Follow Up Examination After Completed Treatment For Malignant Neoplasm Procedures CT Chest without IV Contrast Rosette Griffith APRN, C.N.P. [address] [place] [address] [facility] Referral ID Status Reason Start Date Expiration Date V isits Requested Visits Authorized [id number] Authorized 10/05/2023 10/04/2024 1 1 * Outpatient (Routine) - Authorized Specialty Diagnoses / Procedures Referred By Jade simmons Referred To Contact Diagnoses Malignant Neoplasm Of Tonsil (HCC) Rosette Griffith APRN, C.N.P. [address] [place] [address] [facility] Referral ID Status Reason Start Date Expiration Date V isits Requested Visits Authorized [id number] Authorized 10/05/2023 04/05/2025 1 1 * Physical Therapy (Routine) - Authorized Specialty Diagnoses / Procedures Referred By Jade simmons Referred To Contact Diagnoses Malignant Neoplasm Of Tonsil (HCC) Procedures PT or OT eval and treat (first available) Rosette Griffith APRN, C.N.P. [address] [place] [phone] [facility] Referral ID Status Reason Start Date Expiration Date V isits Requested Visits Authorized [id number] Authorized 10/05/2023 10/04/2024 99 99 Reason for Visit * Outpatient (Routine) - Closed Specialty Diagnoses / Procedures Referred By Jade simmons Referred To Contact Diagnoses Malignant Neoplasm Of Tonsil (HCC) Kandice Wilkins APRN, C.N.P. [address] [place] [phone] [facility] Referral ID Status Reason Start Date Expiration Date Visits Re quested Visits Authorized [id number] Closed 08/11/2022 08/11/2023 1 1 Encounter Details Date Type Department Care Team (Latest Contact Info) Description 10/05/2023 2:30 PM CDT Office Visit Department of Otorhinolaryngology in [place], [place] [address] [place] [phone] Kandice Wilkins APRN, C.N.P. [address] [place] [phone] Malignant Neoplasm Of Tonsil (HCC) (Primary Dx); Dysphagia Oropharyngeal Phase; Lymphedema [I89.0]; Encounter For Follow Up Examination After Completed Treatment For Malignant Neoplasm Social History Tobacco Use Types Packs/Day Years [...] How often do you attend chur or restoration services? More than 4 times per year 05/20/2021 Do you belong to any clubs o r organizations such as latter-day groups, unions, fraternal or athletic groups, or [...] and heating? Not hard at all 03/06/2023 [facility] [place] [facility] - Occupational Stress [...] your living situation today? [facility] 03/06/2023 Education Answer Date [...] - Inhaled Oxygen Concentration - - Weight 95.3 kg (210 lb 1.6 oz) 10/05/2023 2:24 P M CDT Height - - Body Mass Index 27.31 09/06/2023 10:22 AM MST documented in this encounter Progress Notes * Rosette Griffith, ANA M, C.N.P. - 10/05/2023 2:30 PM CDT RADIATION ONCOLOGY FOLLOW-UP VISIT - [facility]IP [facility] SUBJECTIVE CHIEF COMPLAINT/REASON FOR VISIT 6 year follow up for history of p16+ SCC of the right tonsil, status post surgical resection and adjuvant chemotherapy and de-escalation RT on [facility] 1675 HISTORY OF PRESENT ILLNESS Mr. Segovia is a 68 y.o. male with the following oncologic history: [...] 20 BID fractions. 05/16/2017 - 05/25/2017 Chemotherapy [facility] [id number] DART Arm ( DOCEtaxel ) Start Date: 05/16/2017 09/14/2017 Complete Response PET/CT scan shows no evidence of FDG avid malignancy. INTERVAL HISTORY: Mr. Segovia presents to the [facility] Survivorship clinic. He is accompanied by his wifeand was seen by myself, as well as my colleagues in Medical Oncology and ENT. Patient reports feeling very well! He spent the winter in [place] and has been walking 3-4 miles daily. He is feeling strongerand has more stamina to do stairs. 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 He no longer has any exposure to the birds and has someone take care of them. He does not followwith a fish inspector regularly. He does see a local dentist regularly and is up-to-date with healthmaintenance. OBJECTIVE Independently reviewed CT chest and agree with the radiologists review. VITAL SIGNS Wt 95.3 kg BMI 27.31 kg/m?? PHYSICAL EXAMINATION General: Very pleasant 68 y.o. male, in no acute distress. ENT: See ENT's note regarding oral cavity and nasopharyngoscopy findings. Skin: Intact. Lymph: No palpable head or neck lymphadenopathy. Grade 1 soft, mobile lymphedema present in the anterior neck. ASSESSMENT / PLAN #1 History of p16+ SCC of the right tonsil, status post surgical resection and adjuvant chemotherapy and de-escalation RT on [facility] 1675 Mr. Segovia is doing well and is without any clinical or radiographic signs of disease recurrence. Discussed CT chest results noting no change in pulmonary nodules and also emphysema changes (which patient reports from the pigeons). Patient provided compression garment for neck lymphedema. Patient instructed to contact pulmonology if he begins to experience any shortness of breath. We will plan tosee patient in [address] chest[address] Patient is aware to contact us with any questions or concerning symptoms. EDUCATION Ready to learn, no apparent learning barriers were identified; learning preferences include listening. Explained diagnosis and treatment plan; patient expressed understanding of the content. * Pauline Landrum M.S., [facility] - 10/05/2023 2:30 PM CDT Speech Pathology Clinical Swallow Evaluation- Outpatient [facility] Session Type: Evaluation Length of session: 12 minutes SUBJECTIVE Referred By: MATEO Wolff* History: Mr. Segovia is a 68-year-old man seen for a dysphagia consult in conjunction with his [facility] visit. 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 His history also includes achalasia type 2 s/p POEM on 06/07/2023. He is known to Speech Pathology from previous dysphagia consults and videofluoroscopies. He was seen in [facility] on 08/11/2022 at which time he had no concerns or complaints about swallowing. He then began experiencing dysphagia symptoms in fall 2022 and a dysphagia consult and videofluoroscopic swallow study was on 03/15/2023 which showed an oropharyngeal swallow within functional limits. Please see the EMR for full details. Mr. Segovia reports that swallowing was perfect initially following his POEM and now he feels about 90% which is still a significant improvement. He is not avoiding any specific foods. He denies regularly coughing during meals. He has been maintaining his weight since his POEM. Eating Assessment Tool (EAT-10) 1. My swallowing problem has caused me to lose weight.: 2 2. My swallowing problem interferes with my ability to go out for meals.: 2 3. Swallowing liquids takes extra effort.: 1 4. Swallowing solids takes extra effort.: 1 5. Swallowing pills takes extra effort.: 1 6. Swallowing is painful.: 0 7. The pleasure of eating is affected by my swallowing.: 0 8. When I swallow, food sticks in my throat.: 0 9. I cough when I eat.: 0 10. Swallowing is stressful.: 0 EAT-10 Total Score: 7 Pain None reported OBJECTIVE Oral Motor Dentition: Adequate Facial Symmetry: (0) Within Normal Limits Labial Structure and Function Labial Structure and Function: Within Normal Limits (WNL) Lingual Structure and Function Lingual Structure and Function: Impaired Mandible Strength and Function Mandible Strength and Function: Within Normal Limits (WNL) Consistencies Assessed in Evaluation: Consistencies Assessed: Level 0 Thin Presentation: Other (Comment) (bottled water) Oral: Within Functional Limits (WFL) Pharyngeal: Decreased laryngeal elevation Swallowing Exercises Targeted Pharyngeal Exercises Base of Tongue Retraction: Number of Reps: 2 Type of Cuing: Verbal, Demonstration Level of Cuing: Minimal Effortful Swallow: Number of Reps: 1 Type of Cuing: Verbal, Demonstration Level of Cuing: Minimal Hollie: Number of Reps: 1 Type of Cuing: Verbal Level of Cuing: Minimal Hansa Maneuver: Number of Reps: 1 Type of Cuing: Verbal, Demonstration Level of Cuing: Minimal Assessment Mr. Segovia was seen for a clinical swallow evaluation during his [facility] visit. He was observed drinking bottled water. Oral containment was adequate. The pharyngeal swallow response appeared timely. Hyolaryngeal elevation was subjectively judged to be reduced per palpation. One swallow per bolus was noted. There was no coughing, throat clearing, or changes in vocal qualityassociated with any trials. Mr. Segovia appears to be demonstrating stable swallow function since his last VFSS showing an oropharyngeal swallow within functional limits. Potential changes in swallowing post radiation therapy were discussed with the patient. The importance of performing swallow exercises even after completion of radiation therapy to ensure maintenance of a functional swallow was discussed. He demonstrated each exercise back accurately. Questions were answered to the best of my ability. Diagnosis: Within Functional Limits (WFL) Plan DYSPHAGIA RECOMMENDATIONS: 1. Continue a regular diet and thin liquids, washing food down with sips of liquid as needed 2. Pills per patient preference 3. Continue swallowing exercises for swallow maintenance - effortful swallow, Hollie, TB retraction, Hansa - x10/ea, 2-3x/day 4. Follow up with Speech Pathology at the next [facility] visit or sooner should questions or concerns arise. Exercises to Improve Swallowing Hollie Exercise Place tip of tongue between teeth (or gums) and swallow hard Keep your tongue between your teeth during the entire swallow Repeat 10 times, 3 times per day Effortful swallow Swallow HARD, like you're swallowing a spoonful of peanut-butter Remember to SQUEEZE all of your swallowing muscles including tongue Repeat 10 times, 3 times per day Tongue-Base Exercise Pull your tongue back in your mouth Hold for 2 seconds then relax Repeat 10 times, 3 times per day Abhishek Maneuver Swallow and place your finger tips across the front of your throat, where your Robert's apple (voice box) is located; feel it raise upwards during your swallow Swallow again and ???hold?? the swallow just as your throat tightens and your voice box is at it'shighest point in your throat Hold this position for 2-3 seconds (or more if you can), then release Repeat 10 times, 3 times per day * Kandice Wilkins APRN, C.N.P. - 10/05/2023 2:30 PM CDT Date of visit: 10/05/2023 Patient name: Nash Segovia : 1955 Subjective [...] completed May 24, 2017 4. Surveillance visit 6 years status post treatment with CT chest imaging, no labs. HPI: Nash Segovia is a 68 y.o. male who presents for evaluation and follow-up related to a T3 N2HPV positive squamous cell carcinoma of the right tonsil 6 years ago. His oncologic history is detailed below. Oncology [...] 20 BID fractions. 05/16/2017 - 05/25/2017 Chemotherapy [facility] [id number] DART Arm ( DOCEtaxel ) Start Date: 05/16/2017 09/14/2017 Complete Response PET/CT scan shows no evidence of FDG avid malignancy. Please see separately dictated medical oncology and radiation oncology note for subjective history gathering and patient complaints and concerns as he is being seen in the multidisciplinary survivorship Clinic CURRENT MEDICATIONS: Reviewed and updated in the EMR. Allergies Allergen Reactions Penicillins Other (see comments) and Rash unknown Sulfa (Sulfonamide Antibiotics) Other (see comments) and Rash unknown Past Medical History: Diagnosis Date Apnea Sleep Obstructive Chronic Obstructive Pulmonary Disease (HCC) Gastroesophageal Reflux Disease NOS 2007 Hypertension NOS 2009 Malignant Primary Neoplasm (Unknown Site) Unspecified (HCC) 2017 Tonsillar Migraine Headache Post Operative Nausea/Vomiting Objective Physical exam: General: 68 y.o. year old male, in no acute distress. Skin: No rashes or lesions. Ears: Bilateral canals and TM's normal Nose: Penryn and moist Oral Cavity: [place]ryn and moist. Mucous membranes intact. [place] dentition noted. Surgical changes at the right tonsillar fossa consistent with treatment. Asymmetry of the soft palate consistent with surgical changes. Floor of mouth, oral tongue, base of tongue soft to palpation Neck: Please see radiation oncology note for detailed neck exam PROCEDURE NOTE Procedure: Flexible laryngoscopy, fiberoptic, diagnostic Details: After topical anesthesia with lidocaine and phenylephrine, the flexible laryngoscope was inserted on the right side. The nasal cavity, nasopharynx and oropharynx were normal. At the level of the larynx, the epiglottis, false vocal folds, true vocal folds, arytenoids, and pyriform sinuses are without masses or lesions. The true vocal folds move freely bilaterally. No concerning findings on fiberoptic laryngoscopy. The patient tolerated the procedure well. DIAGNOSTICS: I reviewed the imaging studies and the interpretation as recorded. I reviewed the pertinent laboratory and diagnostic data. Reviewed the CT images and report Assessment/Plan #1 Dysphagia Oropharyngeal Phase #2 Malignant Neoplasm Of Tonsil (HCC) #3 Lymphedema [I89.0] #4 Encounter For Follow Up Examination After Completed Treatment For Malignant Neoplasm Nash Segovia is a 68 y.o. male who presents for a 6 year follow-up for a T3 N2 HPV positive squamous cell carcinoma of the right tonsil. He underwent primary surgical treatment followed by adjuvant deescalated chemoradiation. He has had no evidence of recurrent disease since his initial treatment. He has done well Our plan will be as follows: Return to the clinic in [address] chest imaging for reassessment of nodule and pulmonary changes related to pulmonary hypertension. At that time we will consider prn follow-up. Return to the clinic sooner with new symptoms, questions, or concerns. PATIENT EDUCATION Ready to learn, no apparent learning barriers were identified; learning preferences include listening. Explained diagnosis and treatment plan; patient expressed understanding of the content. * Polo Delacruz P.A.-C. - 10/05/2023 2:30 PM CDT MEDICAL ONCOLOGY FOLLOW-UP VISIT - [facility] SUBJECTIVE CHIEF COMPLAINT/REASON FOR VISIT T3 N2a HPV positive squamous cell carcinoma of the right tonsil, Status post surgical resection, followed by chemoradiation therapy on [facility] [id number] clinical trial, deescalated treatment, completed 05/26/2017. HISTORY OF PRESENT ILLNESS Mr. Segovia is a 68 y.o. male with the following oncologic history: [...] 20 BID fractions. 05/16/2017 - 05/25/2017 Chemotherapy [facility] [id number] [facility] Arm ( DOCEtaxel ) Start Date: 05/16/2017 09/14/2017 Complete Response PET/CT scan shows no evidence of FDG avid malignancy. OBJECTIVE VITAL SIGNS Wt 95.3 kg BMI 27.31 kg/m?? PHYSICAL EXAMINATION General: Very pleasant 68 y.o. male, in no acute distress. Heart: Regular rate and rhythm. Lungs: Clear to auscultation bilaterally. ASSESSMENT / PLAN #1 T3 N2a HPV positive squamous cell carcinoma of the right tonsil, Status post surgical resection,followed by chemoradiation therapy on [facility] [id number] clinical trial, deescalated treatment, completed 05/26/2017. Mr. Segovia is doing well today 6 years out from treatment completion. He is doing well with no specific head/neck concerns. CT Chest shows a stable 9x6mm nodule since 2020. 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 He does not see pulmonary at this point, but feels like his breathing has improved, he walks 2-3 miles day and easily walks stairs. We offered him graduation from medical oncology today, but he would like to return in 2 years. No labs were reviewed today. Follow-Up: 2 years Imaging: CT Chest Blood Work: TSH documented in this encounter Consult Notes * Lamar Ng M.S., O.T., T-DAT - 10/05/2023 2:30 PM CDT Occupational Therapy Clinical Evaluation- [facility] Oropharyngeal Cancer Survivorship Clinic Session Type: Evaluation/Treatment SUBJECTIVE Referred By: Kandice Wilkins APRN, C.N.P. Diagnosis: Lymphedema [I89.0] History: Met with patient in the [facility] multidisciplinary oropharyngeal cancer survivorship clinic. Nash is a 68 year old male with history of HPV positive squamous cell carcinoma of the right tonsil. He is status post robotic assisted wide field tonsillectomy on the right with right select neck dissection and primary closure of an oropharyngeal defect with feeding tube placement April 13, 2017. Completed adjuvant chemoradiation on May 24, 2017 Patient comments: Reports having loose skin at anterior neck some fluid but never really noticed any issues or limitations with it. OBJECTIVE Neck range of motion: Flexion: Within normal limits Extension: Within normal limits Rotation R/L: Within normal limits Lateral bending R/L: Mild Mouth opening: Within normal limits Shoulder active range of motion: No current limitations Integumentary assessment: Skin bah in coloration, soft and intact. Loose, waddle skin and collection of mobile fluid at anterior neck. No scar adhesions noted. Posture: Normal Fatigue: No fatigue reported TREATMENT Educated on role of Lymphedema therapy as he has not previously been seen by us before. Briefly discussed anatomy and function and how relates to his cancer treatment. Reviewed intermission coordinator and late effects or radiation, importance of consistent (daily) and prolonged stretching. Discussed importance of prolonged holds (30-60 seconds) to best address tissues tightness and restrictions. In addition, we discussed lymphedema management. Provided with compression strap and chip foam and encouraged to utilize this daily for 1-2 hours in the PM and can wear up to 23 hours a day if he wishes. Patient would benefit from completing stretches with this fascioplasty donned to decrease tissue restriction. Assessment Nash seen in Survivorship Clinic this afternoon.This is the first he has been seen by Lymphedema team since his diagnosis and treatment. Presents with mild lymphedema on anterior neck so compressioninitiated, otherwise, neck, jaw and shoulder range of motion have no limitations for functional daily activities. He will trial compression and we will follow-up with him on toleration and results when he returns to survivorship clinic. Functional Goals and Timeframes: Patient will demonstrate cervical range of motion extension >20 and rotation >50 in order to optimize participation in daily activities. MET Patient will demonstrate mouth opening range of motion >35mm in order to decrease difficulty with eating. MET Patient will demonstrate shoulder flexion and abduction active range of motion >140 in order to reach overhead in daily activities. MET Patient will be independent in an effective lymphedema management program to assist in improvement in cervical range of motion and decrease risk of infection. PROGRESSING Plan Follow-up when he returns to clinic. Lamar Ng M.S., O.T., ARMOND Length of session: 10 minutes documented in this encounter Plan of Treatment Scheduled Orders Name Type Priority Associated Diagnoses Orde r Schedule CT Chest without IV Contrast Imaging RAD - Routine (most inpatients and all outpatients) Malignant Neoplasm Of Tonsil (HCC) Encounter For Follow Up Examination After Completed Treatment For Malignant Neoplasm Expected: 10/04/2025 (Approximate), Expires: 10/04/2026 Scheduled Referrals Name Type Priority Associated Diagnoses Order Schedule Otorhinolaryngology Head/Neck Survivorship multidisciplinary clinic Outpatient Referral Routine Malignant Neoplasm Of Tonsil (HCC) Expected: 10/04/2025 (Approximate), Expires: 10/04/2026 documented as of this encounter Visit Diagnoses Diagnosis Malignant Neoplasm Of Tonsil (HCC)- Primary Dysphagia Oropharyngeal Phase Lymphedema [I89.0] Encounter For Follow Up Examination After Completed Treatment For Malignant Neoplasm documented in this encounter Additional Health Concerns Assessment Noted Time PHQ-9 Depression Total Score: 0 05/18/19 18 11:56 AM STEM TEACHER documented as of this encounter Care Teams Chief Privacy Officer Relationship Specialty Start Date End Date Elsewhere, Pcp PCP - General Internal Medicine 03/24/23 documented as of this encounter
--- OUTSIDE RECORDS SUMMARY | 2023-10-31 14:52 | XMS_ITS | Clinical Summary ---
Author Organization [facility] Address [place], [place] [address] Care Team Providers Care Dietician Name Role Phone Grisel Meade YESSY Primary Care Provider [phone] Allergies Active Allergy Reactions Criticality Noted Date Comments Penicillins Rash Medium 03/24/2016 Sulfa (Sulfonamide Antibiotics) Rash Medium 03/15 Medications Medication Sig Dispensed Refills Start Date End Date Status omega-3 fatty acids-vitamin E (FISH OIL) 1,000 mg cap Take 1 capsule by mouth once daily. Active simvastatin (ZOCOR) 10 mg tablet Take 1 tablet by mouth at bedtime. 12/22/2015 Active lisinopril (PRINIVIL; ZESTRIL) 5 mg tablet Take 1 tablet by mouth once daily. 12/22/2015 Active omeprazole (PRILOSEC) 20 mg Delayed-Release capsule Take 1 capsule by mouth once daily before a meal. 0 03/24/2016 Active meclizine (ANTIVERT) 25 mg tabletIndications:Verti go Take 1 Tablet (25 mg) by mouth three times daily. 15 Tablet 06/14/2022 Active ondansetron (ZOFRAN ODT) 4 mg disintegrating tabletIndications:Verti go,Pre-syncope Place 1 Tablet (4 mg) on the tongue two times daily. 10 Tablet 06/14/2022 Active lisinopriL (PRINIVIL; ZESTRIL) 10 mg tabletIndications:HTN (hypertension) Take 1 Tablet (10 mg) by mouth once daily. 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 Pulse 87 06/14/2022 1:35 AM BOTTLE HOUSE CLE[employer] SUPERVISOR Temperature 36.2 ??C (97.1 ??F) 06/13/2022 8:16 PM CS T Respiratory Rate 20 06/13/2022 8:16 PM B[employer] SUPERVISOR Oxygen Saturation 96% 06/14/2022 1:35 AM B[employer] HOU[employer] SUPERVISOR Inhaled Oxygen Concentration - - Weight 98.9 kg (218 lb) 06/13/2022 8:16 PM BOTTLE HOUSE CLE[employer] SUPERVISOR Height 185.4 cm (6' 1) 06/13/2022 8:16 PM BOTT[employer] HOU[employer] CLE[employer] SUPERVISOR Body Mass Index 28.76 06/13/2022 8:16 PM B[employer] SUPERVISOR Plan of Treatment Health Maintenance Due Date Last Done Comments Tdap 1968 Depression screening for age 12+ 1969 Hepatitis C screening for ag e 18-79 08/09/1975 Tetanus booster 1977 Colonoscopy through age 75 2002 Lipids for age 45-75 2002 Zoster (shingles) series for age 50+ (1 of 2) 08/09/2007 BMI (ht and wt on same day) for age 18+ 03/24/2017 03/24/2016 Pneumococcal series for age 65+ (1 of 1 - PCV) 2022 COVID-19 vaccine series (2022-24 season) 2023 03/03/2023, 03/09/2022, 02/12/2021, Additional history exists Influenza for age 65+ 01/14/2024 Care Teams Dietician Relationship Specialty Start Date End Date HalinaAugust Yaz, YESSY [address] [place] [id number] PCP - General Physician Fire Protection Engineer 06/13/22
--- OUTSIDE RECORDS SUMMARY | 2023-10-31 14:52 | XMS_ITS | Clinical Summary ---
Author Organization [facility] Address [address] [place] [address] Care Team Providers Care List Of First Job Ideas Name Role Phone Elsewhere, Pcp Primary Care Provider Unavailabl e Source Comments Patient records contain information from all sites at [facility]. For routine questions regarding patient records, call [phone] during business hours, M-F 8:00 AM - 5:00 PM Central Time. Record requests for emergency care only can be directed to [phone] at any time.[facility] Allergies Active Allergy Reactions Criticality Noted Date Comments Penicillins Other (see comments),Rash Medium 1 unknown Sulfa (Sulfonamide Antibiotics) Other (see comments),Rash Medium 01/26/2011 unknown Medications Medication Sig Dispensed Refills Start Date End Date Status omega 9-vva-omi-fish oil 1,000 mg (120 mg-180 mg) capsule [...] by mouth daily. 90 tablet 3 12/26/2022 Active simvastatin (ZOCOR) 10 mg tabletIndications :Hyperlipidemia [...] by mouth daily. 90 tablet 3 12/26/2022 Active atenoloL (TENORMIN) 25 mg tablet Take 12.5 mg by mouth every evening. 07/27/2023 Active meclizine (ANTIVERT) 25 mg tablet Take 25 mg by mouth as needed. 06/15/2022 Discontinue d(Therapy completed) Active Problems Problem Noted [...] Refill Division of Nephrology and Hypertension in [place], [place] [address] [place] [address] Chester Hernandez Jr., D.O. Med Refill (Priority 3) 10/16/2023 4:00 PM CDT External Outreach Division of Nephrology and Hypertension in [place], [place] [address] [place] [phone] Chester Hernandez Jr., D.O. 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 Malignant Neoplasm Of Tonsil (HCC) (Primary Dx); Dysphagia Oropharyngeal Phase; Lymphedema [I89.0]; Encounter For Follow Up Examination After Completed Treatment For Malignant Neoplasm 10/05/2023 10:13 AM CDT - 10/05/2023 11:59 PM CDT Hospital Encounter Department of Radiology, [facility] in [address] [address] Kandice Wilkins, ANA M, C.N.P. Malignant Neoplasm Of Tonsil (HCC); Encounter For Follow Up Examination After Completed Treatment For Malignant Neoplasm Discharge Disposition: Home or Self Care 10/04/2023 3:30 PM CDT Clinical Communication Virtual Review in [place], [place] [address] [place] [address] Pre-visit Intake 09/08/2023 4:30 PM CDT Telemedicine Division of Gastroenterology and Hepatology in [place], [place] [address] [place] [address] Guicho Castrejon M.D. Achalasia; Dysphagia; Dysphagia Oropharyngeal Phase; Stricture Esophagus 09/08/2023 11:00 AM CDT Procedure visit Division of Gastroenterology and Hepatology [facility] in [place], [place] [address] [place] [address] Guicho Castrejon M.D. Crowell, Michael D, Ph.D. Achalasia; Dysphagia 09/06/2023 11:30 AM CDT Anesthesia Event Division of Gastroenterology in [place] [address] [place] [phone] Rafael Mckeon M.D., Ph.D. 09/06/2023 9:25 AM CDT Ancillary Procedure Department of Gastroenterology, [place] 09/06/2023 9:23 AM CDT - 09/06/2023 12:54 PM CDT Hospital Encounter Division of Gastroenterology in [place] [address] [place] [phone] Guicho Castrejon M.D. Ramirez, Francisco C, M.D. Doyle, Daniel J, M.D., Ph.D. Conrad Jimenez M.S.Michael., R.N. Eva Sheikh Achalasia; Dysphagia Discharge Disposition: Home or Self Care 09/04/2023 Clinical Communication [facility] [address] [place] [phone] Cathi Urena, R.NClyde 08/29/2023 9:39 AM CDT - 08/29/2023 11:59 PM CDT Hospital Encounter Department of Radiology, [facility], in [place], [place] [address] [place] [address] Guicho Castrejon M.D. Achalasia; Dysphagia Discharge Disposition: Home or Self Care 08/18/2023 7:30 AM CDT Procedure visit Division of Gastroenterology and Hepatology [facility] in [place], [place] [address] [place] [address] Guicho Castrejon M.D. Crowell, Michael D, Ph.D. Achalasia; Dysphagia 08/16/2023 Clinical Communication Division of Gastroenterology and Hepatology in [place] [address] [place] [address] Nicolas Vidales M.D., M.S. Procedure Question 08/07/2023 Clinical Communication Division of Gastroenterology and Hepatology in [place], [place] [address] [place] [address] Guicho Castrejon M.D. Scheduling and Motility RN questions EGD Rick from Last 3 Months Family History Medical [...] How often do you attend chur or zoroastrian services? More than 4 times per year 05/20/2021 Do you belong to any clubs o r organizations such as episcopalian groups, unions, fraternal or athletic groups, or [...] and heating? Not hard at all 03/06/2023 [facility] [place] of Occupat ional Health - Occupational Stress [...] your living situation today? I have a [facility] place to live 03/06/2023 Education Answer [...] 36.2 ??C (97.2 ??F) 09/06/2023 12:35 PM [facility] Respiratory Rate 18 09/06/2023 12:35 PM [facility] Oxygen Saturation 95% 09/06/2023 12:35 PM [facility] Inhaled Oxygen Concentration - - Weight 96.7 kg (213 lb 3 oz) 10/16/2023 4:12 PM CDT Height 186.8 cm (6' 1.54) 09/06/2023 10:22 AM [facility] Body Mass Index 27.71 09/06/2023 10:22 AM [facility] Plan of Treatment Health Maintenance Due Date Last Done Comments CT Colonography 1957 Cologuard 1955 Colonoscopy 1955 Colorectal Cancer Screening 1957 FIT 1957 Hepatitis C Screening 1957 Lipid (Cholesterol) Screening 1957 Pneumococcal vaccine (65+ years) (2 of 2 - PPSV23 or PCV20) 09/06/2019 07/12/2019 COVID-19 Vaccine (2022- season) 2023 03/03/2023, 03/09/2022, 02/12/2021, Additional history exists Depression Screening (Annual PHQ-2) 05/15/2023 Office Visit for Blood Pressure Check / Re-check 01/16/2024 10/16/2023 Creatinine Level (Kidney Function Test) 06/07/2024 06/07/2023, 03/24/2023, 06/14/2022, Additional history exists Potassium Level 06/07/2024 06/07/2023, 03/15, 06/14/2022, Additional history exists Sodium Level 06/07/2024 06/07/2023, 03/15, 06/14/2022, Additional history exists Fasting Glucose for Diabetes Screening 06/07/2026 06/07/2023, 03/24/2023, 06/14/2022, Additional history exists DTaP,Tdap,and Td Vaccines (2 - Td or Tdap) 12/15/2026 12/15/2016 Zoster Vaccines Completed 07/12/2019, 04/29/2019 Influenza Vaccine Completed 03/03/2023, , 03/28/2020, Additional history exists Fall Risk Screen (Annual) Completed 09/06/2023 HPV Vaccines Aged Out No longer eligi ble based on patient's age to complete this topic Medical Devices Implanted Type Area Development Coach Device Identifier Shelf Expiration Date Model / Serial / Lot Clp Ezc Pur 11 - [id number] Implanted:Qt y: 6 on 06/07/2023 by Guicho Castrejon M.D. at [facility] Hardware e.g. pins/screws /rods N/A: Esophagus [facility] [id number] 12/12/2025 [id number] / / 38K Abdomem [...] Examination After Completed Treatment For Malignant Neoplasm CT ESOPH CAPSULE PH MONITOR STUDY Routine 09/08/2023 11:00 AM [facility] Achalasia Dysphagia SURGICAL PATHOLOGY Routine 09/06/2023 11:42 AM [facility] UPPER GI ENDOSCOPY Routine 09/06/2023 9:25 AM [facility] Achalasia Dysphagia EGD (ESOPHAGOGASTRODUODENOSCO PY) RESTRICTED Routine 09/06/2023 9:25 AM [facility] Achalasia Dysphagia GASTROENTEROLOGY IMAGE EXAM Routine 09/06/2023 9:25 AM [facility] FL ESOPHAGRAM SINGLE CONTRAST RAD - Routine (most inpatients and all outpatients) 08/29/2023 9:57 AM [facility] Ach[place] Dysphagia CT ESOPH IMPED FUNCTION TEST Routine 08/18/2023 7:30 AM [facility] Ach[address] Dysphagia CT HIGH RESOLUTION ESOPHAGEAL MANOMETRY Routine 08/18/2023 7:30 AM MST Achalasia Dysphagia CHEM 8 WITH HCT, I-STAT, POCT, B Routine 06/07/2023 10:38 AM [facility] from Last 3 Months or Most Recently [...] a 12 mm precarinal lymph node on 266 and an 11 [...] example a 12 mmprecarinal lymph node on and an 11 mm right hilar lymph node on. No size significant axillary lymphadenopathy. No pericardial [...] Wilkins APRN, C.N.P. IMG CT PROCEDURES * CT ESOPH CAPSULE PH MONITOR STUDY (09/08/2023 11:00 AM [facility]) Narrative [facility] [employer] - 09/08/2023 11:00 AM [facility] Conrad Magana, Ph.D. ? 09/11/2023 ??8:28 AM Rick Performed by: Conrad Magana, Ph.D. Authorized by: Guicho Castrejon M.D. ?? Guicho Castrejon M.D. GI PROCEDURE ORDERAB LES [facility] NA * Surgical Pathology (09/06/2023 11:42 AM [facility]) 09/08/2023 9:15 AM [facility] Report Electronically Signed By Logn Condon M.D., [id number] I verify that I have examined all relevant slides/materials for the specimen(s) and rendered or confirmed the diagnosis. 09/08/2023 9:15 AM [facility] Gross Description Received in formalin labeled Juliette, Nash and stomach, body, antrum, and incisura are multiple pieces of bah to pink soft tissue ranging from less than 0.1 to 0.2 cm, entirely submitted in cassette A1. Gross examination performed by: ??NOAH Mccoy (ASCP) 09/06/2023 jml 09/08/2023 9:15 AM [facility] Specimen Source A. Stomach, body, antrum and incisura, biopsy 09/08/2023 9:15 AM [facility] Clinical Information Follow up of achalasia, status post POEM. Indication: ??Normal, erosion, rule out ??Helicobacter pylori body, antrum and incisura. 09/08/2023 9:15 AM [facility] Disclaimer This test has been modified from the snuff grinder's instructions. Its performance characteristics were determined by [facility] in a manner consistent with CLIA requirements. This test has not been cleared or approved by the U.S. Food and Drug Administration. 09/08/2023 9:15 AM [facility] Interpretation FINAL DIAGNOSIS A. ??Stomach, body, antrum and incisura, biopsy: - Antral and oxyntic mucosa with mild nonspecific chronic gastritis. - Immunohistochemistry for ??Helicobacter pylori ??to follow in an addendum report. - No intestinal metaplasia is identified. Digital imaging was used in the diagnostic assessment of this case. CP:smr 09/08/2023 9:15 AM [facility] Biopsy (Stomach) 09/06/2023 11:42 AM [facility] Paras Quarles M.D. LAB SURG PATH O RDERABLES [facility] [address] [id number] [address] [facility] [address] [place] [address] * Upper GI Endoscopy (09/06/2023 9:25 AM [facility]) 09/06/2023 9:25 AM [facility] Impressions [facility] - 09/06/2023 12:11 PM [facility] Post-op Diagnoses: ? - Dilation in the middle third of the esophagus and in the lower third ? of the esophagus. ? - Esophagogastric landmarks identified. ? - Normal stomach. Biopsied. ? - Duodenal erosions without bleeding. ? - The RICK pH capsule was deployed. Narrative [facility] - 09/06/2023 12:11 PM [facility] [id number] GI Patient Name: Nash Segovia Date [...] GI endoscopy-Gastroenterology Image Exam (09/06/2023 9:25 AM [facility]) 09/06/2023 9:25 AM [facility] Narrative [facility] - 09/06/2023 12:20 PM [facility] This order has been created and auto-finalized to support the import of images acquired without order. The clinical documentation to support these images can be found on the encounter that produced images. Provider Not In System IMG NON RAD IMAGI NG PROCEDURES Performing Organization Address [facility] Co de Phone Number [facility] NA * FL Esophagram Single Contrast (08/29/2023 9:57 AM [facility]) Anatomical Region Laterality Modality Gastro Intestinal, Abdominal RST LOS, Abdominal ARZ LOS, Abdominal FLA LOS N/A Digital Radiography Impressions 08/29/2023 12:23 PM [facility] 1. Changes from POEM procedure. Time to barium swallow demonstrates some retained contents in the esophagus which does decrease over 5 minutes. Narrative 08/29/2023 12:23 PM [facility] EXAM: ??FL ESOPHAGRAM SINGLE CONTRAST CLINICAL INFORMATION: [...] Castrejon M.D. IMG FLUOROSCOPY PROC EDURES * CT HIGH RESOLUTION ESOPHAGEAL MANOMETRY, CT ESOPH IMPED FUNCTION TEST (08/18/2023 7:30 AM [facility]) Narrative [facility] - 08/18/2023 7:30 AM Nolberto Herrera M.D. ? 08/22/2023 ??7:46 AM Esophageal Manometry Performed by: Conrad Magana, Ph.D. Authorized by: Guicho Castrejon M.D. ?? Guicho Castrejon M.D. GI PROCEDURE ORDERAB LES [facility] NA * (ABNORMAL) Chem 8 with Hematocrit, i-STAT, POCT (06/07/2023 10:38 AM [facility]) Sodium, POCT, B 140 135 - 145 mmol/L 06/07/2023 10:38 AM [facility] Potassium, POCT, B 4.2 3.6 - 5.2 mmol/L 06/07/2023 10:38 AM [facility] Chloride, POCT, B 101 98 - 107 mmol/L 06/07/2023 10:38 AM [facility] Total CO2, POCT, B 25 22 - 29 mmol/L 06/07/2023 10:38 AM [facility] Calcium, Ionized, POCT, B 4.60 4.50 - 5.30 mg/dL 06/07/2023 10:38 AM [facility] Glucose, POCT, B 104 70 - 140 mg/dL 06/07/2023 10:38 AM [facility] BUN (Blood Urea Nitrogen), POCT, B 14 8 - 24 mg/dL 06/07/2023 10:38 AM [facility] Creatinine, POCT, B 1.2 0.7 - 1.4 mg/dL 06/07/2023 10:38 AM [facility] Comment: ----ADDITIONAL INFORMATION---- Performed at the Point of Care Estimated GFR (eGFR), POCT 67 >=60 mL/min/BSA 06/07/2023 10:41 AM [facility] Comment: Estimated GFR calculated using the 2020 CKD_EPI creatinine equation. Hematocrit, POCT, B 58.0(H) 38.3 - 48.6 % 06/07/2023 10:38 AM [facility] Blood 06/07/2023 10:3 8 AM [facility] 06/07/2023 10:41 AM [facility] Generic Rals LAB POCT ORDERABLES - DEVICE [facility] [address] [place] [address], [facility] [address] [place] [address] from Last 3 Months or Most Recently Relevant to Health Maintenance Care Teams List Of First Job Ideas Relationship Specialty Start Date End Date Elsewhere, Pcp PCP - General Internal Medicine 03/24/23
--- OUTSIDE RECORDS SUMMARY | 2023-10-31 14:52 | XMS_ITS ---
Author Organization [facility] Address [address] [place] [address] Care Team Providers Care Commissions Specialist Name Role Phone Unavailable Unavailable Unavailable Surgery Details Not on file Complications Check Surgery Details section. Procedure Estimated Blood Loss Check Surgery Details section. Procedure Findings Check Surgery Details section. Procedure Specimens Taken Check Surgery Details section.
--- OUTSIDE RECORDS SUMMARY | 2023-10-31 14:52 | XMS_ITS ---
Author Organization [facility] Address [address] [place] [address] Care Team Providers Care Special Investigator Name Role Phone Elsewhere, Pcp Primary Care [...] treatments are documented for this patient in [facility]. Treatments may have been administered in another system. Lifetime Dose Tracking * Chemical Lifetime Dose Automatic Entry Manual Entr y Radiation 143 mGy 143 mGy 0 mGy Fluoro Time 6.7 minutes 6.7 minutes 0 minutes
--- OUTSIDE RECORDS SUMMARY | 2023-10-31 14:52 | XMS_ITS | Encounter Summary ---
Author Organization [facility] Address [address] [place] [address] Care Team Providers Care Grinding Room Supervisor Name Role Phone Elsewhere, Pcp Primary Care Provider Unavailabl e Reason for Visit * Appointment Request (Routine) - Closed Specialty Diagnoses / Procedures Referred By Contjoana t Referred To Contact Nephrology and Hypertension Referral ID Status Reason Start Date Expiration Date Visits Re quested Visits Authorized [id number] Closed 09/01/2023 08/31/2024 1 1 Encounter Details Date Type Department Care Team (Latest Contact Info) Description 10/16/2023 4:00 PM CDT External Outreach Division of Nephrology and Hypertension in [place], [place] [address] [place] [address] Chester Hernandez Jr., D.O. [address] [place] [address] Chronic Kidney Disease (CKD), Stage 3a Glomerular [...] often do you attend chur ch or moravian services? More than 4 times per year 05/20/2021 Do you belong to any clubs o r organizations such as advent groups, unions, fraternal or athletic groups, or [...] and heating? Not hard at all 03/06/2023 [facility] [place] of Occupat ional Health - Occupational Stress [...] your living situation today? I have a [facility] place to live 03/06/2023 Education [...] Pulse 76 10/16/2023 4:12 PM CDT Temperature - - Respiratory Rate - - Oxygen Saturation - - Inhaled Oxygen Concentration - - Weight 96.7 kg (213 lb 3 oz) 10/16/2023 4:12 PM CDT Height - - Body Mass Index 27.71 09/06/2023 10:[address] [facility] documented in this encounter Progress Notes * Chester Hernandez Jr., D.O. 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 Segovia is a 68 y.o. male who presents with the above matters. Since our last visit he is done well. He underwent aPOEM procedure in [facility] and is now no longer troubled by difficulty swallowing. He has had no issues with orthostatic hypotension, no lower extremity swelling in his blood pressures been in the 120s and 130s. Walks 4-5 miles a day, and additionally golfs several days per week. He has had no issues with his appetite energy or overall sense of well-being. I also note he just received a clean rechecked from the perspective of his squamous cell carcinoma of the tonsil. His labs in [place] were reviewed, he has 50 milligrams/gram of microalbuminuria, but normal serum creatinine and chemistries. I note that his hemoglobin is elevated at 18 on the background of hisinterstitial lung disease. He has not had a cough change in sputum or issues with respect to his pulmonary disorder. Past Medical History: Diagnosis Date Apnea Sleep Obstructive Chronic Obstructive Pulmonary Disease (HCC) Gastroesophageal Reflux Disease NOS 2007 Hypertension NOS 2009 Malignant Primary Neoplasm (Unknown Site) Unspecified (HCC) 2016 Tonsillar Migraine Headache Post Operative Nausea/Vomiting Current Outpatient Medications: allopurinoL (ZYLOPRIM) 100 mg tablet, Take 1 tablet (100 mg total) by mouth daily., Disp: 90 tablet, Rfl: 3 atenoloL (TENORMIN) 25 mg tablet, Take 12.5 mg by mouth every evening., Disp: , Rfl: famotidine (PEPCID) 20 mg tablet, TAKE 2 TABLETS(40 MG) BY MOUTH DAILY, Disp: 180 tablet, Rfl: 3 fluoride, sodium, (PreviDent) 1.1 % gel dental gel, Apply 1 application to the mouth or throat daily., Disp: 56 g, Rfl: 11 lisinopriL (PRINIVIL,ZESTRIL) 30 mg tablet, Take 1 tablet (30 mg total) by mouth daily., Disp: 90 tablet, Rfl: 3 omega 5-vhl-sow-fish oil 1,000 mg (120 mg-180 mg) capsule, Take 1 capsule by mouth at bedtime. , Disp: , Rfl: simvastatin (ZOCOR) 10 mg tablet, Take 1 tablet (10 mg total) by mouth at bedtime., Disp: 90 tablet, Rfl: 3 tadalafiL (CIALIS) 10 mg tablet, Take 1 tablet (10 mg total) by mouth daily. (Patient taking differently: Take 10 mg by mouth as needed.), Disp: 90 tablet, Rfl: 3 REVIEW OF SYSTEMS All other systems reviewed and are negative. OBJECTIVE BP (!) 146/92 Pulse 76 Wt 96.7 kg BMI 27.71 kg/m?? PHYSICAL EXAMINATION General: Awake alert oriented HEENT: JOSE, EOMI, Mucous membranes moist, no oral lesions Neck: No Masses, No Bruits Lungs: Bilateral Velcro like crackles Heart: Regular Rate and Rhythm, No ectopy Murmurs or rubs Abdomen: Soft, Non-tender Extremities: No cyanosis, No clubbing: No edema Neuro: Cranial Nerves intact, Gait is normal, strength grossly normal Skin: no suspicious lesions identified Psychiatric: Normal affect DIAGNOSTICS Note creatinine 1.2 mg/dL, hemoglobin 18, microalbumin to creatinine ratio 50 milligrams/gram no hematuria ASSESSMENT / PLAN #1 Chronic Kidney Disease (CKD), Stage 3a Glomerular Filtration Rate (GFR) 45 To 59 ([facility]) We have always strongly suspect that this was due to thin basement membrane, IgA glomerular nephritis or familial nephropathy. Most likely the IgA made most sense with a persistent microscopic hematuria and sub nephrotic range proteinuria. Going forward 1. Goal blood pressures less than 130s over 80s 2. No NSAIDs or Moe 2 inhibitors 3. Return to clinic in 1 year 4. Continue with antihypertensive regimen as current. 5. Continue to stay well hydrated with urine less colorfull than lemonade #2 Hypertensive Chronic Kidney Disease (CKD) Stage 3a Glomerular Filtration Rate (GFR) 45 To 59 I congratulated him on his excellent blood pressure control, he is keeping his weight under controland exercising regularly. We will continue with his lisinopril and beta blockade. While atenolol isnot the ideal agent, it seems to be working well for him and we will not make changes at this point. Encouraged him to continue with his exercise. 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 #4 Malignant Neoplasm Of Tonsil (HCC) He seems have no evidence of recurrent disease. 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 Seems to be able to exercise without substantial challenges in I encouraged him to continue to be active. Total time: 30 minutes Counseling Time: 25 minutes Chester Hernandez Jr., D.O. 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
--- OUTSIDE RECORDS SUMMARY | 2023-10-31 14:52 | XMS_ITS | Encounter Summary ---
Author Organization [facility] Address [address] [place] [address] Care Team Providers Care Pantograph Engraver Name Role Phone Elsewhere, Pcp Primary Care Provider Unavailabl e Reason for Referral * MRI/CAT/PET Scan (Routine) - Closed Specialty Diagnoses / Procedures Referred By Jade simmons Referred To Contact Radiology Diagnoses Malignant Neoplasm Of Tonsil (HCC) Encounter For Follow Up Examination After Completed Treatment For Malignant Neoplasm Procedures CT Chest without IV Contrast Kandice Wilkins APRN, C.N.P. [address] [place] [address] [facility] Referral ID Status Reason Start Date Expiration Date Visits Re quested Visits Authorized [id number] Closed 08/11/2022 08/11/2023 1 1 Reason for Visit * MRI/CAT/PET Scan (Routine) - Closed Specialty Diagnoses / Procedures Referred By Jade simmons Referred To Contact Radiology Diagnoses Malignant Neoplasm Of Tonsil (HCC) Encounter For Follow Up Examination After Completed Treatment For Malignant Neoplasm Procedures CT Chest without IV Contrast Kandice Wilkins APRN, C.N.P. [address] [place] [address] [facility] Referral ID Status Reason Start Date Expiration Date Visits Re quested Visits Authorized [id number] Closed 08/11/2022 08/11/2023 1 1 Encounter Details Date Type Department Care Team (Latest Contact Info) Description 10/05/2023 10:13 AM CDT - 10/05/2023 11:59 PM CDT Hospital Encounter Department of Radiology, [facility], in [place], [place] [address] [place] [address] Kandice Wilkins, ANA M, C.N.P. [address] [place] [address] Malignant Neoplasm Of Tonsil (HCC); Encounter For Follow Up Examination After Completed Treatment For Malignant Neoplasm Discharge Disposition: Home or Self Care Social [...] and heating? Not hard at all 03/06/2023 [facility] [place] of Occupat ional Health - Occupational Stress [...] living situation today? I have a [facility] place to live 03/06/2023 Education Answer Date [...] mouth daily. 90 tablet 3 12/26/2022 12/26/2023 atenoloL (TENORMIN) 25 mg tablet Take 12.5 mg by mouth every evening. 07/27/2023 famotidine (PEPCID) 20 mg tablet TAKE 2 TABLETS(40 MG) BY MOUTH DAILY 180 tablet 3 01/21/2022 fluoride, sodium, (PreviDent) 1.1 % gel dental gel Apply 1 application to the mouth or throat daily. 56 g 11 08/11/2022 lisinopriL (PRINIVIL,ZESTRIL) 30 mg tabletIndications:Hyp ertensive Chronic Kidney Disease With Stage 1 Through Stage 4 Chronic Kidney Disease, Or Unspecified Chronic Kidney Disease Take 1 tablet (30 mg total) by mouth daily. 90 tablet 3 12/26/2022 12/26/2023 omega 4-vqa-dte-fish oil 1,000 mg (120 mg-180 mg) capsule Take 1 capsule by mouth at bedtime. 04/14/2017 simvastatin (ZOCOR) 10 mg tabletIndications:Hyp erlipidemia [...] For Malignant Neoplasm documented in this encounter Results * CT Chest without IV Contrast (10/05/2023 [...] 11 mm right hilar lymph node on . No size significant axillary lymphadenopathy. No pericardial [...] the lingulaalong the left major fissure on has slightly shifted orientation,however has not significantly changed in size. Unchanged ovoid nodulealong the right major fissure on , likely an intrapulmonary lymph node, measuring less than 10 mm meandiameter. Several additional unchanged small pulmonary nodules, forexample a 3 mm right upper lobe subpleural nodule on . No definitenew or enlarging pulmonary nodules, noting [...] prominent subcentimeter mediastinal andhilar lymph nodes. Kandice Wilikns APRN, C.N.P. IMG CT PROCEDURES documented in this encounter Visit Diagnoses Diagnosis Malignant Neoplasm Of Tonsil (HCC) Encounter For Follow Up Examination After Completed Treatment For Malignant Neoplasm documented in this encounter Additional Health Concerns Assessment Noted Time PHQ-9 Depression Total Score: 0 05/18/19 18 11:56 AM WAITER/WAITRESS TAKE OUT documented as of this encounter Care Teams Pantograph Engraver Relationship Specialty Start Date End Date Elsewhere, Pcp PCP - General Internal Medicine 03/24/23 documented as of this encounter
--- OUTSIDE RECORDS SUMMARY | 2023-10-31 14:52 | XMS_ITS | Encounter Summary ---
Author Organization [facility] Address [address] [place] [address] Care Team Providers Care Can Capper Name Role Phone Elsewhere, Pcp Primary Care Provider Unavailabl e Reason for Visit * Reason Comments Med Refill Priority 3 Encounter Details Date Type Department Care Team ([facility] st Contact Info) Description 10/31/2023 Refill Division of Nephrology and Hypertension in [place], [place] [address] [place] [address] Chester Hernandez Jr., D.O. [address] [place] [address] Med Refill (Priority 3) Social History Tobacco Use Types Packs/Day Years [...] often do you attend chur ch or latter-day services? More than 4 times per year 05/20/2021 Do you belong to any clubs o r organizations such as adventist groups, unions, fraternal or athletic groups, or [...] and heating? Not hard at all 03/06/2023 [facility] [place] of Occupat ional Health - Occupational Stress [...] your living situation today? I have a [facility] place to live 03/06/2023 Education Answer Date [...] Total Score: 0 05/18/19 18 11:56 AM CORPORATE STRATEGY ASSOCIATE documented as of this encounter Care Teams Can Capper Relationship Specialty Start Date End Date Elsewhere, Pcp PCP - General Internal Medicine 03/24/23 documented as of this encounter
--- OUTSIDE RECORDS SUMMARY | 2023-10-31 14:53 | XMS_ITS | Encounter Summary ---
Author Organization [facility] Address [address] [place] [address] Care Team Providers Care Machine Long Goods Helper Name Role Phone Elsewhere, Pcp Primary Care Provider Unavailabl e Encounter Details Date Type Department Care Team (Latest Contact Info) Description 09/06/2023 11:30 AM CDT Anesthesia Event Division of Gastroenterology in [place], [place] [address] [place] [phone] Rafael Mckeon M.D., Ph.D. [address] [place] [phone] Anesthesia Record Procedure Summary Procedure Name Responsible Anesthesiologist Anesthesia Start Time Anesthesia Stop Time EGD (ESOPHAGOGASTRODUODE NOSCOPY) RESTRICTED Rafael Mckeon M.D., Ph.D. 09/06/23 1130 09/06/23 1205 Events Date Time Event Comment 09/06/2023 1045 1130 An Start Machine/Equipme nt Checked Infection Precautions Followed Procedure/Site Verified NPO Status Verified Supine Standard ASA Monitors Applied 1137 An Induction 1137 Turnover to Proceduralist 1137 Proc Start 1158 Proc Fin 1158 Turnover to ANE Staff 1200 an stop data 1205 An End I completed my handoff to the receiving staff during which we 1. Identified the patient 2. Identified the responsible provider 3. Reviewed the pertinent medical history 4. Discussed the surgical course 5. Reviewed intra-op anesthesia management and issues during anesthesia 6. Set expectations for post-procedure period 7. Allowed opportunity for questions and acknowledgement of understanding. Meds Name Total lidocaine 1% (mg) injection 100 mg propofol 10 mg/mL injection 120 mg propofol 10 mg/mL infusion 396.9 mg Lactated Ringer's 500 mL * Agents No agents on file. * Blood No blood administrations on file. Lines, Drains, and Airways Type Details Placement Removal Peripheral IV Placement Date: 08/14 09/05; Placement Time: 105; Catheter Size: 20 G; Orientation: Distal, Lower, Posterior, Right; Location: Forearm; Site Prep: Chlorhexidine (Preferred); Technique: Anatomical landmarks; Inserted by: Gricel; Insertion Attempts: 1; Removal Date: 09/06/23; Removal Time: 124609/06/23 1050 by Lisa Merritt M.S.N., R.N. 09/06/23 124 by Marlene Blank, R.N. documented in this encounter Social History Tobacco [...] week 05/20/2021 How often do you attend [facility] or buddhism services? More than 4 times per year [...] and heating? Not hard at all 03/06/2023 [facility] of Occupat ional Health - Occupational Stress [...] OR Notes * Anesthesia Postprocedure Evaluation - Rafael Mckeon M.D., Ph.D. - 09/06/2023 12:40 PM MST Patient: Nash Segovia Procedure Summary Date: 09/06/23 Room / Location: Division of Gastroenterology in [place], [place] Anesthesia Start: 1130 Anesthesia Stop: 1205 Procedure: EGD (ESOPHAGOGASTRODUODENOSCOPY) RESTRICTED Diagnosis: Achalasia Dysphagia Achalasia Dysphagia Scheduled Providers: Paras Quarles M.D.; Rafael Mckeon M.D., Ph.D.; Conrad Jimenez M.S.N., R.N.; Eva Sheikh; Michelet Chappell Jr., METAL MINE INSPECTOR, CHEMICAL RADIATION TECHNICIAN Responsible Provider: Rafael Mckeon M.D., Ph.D. Anesthesia Type: general ASA Status: 3 Anesthesia Type: general Last vitals Vitals Value Taken Time BP 118/80 09/06/23 1235 Temp 36.2 ??C 09/06/23 1235 Pulse 74 09/06/23 1238 Resp 16 09/06/23 1238 SpO2 96 % 09/06/23 1238 Vitals shown include unfiled device data. Please reference Vitals flowsheet for most recent vital signs. Anesthesia Post Evaluation Patient Disposition: dismissal Cardiovascular status: hemodynamics (HR & BP) acceptable Respiratory status: patent airway with spontaneous effort Temperature: normothermic Oxygen requirements: room air Level of consciousness: awake Pain score: pain adequately controlled and/or at baseline Post Op nausea/vomiting: none Hydration status: euvolemic * Anesthesia Preprocedure Evaluation - Rafael Mckeon M.D., Ph.D. - 09/06/2023 10:39 AM MST Preprocedure Anesthesia & H&P Assessment Procedure Summary Date/Time: 09/06/23 1100 Scheduled providers: Paras Quarles M.D.; Rafael Mckeon M.D., Ph.D.; Conrad Jimenez M.S.N., R.N.; Eva Sheikh; Michelet Chappell Jr., METAL MINE INSPECTOR, CHEMICAL RADIATION TECHNICIAN Procedure: EGD (ESOPHAGOGASTRODUODENOSCOPY) RESTRICTED Diagnosis: Achalasia [K22.0] Dysphagia [R13.10] Achalasia [K22.0] Dysphagia [R13.10] Location: Division of Gastroenterology in [place], [place] Pertinent components of the patient's history including [...] TM Distance: >3 FB Neck ROM: Full Cardiovascular Rhythm: Regular Rate: Normal Functional Capacity: >4 METS Pulmonary Pulmonary Assessment: Clear General / Constitutional Constitutional Assessment: Normal General State of Health:: healthy appearing and calm Neurological Neurologic Assessment: alert and alert and oriented x 3 Dental Dental Assessment: dentition intact ASSESSMENT / PLAN ANESTHESIA PLAN ASA: 3 Anesthesia Plan: general Patient seen and allergies reviewed, anesthesia plan and risks discussed directly with patient /legal guardian or through an translator and interpreter. The use of blood products not discussed Approval to Proceed: approved for anesthesia documented in this encounter Plan of Treatment Not on file documented as of this encounter Visit Diagnoses Not on filedocumented in this encounter Administered Medications Inactive Administered Medications - up to 3 most recent administrations Medication Order MAR Action Action Date Dose Rate Site Lactated Ringer's 75 mL/hr, intravenous, Continuous, Starting on Mon09/06/23 at 1100 New Bag 09/06/2023 11:30 AM MST New Bag 09/06/2023 10:51 AM MST 20 mL/hr 20 mL/hr lidocaine 10 mg/mL (1 %) injection (XYLOCAINE) intravenous, As needed, Starting on Mon09/06/23 at 1137, Anesthesia Intra-op Given 09/06/2023 11:37 AM MST 100 mg propofol 10 mg/mL infusion (DIPRIVAN) intravenous, Continuous Infusion: Per Instructions PRN, Starting on Mon09/06/23 at 1137, Anesthesia Intra-op New Bag 09/06/2023 11:37 AM MST 200 mcg/kg/min 113.4 mL/hr propofoL injection (DIPRIVAN) intravenous, As needed, Starting on Mon09/06/23 at 1137, Anesthesia Intra-op Given 09/06/2023 11:37 AM MST 120 mg documented in this encounter Additional Health Concerns Assessment Noted Time PHQ-9 Depression Total Score: 0 05/18/19 18 11:56 AM NURSE LIAISON documented as of this encounter Care Teams Machine Long Goods Helper Relationship Specialty Start Date End Date Elsewhere, Pcp PCP - General Internal Medicine 03/24/23 documented as of this encounter
--- OUTSIDE RECORDS SUMMARY | 2023-10-31 14:53 | XMS_ITS | Encounter Summary ---
Author Organization [facility] Address [address] [place] [address] Care Team Providers Care Addictions Counselor Assistant Name Role Phone Elsewhere, Pcp Primary Care Provider Unavailabl e Reason for Referral * Outpatient (Routine) - Closed Specialty Diagnoses / Procedures Referred By Jade simmons Referred To Contact Diagnoses Achalasia Dysphagia Procedures FL Esophagram Single Contrast Guicho Castrejon M.D. [address] [place] [address] [facility] Referral ID Status Reason Start Date Expiration Date Visits Re quested Visits Authorized [id number] Closed 06/07/2023 06/06/2024 1 1 [facility] Reason for Visit * Outpatient (Routine) - Closed Specialty Diagnoses / Procedures Referred By Jade simmons Referred To Contact Diagnoses Achalasia Dysphagia Procedures [place] Esophagram Single Contrast Guicho Castrejon M.D. [address] [place] [address] [facility] Referral ID Status Reason Start Date Expiration Date Visits Re quested Visits Authorized [id number] Closed 06/07/2023 06/06/2024 1 1 Encounter Details Date Type Department Care Team (Latest Contact Info) Description 08/29/2023 9:39 AM CDT - 08/29/2023 11:59 PM CDT Hospital Encounter Department of Radiology, [facility], in [place], [place] [address] [place] [address] Guicho Castrejon M.D. [address] [place] [phone] Achalasia; Dysphagia Discharge Disposition: Home or Self Care Social [...] 05/20/2021 How often do you attend [facility] or jewish services? More than 4 times [...] and heating? Not hard at all 03/06/2023 [facility] [place] of Occupat ional Health - Occupational Stress [...] your living situation today? [facility] a [facility] to live 03/06/2023 Education [...] daily. 90 tablet 3 12/26/2022 12/26/2023 omega 1-zzp-pcg-fish oil 1,000 mg (120 mg-180 mg) capsule Take 1 capsule by mouth at bedtime. 04/14/2017 simvastatin (ZOCOR) 10 mg tabletIndications:Hyp erlipidemia Take 1 tablet (10 mg total) by mouth at bedtime. 90 tablet 3 12/26/2022 12/26/2023 tadalafiL (CIALIS) 10 mg tablet Take 1 tablet (10 mg total) by mouth daily. 90 tablet 3 12/26/2022 12/26/2023 fluconazole (DIFLUCAN) 100 mg tablet Take 2 tablets (200 mg) by mouth 1 time today then 1 tablet (100 mg) daily for 21 days 23 tablet 06/07/2023 09/06/2023 meclizine (ANTIVERT) 25 mg tablet Take 25 mg by mouth as needed. 06/15/2022 10/04/2023 documented as of this encounter Plan of Treatment Not on file documented as of this encounter Procedures Procedure Name Priority Date/Time Associated Diagnosis Comments FL ESOPHAGRAM SINGLE CONTRAST RAD - Routine (most inpatients and all outpatients) 08/29/2023 9:57 AM MST Achalasia Dysphagia documented in this encounter Results * FL Esophagram Single Contrast (08/29/2023 9:57 AM MST) Anatomical Region Laterality Modality Gastro Intestinal, Abdominal RST LOS, Abdominal ARZ LOS, Abdominal FLA LOS N/A Digital Radiography Impressions 08/29/2023 12:23 PM MST 1. Changes from POEM procedure. Time to [...] Guicho Castrejon M.D. IMG FLUOROSCOPY PROC EDURES documented in this encounter Visit Diagnoses Diagnosis Achalasia Dysphagia documented in this encounter Administered Medications Inactive Administered Medications - up to 3 most recent administrations Medication Order MAR Action Action Date Dose Rate Site barium 96 % (w/w) oral powder for suspension 200 mL (E-Z-PAQUE) 200 mL, oral, Once in imaging, contrast, Starting on Mon08/29/23 at 1035, For 1 dose Given 08/29/2023 10:35 AM MST 200 mL documented in this encounter Additional Health Concerns Assessment Noted Time PHQ-9 Depression Total Score: 0 05/18/19 18 11:56 AM KNUCKLER documented as of this encounter Care Teams Addictions Counselor Assistant Relationship Specialty Start Date End Date Elsewhere, Pcp PCP - General Internal Medicine 03/24/23 documented as of this encounter
--- OUTSIDE RECORDS SUMMARY | 2023-10-31 14:53 | XMS_ITS | Encounter Summary ---
Author Organization [facility] Address [address] [place] [address] Care Team Providers Care Office Automation Technician Name Role Phone Elsewhere, Pcp Primary Care Provider Unavailabl e Reason for Referral * Outpatient (Routine) - Closed Specialty Diagnoses / Procedures Referred By Jade simmons Referred To Contact Diagnoses Achalasia Dysphagia Procedures EGD (EsophagoGastroDuodenoscopy) Restricted Guicho Castrejon M.D. [address] [place] [address] [facility] Referral ID Status Reason Start Date Expiration Date Visits Re quested Visits Authorized [id number] Closed 06/07/2023 06/06/2024 1 [facility] Reason for Visit * Outpatient (Routine) - Closed Specialty Diagnoses / Procedures Referred By Jade simmons Referred To Contact Diagnoses Achalasia Dysphagia Procedures EGD (EsophagoGastroDuodenoscopy) Restricted Guicho Castrejon M.D. [address] [place] [address] [facility] Referral ID Status Reason Start Date Expiration Date Visits Re quested Visits Authorized [id number] Closed 06/07/2023 06/06/2024 1 1 Encounter Details Date Type Department Care Team (Latest Contact Info) Description 09/06/2023 9:23 AM CDT - 09/06/2023 12:54 PM CDT Hospital Encounter Division of Gastroenterology in [place], [place] [address] [place] [address] Guicho Castrejon M.D. [address] [place] [address] Paras Quarles M.D. [address] [place] [address] Rafael Mckeon M.D., Ph.D. [address] [place] [address] Conrad Jimenez M.S.N., R.N. Eva Sheikh; Dysphagia Discharge Disposition: Home or Self Care [...] week 05/20/2021 How often do you attend [facility] or religion services? More than 4 times per year 05/20/2021 Do you belong to any clubs o r organizations such as orthodoxy groups, unions, fraternal or athletic groups, or [...] and heating? Not hard at all 03/06/2023 [facility] Occupat ional Health [...] your living situation today? I have a [facility] place to live 03/06/2023 Education [...] Sign Reading Time Taken Comments Blood Pressure 118/80 09/06/2023 12:35 PM [facility] Pulse 68 09/06/2023 12:35 PM [facility] Temperature 36.2 ??C (97.2 ??F) 09/06/2023 12:35 PM [facility] Respiratory Rate 18 09/06/2023 12:35 PM [facility] Oxygen Saturation 95% 09/06/2023 12:35 PM [facility] Inhaled Oxygen Concentration - - Weight 94.5 kg (208 lb 5.4 oz) 09/06/2023 10:22 AM [facility] Height 186.8 cm (6' 1.54) 09/06/2023 10:22 AM [facility] Body Mass Index 27.08 09/06/2023 10:22 AM [facility] documented in this encounter Medications at Time [...] BY MOUTH DAILY 180 tablet 3 01/21/2022 lisinopriL (PRINIVIL,ZESTRIL) 30 mg tabletIndications:Hyp ertensive Chronic Kidney Disease With Stage 1 Through Stage 4 Chronic Kidney Disease, Or Unspecified Chronic Kidney Disease Take 1 tablet (30 mg total) by mouth daily. 90 tablet 3 12/26/2022 12/26/2023 simvastatin (ZOCOR) 10 mg tabletIndications:Hyp erlipidemia Take 1 tablet (10 mg total) by mouth at bedtime. 90 tablet 3 12/26/2022 12/26/2023 fluoride, sodium, (PreviDent) 1.1 % gel dental gel Apply 1 application to the mouth or throat daily. 56 g 11 08/11/2022 omega 3-zsk-aws-fish oil 1,000 mg (120 mg-180 mg) capsule Take 1 capsule by mouth at bedtime. 04/14/2017 tadalafiL (CIALIS) 10 mg tablet Take 1 tablet (10 mg total) by mouth daily. 90 tablet 3 12/26/2022 12/26/2023 meclizine (ANTIVERT) 25 mg tablet Take 25 mg by mouth as needed. 06/15/2022 10/04/2023 documented as of this encounter H&P Notes * Lashon Velazquez D.OClyde - 09/06/2023 11:28 AM MST ASSESSMENT / PLAN Patient Name: Nash Segovia Upper Endoscopy Procedure Department : DIVISION OF GASTROENTEROLOGY IN [place], [place] SUBJECTIVE Past Medical History: Diagnosis Date Apnea Sleep Obstructive Chronic Obstructive Pulmonary Disease (HCC) Gastroesophageal Reflux Disease NOS 2007 Hypertension NOS 2009 Malignant Primary Neoplasm (Unknown Site) Unspecified (HCC) 2016 Tonsillar Migraine Headache Post Operative Nausea/Vomiting Past Surgical History: Procedure Laterality Date BIOPSY Right 03/16/2017 > Right tonsil biopsy. HERNIA REPAIR Left 2022 abd, left groin ROBOTIC-ASSISTED WIDE FIELD TONSILLECTOMY Right 04/13/2017 Robotic assisted wide field tonsillectomy (Dictated by Dr. Marin). 2. Right select neck dissection. 3. Primary closure of oropharyngeal defect. 4. Feeding tube placement. Social History Socioeconomic History Marital status: Highest education level: Bachelor's degree (e.g., BA, AB, BS) Tobacco Use Smoking status: Never Smokeless tobacco: Never Vaping Use Vaping status: never used Substance and Sexual Activity Alcohol use: No Drug use: No Sexual activity: Defer Partners: Female OBJECTIVE Weight: 94.5 kg Pain Score: 0 - No pain (pt denies any pain at this time) Consents Obtained: written The benefits, risks and alternatives of sedation or anesthesia, as well as the names, roles, and responsibilities of the healthcare team members, were discussed with the patient and/or decision maker: yes Procedure / Reason for visit: The planned surgery or procedure was verified with the patient and/ordecision maker The following portions of the patient's history were reviewed and updated as appropriate: allergies, current medications, family history, medical history, surgical history, social history and problemlist. yes Review of systems: ROS documented within 24 hours and unchanged Mallampati: See anesthesia note Mallampati score: See Anesthesia note.Heart: normal Lung: normal General / Constitutional: normal ASA physical exam: See Anesthesia note ASA Physical Exam: See anesthesia note Patient seen, evaluated and approved for sedation Sedation plan: See anesthesia note: See Anesthesia note. Baseline Behavior: Psychosocial (WDL): Within Defined Limits Abdominal Exam: Gastrointestinal (WDL): Within Defined Limits documented in this encounter Plan of Treatment Not on file documented as of this encounter Procedures Procedure Name Priority Date/Time Associated Diagnosis Comments SURGICAL PATHOLOGY Routine 09/06/2023 11 :42 AM [facility] EGD (ESOPHAGOGASTRODUODE NOSCOPY) RESTRICTED Routine 09/06/2023 9:25 AM [facility] Achalasia Dysphagia UPPER GI ENDOSCOPY Routine 09/06/2023 9: 25 AM [facility] Achalasia Dysphagia documented in this encounter Results * Surgical Pathology (09/06/2023 11:42 AM [facility]) 09/08/2023 9:15 AM [facility] Report Electronically Signed By Long Condon M.D., [id number] I verify that I have examined all relevant slides/materials for the specimen(s) and rendered or confirmed the diagnosis. 09/08/2023 9:15 AM [facility] Gross Description Received in formalin labeled Juliette, Nash and stomach, body, antrum, and incisura are multiple pieces of bah to pink soft tissue ranging from less than 0.1 to 0.2 cm, entirely submitted in cassette A1. Gross examination performed by: ??NOAH Mccoy (ASCP) 09/06/2023 jml 09/08/2023 9:15 AM [facility] Specimen Source A. Stomach, body, antrum and incisura, biopsy 09/08/2023 9:15 AM [facility] Clinical Information Follow up of achalasia, status post POEM. Indication: ??Normal, erosion, rule out ??Helicobacter pylori body, antrum and incisura. 09/08/2023 9:15 AM [facility] Disclaimer This test has been modified from the dumpcart driver's instructions. Its performance characteristics were determined by [facility] in a manner consistent with CLIA requirements. This test has not been cleared or approved by the U.S. Food and Drug Administration. 09/08/2023 9:15 AM [facility] Interpretation FINAL DIAGNOSIS A. ??Stomach, body, antrum and incisura, biopsy: - Antral and oxyntic mucosa with mild nonspecific chronic gastritis. - Immunohistochemistry for ??Helicobacter pylori ??to follow in an addendum report. - No intestinal metaplasia is identified. Digital imaging was used in the diagnostic assessment of this case. CP:smr 09/08/2023 9:15 AM [facility] Biopsy (Stomach) 09/06/2023 11:42 AM [facility] Paras Quarles M.D. LAB SURG PATH O RDERABLES [facility] [address] [address], [facility] [address] [facility] [address] [place] [address] * Upper GI Endoscopy (09/06/2023 9:25 AM [facility]) 09/06/2023 9:25 AM [facility] Impressions GARCIA PROVATION - 09/06/2023 12:11 PM [facility] Post-op Diagnoses: ? - Dilation in the middle third of the esophagus and in the lower third ? of the esophagus. ? - Esophagogastric landmarks identified. ? - Normal stomach. Biopsied. ? - Duodenal erosions without bleeding. ? - The BERRIOS pH capsule was deployed. Narrative GARCIA PROVATION - 09/06/2023 12:11 PM [id number] GI Patient Name: Nash [...] intermittent episodes of ? panesophageal pressurization. The BERRIOS capsule with delivery system was ? introduced through the mouth and advanced into the esophagus, such that ? the BERRIOS pH capsule was positioned 37 cm from the incisors, which was 6 ? cm proximal to the GE junction. The BERRIOS pH capsule was then deployed ? and [...] Castrejon M.D. GI PROCEDURE ORDERAB LES [facility] documented in this encounter Visit Diagnoses Diagnosis Achalasia Dysphagia documented in this encounter Administered Medications Inactive Administered Medications - up to 3 most recent administrations Medication Order MAR Action Action Date Dose Rate Site Lactated Ringer's 75 mL/hr, intravenous, Continuous, Starting on Mon09/06/23 at 1100 New Bag 09/06/2023 11:30 AM MST New Bag 09/06/2023 10:51 AM MST 20 mL/hr 20 mL/hr documented in this encounter Active and Recently Administered Medications Times are shown in MST. Continuous Medication Order 09/04/2023 09/05/2023 09/06/2023 Lactated Ringer's 75 mL/hr, intravenous, Continuous, Starting on Mon09/06/23 at 1100 1051 (New Bag - Prov ider: Lisa Merritt, M.S.N., R.N.)1129 (Paused - Provider: Michelet Chappell Jr., APRN, HOME ECONOMIST - Comment: Switch to gravity)1130 (New Bag - Provider: Michelet Chappell Jr., APRN, HOME ECONOMIST)1158 (Anesthesia Volume Adjustment - Provider: Michelet Chappell Jr., APRN, HOME ECONOMIST) documented in this encounter Additional Health Concerns Assessment Noted Time PHQ-9 Depression Total Score: 0 05/18/19 18 11:56 AM SENIOR RISK ANALYST documented as of this encounter Care Teams Office Automation Technician Relationship Specialty Start Date End Date Elsewhere, Pcp PCP - General Internal Medicine 03/24/23 documented as of this encounter
--- OUTSIDE RECORDS SUMMARY | 2023-10-31 14:53 | XMS_ITS | Encounter Summary ---
Author Organization [facility] Address [address] [place] [address] Care Team Providers Care Lead Painter Name Role Phone Elsewhere, Pcp Primary Care Provider Unavailabl e Reason for Visit * Reason Onset Date Comments Scheduling and Motility RN questions EGD Camara 0 08/07/2023 Encounter Details Date Type Department Care Team (Latest Contact Info) Description 08/07/2023 Clinical Communication Division of Gastroenterology and Hepatology in [place], [place] [address] [place] [address] Guicho Castrejon M.D. [address] [address] Scheduling and Motility RN questions EGD Camara Social History Tobacco Use Types Packs/Day Years [...] often do you attend chur ch or restoration services? More than 4 times per year 05/20/2021 Do you belong to any clubs o r organizations such as scientology groups, unions, fraternal or athletic groups, or [...] and heating? Not hard at all 03/06/2023 [facility] Occupat ional Health - Occupational Stress [...] your living situation today? I have a [facility] place to live 03/06/2023 Education Answer [...] encounter Miscellaneous Notes * Telephone Encounter - Filmeon Guzman - 08/07/2023 10:41 AM MST Patient calling to schedule the Esophageal mano, Fl esophagram ad EGD Camara. He wants to get all tests scheduled starting on dates September 03 and have all tests/procedures completed before he leaves [place] for the summer on September 09. He asks for EGD in the AM preferred. Scheduling OK to send portal. He also asks for a call from Rn motility to ask what happens during EGD and Camara placement since he sates that Dr Castrejon never mentioned camara. He also asks if he has to come back to remove camara. RN motility please call. documented in this encounter Plan of Treatment Not on file documented as of this encounter Visit Diagnoses Not on filedocumented in this encounter Additional Health Concerns Assessment Noted Time PHQ-9 Depression Total Score: 0 05/18/19 18 11:56 AM LITHOGRAPH PRESS FEEDER documented as of this encounter Care Teams Lead Painter Relationship Specialty Start Date End Date Elsewhere, Pcp PCP - General Internal Medicine 03/24/23 documented as of this encounter
--- OUTSIDE RECORDS SUMMARY | 2023-10-31 14:53 | XMS_ITS | Encounter Summary ---
Author Organization [facility] Address [address] [place] [address] Care Team Providers Care Riding Double Name Role Phone Elsewhere, Pcp Primary Care Provider Unavailabl e Reason for Referral * Outpatient (Routine) - Closed Specialty Diagnoses / Procedures Referred By Contact Referred To Contact Gastroenterology and Hepatology Diagnoses Achalasia Dysphagia Dysphagia Oropharyngeal Phase Stricture Esophagus Guicho Castrejon M.D. [address] [place] [address] Guicho Castrejon M.D. [address] [place] [address] Referral ID Status Reason Start Date Expiration Date Visits Re quested Visits Authorized [id number] Closed 09/04/2023 03/05/2025 1 1 [facility] Encounter Details Date Type Department Care Team (Late st Contact Info) Description 09/04/2023 Clinical Communication [facility] [address] [place] [address] Cathi Urena, R.N. Social History Tobacco Use Types Packs/Day Years [...] How often do you attend chur or jewish services? More than 4 times [...] and heating? Not hard at all 03/06/2023 [facility] Occupat ional Health - Occupational Stress [...] living situation today? I have a [facility] place to live 03/06/2023 Education Answer [...] of this encounter Plan of Treatment Scheduled Referrals Name Type Priority Associated Diagnoses Orde r Schedule Gastroenterology and Hepatology office visit (clinic) Outpatient Referral Routine Achalasia Dysphagia Dysphagia Oropharyngeal Phase Stricture Esophagus Expected: 09/04/2023, Expires: 12/03/2024 documented as of this encounter Visit Diagnoses Diagnosis Achalasia- Primary Dysphagia Dysphagia Oropharyngeal Phase Stricture Esophagus documented in this encounter Additional Health Concerns Assessment Noted Time PHQ-9 Depression Total Score: 0 05/18/19 18 11:56 AM CASE CONSULTANT documented as of this encounter Care Teams Riding Double Relationship Specialty Start Date End Date Elsewhere, Pcp PCP - General Internal Medicine 03/24/23 documented as of this encounter
--- OUTSIDE RECORDS SUMMARY | 2023-10-31 14:53 | XMS_ITS | Encounter Summary ---
Author Organization [facility] Address [address] [place] [address] Care Team Providers Care Revenue Cycle Analyst Name Role Phone Elsewhere, Pcp Primary Care Provider Unavailabl e Reason for Visit * Reason Onset Date Comments Procedure Question 08/16/2023 Encounter Details Date Type Department Care Team (Latest Contact Info) Description 08/16/2023 Clinical Communication Division of Gastroenterology and Hepatology in [place], [place] [address] [place] [address] Nicolas Vidales M.D., M.S. [address] [place] [address] Procedure Question Social History Tobacco Use Types Packs/Day Years [...] often do you attend chur ch or gnosticist services? More than 4 times per year [...] and heating? Not hard at all 03/06/2023 [facility] Occupat ional Health - Occupational [...] your living situation today? I have a [facility] place to live 03/06/2023 Education Answer Date [...] Total Score: 0 05/18/19 18 11:56 AM LINER REROLL TENDER documented as of this encounter Care Teams Revenue Cycle Analyst Relationship Specialty Start Date End Date Elsewhere, Pcp PCP - General Internal Medicine 03/24/23 documented as of this encounter
--- OUTSIDE RECORDS SUMMARY | 2023-10-31 14:53 | XMS_ITS | Data Portability ---
Author Organization [facility], [facility] Address [address] [place] [address] Care Team Providers Care Highway Patrol Commander Name Role Phone [facility] Primar y Care Provider Assessment No assessment recorded. Plan of Treatment Reminders Order Date Submit Date Provider Last Modified By Organization Details Last Modified Time Details Appointments None recorded. Lab None recorded. Referral None recorded. Procedures None recorded. Surgeries None recorded. Imaging None recorded. Medication Orders tadalafil 20 mg tablet 2021 022 [id number], [address] [facility] [address], [place], [address], 14:14:32 Patient TargetsNo targets recorded. Patient InstructionsNo instructions recorded. Reason for Referral None Reported. Procedures Surgical History Date Name Laterality Status Provider Name and Address Organization Details Recorded Time tonsillectomy completed Joaquin Muhammad MD [address], [place], [address], [facility] 02/14/2022 13:51:43 Imaging Results None recorded. Procedure Notes None recorded. Medical Equipment None Reported. Allergies Allergen ID Allergen Name Allergen Category Reaction Reaction Severity Criticality Documentation Date Start Date Code Code System Note Provider Name and Address Organization Details Recorded Time 850311 Medicinal product containin g penicilli n and acting as antibacte rial agent (product) medicatio n Not available Not available Not available 02/14/2022 32690 05 SNOMED Joaquin Muhammad MD [address], [place], [address], [facility] 2 13:50:20 796686 amoxicill in medicatio n Not available Not available Not available 02/14/2022 723 RxNorm Joaquin Muhammad MD [address] [place] [address],[address], [place], [address], [facility] 2 13:50:28 [id number] Substance with sulfonami de structure and antibacte rial mechanism of action (substanc e) medicatio n Not available Not available Not available 10/23/2023 34739 8003 SNOMED Joaquin Muhammad MD [address], [place], [address], [facility] 4 15:19:05 Medications Name Sig Start Date Stop Date Status Note LastModified by Organization Details LastModified Time fluconazole 100 mg tablet TAKE 1 TABLET BY MOUTH DAILY active Not Available Not Available No t Available nystatin 100,000 unit/mL oral suspension SWISH AND SWALLOW 1 ML BY MOUTH FOUR TIMES DAILY FOR 10 DAYS 10/22 completed Not Available Not Available Not Available clindamycin HCl 300 mg capsule 10/22 completed Not Available Not Available Not Available azithromyci n 250 mg tablet 10/22 completed Not Available Not Available Not Available lisinopril 20 mg tablet TAKE 1 TABLET BY MOUTH DAILY 10/22 completed Not Available Not Available Not Available prednisone 20 mg tablet TAKE 2 TABLET BY MOUTH EVERY DAY FOR 5 DAYS. 10/22 completed Not Available Not Available Not Available simvastatin 10 mg tablet TAKE 1 TABLET BY MOUTH EVERY NIGHT AT BEDTIME active Not Available Not Available No t Available atenolol 25 mg tablet active Not Available Not Available No t Available amlodipine 5 mg tablet TAKE 1 TABLET BY MOUTH DAILY active Not Available Not Available No t Available allopurinol 100 mg tablet TAKE 1 TABLET BY MOUTH DAILY active Not Available Not Available No t Available famotidine 20 mg tablet TAKE 1 TABLET BY MOUTH TWICE DAILY active Not Available Not Available No t Available lisinopril 10 mg tablet 02/14 completed Not Available Not Available Not Available lisinopril 30 mg tablet TAKE 1 TABLET BY MOUTH EVERY DAY active Not Available Not Available No t Available metoprolol succinate ER 25 mg tablet,exte nded release 24 hr 10/22 completed Not Available Not Available Not Available tadalafil 10 mg tablet TAKE ONE TABLET BY MOUTH EVERY DAY FOR PULMONARY HYPERTENS ION 10/22 completed Not Available Not Available Not Available tadalafil 20 mg tablet TAKE ONE TABLET BY MOUTH NEEDED active Not Available Not Available No t Available Vitals Date Recorded Body height Body mass index (BMI) Body weight Provider Name and Address Organization Details Last Updated DateTime 02/14/2022 185.42 cm 29 kg/m2 16596.32 g Joaquin Muhammad MD [address] [place] [address],[address] [facility] 02/14/2022 13:49:56 Date Recorded Body height Body mass index (BMI) Body weight Provider Name and Address Organization Details Last Updated DateTime 10/23/2023 185.42 cm 27 kg/m2 06611.44 g Joaquin Muhammad MD [address] [place] [address],[address] [facility] 10/23/2023 15:18:44 Social History Question Answer Notes LastModified by Organizat ion Details LastModified Time Tobacco Smoking Status Never Smoker Joaquin Muhammad MD [address] [place] [address],[address] [place] [address] U[facility] 02/14/2022 13:51:19 What Is Your Level Of Alcohol Consumption? None Information not available 02/14/2022 What Is Your Level Of Caffeine Consumption? None Information not available 02/14/2022 What Was The Date Of Your Most Recent Tobacco Screening? 10/23/2023 Information not available 10/23/2023 Do You Use Any Illicit Or Recreational Drugs? No Information not available 02/14/2022 Sex: Male Functional Status None recorded. Mental Status None recorded. Family History Nothing Reported. Medical History Condition Response Cancer Y High Cholesterol Y Immunizations Vaccine Type Date Status Provider Name and Address Organization Details Recorded Time Influenza, MDCK, quadrivalent, PF 03/09/2022 completed Joaquin Muhammad MD [address] [place] [address],[facility] [address], [place], [address], [facility] 10/23/2023 15:18:49 Influenza, recombinant, quadrivalent, PF 04/29/2019 completed Joaquin Muhammad MD [address] [place] [address],[address], [place], [address], [facility] 10/23/2023 15:18:49 zoster recombinant 07/12/2019 completed Joaquin sanchez MD [address] [place] [address],[address], [place], [address], [facility] 10/23/2023 15:18:49 zoster recombinant 04/29/2019 completed Joaquin sanchez MD [address] [place] [address],[address], [place], [address], [facility] 10/23/2023 15:18:49 Influenza, adjuvanted, quadrivalent, PF 03/03/2023 completed Joaquin Muhammad MD [address] [place] [address],[address], [place], [address], [facility] 10/23/2023 15:18:49 COVID-19, mRNA, LNP-S, PF, 30 mcg/0.3 mL dose 07/22/2020 completed Joaquin Muhammad MD [address] [place] [address],[address], [place], [address], [facility] 10/23/2023 15:18:49 COVID-19, mRNA, LNP-S, PF, 30 mcg/0.3 mL dose 08/12/2020 completed Joaquin Muhammad MD [address] [place] [address],[address], [place], [address], [facility] 10/23/2023 15:18:49 COVID-19, mRNA, LNP-S, PF, 30 mcg/0.3 mL dose 02/12/2021 completed Joaquin Muhammad MD [address] [place] [address],[address], [place], [address], [facility] 10/23/2023 15:18:49 COVID-19, mRNA, LNP-S, bivalent, PF, 30 mcg/0.3 mL dose 03/09/2022 completed Joaquin Muhammad MD [address] [place] [address],[address], [place], [address], [facility] 10/23/2023 15:18:49 RSV, recombinant, protein subunit RSVpreF, adjuvant reconstituted, 0.5 mL, PF 03/09/2023 completed Joaquin Muhammad MD [address] [place] [address],[address], [place], [address], [facility] 10/23/2023 15:18:49 COVID-19, mRNA, LNP-S, PF, megha-sucrose, 30 mcg/0.3 mL 03/03/2023 completed Joaquin Muhammad MD [address] [place] [address],[address], [place], [address], [facility] 10/23/2023 15:18:49 Tdap 12/15/2016 completed Joaquin Muhammad MD [address] [place] [address],[address], [place], [address], [facility] 10/23/2023 15:18:49 Pneumococcal conjugate PCV 13 07/12/2019 completed Joaquin Muhammad MD [address] [place] [address],[address], [place], [address], [facility] 10/23/2023 15:18:49 Influenza, split virus, trivalent, PF 03/19/2014 completed Joaquin Muhammad MD [address] [place] [address],[address], [place], [address], [facility] 10/23/2023 15:18:49 Influenza, split virus, quadrivalent, PF 06/15/2017 completed Joaquin Muhammad MD [address] [place] [address],[address], [place], [address], [facility] 10/23/2023 15:18:49 Influenza, split virus, quadrivalent, PF 03/28/2020 completed Joaquin Muhammad MD [address] [place] [address],[address], [address], [facility] 10/23/2023 15:18:49 Influenza, split virus, quadrivalent, PF 04/18/2018 completed Joaquin Muhammad MD [address] [place] [address],[address] [place] [address], [address], [facility] 10/23/2023 15:18:49 Past Encounters Encounter ID Performer Location Encounter Start Date Encounter Closed Date Diagnosis/Indication Diagnosis SNOMED-CT Code [id number] Joaquin Muhammad MD [facility] [address] [place] [address] 02/14/2022 13:35:57 02/16/2022 16:29:29 Primary erectile dysfunction [id number] Joaquin Muhammad MD [facility] [address] [place] [address] 10/23/2023 15:12:08 10/24/2023 08:37:17 Primary erectile dysfunction [id number] Health Concerns Section Related Observation LastModified by Organization Detai ls LastModified Time None Recorded Concern Status LastModified by Organization Details LastModified Time None Recorded Advance Directives Directive None Recorded Payers Encounter Date Sequence Insurance Name Policy Number Policy Stein Covered Member ID Stein Member ID Guarantor Name 10/23/2023 1 [place] [employer] Nash Segovia [id number] Nash Segovia 10/23/2023 2 [place] [id number] Nash Segovia [id number] Nash Segovia 02/14/2022 1 *SELF PAY* Sc conner Seg[place] Notes Date Note Type Note Provider [...] PSA - 1.5 (2021) Joaquin Muhammad MD [address], [place], [address], [facility] 02/14/2022 22:23:57 10/23/2023 text/html HPI Notes: 68 yo male with history of HTN, hyperlipidemia, [...] 2-3 hours during the day and 0x/night. 10/23/23 - He presents for follow-up on erectile dysfunction. He report side-effects with Viagra and Cialis (YAN). He did try penile injections while in [place] this winter - good results - no pain. He has no complaints with urination ___ PSA - 1.5 (2021) Joaquin Muhammad MD [address], [place], [address], [facility] 10/23/2023 19:32:50
--- OUTSIDE RECORDS SUMMARY | 2023-10-31 14:53 | XMS_ITS | Encounter Summary ---
Author Organization [facility] Address [address], [place] [address] Care Team Providers Care Director Hr Communications Name Role Phone No Primary/Referring, Phy Primary Care Provider Unavailable Encounter Details Date Type Department Care Team (Late st Contact Info) Description 03/25/2016 Scanned History External to Transferred Record, Provider [facility] Social History Tobacco [...] filedocumented in this encounter Care Teams Director Hr Communications Relationship Specialty Start Date End Date No Primary/Referring, Juan PCP - General 10/10/17 documented as of this encounter
--- OUTSIDE RECORDS SUMMARY | 2023-10-31 14:53 | XMS_ITS | Encounter Summary ---
Author Organization [facility] Address [address] [place] [address] [address] Team Prov[address] Care [address] Project Manager Name Role Phone Elsewhere, Pcp Primary Care Provider Unavailabl e Encounter Details Date Type Department Care Team (Late st Contact Info) Description 09/06/2023 9:25 AM CDT Ancillary Procedure Department of Gastroenterology, [place] Social History Tobacco Use Types Packs/Day Years [...] week 05/20/2021 How often do you attend [facility] or latter-day services? More than 4 times [...] and heating? Not hard at all 03/06/2023 [facility] - Occupational [...] Associated Diagnosis Comments GASTROENTEROLOGY IMAGE EXAM Routine 09/06/2023 9:25 AM [facility] documented in this encounter Results * Duodenum, Duodenal bulb Upper GI endoscopy-Gastroenterology Image Exam (09/06/2023 9:25 AM [facility]) 09/06/2023 9:25 AM [facility] Narrative IIMS - 09/06/2023 12:20 PM [facility] This order has been created and [...] Total Score: 0 05/18/19 18 11:56 AM PHOTOGRAPHIC LABORATORY SUPERVISOR documented as of this encounter Care Teams Rd Project Manager Relationship Specialty Start Date End Date Elsewhere, Pcp PCP - General Internal Medicine 03/24/23 documented as of this encounter
--- OUTSIDE RECORDS SUMMARY | 2023-10-31 14:53 | XMS_ITS | Encounter Summary ---
Author Organization [facility] Address [address] [place] [address] Care Team Providers Care Sports Attorney Name Role Phone Elsewhere, Pcp Primary Care Provider Unavailabl e Reason for Referral * Outpatient (Routine) - Authorized Specialty Diagnoses / Procedures Referred By Jade simmons Referred To Contact Diagnoses Achalasia Procedures EGD (EsophagoGastroDuodenoscopy) Restricted Guicho Castrejon M.D. [address] [place] [address] [facility] Referral ID Status Reason Start Date Expiration Date V isits Requested Visits Authorized [id number] Authorized 09/08/2023 09/07/2024 1 1 * Outpatient (Routine) - Authorized Specialty Diagnoses / Procedures Referred By Contac troy Referred To Contact Diagnoses Achalasia Procedures FL Esophagram Single Contrast Guicho Castrejon M.D. [address] [place] [address] [facility] Referral ID Status Reason Start Date Expiration Date V isits Requested Visits Authorized [id number] Authorized 09/08/2023 09/07/2024 1 1 [facility] Reason for Visit * Outpatient (Routine) - Closed Specialty Diagnoses / Procedures Referred By Contact Referred To Contact Gastroenterology and Hepatology Diagnoses Achalasia Dysphagia Dysphagia Oropharyngeal Phase Stricture Esophagus Guicho Castrejon [place].D. [address] [place] [address] Guicho Castrejon M.D. [address] [place] [address] Referral ID Status Reason Start Date Expiration Date Visits Re quested Visits Authorized [id number] Closed 09/04/2023 03/05/2025 1 1 Encounter Details Date Type Department Care Team (Latest Contact Info) Description 09/08/2023 4:30 PM CDT Telemedicine Division of Gastroenterology and Hepatology in [place], [place] [address] [place] [address] Guicho Castrejon M.D. [address] [place] [address] Achalasia; Dysphagia; Dysphagia Oropharyngeal Phase; Stricture Esophagus Social History Tobacco Use Types Packs/Day Years [...] any clubs o r organizations such as roman catholic groups, unions, fraternal or athletic groups, or [...] hard at all 03/06/2023 [facility] - [facility]ational Stress Questionnaire Answer Date [...] as of this encounter Progress Notes * Guicho Castrejon M.D. - 09/08/2023 4:30 PM MST Consult conducted via real-time audio/video technology by [facility] This visit was set up as a follow-up of poem procedure. He had a diagnosis of achalasia type 2 with IRP 28.9 mm Hg. He had residual symptoms despite Botox injection with ongoing weight loss. Pre poem Eckardt score was 11 He underwent poem procedure with anterior short myotomy (5 cm esophageal and 2 cm in the cardia, total of 7 cm length) on 06/07/2023. He did well subsequently. His symptoms resolved. He is eating well and staying physically active inhis daily life. He walks several miles daily and plays golf to 3 times a week. He has no dysphagia except when he eats too fast. When he eats slow and chew well, everything goes down smoothly. No regurgitation no chest pain. He gained weight after poem procedure. He has been taking Pepcid twice daily, which was stopped 4 days ago prior to Rick testing. Eckardt score 1: Dysphagia 1, Regurgitation 0, Chest pain 0, Weight loss 0 Surveillance tests are as follows. EGD/endo flip/Rick on 09/06/2023 No esophagitis. Z-line was at 43 cm. No hiatal hernia normal stomach. Duodenitis noted. Biopsy showed mild chronic gastritis - HP infection test pending. Endo flip value 5.1 at 60 cc Rick results pending Esophagram on 08/29/2023 IMPRESSION: 1. Changes from POEM procedure. Time to barium swallow demonstrates some retained contents in the esophagus which does decrease over 5 minutes. Barium column was seen as 11 cm at 5 minutes - but LES appeared to open up. Preserved the angle of his. Small diverticular outpouching seen to the left side of the esophageal wall just above LES. High-resolution manometry on 08/18/2023 Interpretation / Findings Distal segmental pressurization with intermittent incomplete LES relaxation, borderline normal IRP EGJ/LES: - Resting LES pressure: Normal -LES relaxation: Overall normal IRP, but relaxation was often incomplete. IRP was 14.5 mm Hg - Esophagogastric junction anatomy: Normal Esophageal body: -Contraction pattern: Abnormal - Distal segmental pressurization with absent proximal contraction - Contraction vigor: Abnormal - 40% Failed; 40% Fragmented Bolus transit: -Incomplete on 80% of wet swallows Multiple Rapid Swallows procedure: -Inhibition of peristalsis: Incomplete -Post MRS contraction: Absent UES: -Resting UES tone: Normal -UES relaxation: Normal Impression #1 Achalasia type 2 status post short anterior myotomy/poem in May 2023 Doing well with improved Eckardt score to 1 from 11 and normalize IRP by manometry to 14.5 mm Hg from 28.9 mm Hg Rick test result is pending of Pepcid. Esophagram showed small outpouching at distal esophagus above LES, which is a concerning finding. Retained barium is also somewhat concerning. However, clinically he is doing fantastic. #2 No evidence of esophagitis on Pepcid, Rick test off Pepcid is pending #3 Duodenal erosions/duodenitis off Pepcid I advised him to eat slow with small bites each time. He needs to monitor symptoms and let me know if dysphagia reoccurs. At that time we would need to do barium study to check on the diverticular change. He will restart Pepcid for 2-4 weeks and choose to stop if he is doing well. Of course, if Rick study showed significantly abnormal values, I would advise him to stay on Pepcid. Plan We will repeat test with barium study and EGD in 1 year. Patient will notify me if symptom reoccurs. I personally spent a total of 15 minutes in care of the patient today. Time includes both kgc-[id number]-face and iruc-in-ykap patient care as described above. documented in this encounter Plan of Treatment Scheduled Orders Name Type Priority Associated Diagnoses Orde r Schedule FL Esophagram Single Contrast Imaging RAD - Routine (most inpatients and all outpatients) Achalasia Expected: 05/29/2024, Expires: 09/07/2024 EGD (EsophagoGastroDuode noscopy) Restricted GI Routine Achalasia Expected: 05/30/2024, Expires: 12/07/2024 documented as of this encounter Visit Diagnoses Diagnosis Achalasia Dysphagia Dysphagia Oropharyngeal Phase Stricture Esophagus documented in this encounter Additional Health Concerns Assessment Noted Time PHQ-9 Depression Total Score: 0 05/18/19 18 11:56 AM GEOGRAPHIC INFORMATION SYSTEMS ANALYST documented as of this encounter Care Teams Sports Attorney Relationship Specialty Start Date End Date Elsewhere, Pcp PCP - General Internal Medicine 03/24/23 documented as of this encounter
--- OUTSIDE RECORDS SUMMARY | 2023-10-31 14:53 | XMS_ITS | Encounter Summary ---
Author Organization [facility] Address [address] [place] [address] Care Team Providers Care Vendor Quality Supervisor Name Role Phone Elsewhere, Pcp Primary Care Provider Unavailabl e Reason for Visit * Outpatient (Routine) - Closed Specialty Diagnoses / Procedures Referred By Jade simmons Referred To Contact Diagnoses Achalasia Dysphagia Procedures Esophageal Manometry Guicho Castrejon M.D. [address] [place] [address] [facility] Referral ID Status Reason Start Date Expiration Date Visits Re quested Visits Authorized [id number] Closed 06/07/2023 06/06/2024 1 1 Encounter Details Date Type Department Care Team (Late st Contact Info) Description 08/18/2023 7:30 AM CDT Procedure visit Division of Gastroenterology and Hepatology Motility Laboratory in [place], [place] [address] [place] [address] Guicho Castrejon M.D. [address] [place] [address] Conrad Magana, Ph.D. Achalasia; Dysphagia Social History Tobacco Use Types Packs/Day Years [...] any clubs o r organizations such as presybeterian groups, unions, fraternal or athletic groups, or [...] and heating? Not hard at all 03/06/2023 [facility] [place] of Occupat ional Health - Occupational Stress [...] your living situation today? I have a [facility] place to live 03/06/2023 Education Answer [...] AM CDT documented as of this encounter Procedure Notes * Conrad Magana, Ph.D. - 08/18/2023 7:30 AM MSTAssociated Order(s): Esophageal Manometry Pre-Procedure Diagnose(s): Achalasia; Dysphagia Post-Procedure Diagnose(s): Achalasia; Dysphagia Images from the original note were not included. Esophageal Manometry Performed by: Conrad Magana, Ph.D. Authorized by: Guicho Castrejon M.D. Patient: Nash Segovia [id number] Gender: Male Physician: Conrad Magana Ph.D. / Age: 03 1955 Rn Prior Authorization: Jossie Costa LPN Height: Referring Physician: Guicho Castrejon M.D. Procedure: Esophageal HRM Examination Date: 08/18/2023 Indications Status post POEM for Achalasia type II Interpretation / Findings Distal segmental pressurization with intermittent incomplete LES relaxation, borderline normal IRP EGJ/LES: - Resting LES pressure: Normal - LES relaxation: Overall normal IRP, but relaxation was often incomplete - Esophagogastric junction anatomy: Normal Esophageal body: - Contraction pattern: Abnormal - Distal segmental pressurization with absent proximal contraction - Contraction vigor: Abnormal - 40% Failed; 40% Fragmented Bolus transit: - Incomplete on 80% of wet swallows Multiple Rapid Swallows procedure: - Inhibition of peristalsis: Incomplete - Post MRS contraction: Absent UES: - Resting UES tone: Normal - UES relaxation: Normal Procedure High resolution, solid-state manometry with stationary impedance < 1 hr duration was completed using 36 circumferential sensors spaced at 1cm intervals and 18 impedance channels (O.D. 4.2mm; nanoRETE, Health: [place]). Prior to the study, the transducers were calibrated at 0 and 300 mmHg using externally applied pressure. After confirmation of potential allergies, a topical analgesic was used to numb the nares followed by trans-nasal insertion of a High Resolution Manometry Catheter. Pressure bands of both UES and LES were observed on the color contour. Patient instructed to take deep breath to verify placement of catheter; diaphragmatic pinch noted on inspiration. Patient was assisted to supine or semi-recumbent position and catheter was stabilized by taping at the nares. Patient was encouraged to relax while acclimating to catheter for approximately 5 minutes. A 30 second baseline pressure was obtained to identify the UES and LES followed by a series of swallows using 5cc room temperature normal saline or viscous saline to assess esophageal motility and bolustransit. Finally, a Rapid Multiple Swallow procedure was completed using five 2ml liquid swallows in rapid succession. At the conclusion of the procedure the catheter was removed. Swallow Composite (mean of 10 swallows) Resting Pressure Profile & Anatomy Basal Pressures* LES, respiratory min(mmHg) 18.6 (4.8-32.0) LES, respiratory mean(mmHg) 21.0 (13-43) UES mean(mmHg) 25.9 (34-104) Anatomy* LES proximal(cm) 49.9 LES length(cm) 2.6 (2.7-4.8) Motility* Distal contr. integral(mmHg-cm-s) 731.3 (500-5000) Number of hypercontractile swallows 0 Incomplete bolus clearance(%) 80 Residual Pressures* LES (median)(mmHg) 14.5 (<15.0) UES (mean)(mmHg) 0.6 (<12.0) Lower Esophageal Sphincter Region Normal Esophageal Motility Normal Landmarks Number of swallows evaluated 10 Proximal LES (from nares)(cm) 49.9 Alpine Classification LES length(cm) 2.6 2.7-4.8 % failed 40 LES Pressures % weak 10 Pressure andra. method eSleeve,IRP % ineffective 50 Basal (respiratory min.)(mmHg) 18.6 4.8-32.0 % panesophageal pressurization 40 Basal (respiratory mean)(mmHg) 21.0 13-43 % premature contraction 10 Residual (median)(mmHg) 14.5 <15.0 % fragmented 40 % intact 10 Number of hypercontractile swallows 0 Additional High Resolution Parameters Distal latency 5.1 Distal contractile integral(mean)(mmHg-cm-s) 731.3 500-5000 Impedance analysis Incomplete bolus clearance(%) 80 Upper Esophageal Sphincter Normal Pharyngeal / UES Motility Normal Mean basal pressure(mmHg) 25.9 34-104 No. swallows evaluated 10 Mean residual pressure(mmHg) 0.6 <12.0 Evaluated @ 2.0 & N/A above UES Mean peak pressure(mmHg) 12.4 Associated attestation - Nolberto Silveira M.D. - 08/22/2023 9:46 AM CDT I have reviewed, revised where necessary, and approve the final procedure report note. documented in this encounter Plan of Treatment Not on file documented as of this encounter Procedures Procedure Name Priority Date/Time Associated Diagnosis Comments CO ESOPH IMPED FUNCTION TEST Routine 08/18/2023 7:30 AM [facility] Achalasia Dysphagia CO HIGH RESOLUTION ESOPHAGEAL MANOMETRY Routine 08/18/2023 7:30 AM [facility] Achalasia Dysphagia documented in this encounter Results * CO HIGH RESOLUTION ESOPHAGEAL MANOMETRY, CO ESOPH IMPED FUNCTION TEST (08/18/2023 7:30 AM [facility]) Narrative MMODAL - 08/18/2023 7:30 AM [facility] Nolberto Silveira M.D. ? 08/22/2023 ??7:46 AM Esophageal Manometry Performed by: Conrad Magana, Ph.D. Authorized by: Guicho Castrejon M.D. ?? Guicho Castrejon M.D. 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
--- OUTSIDE RECORDS SUMMARY | 2023-10-31 14:53 | XMS_ITS | Encounter Summary ---
Author Organization [facility] Address [address] [place] [address] Care Team Providers Care Piece Dyeing Machine Tender Name Role Phone Elsewhere, Pcp Primary Care Provider Unavailabl e Reason for Visit * Outpatient (Routine) - Closed Specialty Diagnoses / Procedures Referred By Jade simmons Referred To Contact Diagnoses Achalasia Dysphagia Procedures Guicho Lopez M.D. [address] [place] [address] [facility] Referral ID Status Reason Start Date Expiration Date Visits Re quested Visits Authorized [id number] Closed 06/07/2023 06/06/2024 1 1 Encounter Details Date Type Department Care Team (Late st Contact Info) Description 09/08/2023 11:00 AM CDT Procedure visit Division of Gastroenterology and Hepatology Motility Laboratory in [place], [place] [address] [place] [address] Guicho Castrejon M.D. [address] [place] [address] Conrad Magana, Ph.D. Achalasia; Dysphagia [...] How often do you attend chur or scientology services? More than 4 times per year 05/20/2021 Do you belong to any clubs o r organizations such as orthodox groups, unions, fraternal or athletic groups, or [...] and heating? Not hard at all 03/06/2023 [facility] [place] of Occupat ional Health - Occupational Stress [...] your living situation today? I have a [facility] place to live 03/06/2023 Education Answer [...] Procedure Notes * Conrad Magana, Ph.D. - 09/08/2023 11:00 AM MSTAssociated Order(s): Berrios Pre-Procedure Diagnose(s): Achalasia; Dysphagia Post-Procedure Diagnose(s): Achalasia; Dysphagia Berrios Performed by: Conrad Magana, Ph.D. Authorized by: Guicho Castrejon M.D. PATIENT NAME (MC#) DIMAS ABDI ([id number]) CHIEF COMPLAINT/PURPOSE OF VISIT REFERRED BY: NIELS FREEDMAN MD PROCEDURE: BERRIOS ESOPHAGEAL pH-METRY DATE OF SERVICE: 09/08/2023 PERFORMED BY: PHU INDICATION: ACHALASIA; DYSPHAGIA PRIMARY COMPLAINTS: Chest Pain; Regurgitation; Belching GENDER: Male AGE: 68 Yrs HEIGHT: 184.9 cm WEIGHT: 90.3 Kg LES LOCATION (cm): 43 cm INTERPRETABLE TIME: 38 Hours PLACEMENT METHOD: Sedated with EGD ACID SUPPRESSION MEDS: Off Acid Suppression IMPRESSION/REPORT/PLAN: BERRIOS AMBULATORY ESOPHAGEAL pH-METRY (Final Report) TOTAL ACID EXPOSURE: Normal TOTAL UPRIGHT ACID EXPOSURE: Normal TOTAL SUPINE ACID EXPOSURE: Normal SYMPTOM ASSOCIATION: No association IMPRESSION: The ambulatory Berrios 48-hour pH-metry was completed without complication. The pH capsule was placedorally and located approximately 5-6cm above the upper border of the lower esophageal sphincter. Normal acid exposure was noted in the lower esophageal body during the upright recording on Day 1 and Day 2. No significant acid reflux was noted during the supine recording periods. The overall DeMeester Score was normal. The Symptom Association Index was not significant for any symptoms, but few symptoms were reported. PATIENT NAME (MC#) DIMAS ABDI ([id number]) FINDINGS: BERRIOS AMBULATORY ESOPHAGEAL pH-METRY DAY 1 ESOPHAGEAL ACID EXPOSURE PATIENT VALUES NORMAL VALUES TOTAL ACID EXPOSURE (%): 1 (< 6.00 %) UPRIGHT ACID EXPOSURE (%): 1.7 (< 6.90%) SUPINE ACID EXPOSURE (%): 0 (< 6.70%) TOTAL NUMBER OF REFLUX EVENTS: 12 (< 47.0) NUMBER OF EPISODES > 5 MINS: 0 (< 3.5) LONGEST EPISODE (MINS): 4.3 (< 19.8) DEMEESTER SCORE: 3.3 (< 14.72%) DAY 2 ESOPHAGEAL ACID EXPOSURE PATIENT VALUES NORMAL VALUES TOTAL ACID EXPOSURE (%): 2.7 (< 6.00 %) UPRIGHT ACID EXPOSURE (%): 5.4 (< 6.90%) SUPINE ACID EXPOSURE (%): 0 (< 6.70%) TOTAL NUMBER OF REFLUX EVENTS: 17 (< 47.0) NUMBER OF EPISODES > 5 MINS: 1 (< 3.5) LONGEST EPISODE (MINS): 8.1 (< 19.8) DEMEESTER SCORE: 8.6 (< 14.72%) TOTAL ESOPHAGEAL ACID EXPOSURE PATIENT VALUES NORMAL VALUES TOTAL ACID EXPOSURE (%): 1.7 (< 6.00 %) UPRIGHT ACID EXPOSURE (%): 3.2 (< 6.90%) SUPINE ACID EXPOSURE (%): 0 (< 6.70%) TOTAL NUMBER OF REFLUX EVENTS: 29 (< 47.0) NUMBER OF EPISODES > 5 MINS: 1 (< 3.5) LONGEST EPISODE (MINS): 8 (< 19.8) DEMEESTER SCORE: 5.9 (< 14.72%) PATIENT NAME (MC#) DIMAS ABDI ([id number]) SYMPTOM FREQUENCY Chest Pain 2 Regurgitation 1 Belching 3 SYMPTOM INDEX Chest Pain 0 % Regurgitation 0 % Belching 0 % The SI was calculated according to Keaton et al. as the percentage of symptoms that was reflux related. The Symptom Index (SI). This means that > 50% of the symptoms were associated with reflux events. Chance associations are more common using the SI. (The Symptom Index: a clinically important parameter of ambulatory 24-hour esophageal pH monitoring. FREYA Moran JB Copper et al., Am J Gastro 1988; 83: 358- 361.)monitoring. GJ FREYA Pugh JB Copper et al., Am J Gastro 1988; 83: 358-361.) Associated attestation - Nolberto Silveira M.D. - 09/11/2023 10:30 AM CDT I have reviewed, revised where necessary, and approve the final procedure report note. documented in this encounter Plan of Treatment Not on file documented as of this encounter Procedures Procedure Name Priority Date/Time Associated Diagnosis Comments PA ESOPH CAPSULE PH MONITOR STUDY Routine 09/08/2023 11:00 AM [facility] Achalasia Dysphagia documented in this encounter Results * PA ESOPH CAPSULE PH MONITOR STUDY (09/08/2023 11:00 AM [facility]) Narrative GARCIA PROVATION - 09/08/2023 11:00 AM Conrad Bonner, Ph.D. ? 09/11/2023 ??8:28 AM [facility]rios Performed by: Conrad Magana, Ph.D. Authorized by: Guicho Castrejon M.D. ?? Guicho Castrejon M.D. 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
--- OUTSIDE RECORDS SUMMARY | 2023-10-31 14:53 | XMS_ITS | Clinical Summary ---
Author Organization [facility] Address [address] [address] Care Team Providers Care Blower Insulator Name Role Phone No Primary/Referring, Phy Primary Care Provider Unavailable Source Comments You are receiving this document as you are listed as the primary care provider,follow-up provider, or the patient has been referred to you for consultation.This is in compliance with the Medicare and[facility] EHR Incentive Program,which states Providers who transition their patient to another setting of careor provider of care or refers their patient to another provider of care shouldprovide summary care record for each transition of care or referral. [facility] Allergies Active Allergy Reactions Criticality Noted Date Comments Amoxicillin Rash 01/10/2017 Penicillins Rash 01/10/2017 Sulfa Antibiotics Rash 01/10/2017 Medications Medication Sig Dispensed Refills Start Date End Date Status lisinopril (ZESTRIL) 5 MG tablet Take 5 mg by mouth daily. Active simvastatin (ZOCOR) 5 MG tablet Take 5 mg by mouth daily at bedtime. Active omega-3 fatty acids (MAXEPA,FISHOIL) 1000 MG capsule Take 2 g by mouth daily. Active raNITIdine (ZANTAC) 150 MG tablet Take 1 Tab by mouth. 04/14/2017 Active Social History Tobacco Use Types [...] (Preventive Services) 1955 PSA Screening Discussion 1955 Adult Preventive Visit 08/09/1975 Cholesterol 1992 Pneumococcal 65+ Yrs (1 - PCV) 2022 COVID-19 Vaccine (3 - season) 2023 08/12/2020, 07/22/2020 Influenza (Season Ended) 01/14/202403/28/ 020, 04/29/2019, 04/18/2018, Additional history exists DTaP/Tdap/Td (2 - [...] age to complete this topic Care Teams Blower Insulator Relationship Specialty Start Date End Date No Primary/Referring, Phy PCP - General 10/10/17
== END 2023-10-12 07:16 | disposition home or self-care (01) ==
LOC: NFLDREF 10-31 14:50
PROVIDERS: PCP Family Medicine; Referring Provider Family Medicine; Visit Provider Internal Medicine Nephrology
DX: N18.9 Chronic kidney disease, unspecified (principal); N02.8 Recurrent and persistent hematuria with other morphologic changes; I10 Essential (primary) hypertension; R53.83 Other fatigue; N52.9 Male erectile dysfunction, unspecified; Z12.5 Encounter for screening for malignant neoplasm of prostate
CPT/HCPCS: 80061; 80069; 82043; 82570; 82728; 83540; 83550; 83970; 84450; 84460; 84550; 86140; G0103

== ENCOUNTER 2025-01-15 07:08 | Outpatient (CLI) | payer MEDICARE, BC, SELFPAY | END 2025-01-15 07:09 | disposition home or self-care (01) | LOC: NFLDREF 01-16 07:10 | PROVIDERS: Visit Provider Internal Medicine Nephrology | DX: N18.9 Chronic kidney disease, unspecified (principal); I12.9 Hypertensive chronic kidney disease with stage 1 through stage 4 chronic kidney disease, or unspecified chronic kidney disease; M10.9 Gout, unspecified; E03.9 Hypothyroidism, unspecified; Z12.5 Encounter for screening for malignant neoplasm of prostate; R53.83 Other fatigue | CPT/HCPCS: 80069; 82043; 82570; 83970; 84550; 86140; G0103 ==